=== PATIENT | female | born 1955 | race Caucasian/White ===

== ENCOUNTER → 2018-07-01 09:35 | Outpatient (CLI) | payer OTHER, SELFPAY ==
--- NOTE | 2018-07-01 09:37 | BI_ITS ---
MAMMOGRAPHY - BILATERAL SCREENING REASON FOR EXAM: Female, 62 years old. Routine annual screening examination. PERTINENT HISTORY: Non-contributory. Remote right excisional breast biopsy. TECHNIQUE: Digital bilateral breast shira (3D mammographic acquisition) in the CC and MLO projections. 2-D mediolateral oblique (MLO) and craniocaudad (CC) views of both breasts were obtained. CAD: Full Field Digital Mammography with Computer Added Detection was performed. COMPARISON: Comparison is made with prior study dated December 01, 2016 and November 27, 2015. FINDINGS: Breast Composition: The breasts are heterogeneously dense, which may obscure small masses. There are no dominant masses or suspicious calcifications. Stable small bilateral axillary lymph nodes. No other significant abnormalities are identified. There has been no significant change since the prior study. BI/SCREENING MAMM (CAD), BILAT IMPRESSION: Stable bilateral screening mammogram. Yearly follow-up mammogram recommended. (A) ASSESSMENT CATEGORY: BIRADS Category 2: Benign. A letter regarding these results will be sent to the patient by the facility within 30 days. Approximately 10% of breast cancers are not detected by mammography. A normal mammogram should not delay biopsy of a clinically suspicious abnormality. [id number] Electronically Signed: Darrell Rios MD at 9:33 EST Tel [phone], Service support ,
== END ==
PROVIDERS: Family Provider Internal Medicine; PCP Internal Medicine; Visit Provider Internal Medicine
DX: Z12.31 Encounter for screening mammogram for malignant neoplasm of breast (principal)
CPT/HCPCS: 77063; 77067

== ENCOUNTER → 2018-07-26 08:22 | Outpatient (CLI) | payer OTHER, SELFPAY ==
[2018-07-26 09:26] LABS: Absolute Lymphocyte Count 1.44 X10^3/ul (0.83-4.51); Absolute Neutrophil Count 1.7 X10^3/uL (2.0-7.7); Basophil# 0.01 X10^3/uL; Basophil% 0.3 % (0-1); Eosinophil# 0.06 X10^3/uL; Eosinophils% 1.7 % (0-5); Hematocrit 41.7 % (37-47); Hemoglobin 14.1 g/dl (12.0-15.0); Lymphocyte # 1.44 X10^3/ul (4.0); Lymphocyte % 40.6 % (19-41); Mean Corp Hgb Conc 33.8 g/gl (32-36); Mean Corpuscular Hgb 31.8 pg (27.0-32.0); Mean Corpuscular Volume 93.9 fL (81-99); Mean Platelet Vol. 10.3 fl (6.2-12.0); Monocyte# 0.34 X10^3/uL; Monocyte% 9.6 % (0-10); Neutrophil % 47.8 % (47-70); Platelet Count 199 K/mm3 (150-450); RBC Distribution Width CV 12.2 % (11.6-14.6); RBC Distribution Width SD 41.4 fl (35.1-43.9); Red Blood Count 4.44 M/mm3 (4.2-5.4); White Blood Count 3.6 K/mm3 (4.4-11.0)
[2018-07-26 09:28] LABS: POSITIVE COUNT NO; POSITIVE DIFFERENTIAL NO; POSITIVE MORPHOLOGY NO
[2018-07-26 10:09] LABS: ALB/GLOB Ratio 1.1 RATIO (0.9-2.4); AST(SGOT) 21 U/L (15-37); Alanine Aminotransfer ALT/SGPT 28 U/L (13-56); Alkaline Phosphatase 74 U/L (45-117); Anion Gap 8 (5-15); BUN 12 mg/dL (7-18); BUN/Creat Ratio 20.2 RATIO (10-20); Calcium,Total 8.9 mg/dL (8.5-10.1); Chloride 108 mmol/L (98-107); Cholesterol 194 mg/dL (200); Creatinine, Serum 0.59 mg/dL (0.55-1.02); EST Glomerular Filtration Rate 110 mL/min (>60); Est Glom Filt Rate - Afr Amer 133 mL/min (>60); Globulin 3.5 g/dL (2.2-4.2); Glucose 82 mg/dL (74-106); High Density Lipoprotein 71 mg/dL; Potassium 4.3 mmol/L (3.5-5.1); Protein, Total 7.5 g/dL (6.4-8.2); Sodium Level 143 mmol/L (136-145); Thyroid Stim Hormone (TSH) 2.14 uIU/mL (0.358-3.74); Triglycerides 124 mg/dL; Very Low Density Lipoprotein 25 mg/dL (5-40)
[2018-07-26 11:07] LABS: Color, Urine Yellow (Yellow); Glucose, Dipstick Normal (Normal); Ketone-Dipstick Negative (Negative); Leukocyte Esterase-Dipstick 100 /ul (Negative); Nitrite-Dipstick Negative (Negative); Occult Blood-Urine Negative /ul (Negative); Protein-Dipstick Negative (Negative); Urine Bilirubin Dipstick Negative (Negative); Urine Clarity Sl. Cloudy (Clear); Urine Urobilinogen 1 mg/dl (Normal)
[2018-07-26 11:27] LABS: Microalbumin,Random Urine 17.7 mg/L (NO RANGE EST.); Microalbumin:Creatinine Ratio 10.2 mg/g CRE (<30 mg/g CRE)
--- OUTSIDE RECORDS SUMMARY | 2018-09-11 06:21 | XMS RPT_ITS | Continuity of Care Document ---
:1955 Author Organization [facility] Address [facility] 2 [place] [address] Phone Care Team Providers Name Role Phone Chanda Ferguson DO Unavailable Hernandez Xiong Unavailable Unavailable Celia Edwards Unavailable Unavailable Lillian Hurt Unavailable Unavailable Trinh Balderas Unavailable Unavailable Unavailable Unavailable Problems Name Dates Details Annual physical exam (Z00.00, V70.0) Status: Active Benign essential hypertension (I10, 401.1) Status: Active BMI 27.0-27.9,adult (Z68.27, V85.23) Status: Active BMI 27.0-27.9,adult (Z68.27, V85.23) Comments: 27.42 Status: Active BMI 27.0-27.9,adult (Z68.27, V85.23) Status: Active Colonoscopy Comments: 06-18-09 Status: Active Common cold virus (J00, 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 Current nonsmoker (Z78.9, V49.89) Status: Active Encounter for screening mammogram for breast cancer (Renamed from Encounter for screening mammogram for malignant neoplasm of breast) (Z12.31, V76.12) Status: Active Family history of Guillain-[place] syndrome (Z82.0, V17.2) Comments: virus in general Status: Active FIBROADENOMA, NOS Status: Active Gastroesophageal reflux disease without esophagitis (K21.9, 530.81) Status: Active Headache (R51, 784.0) Status: Active Influenza vaccination declined (Renamed from Refused influenza vaccine) (Z28.21, V64.06) Status: Active Need for prophylactic vaccination and inoculation against influenza (Z23, V04.81) Status: Active Nonsmoker (Z78.9, V49.89) Status: Active Osteopenia (M85.80, 733.90) Status: Active Other hyperlipidemia (E78.49, 272.4) Status: Active Other migraine without status migrainosus, intractable (G43.819, 346.81) Comments: chronic stable-continue present regimen Status: Active Postmenopausal (Renamed from Postmenopausal status) (Z78.0, V49.81) Status: Active Pregnancies () Comments: 1 son Status: Active screening Status: Active Screening for malignant neoplasm of breast (Z12.39, V76.10) Status: Active Screening for malignant neoplasm of breast (Z12.39, V76.10) Status: Active Sinus pain (J34.89, 478.19) Status: Active Sinusitis, bacterial (J32.9, 473.9) Status: Active Sore throat (J02.9, 462) Status: Active Synovial cyst (M71.30, 727.40) Comments: monitor for pain or change Status: Active Vitamin D deficiency, unspecified (E55.9, 268.9) Status: Active Medications Name Dates Details ADVIL, 200MG (Oral Tablet) PRN for 0 days Refills: 0 Ordered:23-Apr-2009 Choco Og CALCIUM, 500MG (Oral Tablet) 1 tab qd (500 MG) Active OSTEO BI-FLEX ADV JOINT SHIELD (Oral Tablet) 2 tabs qd Active Simvastatin 10 MG Oral Tablet 1 (one) Tablet q hs for 90 days Quantity: 90 {Tablet} Refills: 2 Ordered:16-Jul-2017 Rohan Ferguson DO, DO, Kathleen Start : 16-Jul-2017 Active Tart Vazquez Advanced Oral Capsule daily Active VITAMIN D3, 2000UNIT (Oral Capsule) 1 cap qd (2000 UNIT) Active VITAMIN E, 400UNIT (Oral Capsule) 1 cap qd (400 UNIT) Active Amoxicillin-Pot Clavulanate 875-125 MG Oral Tablet 1 (one) Tablet PO BID for 14 days Quantity: 28 {Tablet} Refills: 0 Ordered:09-Nov-2017 Trinh Balderas Start : 09-Nov-2017 End : 23-Nov-2017 Inactive Comments:Take with food Delsym 30 MG/5ML Oral Suspension Extended Release 1 (one) Suspension ER q12h for 0 days Quantity: 1 {Bottle} Refills: 0 Ordered:26-Aug-2016 Celia Edwards Start : 10-Jun-2016 End : 26-Aug-2016 Inactive ZITHROMAX Z-KAYLA, 250MG (Oral Tablet) 1 Tablet TAD for 0 days Quantity: 1 {Package(s)} Refills: 0 Ordered:18-Jul-2008 Garrett GUTIERREZDaisy Start : 18-Jul-2008 End : 09-Oct-2008 Inactive ACTONEL, 35MG (Oral Tablet) 1 Tablet q week for 0 days Quantity: 4 {Tablet} Refills: 3 Ordered:22-Oct-2009 Garrett GUTIERREZDaisy Start : 22-Oct-2009 End : 22-Oct-2009 Discontinued BONIVA, 150MG (Oral Tablet) 1 (one) Tablet q month for 90 days Quantity: 3 {Tablet} Refills: 3 Ordered:25-Nov-2010 Garrett GUTIERREZDaisy Start : 25-Nov-2010 End : 25-Nov-2010 Discontinued DIOVAN, 40MG (Oral Tablet) 1 (one) Tablet daily for 0 days Quantity: 30 {Tablet} Refills: 3 Ordered:21-Aug-2008 Garrett GUTIERREZDaisy Start : 21-Aug-2008 End : 21-Aug-2008 Discontinued FLAXSEED OIL, 1000MG (Oral Capsule) 1 cap qd (1000 MG) End : 04-Dec-2015 Discontinued MULTIVITAMIN (PO Tab) 1 tab qd End : 04-Dec-2015 Discontinued Allergies and Adverse Reactions Name Dates Details No Known Allergies (Allergy) Onset: 26-Aug-2016 Status: Active No Known Drug Allergies (Allergy) Status: Active Past Medical History Name Dates Details abnormal rib xray Status: Resolved as of 23-Apr-2009 Acute sinusitis, unspecified (J01.90, 461.9) Status: Resolved as of 23-Apr-2009 BMI 26.0-26.9,adult (Z68.26, V85.22) Status: Inactive as of 21-Apr-2017 Elevated blood-pressure reading without diagnosis of hypertension (R03.0, 796.2) Status: Inactive as of 23-Apr-2009 EPICONDYLITIS, NOS (726.32) Status: Resolved as of 25-May-2011 Headache (R51, 784.0) Comments: left eye Status: Resolved as of 23-Apr-2009 Knee Pain (Renamed from Gonalgia) (M25.569, 719.46) Comments: doing better Status: Inactive as of 21-Apr-2017 screening Status: Inactive as of 20-May-2010 Screening for HPV (human papillomavirus) (Z11.51, V73.81) Status: Inactive as of 04-Dec-2015 Tonsil stone (J35.8, 474.8) Status: Inactive as of 21-Apr-2017 vit d deficiency Status: Inactive as of 23-Apr-2009 Well woman exam with routine gynecological exam (Z01.419, V72.31) Status: Inactive as of 04-Apr-2013 Procedures Date Value Details 14-Apr-2017 Dexa Bone Density Study (HP) Result: Comments: See Note; NOTES: [facility] Imaging Services [address] [place] [address] Dexa Bone Density Study (HP) MR#: [id number] Acct: [id number] Name: ANTALI QUINONES Rep #: [id number] : 1955 F 61 From: Darrell Rios MD PCP: Chanda Ferguson DO Status: REG CLI Study: Dexa Bone Density Study (HP) Date of Exam: 04/14/17 Exam# [id number] Ordering Dr: Estrada Ferguson DO STUDY: DUAL ENERGY X-RAY ABSORPTIOMETRY / DXA REASON FOR EXAM: Female, 61 years old. The patient is postmenopausal. TECHNIQUE: Bone Mineral Density (BMD) measurements of lumbar spine and bila teral hips were obtained. COMPARISON: Comparison is made with prior study dated April 03, 2015. FINDINGS: Lumbar Spine (L1-L4): g/cm2 (1.023) / T-score (-1.3) / Z -score (-0.1) Findings are suggestive of osteopenia with a moderate fracture risk. Increased thoracic kyphosis. Left Femur Total: g/cm2 (0.881) / T-score (-1.0) / Z-score (-0.1) Left Femoral Neck: g/cm 2 (0.856) / T-score (-1.3) / Z-score (-0.1) Right Femur Total: g/cm2 (0.921) / T-score (-0.7) / Z-score (0.2) Right Femoral Neck: g/cm2 (0.928) / T-score (- 0.8) / Z-score (0.4) The T-Scores on the most recent prior examination were: Lumbar Spine (L1-L4): There has been worsening of bone density since the previous examination. Left Femur Total: which represents a worsening of 4.8%. Right Femur Total : which represents a worsening of 0.1%. HPBD/Dexa Bone Density Study (HP) IMPRESSION: The patient is considered osteopenic as outlined below acco rding to World Chad Organization (WHO) criteria with a moderate fracture risk. There has been worsening of bone density since the previous examination. Reference I nformation: The T-score is the number of standard deviations above or below the standard which is normal for young adults at their peak bone mineral density. The World Health Organization (WHO) interpre ts the T-scores as follows: Above -1 Normal bone density Between -1 and -2.5 Osteopenia Equal to / or below -2.5 Osteoporosis As a practical clinical guideline, osteopenia may be graded as follows: Mi ld -1 through -1.5 Moderate -1.6 through -2.0 Severe -2.1 through -2.4 The Z- score is the number of standard deviations above or below age-matched controls. A Z-score of less than -1.5 would be conside red abnormal. References: 1. NIH Osteoporosis and Related Bone Diseases http://www.osteo.org 2. International Society for Clinical Densitometry http://www.iscd.org 3. National Osteoporosis Foundation h ttp://www.nof.org Electronically Signed: Darrell Rios MD at 8:54 EDT Tel [phone], Service support , CC: Chanda Ferguson DO Vendor Analyst: Signed 01-Dec-2016 SCREENING MAMM (CAD), BILAT Result: Comments: See Note; NOTES: [facility] Imaging Services [address] [place] [address] Verdana 4d SCREENING MAMM (CAD), BILAT MR#: [id number] Acct: [id number] Name: JL QUINONES Rep #: [id number] : 1955 F 61 From: Darrell Rios MD PCP: Chanda Ferguson DO Status: REG CLI Study: SCREENING MAMM (CAD), BILAT Date of Exam: 12/01/16 Exam# [id number] Ordering Dr: Chanda Mclaughlin DO MAMMOGRAPHY - BILATERAL SCREENING REASON FOR EXAM: Female, 61 years old. Routine annual screening examination. PERTINENT HISTORY: Remote right excisional breast biopsy. TECHNIQUE: D igital bilateral breast shira (3D mammographic acquisition) in the CC and MLO projections. 2-D mediolateral oblique (MLO) and craniocaudad (CC) views of both breasts were obtained. CAD: Full Field Digita l Mammography with Computer Added Detection was performed. COMPARISON: Comparison is made with prior study dated November 27, 2015 and November 20, 2014. FINDINGS: Breast Composition: The breasts are heterogeneously dense, which may obscure small masses. There are no dominant masses or suspicious calcifications. No other significant abnormalities are identified. HPBI/SCREENING MAMM (CAD), BILAT IMPRESSION: Stable bilateral screening mammogram. Yearly follow-up mammogram recommended. (A) ASSESSMENT CATEGORY: BIRADS Category 1: Negative. A letter regarding these results will be sent to the patient by the facility within 30 days. Approximately 10% of breast cancers are not detected by mammography. A normal mammogram should not delay biopsy of a clinically suspicious abnormality. [id number] Electronically Signed: Darrell Rios MD at 9:58 EDT Tel [phone], Service support , CC: Chanda Ferguson DO Vendor Analyst: Signed 04-Dec-2015 EKG ([id number]) Comments: ekg showed normal sinus rhythym, normal axis, no acute st/t wave changes Result: [MEASUREMENTS ANALYSIS] Date of Test: 12/04/2015 08:48:08; Heart Rate: 71; KS Interval: 186; QRS: 90; QT Interval: 398; Corrected QT Interval (QTc): 417; P Wave [place]: 37; QRS Wave [place]: -4; T Wave [place]: -1; Blood Pressure: 142/88 [ECG DIAGNOSTIC STATEMENTS] Date of Test: 12/04/2015 08:48:08; Summary: Sinus Rhythm WITHIN NORMAL LIMITS 27-Nov-2015 Bilat Scrn Digital AND CAD Result: Comments: See Note; NOTES: [facility] Imaging Services [address] [place] [address] Verdana 4d Bilat Scrn Digital AND CAD MR#: [id number] Acct: [id number] Name: NATALI QUINONES Rep #: [id number] : 1955 F 60 From: Darrell Rios MD PCP: Daisy Tucker DO Status: REG CLI Study: Bilat Scrn Digital AND CAD Date of Exam: 11/27/15 Exam# [id number] Viry escalante Dr: Daisy Tucker DO MAMMOGRAPHY - BILATERAL SCREENING REASON FOR EXAM: Female, 60 years old. Routine annual screening examination. PERTINENT HISTORY: Non-contributory. TECHNIQUE: Digital robinson ateral breast tomosynthesis (3-D mammographic acquisition) in the CC and MLO projections. Synthesized 2-D images (C-View reconstruction from tomosynthesis acquisition) providing bilateral breast CC a nd MLO views. Mediolateral oblique (MLO) and craniocaudad (CC) views of both breasts were obtained. CAD: Full Field Digital Mammography with Computer Added Detection was performed. COMPARISON: Rafiq ying is made with prior study dated November 20, 2014 and June 13, 2013. FINDINGS: Breast Composition: The breasts are heterogeneously dense, which may obscure small masses. There are no dominant masses or suspicious calcifications. No other significant abnormalities are identified. There has been no significant change since the prior study. IMPRESSION: Stable bilateral screening mammogram. Yearly follow-up mammogram recommended. (A) ASSESSMENT CATEGORY: BIRADS Category 1: Negative. A letter regarding these results will be sent to the patient by the facility within 30 days. Approximately 10% of breast cancers are not detected by mammography. A normal mammogram should not delay biopsy of a clinically suspicious abnormality. [id number] Electronically Signed: Darrell Rios MD at 10:15 EDT Tel [phone], Service support [phone], Fax CC: Daisy Tucker DO Vendor Analyst: Signed 03-Apr-2015 Dexa Bone Density Study (HP) Result: Comments: See Note; NOTES: [facility] Imaging Services [address] [place] [address] Bone Density Report MR#: [id number] Acct: [id number] Name: COLLETTENATALI Matias Rep #: [id number] : 1955 F 59 From: Darrell Rios MD PCP: Daisy Tucker DO Status: [facility] CLI Study: Dexa Bone Density Study (HP) Date of Exam: 04/03/15 Exam# [id number] Ordering Dr: Daisy Tucker DO STUDY: DUAL ENERGY X-RAY ABSORPTIOMETRY / DXA REASON FOR EXAM: Female, 59 years old. The patient is postmenopausal. TECHNIQUE: Bone Mineral Density (BMD) measurements of lumbar spine and bilater al hips were obtained. COMPARISON: Comparison is made with prior examination dated February 28, 2013. FINDINGS: Lumbar Spine (L1-L4): g/cm2 (1.028) / T-score (-1. 3) / Z-score (-0.3) Findings are suggestive of osteopenia with a low fracture risk. Left Femur Total: g/cm2 (0.925) / T-score (-0.7) / Z-score (0.1) Left Femoral Neck: g/cm2 (0.886) / T-score (-1.1) / Z-score (0.0) Right Femur Total: g/cm2 (0.922) / T-score (-0.7) / Z-score (0.1) Right Femoral Neck: g/cm2 (0.938) / T-score (-0.7) / Z-score (0.4) The T-Scores on the most recent prior examinatio n were: Lumbar Spine (L1-L4): There has been worsening of bone density since the previous examination. Left Femur Total: which represents a worsening of 0.5%. Right Femur Total: which represents a worsening of 1.3%. IMPRESSION: The patient is considered osteopenic as outlined below according to World Chad Organization (WHO) criteria with a low fracture r isk. There has been worsening of bone density since the previous examination. Reference Information: The T-score is the number of standard deviations above or b elow the standard which is normal for young adults at their peak bone mineral density. The World Health Organization (WHO) interprets the T-scores as follows: Above -1 Normal bone density Between -1 and -2.5 Osteopenia Equal to / or below -2.5 Osteoporosis As a practical clinical guideline, osteopenia may be graded as follows: Mild -1 through -1.5 Moderate -1.6 through -2.0 Severe -2.1 thr ough -2.4 The Z-score is the number of standard deviations above or below age- matched controls. A Z-score of less than -1.5 would be considered abnormal. References: 1. NIH Osteoporosis and Relate d Bone Diseases http://www.osteo.org 2. International Society for Clinical Densitometry http://www.iscd.org 3. National Osteoporosis Foundation http://www.nof.org Electronically Signed: Darrell pickering MD at 11:25 EDT Tel [phone], Service support [phone], CC: Daisy Tucker DO Vendor Analyst: Signed 20-Nov-2014 Bilat Scrn Digital AND CAD Result: Comments: See Note; NOTES: [facility] Imaging Services [address] [place] [address] Breast Imaging Report MR#: [id number] Acct: [id number] Name: NATALI QUINONES Rep #: [id number] : 1955 F 59 From: Vasquez Sandra DO PCP: Daisy Tucker DO Status: REG CLI Study: Bilat Scrn Digital AND CAD Date of Exam: 11/20/14 Exam# [id number] Ordering Dr: Daisy Tucker DO MAMMO GRAPHY - BILATERAL SCREENING REASON FOR EXAM: Female, 59 years old. Routine annual screening examination. PERTINENT HISTORY: Personal history of benign right excisional biopsy. TECHNIQUE: Digital examination. Mediolateral oblique (MLO) and craniocaudad (CC) views of both breasts were obtained. CAD: CAD was performed on this study. COMPARISON: June 13, 2013. FINDINGS: Breast Composition: The breasts are heterogeneously dense, which may obscure small masses. There are no dominant masses or suspicious calcifications. Bilateral stable calcificati ons are noted. No other significant abnormalities are identified. IMPRESSION: Stable bilateral screening mammogram. Yearly follow-up recommended. (A) ASSESSMENT CATEGORY: BIRADS Category 2: Benign. A letter regarding these results will be sent to the patient by the facility within 30 days. Approximately 10% of breast cancers are not detected by mammography. A normal mammogram should not delay biopsy of a clinically suspicious abnormality. Electronically Signed: Vasquez Sandra DO at 10:09 EDT Tel [phone], Service support [phone], CC: Daisy Tucker DO Vendor Analyst: Signed 03-Jul-2014 Knee 4 or More Views Result: Comments: See Note; NOTES: [facility] Imaging Services [address] [place] [address] Radiology Report MR#: [id number] Acct: [id number] Name: NATALI QUINONES Rep #: [id number] : 1955 F 58 From: Dallas Tyler MD PCP: Daisy Tucker DO Status: REG CLI Study: Knee 4 or More Views Date of Exam: 07/03/14 Exam# [id number] Ordering Dr: Daisy Tucker DO STUDY: X-RAY - LEFT KNEE REASON FOR EXAM: Female, 58 years old. Pain. No injury TECHNIQUE: 4 view(s) of the knee. COMPARISON: None. FINDINGS: Normal visualized distal fe mur. Normal visualized proximal tibia and fibula. Normal proximal tibiofibular articulation. Normal medial femorotibial compartment. Normal lateral femorotibial compartment. Normal patellofemoral ar ticulation. The soft tissue structures are unremarkable. IMPRESSION: Normal x-ray examination of the knee. Electronically Signed: Dallas Tyler MD, FACR at 20:51 EST , Service support [phone], CC: Daisy Tucker DO Vendor Analyst: Signed 13-Jun-2013 Bilat Scrn Digital & CAD Result: Comments: See Note; NOTES: [facility] Imaging Services [address] [place] [address] Breast Imaging Report MR#: [id number] Acct: [id number] Name: NATALI QUINONES Rep #: [id number] : 1955 F 57 From: Darrell Rios MD PCP: Daisy Tucker DO Status: REG CLI Exam# [id number] Ordering Dr: Daisy Tucker DO MAMMOGRAPHY - BILATERAL SCREENING REASON FOR EXAM: Fe male, 57 years old. Routine annual screening examination. PERTINENT HISTORY: Non-contributory. TECHNIQUE: Digital examination. Mediolateral oblique (MLO) and craniocaudad (CC) views of both breast s were obtained. CAD: CAD was performed on this study. COMPARISON: Comparison is made with prior examination dated May 25, 2012 and January 27, 2011. FINDINGS : The breast composition is heterogeneously dense - ranging from 51% to 75% of the breast tissue. There are no dominant masses or suspicious calcifications. No other significant abnormalities are identified. There has been no significant change since the prior study. IMPRESSION: Stable bilateral screening mammogram. Yearly follow-up recommended. (A) ____ ASSESSMENT CATEGORY: BIRADS Category 2: Benign finding(s). A letter regarding these results will be sent to the patient by the facility within 30 days. Approximatel y 10% of breast cancers are not detected by mammography. A normal mammogram should not delay biopsy of a clinically suspicious abnormality. Signed: Darrell Rios M.D. June 13, 2013 at 12: 56:32 PM EDT [phone] Electronically Signed GP/GP If you are the referring physician and would like to consult with the radiologist who provided this interpretation, please contact Darrell Rios M.D. at [phone]. If this radiologist is unavailable, you will be directed to another radiologist to assist. If you are a patient with a question regarding this report, please contact your referring physician directly. Professional Interpretation Provided By: [employer], Phone , These documents contain legally protected and confidential health in formation intended only for the use of the individual or entity named above. If you are not the intended recipient, you are hereby notified that any disclosure, copying, distribution, or other use of these documents is strictly prohibited. If you have received this information in error, please notify the sender immediately and arrange for the return or destruction of these documents. 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 Status: Active Smoking Status Name Dates Details Never smoker Vital Signs Date Test Result Details [id number]:17 Temperature 97.2 f Pulse 97 /min Comments: Pattern: Regular Respiration Rate 16 /min Comments: Pattern: Unlabored O2 SAT 96 % Comments: Room air BP Systolic 140 mm[Hg] Comments: Patient Position: Sitting; Cuff Location: Left Arm; Cuff Size: Standard BP Diastolic 86 mm[Hg] Comments: Patient Position: Sitting; Cuff Location: Left Arm; Cuff Size: Standard Weight 159.125 lb Height 63.25 in Body Mass Index Calculated 27.97 kg/m2 Body Surface Area Calculated 1.76 m2 :04 Pulse 100 /min Comments: Pattern: Regular Respiration Rate 16 /min Comments: Pattern: Unlabored O2 SAT 98 % Comments: Room air BP Systolic 140 mm[Hg] Comments: Patient Position: Sitting; Cuff Location: Left Arm; Cuff Size: Standard BP Diastolic 78 mm[Hg] Comments: Patient Position: Sitting; Cuff Location: Left Arm; Cuff Size: Standard Weight 159.125 lb Height 63.25 in Body Mass Index Calculated 27.97 kg/m2 Body Surface Area Calculated 1.76 m2 :37 Pulse 71 /min Comments: Pattern: Regular Respiration Rate 18 /min Comments: Pattern: Unlabored O2 SAT 95 % Comments: Room air BP Systolic 128 mm[Hg] Comments: Patient Position: Sitting; Cuff Location: Left Arm; Cuff Size: Standard BP Diastolic 80 mm[Hg] Comments: Patient Position: Sitting; Cuff Location: Left Arm; Cuff Size: Standard Weight 157.125 lb Height 63.25 in Body Mass Index Calculated 27.61 kg/m2 Body Surface Area Calculated 1.75 m2 :01 Pulse 76 /min Comments: Pattern: Regular Respiration Rate 16 /min Comments: Pattern: Unlabored BP Systolic 124 mm[Hg] Comments: Patient Position: Sitting; Cuff Location: Left Arm; Cuff Size: Standard BP Diastolic 80 mm[Hg] Comments: Patient Position: Sitting; Cuff Location: Left Arm; Cuff Size: Standard Weight 156 lb Height 63.25 in Body Mass Index Calculated 27.42 kg/m2 Body Surface Area Calculated 1.75 m2 :15 Pulse 90 /min Comments: Pattern: Regular Respiration Rate 16 /min Comments: Pattern: Unlabored O2 SAT 98 % Comments: Room air BP Systolic 150 mm[Hg] Comments: Patient Position: Sitting; Cuff Location: Left Arm; Cuff Size: Standard BP Diastolic 80 mm[Hg] Comments: Patient Position: Sitting; Cuff Location: Left Arm; Cuff Size: Standard Weight 153 lb Height 63.25 in Body Mass Index Calculated 26.89 kg/m2 Body Surface Area Calculated 1.73 m2 :13 Temperature 97.8 f Pulse 86 /min Comments: Pattern: Regular Respiration Rate 16 /min Comments: Pattern: Unlabored O2 SAT 97 % Comments: Room air BP Systolic 122 mm[Hg] Comments: Patient Position: Sitting; Cuff Location: Left Arm; Cuff Size: Standard BP Diastolic 80 mm[Hg] Comments: Patient Position: Sitting; Cuff Location: Left Arm; Cuff Size: Standard Weight 154 lb Height 63.25 in Body Mass Index Calculated 27.06 kg/m2 Body Surface Area Calculated 1.74 m2 :11 Temperature 97.4 f Comments: Method: Temporal Pulse 92 /min Comments: Pattern: Regular Respiration Rate 15 /min Comments: Pattern: Unlabored O2 SAT 98 % Comments: Room air BP Systolic 142 mm[Hg] Comments: Patient Position: Sitting; Cuff Location: Left Arm; Cuff Size: Standard BP Diastolic 88 mm[Hg] Comments: Patient Position: Sitting; Cuff Location: Left Arm; Cuff Size: Standard Weight 154 lb Height 63.25 in Body Mass Index Calculated 27.06 kg/m2 Body Surface Area Calculated 1.74 m2 :44 Temperature 98.4 f Comments: Method: Temporal Pulse 60 /min Comments: Pattern: Regular Respiration Rate 16 /min Comments: Pattern: Unlabored O2 SAT 97 % Comments: Room air BP Systolic 124 mm[Hg] Comments: Patient Position: Sitting; Cuff Location: Left Arm; Cuff Size: Standard BP Diastolic 88 mm[Hg] Comments: Patient Position: Sitting; Cuff Location: Left Arm; Cuff Size: Standard Weight 157 lb Height 63.25 in Body Mass Index Calculated 27.59 kg/m2 Body Surface Area Calculated 1.75 m2 :14 Temperature 95.6 f Pulse 82 /min Comments: Pattern: Regular Respiration Rate 16 /min Comments: Pattern: Unlabored BP Systolic 132 mm[Hg] Comments: Patient Position: Sitting; Cuff Location: Left Arm; Cuff Size: Large BP Diastolic 80 mm[Hg] Comments: Patient Position: Sitting; Cuff Location: Left Arm; Cuff Size: Large Weight 155 lb Height 63.25 in Body Mass Index Calculated 27.24 kg/m2 Body Surface Area Calculated 1.74 m2 :52 Temperature 97.3 f Comments: Method: Oral Pulse 95 /min Comments: Pattern: Regular Respiration Rate 18 /min Comments: Pattern: Unlabored O2 SAT 95 % Comments: Room air BP Systolic 122 mm[Hg] Comments: Patient Position: Sitting; Cuff Location: Left Arm; Cuff Size: Standard BP Diastolic 72 mm[Hg] Comments: Patient Position: Sitting; Cuff Location: Left Arm; Cuff Size: Standard Weight 152 lb Height 63.25 in Body Mass Index Calculated 26.71 kg/m2 Body Surface Area Calculated 1.73 m2 :18 Temperature 98 f Pulse 88 /min Comments: Pattern: Regular Respiration Rate 16 /min Comments: Pattern: Unlabored BP Systolic 136 mm[Hg] Comments: Patient Position: Sitting; Cuff Location: Left Arm; Cuff Size: Large BP Diastolic 80 mm[Hg] Comments: Patient Position: Sitting; Cuff Location: Left Arm; Cuff Size: Large Weight 150 lb Height 63.25 in Body Mass Index Calculated 26.36 kg/m2 Body Surface Area Calculated 1.72 m2 :37 Temperature 97.3 f Pulse 84 /min Comments: Pattern: Regular Respiration Rate 16 /min Comments: Pattern: Unlabored BP Systolic 132 mm[Hg] Comments: Patient Position: Sitting; Cuff Location: Left Arm; Cuff Size: Large BP Diastolic 80 mm[Hg] Comments: Patient Position: Sitting; Cuff Location: Left Arm; Cuff Size: Large Weight 148 lb Height 63.25 in Body Mass Index Calculated 26.01 kg/m2 Body Surface Area Calculated 1.71 m2 :01 Temperature 97.1 f Pulse 78 /min Comments: Pattern: Regular Respiration Rate 16 /min Comments: Pattern: Unlabored BP Systolic 122 mm[Hg] Comments: Patient Position: Sitting; Cuff Location: Left Arm; Cuff Size: Standard BP Diastolic 70 mm[Hg] Comments: Patient Position: Sitting; Cuff Location: Left Arm; Cuff Size: Standard Weight 149 lb Height 63.25 in Body Mass Index Calculated 26.19 kg/m2 Body Surface Area Calculated 1.71 m2 :09 Temperature 96.7 f Pulse 80 /min Comments: Pattern: Regular Respiration Rate 18 /min Comments: Pattern: Unlabored BP Systolic 146 mm[Hg] Comments: Patient Position: Sitting; Cuff Location: Left Arm; Cuff Size: Large BP Diastolic 84 mm[Hg] Comments: Patient Position: Sitting; Cuff Location: Left Arm; Cuff Size: Large Weight 150 lb Height 63.25 in Body Mass Index Calculated 26.36 kg/m2 Body Surface Area Calculated 1.72 m2 :18 Temperature 96.8 f Pulse 92 /min Comments: Pattern: Regular Respiration Rate 16 /min Comments: Pattern: Unlabored BP Systolic 142 mm[Hg] Comments: Patient Position: Sitting; Cuff Location: Left Arm; Cuff Size: Large BP Diastolic 90 mm[Hg] Comments: Patient Position: Sitting; Cuff Location: Left Arm; Cuff Size: Large Weight 153 lb Height 63.25 in Body Mass Index Calculated 26.89 kg/m2 Body Surface Area Calculated 1.73 m2 [id number]:40 Temperature 97.7 f Pulse 92 /min Comments: Pattern: Regular Respiration Rate 16 /min Comments: Pattern: Unlabored BP Systolic 136 mm[Hg] Comments: Patient Position: Sitting; Cuff Location: Left Arm; Cuff Size: Large BP Diastolic 82 mm[Hg] Comments: Patient Position: Sitting; Cuff Location: Left Arm; Cuff Size: Large Weight 155 lb Height 63.75 in Body Mass Index Calculated 26.81 kg/m2 Body Surface Area Calculated 1.75 m2 :30 Temperature 97.7 f Pulse 80 /min Comments: Pattern: Regular Respiration Rate 18 /min Comments: Pattern: Unlabored BP Systolic 114 mm[Hg] Comments: Patient Position: Sitting; Cuff Location: Left Arm; Cuff Size: Large BP Diastolic 80 mm[Hg] Comments: Patient Position: Sitting; Cuff Location: Left Arm; Cuff Size: Large Weight 157 lb :23 Temperature 96.6 f Pulse 76 /min Comments: Pattern: Regular Respiration Rate 16 /min Comments: Pattern: Unlabored BP Systolic 138 mm[Hg] Comments: Patient Position: Sitting; Cuff Location: Left Arm; Cuff Size: Large BP Diastolic 86 mm[Hg] Comments: Patient Position: Sitting; Cuff Location: Left Arm; Cuff Size: Large Weight 148 lb :19 Temperature 97.4 f Comments: Method: Undefined Pulse 84 /min Comments: Pattern: Regular Respiration Rate 16 /min Comments: Pattern: Undefined BP Systolic 130 mm[Hg] Comments: Patient Position: Sitting; Cuff Location: Left Arm; Cuff Size: Large BP Diastolic 92 mm[Hg] Comments: Patient Position: Sitting; Cuff Location: Left Arm; Cuff Size: Large Weight 150 lb Height 0 in Head Circumference 0.00 cm :53 Temperature 97.7 f Comments: Method: Undefined Pulse 84 /min Comments: Pattern: Regular Respiration Rate 18 /min Comments: Pattern: Undefined BP Systolic 134 mm[Hg] Comments: Patient Position: Sitting; Cuff Location: Right Arm; Cuff Size: Standard BP Diastolic 80 mm[Hg] Comments: Patient Position: Sitting; Cuff Location: Right Arm; Cuff Size: Standard Weight 152 lb Height 64 in Body Mass Index Calculated 26.09 kg/m2 Body Surface Area Calculated 1.74 m2 Head Circumference 0.00 cm :01 Temperature 97.6 f Comments: Method: Undefined Pulse 104 /min Comments: Pattern: Regular Respiration Rate 16 /min Comments: Pattern: Undefined BP Systolic 148 mm[Hg] Comments: Patient Position: Sitting; Cuff Location: Left Arm; Cuff Size: Large BP Diastolic 82 mm[Hg] Comments: Patient Position: Sitting; Cuff Location: Left Arm; Cuff Size: Large Weight 154 lb Height 0 in Head Circumference 0.00 cm :18 Temperature 98.5 f Comments: Method: Oral Pulse 92 /min Comments: Pattern: Regular Respiration Rate 16 /min Comments: Pattern: Unlabored BP Systolic 140 mm[Hg] Comments: Patient Position: Sitting; Cuff Location: Left Arm; Cuff Size: Standard BP Diastolic 88 mm[Hg] Comments: Patient Position: Sitting; Cuff Location: Left Arm; Cuff Size: Standard Weight 157 lb Height 0 in Head Circumference 0.00 cm :53 Temperature 96.7 f Comments: Method: Undefined Pulse 76 /min Comments: Pattern: Regular Respiration Rate 16 /min Comments: Pattern: Undefined BP Systolic 140 mm[Hg] Comments: Patient Position: Sitting; Cuff Location: Right Arm; Cuff Size: Large BP Diastolic 90 mm[Hg] Comments: Patient Position: Sitting; Cuff Location: Right Arm; Cuff Size: Large Weight 0 lb Height 0 in Head Circumference 0.00 cm :34 BP Systolic 160 mm[Hg] Comments: Patient Position: Supine; Cuff Location: Right Arm; Cuff Size: Standard BP Diastolic 110 mm[Hg] Comments: Patient Position: Supine; Cuff Location: Right Arm; Cuff Size: Standard Weight 0 lb Height 0 in Head Circumference 0.00 cm :06 Temperature 97 f Comments: Method: Oral Pulse 86 /min Comments: Pattern: Regular Respiration Rate 18 /min Comments: Pattern: Unlabored O2 SAT 95 % Comments: Room air BP Systolic 160 mm[Hg] Comments: Patient Position: Sitting; Cuff Location: Left Arm; Cuff Size: Standard BP Diastolic 96 mm[Hg] Comments: Patient Position: Sitting; Cuff Location: Left Arm; Cuff Size: Standard Weight 159 lb Height 63.75 in Body Mass Index Calculated 27.51 kg/m2 Body Surface Area Calculated 1.77 m2 Head Circumference 0.00 cm :08 Temperature 97.3 f Comments: Method: Oral Pulse 100 /min Comments: Pattern: Regular Respiration Rate 16 /min Comments: Pattern: Unlabored BP Systolic 134 mm[Hg] Comments: Patient Position: Sitting; Cuff Location: Left Arm; Cuff Size: Standard BP Diastolic 72 mm[Hg] Comments: Patient Position: Sitting; Cuff Location: Left Arm; Cuff Size: Standard Weight 159 lb Height 63.75 in Body Mass Index Calculated 27.51 kg/m2 Body Surface Area Calculated 1.77 m2 Head Circumference 0.00 cm Results Date Description Value Details [id number]:04 Microscopic Examination Comments: PATIENT WAS FASTINGPERFORMED BY: FINA Usentricandrae GillespieAjqown8248Classical ConnectionUNC [facility] [id number] Bacteria None seen (Normal) Mucus Threads Present (Normal) Epithelial Cells (non renal) 0-10 {/hpf} (Normal) Range: 0 - 10 RBC 0-2 {/hpf} (Normal) Range: 0 - 2 WBC 0-5 {/hpf} (Normal) Range: 0 - 5 76-Swz-979087:33 HEPATIC FUNCTION PANEL Comments: PATIENT NOT FASTINGPERFORMED BY: FINA FlybitsUNC Health [facility] [id number] ([id number]) ALT (SGPT) 15 [iU]/L (Normal) Range: 0-32 AST (SGOT) 17 [iU]/L (Normal) Range: 0-40 Alkaline Phosphatase, S 66 [iU]/L (Normal) Range: 39-117 Bilirubin, Direct 0.22 mg/dL (Normal) Range: 0.00-0.40 Bilirubin, Total 1.0 mg/dL (Normal) Range: 0.0-1.2 Albumin, Serum 4.3 g/dL (Normal) Range: 3.5-5.5 Protein, Total, Serum 6.8 g/dL (Normal) Range: 6.0-8.5 01-Egv-694923:04 CALCIFIDIOL (83738) VIT D 25 Comments: PATIENT WAS FASTINGPERFORMED BY: FINA [facility] Roca AddvocateUNC Health [facility] [id number] Vitamin D, 25-Hydroxy 58.6 ng/mL (Normal) Range: 30.0-100.0 Comments: Vitamin D deficiency has been defined by the [place] and an Endocrine Society practice guideline as alevel of serum 25-OH vitamin D less than 20 ng/mL (1,2).The Endocrine Society went on to further define vitamin Dinsufficiency as a level between 21 and 29 ng/mL (2).1. IOM ([place] [employer]). 2010. Dietary reference intakes for calcium and D. [place]: The National AcademVerinvest [employer] Press.2. Mony MF, Jonas HUBBARD, Yao LAMB, et al. Evaluation, treatment, and prevention of vitamin D deficiency: an Endocrine Society clinical practice guideline. JCEM. 2010; 96(7):1911-30. :04 TSH (45346) Comments: PATIENT WAS FASTINGPERFORMED BY: [employer] [place] [id number] TSH 2.310 {uIU/mL} (Normal) Range: 0.450-4.500 36-Ays-966279:04 URINALYSIS, W/ MICRO (56178) Comments: PATIENT WAS FASTINGPERFORMED BY: [employer] [place] [id number] Microscopic Examination See below: (Normal) Comments: Microscopic was indicated and was performed. Microscopic Examination MICRON (Normal) Comments: Microscopic follows if indicated. Nitrite, Urine Negative (Normal) Urobilinogen,Semi-Qn 0.2 mg/dL (Normal) Range: 0.2-1.0 Bilirubin Negative (Normal) Occult Blood Negative (Normal) Ketones Negative (Normal) Glucose Negative (Normal) Protein Negative (Normal) WBC Esterase Negative (Normal) Appearance Clear (Normal) Urine-Color Yellow (Normal) pH 5.0 (Normal) Range: 5.0-7.5 Specific [place] 1.022 (Normal) Range: 1.005-1.030 14-Ghp-976407:04 MICROALBUMIN: CREATININE RATIO Comments: PATIENT WAS FASTINGPERFORMED BY: [employer] [place] [id number] ([id number]) AND (60848) Microalb/Creat Ratio 5.0 {mg/g_creat} (Normal) Range: 0.0-30.0 Microalbumin, Urine 7.6 ug/mL (Normal) Creatinine, Urine 150.9 mg/dL (Normal) 80-Wcl-[id number]:04 METABOLIC PANEL, COMPREHENSIVE Comments: PATIENT WAS FASTINGPERFORMED BY: LabCoQuality SystemsUzinqp4676 [facility] [id number] ([id number]) ALT (SGPT) 19 [iU]/L (Normal) Range: 0-32 AST (SGOT) 18 [iU]/L (Normal) Range: 0-40 Alkaline Phosphatase, S 68 [iU]/L (Normal) Range: 39-117 Bilirubin, Total 0.9 mg/dL (Normal) Range: 0.0-1.2 A/G Ratio 1.9 (Normal) Range: 1.2-2.2 Globulin, Total 2.4 g/dL (Normal) Range: 1.5-4.5 Albumin, Serum 4.5 g/dL (Normal) Range: 3.6-4.8 Protein, Total, Serum 6.9 g/dL (Normal) Range: 6.0-8.5 Calcium, Serum 9.4 mg/dL (Normal) Range: 8.7-10.3 Carbon Dioxide, Total 24 mmol/L (Normal) Range: 18-29 Chloride, Serum 104 mmol/L (Normal) Range: 96-106 Potassium, Serum 4.3 mmol/L (Normal) Range: 3.5-5.2 Sodium, Serum 142 mmol/L (Normal) Range: 134-144 BUN/Creatinine Ratio 21 (Normal) Range: 12-28 eGFR If Africn Am 113 mL/min/1.73 (Normal) eGFR If NonAfricn Am 98 mL/min/1.73 (Normal) Creatinine, Serum 0.63 mg/dL (Normal) Range: 0.57-1.00 BUN 13 mg/dL (Normal) Range: 8-27 Glucose, Serum 86 mg/dL (Normal) Range: 65-99 17-Hlk-493976:04 CBC W/AUTO DIFF WBC (95407) Comments: PATIENT WAS FASTINGPERFORMED BY: LabCoQuality SystemsPvapuk8764 [facility] [id number] Immature Grans (Abs) 0.0 {x10E3/uL} (Normal) Range: 0.0-0.1 Immature Granulocytes 0 % (Normal) Baso (Absolute) 0.0 {x10E3/uL} (Normal) Range: 0.0-0.2 Eos (Absolute) 0.1 {x10E3/uL} (Normal) Range: 0.0-0.4 Monocytes(Absolute) 0.4 {x10E3/uL} (Normal) Range: 0.1-0.9 Lymphs (Absolute) 1.5 {x10E3/uL} (Normal) Range: 0.7-3.1 Neutrophils (Absolute) 1.9 {x10E3/uL} (Normal) Range: 1.4-7.0 Basos 0 % (Normal) Eos 2 % (Normal) Monocytes 10 % (Normal) Lymphs 39 % (Normal) Neutrophils 49 % (Normal) Platelets 210 {x10E3/uL} (Normal) Range: 150-379 RDW 13.4 % (Normal) Range: 12.3-15.4 MCHC 32.9 g/dL (Normal) Range: 31.5-35.7 MCH 31.3 pg (Normal) Range: 26.6-33.0 MCV 95 fL (Normal) Range: 79-97 Hematocrit 39.8 % (Normal) Range: 34.0-46.6 Hemoglobin 13.1 g/dL (Normal) Range: 11.1-15.9 Comments: Effective July 19, 2017 the reference interval for Hemoglobin MALES only will be changing to: Males 13-15 years: 12.6 - 17.7 Males >15 years: 13.0 - 17.7 RBC 4.19 {x10E6/uL} (Normal) Range: 3.77-5.28 WBC 3.9 {x10E3/uL} (Normal) Range: 3.4-10.8 26-Kbv-128708:04 LIPID PANEL (52193) Comments: PATIENT WAS FASTINGPERFORMED BY: [facility] Hvmzdz9785 [facility] [id number] LDL/HDL Ratio 1.7 {ratio_units} (Normal) Range: 0.0-3.2 Comments: LDL/HDL Ratio Men Women 1/2 Avg.Risk 1.0 1.5 Av g.Risk 3.6 3.2 2X Avg.Risk 6.2 5.0 3X Avg.Risk 8.0 6.1 LDL Cholesterol Calc 125 mg/dL (Abnormal) Range: 0-99 VLDL Cholesterol Cassi 20 mg/dL (Normal) Range: 5-40 HDL Cholesterol 73 mg/dL (Normal) Triglycerides 98 mg/dL (Normal) Range: 0-149 Cholesterol, Total 218 mg/dL (Abnormal) Range: 100-199 28-Hbm-283587:16 Microscopic Examination Comments: PATIENT WAS FASTINGPERFORMED BY: ttwick Careerflo [facility] [id number] Bacteria Few (Normal) Mucus Threads Present (Normal) Epithelial Cells (non renal) 0-10 {/hpf} (Normal) Range: 0 - 10 RBC 0-2 {/hpf} (Normal) Range: 0 - 2 WBC 0-5 {/hpf} (Normal) Range: 0 - 5 :16 TSH (36726) Comments: PATIENT WAS FASTINGPERFORMED BY: ttwick Careerflo [facility] [id number] TSH 1.300 {uIU/mL} (Normal) Range: 0.450-4.500 28-Lbz-384893:16 URINALYSIS, W/ MICRO (43599) Comments: PATIENT WAS FASTINGPERFORMED BY: ttwick Hbxgyv8891 [facility] [id number] Microscopic Examination See below: (Normal) Comments: Microscopic was indicated and was performed. Microscopic Examination MICRON (Normal) Comments: Microscopic follows if indicated. Nitrite, Urine Negative (Normal) Urobilinogen,Semi-Qn 0.2 mg/dL (Normal) Range: 0.2-1.0 Bilirubin Negative (Normal) Occult Blood Negative (Normal) Ketones Negative (Normal) Glucose Negative (Normal) Protein Negative (Normal) WBC Esterase Negative (Normal) Appearance Clear (Normal) Urine-Color Yellow (Normal) pH 7.0 (Normal) Range: 5.0-7.5 Specific [place] 1.020 (Normal) Range: 1.005-1.030 19-Qtw-696481:16 MICROALBUMIN: CREATININE RATIO Comments: PATIENT WAS FASTINGPERFORMED BY: ttwick Pbxeqq6396 [facility] [id number] ([id number]) AND (80551) Microalb/Creat Ratio 4.2 {mg/g_creat} (Normal) Range: 0.0-30.0 Microalbumin, Urine 4.8 ug/mL (Normal) Creatinine, Urine 113.8 mg/dL (Normal) 01-Fne-435335:16 METABOLIC PANEL, COMPREHENSIVE Comments: PATIENT WAS FASTINGPERFORMED BY: [employer]6370 [facility] [id number] ([id number]) ALT (SGPT) 20 [iU]/L (Normal) Range: 0-32 AST (SGOT) 21 [iU]/L (Normal) Range: 0-40 Alkaline Phosphatase, S 69 [iU]/L (Normal) Range: 39-117 Bilirubin, Total 1.0 mg/dL (Normal) Range: 0.0-1.2 A/G Ratio 2.0 (Normal) Range: 1.1-2.5 Globulin, Total 2.3 g/dL (Normal) Range: 1.5-4.5 Albumin, Serum 4.7 g/dL (Normal) Range: 3.5-5.5 Protein, Total, Serum 7.0 g/dL (Normal) Range: 6.0-8.5 Calcium, Serum 9.8 mg/dL (Normal) Range: 8.7-10.2 Carbon Dioxide, Total 25 mmol/L (Normal) Range: 18-29 Chloride, Serum 102 mmol/L (Normal) Range: 96-106 Potassium, Serum 4.8 mmol/L (Normal) Range: 3.5-5.2 Sodium, Serum 143 mmol/L (Normal) Range: 134-144 BUN/Creatinine Ratio 18 (Normal) Range: 9-23 eGFR If Africn Am 114 mL/min/1.73 (Normal) eGFR If NonAfricn Am 99 mL/min/1.73 (Normal) Creatinine, Serum 0.62 mg/dL (Normal) Range: 0.57-1.00 BUN 11 mg/dL (Normal) Range: 6-24 Glucose, Serum 86 mg/dL (Normal) Range: 65-99 27-Mwd-706686:16 LIPID PANEL (61290) Comments: PATIENT WAS FASTINGPERFORMED BY: [employer]Path [facility] [id number] LDL/HDL Ratio 1.5 {ratio_units} (Normal) Range: 0.0-3.2 Comments: LDL/HDL Ratio Men Women 1/2 Avg.Risk 1.0 1.5 Av g.Risk 3.6 3.2 2X Avg.Risk 6.2 5.0 3X Avg.Risk 8.0 6.1 LDL Cholesterol Calc 110 mg/dL (Abnormal) Range: 0-99 VLDL Cholesterol Cassi 20 mg/dL (Normal) Range: 5-40 HDL Cholesterol 75 mg/dL (Normal) Triglycerides 100 mg/dL (Normal) Range: 0-149 Cholesterol, Total 205 mg/dL (Abnormal) Range: 100-199 30-Yxz-820601:16 CBC W/AUTO DIFF WBC (04205) Comments: PATIENT WAS FASTINGPERFORMED BY: UsentricEast Orange General HospitalVjxucb4150 [facility] [id number] Immature Grans (Abs) 0.0 {x10E3/uL} (Normal) Range: 0.0-0.1 Immature Granulocytes 0 % (Normal) Baso (Absolute) 0.0 {x10E3/uL} (Normal) Range: 0.0-0.2 Eos (Absolute) 0.1 {x10E3/uL} (Normal) Range: 0.0-0.4 Monocytes(Absolute) 0.4 {x10E3/uL} (Normal) Range: 0.1-0.9 Lymphs (Absolute) 1.5 {x10E3/uL} (Normal) Range: 0.7-3.1 Neutrophils (Absolute) 1.6 {x10E3/uL} (Normal) Range: 1.4-7.0 Basos 0 % (Normal) Eos 2 % (Normal) Monocytes 10 % (Normal) Lymphs 42 % (Normal) Neutrophils 46 % (Normal) Platelets 202 {x10E3/uL} (Normal) Range: 150-379 RDW 13.2 % (Normal) Range: 12.3-15.4 MCHC 33.3 g/dL (Normal) Range: 31.5-35.7 MCH 31.3 pg (Normal) Range: 26.6-33.0 MCV 94 fL (Normal) Range: 79-97 Hematocrit 40.9 % (Normal) Range: 34.0-46.6 Hemoglobin 13.6 g/dL (Normal) Range: 11.1-15.9 RBC 4.35 {x10E6/uL} (Normal) Range: 3.77-5.28 WBC 3.6 {x10E3/uL} (Normal) Range: 3.4-10.8 :15 Rapid Strep Test, Office (16680) Rapid Strep Test, Office Negative (Normal) :23 Microscopic Examination Comments: PATIENT WAS FASTINGPERFORMED BY: CB [facility] Uatugn6024 Roca [facility] [id number] Bacteria None seen (Normal) Mucus Threads Present (Normal) Epithelial Cells (non renal) 0-10 {/hpf} (Normal) Range: 0 - 10 RBC None seen {/hpf} (Normal) Range: 0 - 2 WBC None seen {/hpf} (Normal) Range: 0 - 5 73-Mnd-374708:11 HPV automatic Comments: Source.............Cervical;EndocervicalNo. of containers..01 CYTYC Thin Prep VialPATIENT NOT FASTINGPERFORMED BY: WB [facility] Xzfhzqzibb542 [facility] [place] [id number] BY: =Shad Griffin ([id number]) [facility] Yqcrquhlcz145 [facility], [place] [id number] Information: [id number] HPV, high-risk Negative Comments: This high-risk HPV test detects thirteen high- risk types(16/18/31/33/35/39/45/51/52/56/58/59/68) without differentiation. . (Normal) Note: PAPSMR (Normal) Comments: The Pap smear is a screening test designed to aid in the detection ofpremalignant and malignant conditions of the uterine cervix. It is not adiagnostic procedure and should not be used as the sole mean s of detectingcervical cancer. Both false-positive and false-negative reports do occur. .This liquid based ThinPrep(R) pap test w as screened with theuse of an image guided system. See Note . (Normal) DIAGNOSIS: SPRCS (Normal) Comments: NEGATIVE FOR INTRAEPITHELIAL LESION AND MALIGNANCY.Satisfactory for evaluation. No endocervical component is identified.V73.81Eden Lowe Antichecking Iron Worker (ASCP) :23 Vitamin D Hydroxy (67483) Comments: PATIENT WAS FASTINGPERFORMED BY: Usentric Mridxn5023 [facility] [id number] Vitamin D, 25-Hydroxy 59.8 ng/mL (Normal) Range: 30.0-100.0 Comments: Vitamin D deficiency has been defined by the [place] and an Endocrine Society practice guideline as alevel of serum 25-OH vitamin D less than 20 ng/mL (1,2).The Endocrine Society went on to further define vitamin Dinsufficiency as a level between 21 and 29 ng/mL (2).1. IOM ([place] [employer]). 2010. Dietary reference intakes for calcium and D. [place]: The National Academies Press.2. Mony MF, Jonas [place], Yao LAMB, et al. Evaluation, treatment, and prevention of vitamin D deficiency: an Endocrine Society clinical practice guideline. JCEM. 2010; 96(7):1911-30. :23 URINALYSIS, W/ MICRO (30113) Comments: PATIENT WAS FASTINGPERFORMED BY: [employer]6370 [facility] [id number] Microscopic Examination See below: (Normal) Comments: Microscopic was indicated and was performed. Microscopic Examination MICRON (Normal) Comments: Microscopic follows if indicated. Nitrite, Urine Negative (Normal) Urobilinogen,Semi-Qn 0.2 mg/dL (Normal) Range: 0.2-1.0 Bilirubin Negative (Normal) Occult Blood Negative (Normal) Ketones Negative (Normal) Glucose Negative (Normal) Protein Negative (Normal) WBC Esterase Negative (Normal) Appearance Clear (Normal) Urine-Color Yellow (Normal) pH 6.5 (Normal) Range: 5.0-7.5 Specific [place] 1.011 (Normal) Range: 1.005-1.030 :23 LIPID PANEL (85019) Comments: PATIENT WAS FASTINGPERFORMED BY: Usentric Ksrytl4886 [facility] [id number] LDL/HDL Ratio 1.2 {ratio_units} (Normal) Range: 0.0-3.2 Comments: LDL/HDL Ratio Men Women 1/2 Avg.Risk 1.0 1.5 Av g.Risk 3.6 3.2 2X Avg.Risk 6.2 5.0 3X Avg.Risk 8.0 6.1 LDL Cholesterol Calc 92 mg/dL (Normal) Range: 0-99 VLDL Cholesterol Cassi 26 mg/dL (Normal) Range: 5-40 HDL Cholesterol 75 mg/dL (Normal) Comments: According to ATP-III Guidelines, HDL-C >59 mg/dL is considered anegative risk factor for CHD. Triglycerides 128 mg/dL (Normal) Range: 0-149 Cholesterol, Total 193 mg/dL (Normal) Range: 100-199 90-Nle-83122:23 CBC W/AUTO DIFF WBC Comments: PATIENT WAS FASTINGPERFORMED BY: LabCoEast Orange General HospitalHfburj4197 [facility] [id number] Information: [id number] (58701) Immature Grans (Abs) 0.0 {x10E3/uL} (Normal) Range: 0.0-0.1 Immature Granulocytes 0 % (Normal) Baso (Absolute) 0.0 {x10E3/uL} (Normal) Range: 0.0-0.2 Eos (Absolute) 0.1 {x10E3/uL} (Normal) Range: 0.0-0.4 Monocytes(Absolute) 0.4 {x10E3/uL} (Normal) Range: 0.1-0.9 Lymphs (Absolute) 1.7 {x10E3/uL} (Normal) Range: 0.7-3.1 Neutrophils (Absolute) 2.1 {x10E3/uL} (Normal) Range: 1.4-7.0 Basos 0 % (Normal) Eos 1 % (Normal) Monocytes 9 % (Normal) Lymphs 40 % (Normal) Neutrophils 50 % (Normal) Platelets 209 {x10E3/uL} (Normal) Range: 150-379 RDW 12.8 % (Normal) Range: 12.3-15.4 MCHC 33.3 g/dL (Normal) Range: 31.5-35.7 MCH 31.3 pg (Normal) Range: 26.6-33.0 MCV 94 fL (Normal) Range: 79-97 Hematocrit 40.9 % (Normal) Range: 34.0-46.6 Hemoglobin 13.6 g/dL (Normal) Range: 11.1-15.9 RBC 4.35 {x10E6/uL} (Normal) Range: 3.77-5.28 WBC 4.2 {x10E3/uL} (Normal) Range: 3.4-10.8 :23 METABOLIC PANEL, COMPREHENSIVE Comments: PATIENT WAS FASTINGPERFORMED BY: LabCoEast Orange General HospitalSyufvl9046 [facility] [id number] ([id number]) ALT (SGPT) 22 [iU]/L (Normal) Range: 0-32 AST (SGOT) 24 [iU]/L (Normal) Range: 0-40 Alkaline Phosphatase, S 68 [iU]/L (Normal) Range: 39-117 Bilirubin, Total 1.0 mg/dL (Normal) Range: 0.0-1.2 A/G Ratio 1.9 (Normal) Range: 1.1-2.5 Globulin, Total 2.4 g/dL (Normal) Range: 1.5-4.5 Albumin, Serum 4.6 g/dL (Normal) Range: 3.5-5.5 Protein, Total, Serum 7.0 g/dL (Normal) Range: 6.0-8.5 Calcium, Serum 9.4 mg/dL (Normal) Range: 8.7-10.2 Carbon Dioxide, Total 23 mmol/L (Normal) Range: 18-29 Chloride, Serum 102 mmol/L (Normal) Range: 97-108 Potassium, Serum 4.3 mmol/L (Normal) Range: 3.5-5.2 Sodium, Serum 142 mmol/L (Normal) Range: 134-144 BUN/Creatinine Ratio 19 (Normal) Range: 9-23 eGFR If Africn Am 114 mL/min/1.73 (Normal) eGFR If NonAfricn Am 99 mL/min/1.73 (Normal) Creatinine, Serum 0.63 mg/dL (Normal) Range: 0.57-1.00 BUN 12 mg/dL (Normal) Range: 6-24 Glucose, Serum 85 mg/dL (Normal) Range: 65-99 :37 CBC With Differential/Platelet Comments: PATIENT WAS FASTINGPERFORMED BY: [facility]CoEast [facility] HospitalOgjteh7055 [facility] [id number] Information: [id number] Immature Grans (Abs) 0.0 {x10E3/uL} (Normal) Range: 0.0-0.1 Immature Granulocytes 0 % (Normal) Baso (Absolute) 0.0 {x10E3/uL} (Normal) Range: 0.0-0.2 Eos (Absolute) 0.1 {x10E3/uL} (Normal) Range: 0.0-0.4 Monocytes(Absolute) 0.3 {x10E3/uL} (Normal) Range: 0.1-0.9 Lymphs (Absolute) 1.4 {x10E3/uL} (Normal) Range: 0.7-3.1 Neutrophils (Absolute) 1.7 {x10E3/uL} (Normal) Range: 1.4-7.0 Basos 0 % (Normal) Eos 2 % (Normal) Monocytes 10 % (Normal) Lymphs 40 % (Normal) Neutrophils 48 % (Normal) Platelets 217 {x10E3/uL} (Normal) Range: 150-379 RDW 13.1 % (Normal) Range: 12.3-15.4 MCHC 32.3 g/dL (Normal) Range: 31.5-35.7 MCH 30.3 pg (Normal) Range: 26.6-33.0 MCV 94 fL (Normal) Range: 79-97 Hematocrit 40.5 % (Normal) Range: 34.0-46.6 Hemoglobin 13.1 g/dL (Normal) Range: 11.1-15.9 RBC 4.33 {x10E6/uL} (Normal) Range: 3.77-5.28 WBC 3.5 {x10E3/uL} (Normal) Range: 3.4-10.8 :37 Comp. Metabolic Panel (14) Comments: PATIENT WAS FASTINGPERFORMED BY: [facility]6370 [facility] [id number] ALT (SGPT) 21 [iU]/L (Normal) Range: 0-32 AST (SGOT) 20 [iU]/L (Normal) Range: 0-40 Alkaline Phosphatase, S 68 [iU]/L (Normal) Range: 39-117 Bilirubin, Total 1.4 mg/dL (Abnormal) Range: 0.0-1.2 A/G Ratio 2.0 (Normal) Range: 1.1-2.5 Globulin, Total 2.2 g/dL (Normal) Range: 1.5-4.5 Albumin, Serum 4.5 g/dL (Normal) Range: 3.5-5.5 Protein, Total, Serum 6.7 g/dL (Normal) Range: 6.0-8.5 Calcium, Serum 9.3 mg/dL (Normal) Range: 8.7-10.2 Carbon Dioxide, Total 24 mmol/L (Normal) Range: 18-29 Chloride, Serum 103 mmol/L (Normal) Range: 97-108 Potassium, Serum 4.1 mmol/L (Normal) Range: 3.5-5.2 Sodium, Serum 143 mmol/L (Normal) Range: 134-144 BUN/Creatinine Ratio 21 (Normal) Range: 9-23 eGFR If Africn Am 113 mL/min/1.73 (Normal) eGFR If NonAfricn Am 98 mL/min/1.73 (Normal) Creatinine, Serum 0.67 mg/dL (Normal) Range: 0.57-1.00 BUN 14 mg/dL (Normal) Range: 6-24 Glucose, Serum 86 mg/dL (Normal) Range: 65-99 11-Itc-48586:37 Lipid Panel With LDL/HDL Comments: PATIENT WAS FASTINGPERFORMED BY: [facility]CoEast [facility] HospitalDjyanu8877 [facility] [id number] Ratio LDL/HDL Ratio 1.3 {ratio_units} Range: 0.0-3.2 (Normal) Comments: LDL/HDL Ratio Men Women 1/2 Avg.Risk 1.0 1.5 Av g.Risk 3.6 3.2 2X Avg.Risk 6.2 5.0 3X Avg.Risk 8.0 6.1 LDL Cholesterol Calc 102 mg/dL (Abnormal) Range: 0-99 VLDL Cholesterol Cassi 18 mg/dL (Normal) Range: 5-40 HDL Cholesterol 77 mg/dL (Normal) Comments: According to ATP-III Guidelines, HDL-C >59 mg/dL is considered anegative risk factor for CHD. Triglycerides 91 mg/dL (Normal) Range: 0-149 Cholesterol, Total 197 mg/dL (Normal) Range: 100-199 28-Dec-2014 Vitamin D, 25-Hydroxy 50.5 ng/mL (Normal) Comments: PATIENT WAS FASTINGPERFORMED BY: FINA [facility] Iuftrf6533 [facility] [place] [id number] 7:37 Range: 30.0-100.0 Comments: Vitamin D deficiency has been defined by the [place] of[place] and an Endocrine Society practice guideline as alevel of serum 25-OH vitamin D less than 20 ng/mL (1,2).The Endocrine Society went on to further define vitamin Dinsufficiency as a level between 21 and 29 ng/mL (2).1. IOM ([place] of [place]). 2010. Dietary reference intakes for calcium and D. [place]: The National AcademVerinvest Corporation Press.2. Jonas King, Yao LAMB, et al. Evaluation, treatment, and prevention of vitamin D deficiency: an Endocrine Society clinical practice guideline. JCEM. 2010; 96(7):1911-30. :11 Vitamin D Hydroxy (98664) Comments: PATIENT WAS FASTINGPERFORMED BY: [facility] Mgjqzy4375 [facility] [place] [id number] Vitamin D, 25-Hydroxy 37.5 ng/mL (Normal) Range: 30.0-100.0 Comments: Vitamin D deficiency has been defined by the [place] of[place] and an Endocrine Society practice guideline as alevel of serum 25-OH vitamin D less than 20 ng/mL (1,2).The Endocrine Society went on to further define vitamin Dinsufficiency as a level between 21 and 29 ng/mL (2).1. IOM ([place]). 2010. Dietary reference intakes for calcium and D. [place]: The National Academies Press.2. Jonas King, Yao LAMB, et al. Evaluation, treatment, and prevention of vitamin D deficiency: an Endocrine Society clinical practice guideline. JCEM. 2010; 96(7):1911-30. :11 METABOLIC PANEL, Comments: PATIENT WAS FASTINGPERFORMED BY: [facility] Ptwhst6606 [facility] [id number] Information: [id number] COMPREHENSIVE (57107) ALT (SGPT) 17 [iU]/L (Normal) Range: 0-32 AST (SGOT) 19 [iU]/L (Normal) Range: 0-40 Alkaline Phosphatase, S 65 [iU]/L (Normal) Range: 39-117 Bilirubin, Total 1.1 mg/dL (Normal) Range: 0.0-1.2 A/G Ratio 1.8 (Normal) Range: 1.1-2.5 Globulin, Total 2.4 g/dL (Normal) Range: 1.5-4.5 Albumin, Serum 4.4 g/dL (Normal) Range: 3.5-5.5 Protein, Total, Serum 6.8 g/dL (Normal) Range: 6.0-8.5 Calcium, Serum 9.5 mg/dL (Normal) Range: 8.7-10.2 Carbon Dioxide, Total 26 mmol/L (Normal) Range: 18-29 Chloride, Serum 101 mmol/L (Normal) Range: 97-108 Potassium, Serum 4.4 mmol/L (Normal) Range: 3.5-5.2 Sodium, Serum 142 mmol/L (Normal) Range: 134-144 BUN/Creatinine Ratio 19 (Normal) Range: 9-23 eGFR If Africn Am 115 mL/min/1.73 (Normal) eGFR If NonAfricn Am 100 mL/min/1.73 (Normal) Creatinine, Serum 0.64 mg/dL (Normal) Range: 0.57-1.00 BUN 12 mg/dL (Normal) Range: 6-24 Glucose, Serum 87 mg/dL (Normal) Range: 65-99 15-Xvs-58973:11 LIPID PANEL (94736) Comments: PATIENT WAS FASTINGPERFORMED BY: FINA [facility] Rjobnf6227 [address] [facility] [id number]; non-emergent till apt- LDL/HDL Ratio 1.5 {ratio_units} (Normal) Range: 0.0-3.2 Comments: LDL/HDL Ratio Men Women 1/2 Avg.Risk 1.0 1.5 Av g.Risk 3.6 3.2 2X Avg.Risk 6.2 5.0 3X Avg.Risk 8.0 6.1 LDL Cholesterol Calc 108 mg/dL (Abnormal) Range: 0-99 VLDL Cholesterol Cassi 21 mg/dL (Normal) Range: 5-40 HDL Cholesterol 74 mg/dL (Normal) Comments: According to ATP-III Guidelines, HDL-C >59 mg/dL is considered anegative risk factor for CHD. Triglycerides 106 mg/dL (Normal) Range: 0-149 Cholesterol, Total 203 mg/dL (Abnormal) Range: 100-199 66-Acz-530970:11 Microscopic Examination Comments: PATIENT WAS FASTINGPERFORMED BY: [facility] [id number] Bacteria Few (Normal) Mucus Threads Present (Normal) Epithelial Cells (non renal) None seen {/hpf} (Normal) Range: 0 - 10 RBC 0-3 {/hpf} (Normal) Range: 0 - 3 WBC 0-5 {/hpf} (Normal) Range: 0 - 5 :30 URINALYSIS, W/ MICRO (15131) Comments: PATIENT WAS FASTINGPERFORMED BY: FINA [facility] [id number]; pt has appt today 01/02/14 Microscopic Examination MICRON (Normal) Comments: Microscopic follows if indicated. Microscopic Examination See below: (Normal) Nitrite, Urine Negative (Normal) Urobilinogen,Semi-Qn 0.2 mg/dL (Normal) Range: 0.0-1.9 Bilirubin Negative (Normal) Occult Blood Negative (Normal) Ketones Negative (Normal) Glucose Negative (Normal) Protein Negative (Normal) WBC Esterase Negative (Normal) Appearance Clear (Normal) Urine-Color Yellow (Normal) pH 6.0 (Normal) Range: 5.0-7.5 Specific [place] 1.021 (Normal) Range: 1.005-1.030 :30 CBC WITH MANUAL DIFF Comments: PATIENT WAS FASTINGPERFORMED BY: FINA [facility] [id number] Information: [id number] (60191) Immature Grans (Abs) 0.0 {x10E3/uL} (Normal) Range: 0.0-0.1 Immature Granulocytes 0 % (Normal) Range: 0-2 Baso (Absolute) 0.0 {x10E3/uL} (Normal) Range: 0.0-0.2 Eos (Absolute) 0.0 {x10E3/uL} (Normal) Range: 0.0-0.4 Monocytes(Absolute) 0.3 {x10E3/uL} (Normal) Range: 0.1-0.9 Lymphs (Absolute) 1.4 {x10E3/uL} (Normal) Range: 0.7-3.1 Neutrophils (Absolute) 1.7 {x10E3/uL} (Normal) Range: 1.4-7.0 Basos 0 % (Normal) Range: 0-3 Eos 1 % (Normal) Range: 0-5 Monocytes 9 % (Normal) Range: 4-12 Lymphs 40 % (Normal) Range: 14-46 Neutrophils 50 % (Normal) Range: 40-74 Platelets 202 {x10E3/uL} (Normal) Range: 155-379 RDW 13.0 % (Normal) Range: 12.3-15.4 MCHC 32.6 g/dL (Normal) Range: 31.5-35.7 MCH 30.4 pg (Normal) Range: 26.6-33.0 MCV 93 fL (Normal) Range: 79-97 Hematocrit 42.3 % (Normal) Range: 34.0-46.6 Hemoglobin 13.8 g/dL (Normal) Range: 11.1-15.9 RBC 4.54 {x10E6/uL} (Normal) Range: 3.77-5.28 WBC 3.5 {x10E3/uL} (Normal) Range: 3.4-10.8 :30 LIPID PANEL (26740) Comments: PATIENT WAS FASTINGPERFORMED BY: [facility]CoEast [facility] HospitalRzbodp4046 [facility] [id number] LDL/HDL Ratio 1.2 {ratio_units} (Normal) Range: 0.0-3.2 LDL Cholesterol Calc 98 mg/dL (Normal) Range: 0-99 VLDL Cholesterol Cassi 17 mg/dL (Normal) Range: 5-40 HDL Cholesterol 79 mg/dL (Normal) Comments: According to ATP-III Guidelines, HDL-C >59 mg/dL is considered anegative risk factor for CHD. Cholesterol, Total 194 mg/dL (Normal) Range: 100-199 Triglycerides 85 mg/dL (Normal) Range: 0-149 :30 METABOLIC PANEL, COMPREHENSIVE Comments: PATIENT WAS FASTINGPERFORMED BY: FINA [facility] Sxcpcu2825 [address] [id number] (23756) ALT (SGPT) 18 [iU]/L (Normal) Range: 0-32 AST (SGOT) 19 [iU]/L (Normal) Range: 0-40 Alkaline Phosphatase, S 65 [iU]/L (Normal) Range: 39-117 Bilirubin, Total 1.1 mg/dL (Normal) Range: 0.0-1.2 A/G Ratio 2.1 (Normal) Range: 1.1-2.5 Globulin, Total 2.1 g/dL (Normal) Range: 1.5-4.5 Albumin, Serum 4.4 g/dL (Normal) Range: 3.5-5.5 Protein, Total, Serum 6.5 g/dL (Normal) Range: 6.0-8.5 Calcium, Serum 9.4 mg/dL (Normal) Range: 8.7-10.2 Carbon Dioxide, Total 24 mmol/L (Normal) Range: 19-28 Chloride, Serum 105 mmol/L (Normal) Range: 97-108 Potassium, Serum 4.5 mmol/L (Normal) Range: 3.5-5.2 Sodium, Serum 141 mmol/L (Normal) Range: 134-144 BUN/Creatinine Ratio 22 (Normal) Range: 9-23 eGFR If Africn Am 116 mL/min/1.73 (Normal) eGFR If NonAfricn Am 101 mL/min/1.73 (Normal) BUN 14 mg/dL (Normal) Range: 6-24 Creatinine, Serum 0.63 mg/dL (Normal) Range: 0.57-1.00 Glucose, Serum 84 mg/dL (Normal) Range: 65-99 :30 Vitamin D Hydroxy (23043) Comments: PATIENT WAS FASTINGPERFORMED BY: Usentric Fvddzz7094 [facility] [id number] Vitamin D, 25-Hydroxy 32.5 ng/mL (Normal) Range: 30.0-100.0 Comments: Vitamin D deficiency has been defined by the [place] and an Endocrine Society practice guideline as alevel of serum 25-OH vitamin D less than 20 ng/mL (1,2).The Endocrine Society went on to further define vitamin Dinsufficiency as a level between 21 and 29 ng/mL (2).1. IOM ([place]). 2010. Dietary reference intakes for calcium and D. [place]: The National Academies Press.2. Mony MF, Jonas HUBBARD, Yao LAMB, et al. Evaluation, treatment, and prevention of vitamin D deficiency: an Endocrine Society clinical practice guideline. JCEM. 2010; 96(7):1911-30. 78-Gqc-74114:27 METABOLIC PANEL, Comments: PATIENT WAS FASTINGPERFORMED BY: [facility]CoEast [facility] HospitalXnwqat2727 [facility] [id number] Information: [id number] COMPREHENSIVE (46440) ALT (SGPT) 19 [iU]/L (Normal) Range: 0-32 AST (SGOT) 19 [iU]/L (Normal) Range: 0-40 Alkaline Phosphatase, S 66 [iU]/L (Normal) Range: 39-117 Bilirubin, Total 1.2 mg/dL (Normal) Range: 0.0-1.2 A/G Ratio 1.8 (Normal) Range: 1.1-2.5 Globulin, Total 2.6 g/dL (Normal) Range: 1.5-4.5 Albumin, Serum 4.6 g/dL (Normal) Range: 3.5-5.5 Protein, Total, Serum 7.2 g/dL (Normal) Range: 6.0-8.5 Calcium, Serum 9.3 mg/dL (Normal) Range: 8.7-10.2 Carbon Dioxide, Total 24 mmol/L (Normal) Range: 19-28 Chloride, Serum 104 mmol/L (Normal) Range: 97-108 Potassium, Serum 4.3 mmol/L (Normal) Range: 3.5-5.2 BUN/Creatinine Ratio 16 (Normal) Range: 9-23 Sodium, Serum 142 mmol/L (Normal) Range: 134-144 eGFR If Africn Am 117 mL/min/1.73 (Normal) eGFR If NonAfricn Am 101 mL/min/1.73 (Normal) BUN 10 mg/dL (Normal) Range: 6-24 Creatinine, Serum 0.63 mg/dL (Normal) Range: 0.57-1.00 Glucose, Serum 87 mg/dL (Normal) Range: 65-99 :27 HEPATIC FUNCTION PANEL Comments: PATIENT WAS FASTINGPERFORMED BY: [facility]6370 [facility] [id number] (35839) Bilirubin, Direct 0.28 mg/dL (Normal) Range: 0.00-0.40 :27 LIPID PANEL (03903) Comments: PATIENT WAS FASTINGPERFORMED BY: [facility]6370 [facility] [id number] LDL/HDL Ratio 1.1 {ratio_units} (Normal) Range: 0.0-3.2 LDL Cholesterol Calc 82 mg/dL (Normal) Range: 0-99 HDL Cholesterol 72 mg/dL (Normal) Comments: According to ATP-III Guidelines, HDL-C >59 mg/dL is considered anegative risk factor for CHD. VLDL Cholesterol Cassi 26 mg/dL (Normal) Range: 5-40 Cholesterol, Total 180 mg/dL (Normal) Range: 100-199 Triglycerides 131 mg/dL (Normal) Range: 0-149 :00 DEXA BONE DENSITY STUDY (HP) Radiology Report See Note Comments: PROCEDURE: DUAL ENERGY X-RAY ABSORPTIOMETRY / DXA REASON FOR EXAM: Female, 57 years old. Osteopenia. TECHNIQUE: Bone Mineral Density (BMD) measurements of lumbar spine andbilateral hips were obtai (Normal) zane. COMPARISON: Comparison is made with prior examination dated September. FINDINGS: Lumbar Spine (L1-L4): g/cm2 (1.060) / T-score (-1.0) / Z-score (-0. 2)Findings are suggestive of osteopenia with a low fracture risk. Left Femur Total: g/cm2 (0.930) / T-score (-0.6) / Z-score (0.1)Left Femoral Neck: g/cm2 (0.899) / T-score (-1.0) / Z-score (0 .0)Right Femur Total: g/cm2 (0.934) / T-score (-0.6) / Z-score (0.1)Right Femoral Neck: g/cm2 (0.930) / T-score (-0.8) / Z-score (0.3) The T-Scores on the most recent prior examination were: L umbar Spine (L1-L4): There has been worsening of bone density since theprevious examination. Left Femur Total: which represents a worsening of 8.2%.Right Femur Total: which represents a worse mikayla of 7.9%. IMPRESSION:The patient is considered osteopenic as outlined below according to WorldHeath Organization (WHO) criteria with a low fracture risk. There lamb sbeenworsening of bone density since the previous examination. Reference Information:The T-score is the number of standard deviations above or below thestandard which is normal for young adults at their peak bone mineraldensity. The World Health Organization (WHO) interprets the T-scores asfollows: Above -1 Normal bone densityBetween -1 and -2.5 Osteope niaEqual to / or below -2.5 Osteoporosis As a practical clinical guideline, osteopenia may be graded as follows:Mild -1 through -1.5Moderate -1.6 through -2.0Severe -2.1 through -2.4 The Z-score is the number of standard deviations above or below age-matchedcontrols. A Z- score of less than -1.5 would be considered abnormal. References:1. NIH Osteoporosis and Related Bone Diseases http://www.osteo .org2. International Society for Clinical Densitometry http://www.iscd.org3. National Osteoporosis Foundation http://www.nof.org Signed:Darrell Rios M.D.February 28, 2013 at 10:00:00 AM [id number] Signed GP/GP If you are the referring physician and would like to consult with theradiologist who provided this interpretation, please contact Mahogany Pelaez at [phone]. If this radiologist is unavailable, youwill be directed to another radiologist to assist. If you are a patient with a question regarding this report, pleasecontactyour referring physician directly. Pro fessional Interpretation Provided By: Seevibes, Phone , These documents contain legally protected and confidential healthinformation intended only for the use of the ind ividual or entity namedabove. If you are not the intended recipient, you are hereby notifiedthatany disclosure, copying, distribution, or other use of these documents isstrictly prohibited. If you have received this information in error,pleasenotify the sender immediately and arrange for the return or destructionofthese documents. Dictated on 02/28/13 1000 by Zach Rios MDranscribed on 1126 by ITS IMPORTSign by Darrell Rios MD on 02/28/13 1127 Sign by: Darrell Rios MD 63-Xik-56616:37 Request Problem Comments: Source.............Cervical;EndocervicalNo. of containers..01 CYTYC Thin Prep VialPATIENT NOT FASTINGPERFORMED BY: [facility] Wuqfhpsuok[address] [id number] BY: =G L [facility] [address] [id number] 02-Css-28409:41 METABOLIC PANEL, Comments: PATIENT WAS FASTINGPERFORMED BY: [facility]CoEast [facility] HospitalMsvieh9803 [facility] [id number] Information: ADD [id number] AND DRAW FEE 99 6408 COMPREHENSIVE (43600) ALT (SGPT) 15 [iU]/L (Normal) Range: 0-32 AST (SGOT) 18 [iU]/L (Normal) Range: 0-40 Alkaline Phosphatase, S 72 [iU]/L (Normal) Range: 42-107 Comments: Please note reference interval change Bilirubin, Total 1.2 mg/dL (Normal) Range: 0.0-1.2 A/G Ratio 1.7 (Normal) Range: 1.1-2.5 Globulin, Total 2.6 g/dL (Normal) Range: 1.5-4.5 Albumin, Serum 4.5 g/dL (Normal) Range: 3.5-5.5 Protein, Total, Serum 7.1 g/dL (Normal) Range: 6.0-8.5 Calcium, Serum 9.5 mg/dL (Normal) Range: 8.7-10.2 Carbon Dioxide, Total 22 mmol/L (Normal) Range: 19-28 Chloride, Serum 103 mmol/L (Normal) Range: 97-108 Potassium, Serum 4.6 mmol/L (Normal) Range: 3.5-5.2 Sodium, Serum 140 mmol/L (Normal) Range: 134-144 BUN/Creatinine Ratio 15 (Normal) Range: 9-23 eGFR If Africn Am 109 mL/min/1.73 (Normal) eGFR If NonAfricn Am 95 mL/min/1.73 (Normal) Creatinine, Serum 0.72 mg/dL (Normal) Range: 0.57-1.00 BUN 11 mg/dL (Normal) Range: 6-24 Glucose, Serum 86 mg/dL (Normal) Range: 65-99 49-Iut-80435:41 Vitamin D Hydroxy (94885) Comments: PATIENT WAS FASTINGPERFORMED BY: [facility]6370 [facility] [id number] Vitamin D, 25-Hydroxy 43.2 ng/mL (Normal) Range: 30.0-100.0 Comments: Vitamin D deficiency has been defined by the [place] of[place] and an Endocrine Society practice guideline as alevel of serum 25-OH vitamin D less than 20 ng/mL (1,2).The Endocrine Society went on to further define vitamin Dinsufficiency as a level between 21 and 29 ng/mL (2).1. IOM ([place]). 2010. Dietary reference intakes for calcium and D. [place]: The National Academies Press.2. Mony MF, Jonas HUBBARD, Yao LAMB, et al. Evaluation, treatment, and prevention of vitamin D deficiency: an Endocrine Society clinical practice guideline. JCEM. 2010; 96(7):1911-30. :41 LIPID PANEL (90211) Comments: PATIENT WAS FASTINGPERFORMED BY: [facility] Pjwxdp4164 [place] [id number] LDL/HDL Ratio 2.2 {ratio_units} (Normal) Range: 0.0-3.2 LDL Cholesterol Calc 159 mg/dL (Abnormal) Range: 0-99 VLDL Cholesterol Cassi 23 mg/dL (Normal) Range: 5-40 HDL Cholesterol 72 mg/dL (Normal) Comments: According to ATP-III Guidelines, HDL-C >59 mg/dL is considered anegative risk factor for CHD. Triglycerides 115 mg/dL (Normal) Range: 0-149 Cholesterol, Total 254 mg/dL (Abnormal) Range: 100-199 :37 HPV automatic Comments: Source.............Cervical;EndocervicalNo. of containers..01 CYTYC Thin Prep VialPATIENT NOT FASTINGPERFORMED BY: [facility] [address] [place] [id number] BY: =Shad Griffin (98593) [facility] Iuzwencoum816 [facility], [place] [id number] Information: [id number] Note: PAPSMR (Normal) Comments: The Pap smear is a screening test designed to aid in the detection ofpremalignant and malignant conditions of the uterine cervix. It is not adiagnostic procedure and should not be used as the sole mean s of detectingcervical cancer. Both false-positive and false-negative reports do occur. .This liquid based ThinPrep(R) pap test w as screened with theuse of an image guided system. See Note . (Normal) DIAGNOSIS: SPRCS (Normal) Comments: NEGATIVE FOR INTRAEPITHELIAL LESION AND MALIGNANCY.THIS SPECIMEN WAS RESCREENED PART OF OUR DIRECTOR COMPENSATION PROGRAM.Satisfactory for evaluation. No endocervical component is identified.V7 3.81 ; Speci al screening examination, human papillomavirus [HPV]Eric Brock Antichecking Iron Worker (ASCP)Paris Alida, Supervisory Antichecking Iron Worker ([facility]) 86-Qqt-10033:47 BILAT SCRN DIGITAL & CAD Radiology Report See Note (Normal) Comments: MAMMOGRAPHY - BILATERAL SCREENING REASON FOR EXAM: Female, 56 years old. Routine annual screeningexamination. PERTINENT HISTORY: Non-contributory. TECHNIQUE: Digital examination. Med iolateral ob lique (MLO) andcraniocaudad (CC) views of both breasts were obtained. CAD: CAD wasperformed on this study. COMPARISON: Comparison is made with prior examinations dated January 20nd December 04, 2009. F INDINGS:The breast composition is heterogeneously dense. There are no dominant masses or suspicious calcifications. No other significant abnormalities are identified. There has been nosignificant anthony e since the prior study. IMPRESSION:Stable bilateral screening mammogram. Yearly follow-up recommended. (A) ASSESSMENT CATEGORY:BIRADS Category 2: Benign finding(s). A letter regarding these result swill be sent to the patient by the facility within 30 days. Approximately 10% of breast cancers are not detected by mammography. Anormal mammogram should not delay biopsy of a clinically suspiciousabn ormality. Signed:Darrell Rios M.D.May 25, 2012 at 8:29:12 AM [phone] Signed GP/GP If you are the referring physician and would like to consult with theradiologist who pr ovided this interpretation, please contact Mahogany Pelaez at [phone]. If this radiologist is unavailable, youwill be directed to another radiologist to assist. If you are a patient with a question regarding this report, pleasecontactyour referring physician directly. Professional Interpretation Provided By: Seevibes, Phone , These documents contain legall y protected and confidential healthinformation intended only for the use of the individual or entity namedabove. If you are not the intended recipient, you are hereby notifiedthatany disclosure, copying , distribution, or other use of these documents isstrictly prohibited. If you have received this information in error,pleasenotify the sender immediately and arrange for the return or destructionofthese documents. Dictated on 05/25/12746 by Gabriel GARCIA,GabrieleTranscribed on 05/25/12832 by ITS IMPORTSign by Gabriel GARCIA,Darrell on 05/25/12833 Sign by: Darrell Rios MD 06-Wut-22763:52 CBC WITH MANUAL DIFF Comments: PATIENT WAS FASTINGPERFORMED BY: [facility]6370 [facility] [id number] Information: [id number] (05670) Immature Grans (Abs) 0.0 {x10E3/uL} (Normal) Range: 0.0-0.1 Immature Granulocytes 0 % (Normal) Range: 0-2 Baso (Absolute) 0.0 {x10E3/uL} (Normal) Range: 0.0-0.2 Eos (Absolute) 0.1 {x10E3/uL} (Normal) Range: 0.0-0.4 Monocytes(Absolute) 0.5 {x10E3/uL} (Normal) Range: 0.1-1.0 Lymphs (Absolute) 1.4 {x10E3/uL} (Normal) Range: 0.7-4.5 Neutrophils (Absolute) 1.5 {x10E3/uL} (Abnormal) Range: 1.8-7.8 Basos 0 % (Normal) Range: 0-3 Eos 2 % (Normal) Range: 0-7 Monocytes 13 % (Normal) Range: 4-13 Lymphs 41 % (Normal) Range: 14-46 Neutrophils 44 % (Normal) Range: 40-74 Platelets 209 {x10E3/uL} (Normal) Range: 140-415 RDW 12.9 % (Normal) Range: 12.3-15.4 MCHC 33.6 g/dL (Normal) Range: 31.5-35.7 MCH 31.1 pg (Normal) Range: 26.6-33.0 MCV 93 fL (Normal) Range: 79-97 Hematocrit 39.9 % (Normal) Range: 34.0-46.6 Hemoglobin 13.4 g/dL (Normal) Range: 11.1-15.9 RBC 4.31 {x10E6/uL} (Normal) Range: 3.77-5.28 WBC 3.5 {x10E3/uL} (Abnormal) Range: 4.0-10.5 :52 METABOLIC PANEL, COMPREHENSIVE Comments: PATIENT WAS FASTINGPERFORMED BY: [facility]entricEast [facility] HospitalEdkehu0768 [facility] [id number] ([id number]) ALT (SGPT) 18 [iU]/L (Normal) Range: 0-40 AST (SGOT) 21 [iU]/L (Normal) Range: 0-40 Alkaline Phosphatase, S 65 [iU]/L (Normal) Range: 25-150 Bilirubin, Total 1.3 mg/dL (Abnormal) Range: 0.0-1.2 A/G Ratio 2.0 (Normal) Range: 1.1-2.5 Globulin, Total 2.3 g/dL (Normal) Range: 1.5-4.5 Albumin, Serum 4.5 g/dL (Normal) Range: 3.5-5.5 Protein, Total, Serum 6.8 g/dL (Normal) Range: 6.0-8.5 Calcium, Serum 9.4 mg/dL (Normal) Range: 8.7-10.2 Carbon Dioxide, Total 24 mmol/L (Normal) Range: 20-32 Chloride, Serum 103 mmol/L (Normal) Range: 97-108 Potassium, Serum 4.1 mmol/L (Normal) Range: 3.5-5.2 Sodium, Serum 141 mmol/L (Normal) Range: 134-144 BUN/Creatinine Ratio 25 (Abnormal) Range: 9-23 eGFR If Africn Am 122 mL/min/1.73 (Normal) eGFR If NonAfricn Am 105 mL/min/1.73 (Normal) Creatinine, Serum 0.57 mg/dL (Normal) Range: 0.57-1.00 BUN 14 mg/dL (Normal) Range: 6-24 Glucose, Serum 84 mg/dL (Normal) Range: 65-99 :52 HEPATIC FUNCTION PANEL Comments: PATIENT WAS FASTINGPERFORMED BY: UsentricEast [facility] General HospitalTebols4220 [facility] [id number] ([id number]) Bilirubin, Direct 0.25 mg/dL (Normal) Range: 0.00-0.40 :52 LIPID PANEL ([id number]) Comments: PATIENT WAS FASTINGPERFORMED BY: [facility] Mupcir2480 [address] Dozi[place] [place] [id number] LDL/HDL Ratio 2.0 {ratio_units} (Normal) Range: 0.0-3.2 LDL Cholesterol Calc 141 mg/dL (Abnormal) Range: 0-99 VLDL Cholesterol Csasi 21 mg/dL (Normal) Range: 5-40 HDL Cholesterol 69 mg/dL (Normal) Comments: According to ATP-III Guidelines, HDL-C >59 mg/dL is considered anegative risk factor for CHD. Triglycerides 103 mg/dL (Normal) Range: 0-149 Cholesterol, Total 231 mg/dL (Abnormal) Range: 100-199 :26 UNILAT RT DIAG DIGITAL & CAD Radiology Report See Note (Normal) Comments: MAMMOGRAPHY - UNILATERAL DIAGNOSTIC: RIGHT BREAST INDICATION:Female, 55 years old. PERTINENT HISTORY:The patient was recalled for additional views of the right breast. TECHNIQUE:Digital exa mination. A 90 degree lateral as well as rolled views of thebreast were obtained. CAD: CAD was performed on this study. COMPARISON:Comparison is made with prior study dated January 20, 2011. FINDINGS:The breast compo sition is heterogeneously dense. There are no masses or suspicious microcalcifications. The previouslyquestioned abnormality in the upper outer aspect of the right breast isnotreproduced at this time. There this most likely is secondary to superimposition of tissues. Routine annual mammographic follow-up issuggested. No other significant abnormalities are identified. IMPRESSION:Normal unilateral di agnostic mammogram. One year follow-up recommended.(1) ASSESSMENT CATEGORY:BIRADS Category 2: Benign finding(s). A letter regarding these resultswill be sent to the patient by the facility within 30 days. Approximately 10% of breast cancers are not detected by mammography. Anormal mammogram should not delay biopsy of a clinically suspiciousabnormality. Dictated on 01/27/11 0839 by Ashwin Rios MDrieleTranscribed on 01/27/11 1007 by ITS IMPORTSign by Darrell Rios MD on 01/27/11 1008 Sign by: Gabriel GARCIADarrell 4-Omk-122407:00 BILAT SCRN DIGITAL & CAD Radiology Report See Note (Normal) Comments: MAMMOGRAPHY - BILATERAL SCREENING INDICATION:Female, 55 years old. Routine annual screening examination. PERTINENT HISTORY:Non-contributory. TECHNIQUE:Digital examination. Mediolateral oblique (MLO) a nd craniocaudad (CC)views of both breasts were obtained. CAD: CAD was performed on thisstudy. COMPARISON:March 16, 2006, March 23, 2006, September 04, 2008, December 04, 2009 FINDINGS:The breast composition is heterogeneously dense.There are areas of asymmetric parenchymal density scattered in bothbreasts. There is density in the upper right breast which is notdefinitely seen previously. This is also riky ntified by the CAD as asuspicious finding. There is a corresponding asymmetric density in thecraniocaudal view. For further evaluation, right true lateral and rolledcraniocaudal projections are recomm ended.There are no masses on the left. There are scattered calcifications.There is no cluster of suspicious microcalcifications identified. The No other significant abnormalities are identified. IMPRE SSION: There is an asymmetric density in the upper outer quadrant ofthe right breast.Further mammographic evaluation recommended, as described above. (5) ASSESSMENT CATEGORY:BIRADS Category 0: Need Add itional Imaging Evaluation. A letterregardingthese results will be sent to the patient by the facility within 30 days. Approximately 10% of breast cancers are not detected by mammography. Anormal mamm ogram should not delay biopsy of a clinically suspiciousabnormality. Dictated on 01/20/11 1109 by YOUNG BARRON MDTranscribed on 01/21/11 1327 by ITS IMPORTSign by YOUNG BARRON MD on 01/21/11 1 328 Sign by: YOUNG BARRON MD 18-May-20118:52 HEPATIC FUNCTION PANEL Comments: PATIENT WAS FASTINGPERFORMED BY: [facility] Cdbdql2605 [facility] [id number] Information: [id number] ([id number]) ALT (SGPT) 35 [iU]/L (Normal) Range: 0-40 AST (SGOT) 33 [iU]/L (Normal) Range: 0-40 Alkaline Phosphatase, S 57 [iU]/L (Normal) Range: 25-150 Bilirubin, Direct 0.23 mg/dL (Normal) Range: 0.00-0.40 Bilirubin, Total 1.1 mg/dL (Normal) Range: 0.0-1.2 Albumin, Serum 4.5 g/dL (Normal) Range: 3.5-5.5 Protein, Total, Serum 6.9 g/dL (Normal) Range: 6.0-8.5 :52 LIPID PANEL ([id number]) Comments: PATIENT WAS FASTINGPERFORMED BY: [facility] Mqpbuj7883 [facility] [id number]; appt 05/25/11 LDL/HDL Ratio 2.4 {ratio_units} (Normal) Range: 0.0-3.2 LDL Cholesterol Calc 159 mg/dL (Abnormal) Range: 0-99 VLDL Cholesterol Cassi 24 mg/dL (Normal) Range: 5-40 HDL Cholesterol 67 mg/dL (Normal) Comments: According to ATP-III Guidelines, HDL-C >59 mg/dL is considered anegative risk factor for CHD. Cholesterol, Total 250 mg/dL (Abnormal) Range: 100-199 Triglycerides 121 mg/dL (Normal) Range: 0-149 :23 Thin prep Pap Comments: Source.............Cervical;EndocervicalNo. of containers..01 CYTYC Thin Prep VialPATIENT NOT FASTINGPERFORMED BY: [facility] [id number] Information: [id number] ([id number]) Note: PAPSMR (Normal) Comments: The Pap smear is a screening test designed to aid in the detection ofpremalignant and malignant conditions of the uterine cervix. It is not adiagnostic procedure and should not be used as the sole mean s of detectingcervical cancer. Both false-positive and false-negative reports do occur. .The HPV DNA reflex criteria were not met with this specimen resulttherefore, no HPV testing was performed. . See Note . (Normal) DIAGNOSIS: SPRCS (Normal) Comments: NEGATIVE FOR INTRAEPITHELIAL LESION AND MALIGNANCY.THIS SPECIMEN WAS RESCREENED PART OF OUR DIRECTOR COMPENSATION PROGRAM.Satisfactory for evaluation. No endocervical component is identified.V7 2.31 ; Routi ne gynecological examinationSiena Gee, Antichecking Iron Worker ([facility])Heidi Gamez, Supervisory Antichecking Iron Worker ([facility]) 74-Yie-13645:21 DEXA BONE DENSITY STUDY (HP) Radiology Report See Note (Normal) Comments: CLINICAL:Female, 55 years old. The patient is postmenopausal. EXAMINATION:DUAL ENERGY X-RAY ABSORPTIOMETRY / DEXA. TECHNIQUE:Bone Mineral Density (BMD) measurements of lumbar spine and bila teralhipswer e obtained using a [employer] scanner.. COMPARISON:Comparison is made with prior study dated September 04, 2008. FINDINGS: Lumbar Spine (L1- L4): g/cm2 (1.083) / T-score (-0.8) / Z-score (-0.3)Left Femur Total: g/cm2 (0.972) / T-score (-0.3) / Z-score (0.2)Right Femur Total: g/cm2 (0.984) / T-score (- 0.2) / Z-score (0.3) Since prior study, there has been an improvement of 8. 2% in the bonedensity. IMPRESSION:The patient is considered normal, as outlined above, according to WorldHealth Organization (WHO) criteria. Fracture risk is low. Reference Information:The T-score is t he number of standard deviations above or below thestandard which is normal for young adults at their peak bone mineraldensity. The World Health Organization (WHO) interprets the T-scores asfollows: Abo ve -1 Normal bone densityBetween -1 and -2.5 OsteopeniaEqual to / or below -2.5 Osteoporosis As a practical clinical guideline, osteopenia may be graded as follows:Mild -1 through -1.5Moderate -1.6 through -2.0Severe -2.1 through -2.4 The Z-score is the number of standard deviations above or below age-matchedcontrols. A Z- score of less than -1.5 would be considered abnor mal. References:1. NIH Osteoporosis and Related Bone Diseases http://www.osteo.org2. International Society for Clinical Densitometry http://www.iscd.org3. National Osteoporosis Foundation http://www. nof.org Dictated on 10/08/10 0930 by Kristin Riosscribed on 10/08/10 1010 by ITS IMPORTSign by Darrell Rios on 10/08/10 1011 Sign by: Darrell Rios :26 TSH ([id number]) Comments: PATIENT WAS FASTINGPERFORMED BY: LabCoEast Orange General HospitalKnnlfl5202 [facility] [id number] TSH 2.150 {uIU/mL} (Normal) Range: 0.450-4.500 :26 METABOLIC PANEL, Comments: PATIENT WAS FASTINGPERFORMED BY: LabCoEast Orange General HospitalHbwdjs4118 [facility] [id number] Information: [id number] COMPREHENSIVE ([id number]) ALT (SGPT) 23 [iU]/L (Normal) Range: 0-40 AST (SGOT) 20 [iU]/L (Normal) Range: 0-40 Alkaline Phosphatase, S 54 [iU]/L (Normal) Range: 25-150 Bilirubin, Total 0.9 mg/dL (Normal) Range: 0.0-1.2 A/G Ratio 1.8 (Normal) Range: 1.1-2.5 Globulin, Total 2.5 g/dL (Normal) Range: 1.5-4.5 Albumin, Serum 4.6 g/dL (Normal) Range: 3.5-5.5 Protein, Total, Serum 7.1 g/dL (Normal) Range: 6.0-8.5 Calcium, Serum 9.1 mg/dL (Normal) Range: 8.7-10.2 Carbon Dioxide, Total 26 mmol/L (Normal) Range: 20-32 Chloride, Serum 104 mmol/L (Normal) Range: 97-108 Potassium, Serum 4.2 mmol/L (Normal) Range: 3.5-5.2 BUN/Creatinine Ratio 20 (Normal) Range: 9-23 Sodium, Serum 140 mmol/L (Normal) Range: 135-145 eGFR AfricanAmerican >59 mL/min/1.73 Comments: Note: Persistent reduction for 3 months or more in an eGFR<60 mL/min/1.73 m2 defines CKD. Patients with eGFR values>/=60 mL/min/1.73 m2 may also have CKD if evidence of persistentproteinuria is (Normal) present. Additional information may be found atwww.kdoqi.org .Effective November 17, 2010, Glom Filt Rate, Estimated, will be calculated using the CK-EPI formula. eGFR >59 mL/min/1.73 (Normal) Creatinine, Serum 0.65 mg/dL (Normal) Range: 0.57-1.00 BUN 13 mg/dL (Normal) Range: 6-24 Glucose, Serum 85 mg/dL (Normal) Range: 65-99 :26 LIPID PANEL ([id number]) Comments: PATIENT WAS FASTINGPERFORMED BY: [facility]cyclesHealthSouth [facility] [id number]; appt 11/25/10 HDL Cholesterol 63 mg/dL (Normal) Comments: According to ATP-III Guidelines, HDL-C >59 mg/dL is considered anegative risk factor for CHD. LDL Cholesterol Calc 139 mg/dL (Abnormal) Range: 0-99 LDL/HDL Ratio 2.2 {ratio_units} (Normal) Range: 0.0-3.2 VLDL Cholesterol Cassi 35 mg/dL (Normal) Range: 5-40 Cholesterol, Total 237 mg/dL (Abnormal) Range: 100-199 Triglycerides 173 mg/dL (Abnormal) Range: 0-149 :26 Vitamin D Hydroxy ([id number]) Comments: PATIENT WAS FASTINGPERFORMED BY: 117goFormerly [facility] [id number] Vitamin D, 25-Hydroxy 50.2 ng/mL (Normal) Range: 32.0-100.0 Comments: Recent studies consider the lower limit of 32.0 ng/mL to be athreshold for optimal health.Mitchel SCHMITZ. J Nutr. 2004;135(2):317-22. :13 Microscopic Examination Comments: PATIENT WAS FASTINGPERFORMED BY: CBLPath [facility] [id number] Bacteria None seen (Normal) Mucus Threads Present (Normal) Epithelial Cells (non renal) >10 {/hpf} (Abnormal) Range: 0 - 10 RBC 0-3 {/hpf} (Normal) Range: 0 - 3 WBC 0-5 {/hpf} (Normal) Range: 0 - 5 :07 BILAT SCRN DIGITAL & CAD Radiology Report See Note (Normal) Comments: Exam Number: [id number] MAMMOGRAM, BILATERAL SCREENING DIGITAL AND CAD HISTORYRoutine screening. Full field digital images were obtained in mediolateral oblique andcraniocaudal projections. CAD images w ere reviewed. The current study is compared to the examinations of April 07nd September 04, 2008. There is a moderate to severe extent of fibroglandular parenchymapresent. There are scattered cassi cifications. There is no cluster ofsuspicious microcalcifications present. There is no skin thickeningor retraction, no architectural distortion and no dominant mass. Ifthere is no suspicious palpable abnormality, followup mammogram in 1year is recommended. IMPRESSIONThere is no radiographic evidence of malignancy identified. FINAL ASSESSMENTBenign findings. BIRADS Category 2. A letter regarding th marisol results has been sent to the patient. This interpretation was rendered by a radiologist certified under theMammography Quality Standards Act of 1992 (MQSA). The mammograms werealso examined with Novalysuter-aided detection software (ImageWhitevector, mo[employer] ([employer] Reported By: YOUNG BARRON M.D. :13 CBC WITH MANUAL DIFF Comments: PATIENT WAS FASTINGPERFORMED BY: [facility] Jwlvxa9687 [facility] [id number] Information: [id number] ([id number]) Baso (Absolute) 0.0 {x10E3/uL} (Normal) Range: 0.0-0.2 Eos (Absolute) 0.1 {x10E3/uL} (Normal) Range: 0.0-0.4 Immature Grans (Abs) 0.0 {x10E3/uL} (Normal) Range: 0.0-0.1 Immature Granulocytes 0 % (Normal) Range: 0-1 Basos 0 % (Normal) Range: 0-3 Eos 2 % (Normal) Range: 0-7 Lymphs (Absolute) 1.6 {x10E3/uL} (Normal) Range: 0.7-4.5 Monocytes(Absolute) 0.4 {x10E3/uL} (Normal) Range: 0.1-1.0 Neutrophils (Absolute) 1.7 {x10E3/uL} (Abnormal) Range: 1.8-7.8 Lymphs 43 % (Normal) Range: 14-46 Monocytes 11 % (Normal) Range: 4-13 Neutrophils 44 % (Normal) Range: 40-74 Platelets 211 {x10E3/uL} (Normal) Range: 140-415 RDW 12.5 % (Normal) Range: 11.7-15.0 Hematocrit 40.5 % (Normal) Range: 34.0-44.0 Hemoglobin 13.9 g/dL (Normal) Range: 11.5-15.0 MCH 32.2 pg (Normal) Range: 27.0-34.0 MCHC 34.3 g/dL (Normal) Range: 32.0-36.0 MCV 94 fL (Normal) Range: 80-98 RBC 4.32 {x10E6/uL} (Normal) Range: 3.80-5.10 WBC 3.8 {x10E3/uL} (Abnormal) Range: 4.0-10.5 :13 METABOLIC PANEL, COMPREHENSIVE Comments: PATIENT WAS FASTINGPERFORMED BY: LabCoEast [facility] General HospitalJgcdlx9459 [facility] [id number] ([id number]) ALT (SGPT) 26 [iU]/L (Normal) Range: 0-40 AST (SGOT) 25 [iU]/L (Normal) Range: 0-40 A/G Ratio 1.8 (Normal) Range: 1.1-2.5 Alkaline Phosphatase, S 51 [iU]/L (Normal) Range: 25-150 Bilirubin, Total 1.2 mg/dL (Normal) Range: 0.0-1.2 Globulin, Total 2.6 g/dL (Normal) Range: 1.5-4.5 Albumin, Serum 4.6 g/dL (Normal) Range: 3.5-5.5 BUN/Creatinine Ratio 19 (Normal) Range: 8-27 Calcium, Serum 9.3 mg/dL (Normal) Range: 8.7-10.2 Carbon Dioxide, Total 24 mmol/L (Normal) Range: 20-32 Chloride, Serum 103 mmol/L (Normal) Range: 97-108 eGFR AfricanAmerican >59 mL/min/1.73 Comments: Note: Persistent reduction for 3 months or more in an eGFR<60 mL/min/1.73 m2 defines CKD. Patients with eGFR values>/=60 mL/min/1.73 m2 may also have CKD if evidence of persistentproteinuria is (Normal) present. Additional information may be found atwww.kdoqi.org. Potassium, Serum 4.4 mmol/L (Normal) Range: 3.5-5.2 Protein, Total, Serum 7.2 g/dL (Normal) Range: 6.0-8.5 Sodium, Serum 140 mmol/L (Normal) Range: 135-145 BUN 14 mg/dL (Normal) Range: 5-26 Creatinine, Serum 0.72 mg/dL (Normal) Range: 0.57-1.00 eGFR >59 mL/min/1.73 (Normal) Glucose, Serum 83 mg/dL (Normal) Range: 65-99 :13 URINALYSIS, W/ MICRO ([id number]) Comments: PATIENT WAS FASTINGPERFORMED BY: 117goFormerly [facility] [id number] Microscopic Examination MICRON (Normal) Comments: Microscopic follows if indicated. Microscopic Examination See below: (Normal) Nitrite, Urine Negative (Normal) Appearance Clear (Normal) Bilirubin Negative (Normal) Glucose Negative (Normal) Ketones Negative (Normal) Occult Blood Negative (Normal) Protein Negative (Normal) Urobilinogen,Semi-Qn 0.2 mg/dL (Normal) Range: 0.0-1.9 WBC Esterase Negative (Normal) pH 6.5 (Normal) Range: 5.0-7.5 Specific [place] 1.025 (Normal) Range: 1.005-1.030 Urine-Color Yellow (Normal) :13 LIPID PANEL (26488) Comments: PATIENT WAS FASTINGPERFORMED BY: 117goFormerly [facility] [id number] LDL/HDL Ratio 2.3 {ratio_units} (Normal) Range: 0.0-3.2 HDL Cholesterol 61 mg/dL (Normal) Comments: According to ATP-III Guidelines, HDL-C >59 mg/dL is considered anegative risk factor for CHD. LDL Cholesterol Calc 138 mg/dL (Abnormal) Range: 0-99 Triglycerides 145 mg/dL (Normal) Range: 0-149 VLDL Cholesterol Cassi 29 mg/dL (Normal) Range: 5-40 Cholesterol, Total 228 mg/dL (Abnormal) Range: 100-199 27-Dxg-94198:13 Vitamin D Hydroxy (21331) Comments: PATIENT WAS FASTINGPERFORMED BY: [facility] [id number] Vitamin D, 25-Hydroxy 43.7 ng/mL (Normal) Range: 32.0-100.0 Comments: Recent studies consider the lower limit of 32.0 ng/mL to be athreshold for optimal health.Mitchel SCHMITZ. J Nutr. 2004;135(2):317-22. 6-Aik-[id number]:03 URINALYSIS W/O MICRO (58991) Comments: PATIENT WAS FASTINGPERFORMED BY: SOPATecUNC [facility] [id number] Bilirubin Negative (Normal) Microscopic Examination MICRON (Normal) Comments: Microscopic follows if indicated. Nitrite, Urine Negative (Normal) Occult Blood Negative (Normal) Urobilinogen,Semi-Qn 0.2 mg/dL (Normal) Range: 0.0-1.9 Appearance Clear (Normal) Glucose Negative (Normal) Ketones Negative (Normal) pH 6.5 (Normal) Range: 5.0-7.5 Protein Trace (Normal) Specific [place] 1.024 (Normal) Range: 1.005-1.030 Urine-Color Yellow (Normal) WBC Esterase Negative (Normal) 9-Bsz-272765:03 TSH ([id number]) Comments: PATIENT WAS FASTINGPERFORMED BY: [facility]70 [facility] [id number] TSH 1.570 {uIU/mL} (Normal) Range: 0.450-4.500 4-Nbi-577074:03 CBC WITH MANUAL DIFF Comments: PATIENT WAS FASTINGPERFORMED BY: 117goFormerly [facility] [id number] Information: [id number] ([id number]) Baso (Absolute) 0.0 {x10E3/uL} (Normal) Range: 0.0-0.2 Basos 0 % (Normal) Range: 0-3 Eos 1 % (Normal) Range: 0-7 Eos (Absolute) 0.0 {x10E3/uL} (Normal) Range: 0.0-0.4 Lymphs (Absolute) 1.5 {x10E3/uL} (Normal) Range: 0.7-4.5 Monocytes(Absolute) 0.3 {x10E3/uL} (Normal) Range: 0.1-1.0 Neutrophils (Absolute) 1.6 {x10E3/uL} (Abnormal) Range: 1.8-7.8 Lymphs 44 % (Normal) Range: 14-46 Monocytes 8 % (Normal) Range: 4-13 Neutrophils 47 % (Normal) Range: 40-74 Platelets 206 {x10E3/uL} (Normal) Range: 140-415 MCHC 34.7 g/dL (Normal) Range: 32.0-36.0 RDW 12.8 % (Normal) Range: 11.7-15.0 Hematocrit 39.3 % (Normal) Range: 34.0-44.0 MCH 33.0 pg (Normal) Range: 27.0-34.0 MCV 95 fL (Normal) Range: 80-98 Hemoglobin 13.6 g/dL (Normal) Range: 11.5-15.0 RBC 4.12 {x10E6/uL} (Normal) Range: 3.80-5.10 WBC 3.3 {x10E3/uL} (Abnormal) Range: 4.0-10.5 8-Roh-815625:03 HEPATIC FUNCTION PANEL Comments: PATIENT WAS FASTINGPERFORMED BY: [facility] Sbtftz3106 [facility] [id number] ([id number]) ALT (SGPT) 21 [iU]/L (Normal) Range: 0-40 Alkaline Phosphatase, S 57 [iU]/L (Normal) Range: 25-150 AST (SGOT) 22 [iU]/L (Normal) Range: 0-40 Bilirubin, Direct 0.24 mg/dL (Normal) Range: 0.00-0.40 Bilirubin, Total 1.3 mg/dL (Abnormal) Range: 0.1-1.2 Albumin, Serum 4.7 g/dL (Normal) Range: 3.5-5.5 Protein, Total, Serum 7.2 g/dL (Normal) Range: 6.0-8.5 :03 LIPID PANEL ([id number]) Comments: PATIENT WAS FASTINGPERFORMED BY: [facility] Rldtga2374 [facility] [id number] LDL Cholesterol Calc 135 mg/dL (Abnormal) Range: 0-99 LDL/HDL Ratio 2.3 {ratio_units} (Normal) Range: 0.0-3.2 VLDL Cholesterol Cassi 32 mg/dL (Normal) Range: 5-40 HDL Cholesterol 60 mg/dL (Normal) Comments: According to ATP-III Guidelines, HDL-C >59 mg/dL is considered anegative risk factor for CHD. Triglycerides 159 mg/dL (Abnormal) Range: 0-149 Cholesterol, Total 227 mg/dL (Abnormal) Range: 100-199 :03 Vitamin D Hydroxy (93890) Comments: PATIENT WAS FASTINGPERFORMED BY: [facility] Tgvjaa9807 [facility] [id number] Vitamin D, 25-Hydroxy 44.7 ng/mL (Normal) Range: 32.0-100.0 Comments: Recent studies consider the lower limit of 32.0 ng/mL to be athreshold for optimal health.Mitchel SCHMITZ. J Nutr. 2004;135(2):317-22. :17 COMP METABOLIC A/G 1.1 {RATIO} (Normal) Range: 0.9-2.4 ALB 3.9 g/dL (Normal) Range: 3.4-5.0 ALK P 71 U/L (Normal) Range: 50-136 ALT 30 U/L (Normal) Range: 30-65 AST 15 U/L (Normal) Range: 15-37 BUN 10 mg/dL (Normal) Range: 7-18 BUN/CRE 14.3 {RATIO} (Normal) Range: 10-20 CA 9.3 mg/dL (Normal) Range: 8.5-10.1 CL 106 mmol/L (Normal) Range: 98-107 CO2 29.0 mmol/L (Normal) Range: 21.0-32.0 CREAT,SERUM 0.7 mg/dL (Normal) Range: 0.6-1.0 EST GFR 94 mL/min (Normal) EST GFR - AA 114 mL/min (Normal) GAP 6 (Normal) Range: 5-15 GLOB 3.7 g/dL (Normal) Range: 2.7-4.2 GLU 87 mg/dL (Normal) Range: 70-110 K 3.8 mmol/L (Normal) Range: 3.5-5.1 NA 141 mmol/L (Normal) Range: 136-145 T BILI 1.10 mg/dL (Abnormal) Range: 0.00-1.00 T PROT 7.6 g/dL (Normal) Range: 6.4-8.2 :17 LIPID CHOL 221 mg/dL (Abnormal) Comments: <200 mg/dL Desirable 200-240 mg/dL Borderline >240 mg/dL High Risk HDL 55 mg/dL (Normal) Comments: Reference Range HDL <40 mg/dL Low HDL Cholesterol HDL >or= 60 mg/dL High HDL Cholesterol LDL 139 mg/dL (Abnormal) Range: 0-130 TRIG 135 mg/dL (Normal) Comments: Serum Triglycerides Reference Interval Normal <150 mg/dL Borderline high 150 - 199 mg/dL High 200 - 499 mg/dL Very High > or = 500 mg/dL VLDL 27 mg/dL (Normal) Range: 5-40 :17 VIT D,25 89905 53.0 ng/mL (Normal) Range: 32.0-100.0 Comments: Recent studies consider the lower limit of 32.0 ng/mL to seun threshold for optimal health.Mitchel SCHMITZ. J Nutr. 2004;135(2):317-22.Performed At: [facility] [address] [id number] :06 Hepatic Function Panel (7) Comments: PATIENT WAS FASTINGPERFORMED BY: CB [facility] Vxgirj0627 [facility] [id number] Albumin, Serum 4.8 g/dL (Normal) Range: 3.5-5.5 Alkaline Phosphatase, S 65 [iU]/L (Normal) Range: 25-150 ALT (SGPT) 30 [iU]/L (Normal) Range: 0-40 AST (SGOT) 27 [iU]/L (Normal) Range: 0-40 Bilirubin, Direct 0.22 mg/dL (Normal) Range: 0.00-0.40 Bilirubin, Total 1.0 mg/dL (Normal) Range: 0.1-1.2 :06 Lipid Panel With LDL/HDL Comments: PATIENT WAS FASTINGPERFORMED BY: ttwick Ucdkdy8504 [facility] [id number] Ratio Cholesterol, Total 239 mg/dL (Abnormal) Range: 100-199 Comment SPRCS (Normal) Comments: If initial LDL-cholesterol result is >100 mg/dL, assess forrisk factors. HDL Cholesterol 67 mg/dL (Normal) Comments: According to ATP-III Guidelines, HDL-C >59 mg/dL is considered anegative risk factor for CHD. LDL Cholesterol Calc 145 mg/dL (Abnormal) Range: 0-99 LDL/HDL Ratio 2.2 {ratio_units} Range: 0.0-3.2 (Normal) Triglycerides 133 mg/dL (Normal) Range: 0-149 VLDL Cholesterol Cassi 27 mg/dL (Normal) Range: 5-40 Phosphorus, Serum 4.0 mg/dL (Normal) Comments: PATIENT WAS FASTINGPERFORMED BY: ttwickEast Orange General HospitalLtifek8524 [facility] [id number] :06 Range: 2.5-4.5 :06 Protein Electro, Random Urine Comments: PATIENT WAS FASTINGPERFORMED BY: ttwickEast Orange General HospitalHeniwp5159 [facility] [id number] Albumin, U 38.9 % (Normal) Kaayi-6-Yecdflzd, U 2.0 % (Normal) Dirjd-1-Eaddqqmd, U 16.1 % (Normal) Beta Globulin, U 20.8 % (Normal) Gamma Globulin, U 22.2 % (Normal) M-Ritchie, % Not Observed % (Normal) Please note: SPRCS (Normal) Comments: Protein electrophoresis scan will follow via mail or wastewater plant civil engineer. Protein,Total,Urine 9.7 mg/dL (Normal) Range: 0.0-15.0 :06 Protein Electro.,S Comments: PATIENT WAS FASTINGPERFORMED BY: Usentric Lrkvcl9756 [facility] [id number] A/G Ratio 1.6 (Normal) Range: 0.7-2.0 Albumin 4.5 g/dL (Normal) Range: 3.2-5.6 Oqhky-8-Otztjvfy 0.2 g/dL (Normal) Range: 0.1-0.4 Hakgu-2-Qwzspdbb 0.7 g/dL (Normal) Range: 0.4-1.2 Beta Globulin 1.0 g/dL (Normal) Range: 0.6-1.3 Gamma Globulin 1.0 g/dL (Normal) Range: 0.5-1.6 Globulin, Total 2.9 g/dL (Normal) Range: 2.0-4.5 M-Ritchie Not Observed g/dL (Normal) Please note: SPRCS (Normal) Comments: Protein electrophoresis scan will follow via mail or wastewater plant civil engineer. Protein, Total, Serum 7.4 g/dL (Normal) Range: 6.0-8.5 : PTH, Intact 26 pg/mL (Normal) Comments: PATIENT WAS FASTINGPERFORMED BY: ttwick Oeseli7287 [facility] [id number] Range: 15-65 : Vitamin D, 25-Hydroxy 31.2 ng/mL Comments: PATIENT WAS FASTINGPERFORMED BY: ttwickEast Orange General HospitalAcofbu8647 [facility] [id number] 06 (Abnormal) Range: 32.0-100.0 Comments: Recent studies consider the lower limit of 32.0 ng/mL to be athreshold for optimal health.Mitchel SCHMITZ. J Nutr. 2004;135(2):317-22. :27 CHEST WITH CONTRAST Radiology Report See Note (Normal) Comments: Exam Number: [id number] CT OF CHEST HISTORYAbnormal rib. COMPARISONRib series films from September 04, 2008. 5-mm axial tomographic images were acquired from the apices throughthe lung bases a fter unevent ful intravenous administration of 100 ccof Optiray 300 contrast. Comparison is made against rib series ofJan2008 and CT of March 14, 2004. 3D reconstructions weremade of the rib cage. The lung s are clear. No pleural or pericardial effusions. Nomediastinal or hilar adenopathy. There is mild pectus deformitycausing compression against the right ventricle. Two-dimensionalreconstructions of the ribs demonstrate no abnormalities otherwise. Upper abdominal structures are normal except for a contractedgallbladder. IMPRESSIONPectus excavatum. Otherwise negative study. Specifically no ribab normalities identified. Reported By: NIKO COLIN M.D. [id number] [facility] Report See Note (Normal) Comments: Exam Number: [id number] MAMMOGRAM, BILATERAL SCREENING DIGITAL AND CAD HISTORYRoutine screening. Full field digital images were obtained in mediolateral oblique andcraniocaudal projections. CAD images w ere reviewed. The current study is compared to the examinations of March 2006 andMarch 2007. There is moderately dense fibroglandular parenchyma present. There isno skin thickening or retraction, arc hitectural distortion, ordominant mass. There are a large number of scattered calcificationsmore numerous on the right than the left. There is no cluster ofsuspicious microcalcifications seen. If the re is no suspiciouspalpable abnormality, followup mammogram in 1 year is recommended. IMPRESSIONThere is no radiographic evidence of malignancy identified. FINAL ASSESSMENTBenign findings. BIRADS Cat egory 2. A letter regarding these results has been sent to the patient. This interpretation was rendered by a radiologist certified under theMammography Quality Standards Act of 1992 (MQSA). The mammo grams werealso examined with computer-aided detection software ([employer], [employer] Reported By: YOUNG BARRON M.D. 87-Kgs-139407:02 DEXA BONE DENSITY STUDY (HP) Radiology Report See Note (Normal) Comments: Exam Number: [id number] BONE DENSITOMETRY HISTORYPost menopausal. TECHNIQUE Bone densitometry of the lumbar spine and left hip was performed. Thebest criteria for evaluation of osteoporosis is the T -value, whichrepresents the comparison of the patient's bone mass to an expectedpeak bone mass. For most patients, the mean T-value of L1 through L4is used to evaluate the lumbar spine. Based on the n ewest WorldHealth Organization classifications, the hip is evaluated by utilizingthe lower of the T-value of the total hip or the T-value of thefemoral neck. FINDINGSIn this patient, the mean T-value of L1 through L4 is -1.5 which is inthe range of osteopenia. Bone mineral density is measured at 12.3%less than in 2005. Digital lateral view for evaluation of vertebraldeformity only demonstrates mode rate loss of anterior height of T8 andmoderate loss of anterior height of T9. The T7 vertebral body is notadequately visualized. The T-value of the left femoral neck is -0.8 which is normal.The T-value of the total left hip is -0.5 which is normal.Bone mineral density is measured at 3.1% less than in 2005. IMPRESSIONThere is osteopenia of the lumbar spine. Bone densitometry of theleft hip is within normal limits. Reported By: YOUNG BARRON M.D. 65-Jvn-[id number]:33 RIBS,UNI,MIN 3V,W/PA CHEST([place]) Radiology Report See Note (Normal) Comments: Exam Number: [id number] LEFT RIBS, 4 VIEWS WITH PA CHEST CLINICAL STATEMENTBony protrusion upper mid ribs. PRIOR STUDIESNone. Four views of the left ribs were performed. No definite acutefra cture deform ity is identified. There are linear lucenciestransversing the posterior aspect of the left 7th and 8th ribs whichare felt to be extrinsic to the ribs and likely referrable tooverlying lung markings. A metallic B-B was placed at site ofinterest. This appears to correspond with an area of intercostalwidening of the posterior 8th and 9th intercostal space. No focalosseous rib lesion is clearly identi fied radiographically. Frontalview of the chest shows no evidence for pneumothorax. IMPRESSION1. Study does not provide etiology for bony protrusion. A B-B wasplaced at site of interest which appears to correspond with an area ofintercostal widening for which a soft tissue mass would not beexcluded. Further evaluation with chest CT would be suggested tofurther evaluate this finding.2. No definite fracture deformities are shown. There are ill-definedlucencies associated with posterior aspects of the left ribs felt екатерина artifactually induced by overlying lung markings. Reported By: HAYDEE FRANCE M.D. 22-Aug-20088:53 Thin prep Pap Comments: Source.............Cervical;EndocervicalLMP / Prev Treat...WBZ=[id number]. of containers..01 CYTYC Thin Prep VialPATIENT NOT FASTINGClinical Information: ADD [id number] ([id number]) PERFORMED BY: [facility] [id number] Note: PAPSMR (Normal) Comments: The Pap smear is a screening test designed to aid in the detection ofpremalignant and malignant conditions of the uterine cervix. It is not adiagnostic procedure and should not be used as the sole mean s of detectingcervical cancer. Both false-positive and false-negative reports do occur. .The HPV DNA reflex criteria were not met with this specimen resulttherefore, no HPV testing was performed. . . . (Normal) DIAGNOSIS: SPRCS (Normal) Comments: NEGATIVE FOR INTRAEPITHELIAL LESION AND MALIGNANCY.Satisfactory for evaluation. Endocervical and/or squamous metaplasticcells (endocervical component) are present.V72.31 ; Routine gynecolog ical examina Altagracia Lion Antichecking Iron Worker (ASCP) :26 CBC With Differential/Platelet Comments: PATIENT WAS FASTINGPERFORMED BY: [facility] Lizcsq9299 [facility] [id number] Baso (Absolute) 0.0 {x10E3/uL} (Normal) Range: 0.0-0.2 Basos 0 % (Normal) Range: 0-3 Eos 1 % (Normal) Range: 0-7 Eos (Absolute) 0.0 {x10E3/uL} (Normal) Range: 0.0-0.4 Hematocrit 40.0 % (Normal) Range: 34.0-44.0 Hemoglobin 14.1 g/dL (Normal) Range: 11.5-15.0 Lymphs 35 % (Normal) Range: 14-46 Lymphs (Absolute) 1.5 {x10E3/uL} (Normal) Range: 0.7-4.5 MCH 32.4 pg (Normal) Range: 27.0-34.0 MCHC 35.1 g/dL (Normal) Range: 32.0-36.0 MCV 92 fL (Normal) Range: 80-98 Monocytes 7 % (Normal) Range: 4-13 Monocytes(Absolute) 0.3 {x10E3/uL} (Normal) Range: 0.1-1.0 Neutrophils 57 % (Normal) Range: 40-74 Neutrophils (Absolute) 2.5 {x10E3/uL} (Normal) Range: 1.8-7.8 Platelets 228 {x10E3/uL} (Normal) Range: 140-415 RBC 4.34 {x10E6/uL} (Normal) Range: 3.80-5.10 RDW 12.1 % (Normal) Range: 11.7-15.0 WBC 4.3 {x10E3/uL} (Normal) Range: 4.0-10.5 Comments: Effective July 23, 2008, the pediatric reference intervals will be changing on all result codes that are included in CBC With Differential/Platelet(561214). 18-Jul-20089:26 Comp. Metabolic Panel (14) Comments: PATIENT WAS FASTINGPERFORMED BY: [facility] HospitalLwjsaa[facility] [id number] A/G Ratio 1.5 (Normal) Range: 1.1-2.5 Albumin, Serum 4.8 g/dL (Normal) Range: 3.5-5.5 Alkaline Phosphatase, S 80 [iU]/L (Normal) Range: 25-150 ALT (SGPT) 26 [iU]/L (Normal) Range: 0-40 AST (SGOT) 23 [iU]/L (Normal) Range: 0-40 Bilirubin, Total 0.9 mg/dL (Normal) Range: 0.1-1.2 BUN 13 mg/dL (Normal) Range: 5-26 BUN/Creatinine Ratio 19 (Normal) Range: 8-27 Calcium, Serum 10.1 mg/dL (Normal) Range: 8.5-10.6 Carbon Dioxide, Total 24 mmol/L (Normal) Range: 20-32 Chloride, Serum 103 mmol/L (Normal) Range: 97-108 Creatinine, Serum 0.70 mg/dL (Normal) Range: 0.57-1.00 Globulin, Total 3.1 g/dL (Normal) Range: 1.5-4.5 Glom Filt Rate, Est >59 mL/min/1.73 (Normal) Glucose, Serum 88 mg/dL (Normal) Range: 65-99 If -Burundian >59 mL/min/1.73 Comments: Note: Persistent reduction for 3 months or more in an eGFR<60 mL/min/1.73 m2 defines CKD. Patients with eGFR values>/=60 mL/min/1.73 m2 may also have CKD if evidence of persistentproteinur ia is (Normal) present. Additional information may be found [email or web address]. Potassium, Serum 4.4 mmol/L (Normal) Range: 3.5-5.2 Protein, Total, Serum 7.9 g/dL (Normal) Range: 6.0-8.5 Sodium, Serum 142 mmol/L (Normal) Range: 135-145 :26 Lipid Panel With LDL/HDL Comments: PATIENT WAS FASTINGPERFORMED BY: [facility] [place] [id number] Ratio Cholesterol, Total 280 mg/dL (Abnormal) Range: 100-199 Comment SPRCS (Normal) Comments: If initial LDL-cholesterol result is >100 mg/dL, assess forrisk factors. HDL Cholesterol 65 mg/dL (Normal) Comments: According to ATP-III Guidelines, HDL-C >59 mg/dL is considered anegative risk factor for CHD. LDL Cholesterol Calc 188 mg/dL (Abnormal) Range: 0-99 LDL/HDL Ratio 2.9 {ratio_units} (Normal) Range: 0.0-3.2 Triglycerides 134 mg/dL (Normal) Range: 0-149 VLDL Cholesterol Cassi 27 mg/dL (Normal) Range: 5-40 :26 Microalb/Creat Ratio, Randm Ur Comments: PATIENT WAS FASTINGPERFORMED BY: [facility] [place] [id number] Creatinine, Urine 33.7 mg/dL (Normal) Range: 15.0-278.0 Microalb/Creat Ratio 3.3 {ug/mg_creat} Range: 0.0-30.0 (Normal) Microalbum.,U,Random 1.1 ug/mL (Normal) Range: 0.0-17.0 :2 TSH 2.005 {uIU/mL} Comments: PATIENT WAS FASTINGPERFORMED BY: [facility] [id number] 6 (Normal) Range: 0.450-4.500 :26 Urinalysis, Routine Comments: PATIENT WAS FASTINGPERFORMED BY: [facility] [id number] Appearance Clear (Normal) Bilirubin Negative (Normal) Glucose Negative (Normal) Ketones Negative (Normal) Microscopic Examination MICRON (Normal) Comments: Microscopic follows if indicated. Nitrite, Urine Negative (Normal) Occult Blood Negative (Normal) pH 7.0 (Normal) Range: 5.0-7.5 Protein Negative (Normal) Specific [place] 1.009 (Normal) Range: 1.005-1.030 Urine-Color Yellow (Normal) Urobilinogen,Semi-Qn 0.2 mg/dL (Normal) Range: 0.0-1.9 WBC Esterase Negative (Normal) :54 Pap Lb, rfx HPV Comments: Source.............Cervical;EndocervicalLMP / Prev Treat...NoneDates / Results....MENOPAUSALNo. of containers..01 CYTYC Thin Prep VialPERFORMED BY: [address] [place] [id number] ASCU . . (Normal) DIAGNOSIS: SPRCS (Normal) Comments: NEGATIVE FOR INTRAEPITHELIAL LESION AND MALIGNANCY.Satisfactory for evaluation. Endocervical and/or squamous metaplasticcells (endocervical component) are present.V72.31 ; Routine gynecolog ical examina Dipesh Talavera Antichecking Iron Worker (ASCP) Note: PAPSMR (Normal) Comments: The Pap smear is a screening test designed to aid in the detection ofpremalignant and malignant conditions of the uterine cervix. It is not adiagnostic procedure and should not be used as the sole mean s of detectingcervical cancer. Both false-positive and false-negative reports do occur. .The HPV DNA reflex criteria were not met with this specimen resulttherefore, no HPV testing was performed. . :18 CBCD,SMEAR DIFF CELLS COUNTED 100 (Normal) EOS 1 % (Normal) Range: 0-5 HCT 38.3 % (Normal) Range: 37-47 HGB 13.1 g/dL (Normal) Range: 12.0-16.0 LYMPH 39 % (Normal) Range: 19-41 MCH 31.7 pg (Normal) Range: 27.0-32.0 MCHC 34.4 g/dL (Normal) Range: 32-36 MCV 92.1 fL (Normal) Range: 81-99 MONOCYTE 10 % (Normal) Range: 0-10 PLT 220 K/mm3 (Normal) Range: 150-450 PLT EST SeeNote (Normal) Comments: Result: ADEQUATE RBC 4.15 {M/mm3} (Abnormal) Range: 4.2-5.4 RDW 11.9 % (Normal) Range: 11.6-14.6 RED CELL MORPH SeeNote {NORMAL} (Normal) Comments: Result: NORM C&C SEGS 50 % (Normal) Range: 47-70 WBC 3.8 K/mm3 (Abnormal) Range: 4.4-11.0 :18 LIPID CHOL 205 mg/dL (Abnormal) Comments: <200 mg/dL Desirable 200-240 mg/dL Borderline >240 mg/dL High Risk HDL 55 mg/dL (Normal) Comments: Reference Range HDL <40 mg/dL Low HDL Cholesterol HDL >or= 60 mg/dL High HDL Cholesterol LDL 125 mg/dL (Normal) Range: 0-130 TRIG 126 mg/dL (Normal) Comments: Serum Triglycerides Reference Interval Normal <150 mg/dL Borderline high 150 - 199 mg/dL High 200 - 499 mg/dL Very High > or = 500 mg/dL VLDL 25 mg/dL (Normal) Range: 5-40 :56 BILAT SCRN DIGITAL & CAD Radiology Report See Note (Normal) Comments: Exam Number: [id number] BILATERAL SCREENING DIGITAL MAMMOGRAM CLINICAL INFORMATIONScreening. Bilateral digital mammography was performed as a screening exam. Standard CC and MLO views were o btained. Com parison is made to previous studies of November 17, 2004 and March. FINDINGSThere has been no significant change in the overall appearance of thebreasts. There is dense, heterogeneous fibroglandula r tissuebilaterally. No dominant masses are evident. There are multiplecalcifications throughout both breasts, more numerous on the rightthan the left, especially in the upper-outer quadrant. These do notappear significantly changed as compared to the last exam, allowingfor differences in technique. No areas of spiculation or distortionare found. IMPRESSION1. Stable appearance of the breasts with n o specific mammographicevidence of malignancy. Annual mammography is recommended.2. BIRADS 2 with 1-year followup. A letter regarding the results has been sent to the patient. This interpretation was rendered by a radiologist certified underthe Mammography Quality Standards Act of 1992 (MQSA). The mammogramswere also examined with computer-aided detection software([employer].). Reported By: HADYEE BOBO M.D. Plan of Care Name Dates Details Instructions Sinusitis, bacterial : Follow up if no improvement or if symptoms worsen Indication: Sinusitis, bacterial Sinusitis, bacterial : Sinusitis *: sinus infection Indication: Sinusitis, bacterial Nonsmoker : Eprescribed prescriptions (G8553) Indication: Nonsmoker Benign essential hypertension : BP MONITORING - SELF Indication: Benign essential hypertension Benign essential hypertension : Diet, Exercise, and Wt loss Indication: Benign essential hypertension Benign essential hypertension : HTN/CAD Red Flags Indication: Benign essential hypertension Other hyperlipidemia : Cholesterol mgmt Indication: Other hyperlipidemia BMI 27.0-27.9,adult : Eprescribed prescriptions (G8553) Indication: BMI 27.0-27.9,adult Osteopenia : Reviewed Diagnostic Tests Indication: Osteopenia Benign essential hypertension : Follow up in 6 months Indication: Benign essential hypertension Gastroesophageal reflux disease without esophagitis : GERD Education Indication: Gastroesophageal reflux disease without esophagitis Other hyperlipidemia : Reviewed Lab Indication: Other hyperlipidemia BMI 27.0-27.9,adult : Eprescribed prescriptions (G8553) Indication: BMI 27.0-27.9,adult Benign essential hypertension : Follow up in 4 months- ekgdue and mamm due Indication: Benign essential hypertension Benign essential hypertension : BP MONITORING - SELF Indication: Benign essential hypertension Benign essential hypertension : Diet, Exercise, and Wt loss Indication: Benign essential hypertension Benign essential hypertension : HTN/CAD Red Flags Indication: Benign essential hypertension Other hyperlipidemia : Cholesterol mgmt Indication: Other hyperlipidemia Gastroesophageal reflux disease without esophagitis : GERD Education Indication: Gastroesophageal reflux disease without esophagitis Gastroesophageal reflux disease without esophagitis : Flu (Influenza) *: flu shot Indication: Gastroesophageal reflux disease without esophagitis Gastroesophageal reflux disease without esophagitis : Eprescribed prescriptions (G8553) Indication: Gastroesophageal reflux disease without esophagitis Tonsil stone : Follow up if no improvement or if symptoms worsen Indication: Tonsil stone Common cold virus : Common Cold *: common cold Indication: Common cold virus Sore throat : Eprescribed prescriptions (G8553) Indication: Sore throat Other hyperlipidemia : Eprescribed prescriptions (G8553) Indication: Other hyperlipidemia Annual physical exam : Eprescribed prescriptions (G8553) Indication: Annual physical exam Annual physical exam : Pap/Pelvic/Bimanual/Rectal/Breast Exam was done. Indication: Annual physical exam Other hyperlipidemia : High Cholesterol (Hypercholesterolemia) *: cholesterol Indication: Other hyperlipidemia Other hyperlipidemia : Diet, Exercise, and Wt loss Indication: Other hyperlipidemia Well woman exam with routine gynecological exam : Pap Test (Cervical Smear) *: cervical cancer Indication: Well woman exam with routine gynecological exam Well woman exam with routine gynecological exam : Self breast exam Indication: Well woman exam with routine gynecological exam Well woman exam with routine gynecological exam : *Well Female Maintenance (KF) Indication: Well woman exam with routine gynecological exam Well woman exam with routine gynecological exam : Pap/Pelvic/Bimanual/Rectal/Breast Exam was done. Indication: Well woman exam with routine gynecological exam Other hyperlipidemia : Diet, Exercise, and Wt loss Indication: Other hyperlipidemia Other hyperlipidemia : Diet, Exercise, and Wt loss Indication: Other hyperlipidemia Well woman exam with routine gynecological exam : *Well Female Maintenance (KF) Indication: Well woman exam with routine gynecological exam Well woman exam with routine gynecological exam : Pap/Pelvic/Bimanual/Rectal/Breast Exam was done. Indication: Well woman exam with routine gynecological exam Other hyperlipidemia : Diet, Exercise, and Wt loss Indication: Other hyperlipidemia Osteopenia : *Bisphosphonate Education Indication: Osteopenia Other hyperlipidemia : Diet and Exercise Indication: Other hyperlipidemia Osteopenia : Bisphosphonate Education Indication: Osteopenia Well woman exam with routine gynecological exam : Pap/Pelvic/Bimanual/Rectal/Breast Exam was done. Indication: Well woman exam with routine gynecological exam Well woman exam with routine gynecological exam : Self Breast Exam Education Indication: Well woman exam with routine gynecological exam Well woman exam with routine gynecological exam : Well Female Maintenance (KF) Indication: Well woman exam with routine gynecological exam Other hyperlipidemia : Diet, Exercise, and Wt loss Indication: Other hyperlipidemia Acute sinusitis, unspecified : *URI Treatment Indication: Acute sinusitis, unspecified Acute sinusitis, unspecified : *URI Symptoms Indication: Acute sinusitis, unspecified Acute sinusitis, unspecified : Antibiotic Usage Education - Female Indication: Acute sinusitis, unspecified Well woman exam with routine gynecological exam : Pap/Pelvic/Bimanual/Rectal/Breast Exam was done. Indication: Well woman exam with routine gynecological exam Planned Observations TSH ([id number])Indication: Other hyperlipidemia On: :21 Request CALCIFIDIOL (96633) VIT D 25Indication: Vitamin D deficiency, unspecified On: : Request URINALYSIS, W/ MICRO (93223)Indication: Benign essential hypertension On: : Request MICROALBUMIN: CREATININE RATIO (24305) AND (54487)Indication: Benign essential hypertension On: :20 Request METABOLIC PANEL, COMPREHENSIVE (29637)Indication: Benign essential hypertension On: : Request LIPID PANEL (40450)Indication: Other hyperlipidemia On: :20 Request CBC W/AUTO DIFF WBC (63080)Indication: Benign essential hypertension On: :20 Request Vitamin D Hydroxy (11793)Indication: Vitamin D deficiency, unspecified On: :27 Request METABOLIC PANEL, COMPREHENSIVE (20262)Indication: Other hyperlipidemia On: :27 Request LIPID PANEL (84031)Indication: Other hyperlipidemia On: :26 Request Thin prep Pap (69703) (no STD testing)Indication: Annual physical exam On: 69-Eny-86743:44 Request CBC W/AUTO DIFF WBC (52638)Indication: Other migraine without status migrainosus, intractable On: :34 Request METABOLIC PANEL, COMPREHENSIVE (28354)Indication: Other hyperlipidemia On: 02-Nay-551166:34 Request Vitamin D Hydroxy (92835)Indication: Vitamin D deficiency, unspecified On: 44-Dth-525424:34 Request LIPID PANEL (59014)Indication: Other hyperlipidemia On: 87-Epo-746762:34 Request Thin prep Pap (11698)Indication: Well woman exam with routine gynecological exam On: 88-Zwt-727813:08 Request Vitamin D Hydroxy (80296)Indication: vit d deficiency On: :39 Request METABOLIC PANEL, COMPREHENSIVE (82896)Indication: Benign essential hypertension On: :39 Request LIPID PANEL (31053)Indication: Other hyperlipidemia On: :39 Request PHOSPHORUS (83332)Indication: Osteopenia On: 49-Wqn-911206:12 Request UPEP (76187)Indication: Osteopenia On: 44-Hek-199165:12 Request SPEP (08708)Indication: Osteopenia On: 49-Hvd-673131:12 Request PARATHORMONE (00059)Indication: Osteopenia On: 73-Igl-582721:12 Request SPEP (51399)Indication: Osteopenia On: 14-Xcd-070765:12 Request UPEP (17499)Indication: Osteopenia On: 35-Pbj-692662:12 Request Vitamin D Hydroxy (43981)Indication: Osteopenia On: 63-Dev-527151:12 Request HEPATIC FUNCTION PANEL (49130)Indication: Other hyperlipidemia On: :27 Request LIPID PANEL (32774)Indication: Other hyperlipidemia On: :27 Request TSH (14961)Indication: Elevated blood-pressure reading without diagnosis of hypertension On: :20 Request URINALYSIS W/O MICRO (03035)Indication: Elevated blood-pressure reading without diagnosis of hypertension On: :20 Request MICROALBUMIN: CREATININE RATIO (53476) AND (97468)Indication: Elevated blood-pressure reading without diagnosis of hypertension On: :20 Request MICROALBUMIN URINE QUANT (75736)Indication: Elevated blood-pressure reading without diagnosis of hypertension On: :20 Request METABOLIC PANEL, COMPREHENSIVE (09781)Indication: Elevated blood-pressure reading without diagnosis of hypertension On: :20 Request LIPID PANEL (00025)Indication: Elevated blood-pressure reading without diagnosis of hypertension On: :20 Request CREATININE, URINE (67640)Indication: Elevated blood-pressure reading without diagnosis of hypertension On: :20 Request CBC WITH MANUAL DIFF (84815)Indication: Elevated blood-pressure reading without diagnosis of hypertension On: 18-Jul-20089:20 Request Thin prep Pap (70199)Indication: Well woman exam with routine gynecological exam On: 6-Lmf-847221:00 Request Planned Encounters Medical; 6 Month FU - On: 12-Jul-2018 9:15 [facility] Chanda Ferguson DO, DO, Kathleen Planned Procedures MAMMOGRAM BREAST BILATERAL On: 22-Jun-2018 Intent SCREENING DIGITAL (66861)By: Chanda Ferguson DO, DO, Kathleen DEXA SCAN AXIAL SKELETON ([id number])By: On: 30-Dec-2016 Intent Chanda Ferguson DO, DO, Comments: not due until after 04/03/17 Chanda ELECTROCARDIOGRAM, COMPLETE (ECG) On: 30-Dec-2016 Intent (23274)By: Chanda Ferguson DO Comments: nsr no acute chg Chanda Ferguson DO MAMMOGRAM BREAST BILATERAL On: 26-Aug-2016 Intent SCREENING DIGITAL (73689)By: Chanda Ferguson DO, DO, Kathleen BILATERAL MAMMOGRAMS ([id number])By: On: 13-Nov-2015 Intent Daisy Tucker DO DEXA SCAN AXIAL SKELETON (16750)By: On: 01-Jan-2015 Intent Daisy Tucker DO Comments: february MAMMOGRAM, SCREENING, BOTH BREAST On: 03-Jul-2014 Intent ([id number])By: Daisy Tucker DO Radiology - Knee - Left - Weight On: 03-Jul-2014 Intent BearingBy: Daisy Tucker DO ELECTROCARDIOGRAM, COMPLETE (ECG) On: 03-Jul-2014 Intent (57044)By: Daisy Tucker DO Comments: ekg showed normal sinus rhythym, normal axis, no acute st/t wave changes Eprescribed prescriptions On: 11-Jul-2013 Intent (G8553)By: Alexandra Og Breast Screening - BilateralBy: On: 29-May-2013 Intent Celia Edwards EKG (34269)By: Alexandra Og On: 04-Apr-2013 Intent Comments: ekg showed normal sinus rhythym, normal axis, no acute st/t wave changes Eprescribed prescriptions On: 04-Apr-2013 Intent (G8553)By: Alexandra Og DXA, BONE DENSITY, AXIAL SKELETON On: 06-Jun-2012 Intent (12162)By: Daisy Tucker DO Comments: sep Breast Screening - BilateralBy: On: 06-May-2012 Intent Daisy Tucker DO EKG ([id number])By: Alexandra Og On: 25-May-2011 Intent Comments: ekg showed normal sinus rhythym, normal axis, no acute st/t wave changes FLU VAC, SPLIT, >3 YEARS, INTRAMUSC On: 25-May-2011 Intent ([id number])By: Alexandra Og Comments: shouldnt get because of family hx of [place]' TDAP VACCINE >7 IM (66608)By: Garrett On: 25-Nov-2010 Intent Daisy GUTIERREZ Comments: injectionLOT [id number] 10/26Amt 0.5 mlSite L deltoid given by hb MAMMOGRAM, SCREENING, BOTH BREASTS On: 25-Nov-2010 Intent ([id number])By: Alexandra Og DXA, BONE DENSITY, AXIAL SKELETON On: 20-May-2010 Intent ([id number])By: Daisy Tucker DO Comments: due in aug MAMMOGRAM, SCREENING, BOTH BREASTS On: 22-Oct-2009 Intent ([id number])By: Daisy Tucker DO EKG ([id number])By: Alexandra Og On: 22-Oct-2009 Intent Comments: ekg showed normal sinus rhythym, normal axis, no acute st/t wave changes CT - ChestBy: Daisy Tucker DO On: 09-Oct-2008 Intent Comments: please attn to 7/8 ribs at sternal - junction-- rule out soft tissue mass DXA, BONE DENSITY, AXIAL SKELETON On: 21-Aug-2008 Intent ([id number])By: Daisy Tucker DO Comments: must also be read by Dr Barron due to pt insurance MAMMOGRAM, SCREENING, BOTH BREASTS On: 21-Aug-2008 Intent ([id number])By: Daisy Tucker DO Comments: this must be read by DR Barron- because patients insurance is [employer] and they wont cover the [facility] ([id number])By: Jena Srinivasan CNP On: 18-Jul-2008 Intent ELECTROCARDIOGRAM, COMPLETE (ECG) On: 18-Jul-2008 Intent ([id number])By: Zarina BURGOS, Jena Suazo Instructions Name Dates Details Nonsmoker : How to access health information online Indication: Nonsmoker Nonsmoker : How to access health information online - Detail Indication: Nonsmoker Sinus pain : Patient Instructions Indication: Sinus pain BMI 27.0-27.9,adult : How to access health information online Indication: BMI 27.0-27.9,adult BMI 27.0-27.9,adult : How to access health information online - Detail Indication: BMI 27.0-27.9,adult BMI 27.0-27.9,adult : Patient Instructions Indication: BMI 27.0-27.9,adult BMI 27.0-27.9,adult : How to access health information online Indication: BMI 27.0-27.9,adult BMI 27.0-27.9,adult : How to access health information online - Detail Indication: BMI 27.0-27.9,adult BMI 27.0-27.9,adult : Patient Instructions Indication: BMI 27.0-27.9,adult BMI 27.0-27.9,adult : How to access health information online Indication: BMI 27.0-27.9,adult BMI 27.0-27.9,adult : How to access health information online - Detail Indication: BMI 27.0-27.9,adult BMI 27.0-27.9,adult : Patient Instructions Indication: BMI 27.0-27.9,adult Gastroesophageal reflux disease without esophagitis : How to access health information online Indication: Gastroesophageal reflux disease without esophagitis Gastroesophageal reflux disease without esophagitis : How to access health information online - Detail Indication: Gastroesophageal reflux disease without esophagitis Gastroesophageal reflux disease without esophagitis : Patient Instructions Indication: Gastroesophageal reflux disease without esophagitis Sore throat : How to access health information online Indication: Sore throat Sore throat : How to access health information online - Detail Indication: Sore throat Sore throat : Patient Instructions Indication: Sore throat Other hyperlipidemia : How to access health information online Indication: Other hyperlipidemia Other hyperlipidemia : How to access health information online - Detail Indication: Other hyperlipidemia Other hyperlipidemia : Patient Instructions Indication: Other hyperlipidemia Annual physical exam : How to access health information online Indication: Annual physical exam Annual physical exam : How to access health information online - Detail Indication: Annual physical exam Annual physical exam : Patient Instructions Indication: Annual physical exam Benign essential hypertension : Patient Instructions Indication: Benign essential hypertension Other migraine without status migrainosus, intractable : Patient Instructions Indication: Other migraine without status migrainosus, intractable Other migraine without status migrainosus, intractable : How to access health information online Indication: Other migraine without status migrainosus, intractable Other migraine without status migrainosus, intractable : How to access health information online - Detail Indication: Other migraine without status migrainosus, intractable Other hyperlipidemia : Patient Instructions Indication: Other hyperlipidemia Other hyperlipidemia : Patient Instructions Indication: Other hyperlipidemia Other hyperlipidemia : Patient Instructions Indication: Other hyperlipidemia Well woman exam with routine gynecological exam : Patient Instructions Indication: Well woman exam with routine gynecological exam Encounters Phone Encounter On: 22-Jun-2018 11:07 Encounter Diagnosis: Encounter for screening mammogram for breast cancer (Renamed from Encounter for screening mammogram for malignant neoplasm of breast) End: 22-Jun-2018 11:14 [facility] Office Visit On: 09-Nov-2017 8:11 Encounter Reason: Sinus pain - The onset of the pain has been gradual and has been occurring for 1 week. The pain is described as being located in the frontal area. Note for Pain: Symptoms started about 1 week ago-snee End: 09-Nov-2017 8:38 zing, runny nose which turned into thick yellow, and facial pressure, headaches, cough once in awhile, sore throat-dry and scratchy,chills. No fever or SOB, wheezing or CP. Has taken OTC cold medication and tylenol.Encounter Diagnosis: BMI 27.0-27.9,adult, Nonsmoker, Sinus pain, Sinusitis, bacterial, Headache [facility] Office Visit On: 14-Jul-2017 7:57 Encounter Reason: Follow up for chronic medical issues - The patient feels well with no complaints, has good energy level and is sleeping well (sometimes, depends on her work schedule). Patient has been compliant with in End: 14-Jul-2017 8:22 structions. Current medication use: no side effects and compliant with dosing regimen. Patient sleeps 7 hours per night. Nutrition: balanced diet and no supplemental vitamins & iron. The medical iss ues the patient is following up for include All identified problems below., [ADDITIONAL REASON] Follow up tests - Date: (07/12 blood work). Encounter Diagnosis: Influenza vaccination declined (Renamed from Refused influenza vaccine), Current nonsmoker, BMI 27.0-27.9,adult, Other hyperlipidemia, Benign essential hypertension (401.1), Vitamin D deficiency, unspecified [facility] Office Visit On: 21-Apr-2017 10:22 Encounter Reason: Follow up tests - Date: (04/14/17 dexa scan).Encounter Diagnosis: Current nonsmoker, BMI 27.0-27.9,adult, Osteopenia (733.90), Family history of Guillain-[place] syndrome End: 21-Apr-2017 11:20 [facility] Office Visit On: 30-Dec-2016 7:56 Encounter Reason: Follow up for chronic medical issues - The patient feels well with no complaints, has good energy level and is sleeping well (sometimes, depends on her work schedule). Patient has been compliant with in End: 30-Dec-2016 9:01 structions. Current medication use: no side effects and compliant with dosing regimen. Patient sleeps 7 hours per night. Nutrition: balanced diet and no supplemental vitamins & iron. The medical iss ues the patient is following up for include All identified problems below.Encounter Diagnosis: Current nonsmoker, BMI 27.0-27.9,adult, Other hyperlipidemia, Benign essential hypertension (401.1), Vitamin D deficiency, unspecified, Gastroesophageal reflux disease without esophagitis, Osteopenia (733.90), Postmenopausal (Renamed from Postmenopausal status) [facility] Office Visit On: 26-Aug-2016 8:12 Encounter Reason: Follow up for chronic medical issues - The patient feels well with no complaints, has good energy level and is sleeping well (sometimes, depends on her work schedule). Patient has been compliant with in End: 26-Aug-2016 9:56 structions. Current medication use: no side effects and compliant with dosing regimen. Patient sleeps 7 hours per night. Nutrition: balanced diet and no supplemental vitamins & iron. The medical iss ues the patient is following up for include All identified problems below.Encounter Diagnosis: Benign essential hypertension (401.1), Vitamin D deficiency, unspecified, Other hyperlipidemia, Gastroesophageal reflux disease without esophagitis, BMI 26.0-26.9,adult, Current nonsmoker, Osteopenia (733.90), Encounter for screening mammogram for breast cancer (Renamed from Encounter for screening mammogram for malignant neoplasm of breast) [facility] Office Visit On: 10-Jun-2016 8:09 Encounter Reason: Sore Throat - Symptoms include sore throat and postnasal drainage. The symptoms are symmetrical. The pain radiates to the left ear and right ear. The patient describes the pain as sharp. Onset was gradu End: 10-Jun-2016 8:34 al 1 week(s) ago. The symptoms occur constantly. The patient describes this as worsening. Symptoms are exacerbated by swallowing liquids and swallowing solids. Associated symptoms include hoarseness, ea r pain and cough. Presenting symptoms included sore throat and postnasal drainage.Encounter Diagnosis: Sore throat, Tonsil stone, Common cold virus [facility] Office Visit On: 04-Dec-2015 8:09 Encounter Reason: Follow up for chronic medical issues - The patient feels well with no complaints, has good energy level and is sleeping well. Patient has been compliant with instructions. Current medication use: no nadeem End: 04-Dec-2015 9:32 e effects and compliant with dosing regimen. Patient sleeps 7 hours per night. Nutrition: balanced diet and no supplemental vitamins & iron. The medical issues the patient is following up for includ e All identified problems below. Note for Follow up for chronic medical issues: not getting routine migraines - maybe 1-2 a year- her knee better no issues with simvistatin chol good - no gerd -, [ADDITIONAL REASON] Follow up, Laboratory Test Results - Date: (11/27/15). Encounter Diagnosis: Other hyperlipidemia, Vitamin D deficiency, unspecified, Osteopenia (733.90), Other migraine without status migrainosus, intractable, Gastroesophageal reflux disease without esophagitis, Knee Pain (Renamed from Gonalgia) [facility] Lab Order On: 13-Nov-2015 9:55 Encounter Diagnosis: Screening for malignant neoplasm of breast End: 13-Nov-2015 10:01 [facility] Office Visit On: 29-May-2015 9:41 Encounter Reason: Well Women Exam - The patient feels well with no complaints, has good energy level and is sleeping well. Pap smear: date of last pap: (05/2012). Contraceptive history: The patient is not using any metho End: 30-May-2015 22:16 d of contraception at this time. Patient does not exercise. The patient's libido is normal. The patient reports that she performs monthly self breast exam (bi- monthly). Calcium intake includes 1200 mg w ith Vit D daily supplement and 1 serving milk daily. The patient denies the use of oral contraceptives or hormone replacement therapy. Menstruation: Last menstrual period date: ( post-menopausal).Encounter Diagnosis: Well Women (Non Medicare) , Screening for human papillomavirus (HPV) (V73.81) [facility] Office Visit On: 01-Jan-2015 8:11 Encounter Reason: Follow up for chronic medical issues - The patient feels well with no complaints, has good energy level and is sleeping well. Patient has been compliant with instructions. Current medication use: no nadeem End: 01-Jan-2015 8:36 e effects and compliant with dosing regimen. Patient sleeps 7 hours per night. Nutrition: balanced diet and no supplemental vitamins & iron. The medical issues the patient is following up for includ e All identified problems below. Note for Follow up for chronic medical issues: knee pain better vit d good had mammo - - still some migraines but not common, [ADDITIONAL REASON] Follow up, Laboratory Test Results - Date: (12/28/14). Encounter Diagnosis: Benign essential hypertension (401.1), Hyperlipidemia, Unspecified (272.4), Gerd (530.81), Migraine (346.80), Knee Pain (Renamed from Gonalgia), Osteopenia (733.90), VITAMIN D DEFICIENCY, NOS (268.9) [facility] Office Visit On: 03-Jul-2014 9:46 Encounter Reason: Follow up for chronic medical issues - The patient feels well with no complaints, has good energy level and is sleeping well. Patient has been compliant with instructions. Current medication use: no nadeem End: 03-Jul-2014 10:39 e effects and compliant with dosing regimen. Patient sleeps 7 hours per night. Nutrition: balanced diet and no supplemental vitamins & iron. Note for Follow up for chronic medical issues: feels we llin general nomed side effects - bpis good - no gerd- no mroutine migraine, [ADDITIONAL REASON] Follow up tests - Date: (06/26/14). Encounter Diagnosis: Hyperlipidemia, Unspecified (272.4), Knee Pain (Renamed from Gonalgia), Gerd (530.81), VITAMIN D DEFICIENCY, NOS (268.9), Migraine (346.80), Osteopenia (733.90), Benign essential hypertension (401.1), screening [facility] Office Visit On: 02-Jan-2014 10:15 Encounter Reason: Follow up for chronic medical issues - The patient feels well with no complaints, has good energy level and is sleeping well (off and on). Patient has been compliant with instructions. Current medicatio End: 02-Jan-2014 10:52 n use: no side effects and compliant with dosing regimen. Patient sleeps 7 hours per night. Nutrition: balanced diet, supplemental vitamins and low salt diet. The medical issues the patient is following up for include All identified problems below, high blood pressure, high cholesterol, osteoporosis/osteopenia and other (vit d deficient, migraine). blood pressure range : (120's/70's, varies). Note for Follow up for chronic medical issues: has sinus ilyald this am thinks why bp up she checks at home 3 times a week and good numbers- no gerd, [ADDITIONAL REASON] Follow up, Laboratory Test Results - Date: (12/29/13). Encounter Diagnosis: Hyperlipidemia, Unspecified (272.4), VITAMIN D DEFICIENCY, NOS (268.9), Gerd (530.81) [facility] Office Visit On: 11-Jul-2013 9:30 Encounter Reason: Follow up for chronic medical issues - The patient feels well with no complaints, has good energy level and is sleeping well (off and on). Patient has been compliant with instructions. Current medicatio End: 11-Jul-2013 10:11 n use: no side effects and compliant with dosing regimen. Patient sleeps 7 hours per night. Nutrition: balanced diet, supplemental vitamins and low salt diet. The medical issues the patient is following up for include All identified problems below, high blood pressure, high cholesterol, osteoporosis/osteopenia and other (vit d deficient, migraine). blood pressure range : (120's/70's, varies). Note for Follow up for chronic medical issues: feels well- bp reasonable and good at home- chol great and tolerating the simvistatin no gerd, [ADDITIONAL REASON] Follow up, Laboratory Test Results - Date: (07/04/13). Encounter Diagnosis: Hyperlipidemia, Unspecified (272.4), VITAMIN D DEFICIENCY, NOS (268.9), Benign essential hypertension (401.1), Gerd (530.81) [facility] Phone Encounter On: 29-May-2013 16:42 Encounter Diagnosis: Screening for malignant neoplasm of breast (V76.10) End: 29-May-2013 16:44 [facility] Office Visit On: 04-Apr-2013 8:46 Encounter Reason: Follow up for chronic medical issues - The patient feels well with minor complaints (skin lesion on base of left thumb- painful sometimes), has good energy level and is sleeping well (off and on). Patie End: 04-Apr-2013 9:33 nt has been compliant with instructions. Current medication use: no side effects and compliant with dosing regimen. Patient sleeps 7 hours per night. Nutrition: balanced diet, supplemental vitamins and low salt diet. The medical issues the patient is following up for include All identified problems below, high blood pressure, high cholesterol, osteoporosis/osteopenia and other (vit d deficient, migrai ne). blood pressure range : (120's/70's, varies). Note for Follow up for chronic medical issues: she hasnt been exercising rotuinely but takign the calcium and vit d- bone density bit worse- bp is good, [ADDITIONAL REASON] Follow up tests - Diagnostic tests include other (labs and bone dexa). Date: (02/28/13). , [ADDITIONAL REASON] Skin Lesions - Symptoms include single skin lesion. Lesion(s) are located on the left hand. The patient describes the lesion(s) as painful, painless and flesh-colored. Onset was gradual 1 month(s) ago. There is no known event that preceded symptom onset. Associated symptoms do not include fever, joint pain or nausea. Encounter Diagnosis: Hyperlipidemia, Unspecified (272.4), Benign essential hypertension (401.1), VITAMIN D DEFICIENCY, NOS (268.9), Osteopenia (733.90), Gerd (530.81), Synovial cyst (727.40) [facility] Office Visit On: 06-Jun-2012 16:03 Encounter Reason: Well Women Exam - The patient feels well with no complaints, has good energy level and is sleeping well. Pap smear: date of last pap: (11/2010). Contraceptive history: The patient is not using any method End: 06-Jun-2012 21:16 of contraception at this time. Patient does not exercise. The patient's libido is decreased. The patient reports that she performs monthly self breast exam (bi-monthly). Calcium intake includes 1200 mg with Vit D daily supplement and 1 serving milk daily. The patient denies the use of oral contraceptives or hormone replacement therapy. Menstruation: Last menstrual period date: ( post-menopausal).Encounter Diagnosis: Well Woman Exam (V72.31) (Pap,Mammo,Routine Female), Screening for human papillomavirus (HPV) (V73.81), Hyperlipidemia, Unspecified (272.4), Benign essential hypertension (401.1), VITAMIN D DEFICIENCY, NOS (268.9), Osteopenia (733.90) [facility] Annotation/Addendum On: 06-May-2012 10:25 Encounter Diagnosis: Well Woman Exam (V72.31) (Pap,Mammo,Routine Female) End: 06-May-2012 10:27 [facility] Office Visit On: 25-May-2011 15:12 Encounter Reason: Follow up for chronic medical issues - The patient feels well with no complaints, has good energy level and is sleeping well (off and on). Patient has been compliant with instructions. Current medicatio End: 25-May-2011 15:43 n use: no side effects and compliant with dosing regimen. Patient sleeps 7 hours per night. Nutrition: balanced diet, supplemental vitamins and low salt diet. The medical issues the patient is following up for include All identified problems below, high blood pressure, high cholesterol, osteoporosis/osteopenia and other (vit d deficient, migraine). blood pressure range : (120's/70's, varies). Note for Follow up for chronic medical issues: feeling well - no high bp on home checks and no gerd and not talking meds- she is ecercising some but thinks can do more with chol up- she thinks she can be stri cter on diet as well- no elbow issues- no routine migraines- but had one last month, [ADDITIONAL REASON] Follow up, Laboratory Test Results - Date: (05/18/11). Encounter Diagnosis: Need for prophylactic vaccination and inoculation against influenza (V04.81), Benign essential hypertension (401.1), EPICONDYLITIS, NOS (726.32), Gerd (530.81), Migraine (346.80), Hyperlipidemia, Unspecified (272.4) [facility] Office Visit On: 25-Nov-2010 14:27 Encounter Reason: Well Women Exam - The patient feels well with no complaints, has good energy level and is sleeping well. Pap smear: date of last pap: (over 2 years). Contraceptive history: The patient is not using any End: 26-Nov-2010 8:14 method of contraception at this time. Patient does not exercise. The patient's libido is decreased. The patient reports that she performs monthly self breast exam (bi-monthly). Calcium intake includes 1 200 mg with Vit D daily supplement and 1 serving milk daily. The patient denies the use of oral contraceptives or hormone replacement therapy. Menstruation: Last menstrual period date: (5 years ago- post-menopausal)., [ADDITIONAL REASON] Follow up, Diagnostic Procedure Results - Diagnostic tests include other (bone dexa). Date: (10/08/10). Encounter Diagnosis: Well Woman Exam (V72.31) (Pap,Mammo,Routine Female), Osteopenia (733.90), VITAMIN D DEFICIENCY, NOS (268.9), Hyperlipidemia, Unspecified (272.4) [facility] Office Visit On: 20-May-2010 10:23 Encounter Reason: Follow up for chronic medical issues - The patient feels well with no complaints ,has good energy level and is sleeping well (off and on). Patient has been compliant with instructions. Current medicatio End: 20-May-2010 10:56 n use: no side effects and compliant with dosing regimen. Patient sleeps 7 hours per night. Nutrition: balanced diet ,supplemental vitamins and low salt diet. The medical issues the patient is following up for include All identified problems below ,high blood pressure ,high cholesterol ,osteoporosis/osteopenia and other (vit d deficient, migraine). blood pressure range : (120's/70's, varies). Note for Follow up for chronic medical issues: she hasnt had any gerd on boniva- off the actonel-- her bp is good- admits noncompliance with vit d and ryr, [ADDITIONAL REASON] Follow up, Laboratory Test Results - Date: (05/13/10). Encounter Diagnosis: Hyperlipidemia, Unspecified (272.4), VITAMIN D DEFICIENCY, NOS (268.9), Benign essential hypertension (401.1), Osteopenia (733.90), Gerd (530.81) [facility] Office Visit On: 22-Oct-2009 8:23 Encounter Reason: Follow up for chronic medical issues - The patient feels well with minor complaints (recurrent migraines- takes otc meds prn) ,has good energy level and is sleeping well (off and on). Patient has been c End: 22-Oct-2009 9:08 ompliant with instructions. Current medication use: no side effects and compliant with dosing regimen. Patient sleeps 7 hours per night. Nutrition: balanced diet ,supplemental vitamins and low salt diet . The medical issues the patient is following up for include All identified problems below ,high blood pressure ,high cholesterol ,osteoporosis/osteopenia and other (vit d deficient, migraine). blood pr essure range : (120's/70's, varies). Note for Follow up for chronic medical issues: still getting gerd with actonel-- as long as takes protonix helps- she wants to try boniva- saw maggie and had colon scopy and was good - bps great at home- had skipped some vit d doses so get back on, [ADDITIONAL REASON] Follow up, Laboratory Test Results - Date: (10/15/09). Encounter Diagnosis: Osteopenia (733.90), Benign essential hypertension (401.1), screening , VITAMIN D DEFICIENCY, NOS (268.9), Hyperlipidemia, Unspecified (272.4) [facility] Historical Summary On: 01-Jul-2009 8:50 [facility] End: 01-Jul-2009 8:51 Office Visit On: 23-Apr-2009 8:13 Encounter Reason: Follow up for chronic medical issues - The patient feels well with no complaints ,has good energy level and is sleeping well (off and on). Patient has been compliant with instructions. Current medicatio End: 23-Apr-2009 9:00 n use: experiencing side effects (actonel gives her heatburn) and compliant with dosing regimen. Patient sleeps 7 hours per night. Nutrition: balanced diet ,supplemental vitamins and low salt diet. The medical issues the patient is following up for include All identified problems below ,high blood pressure ,high cholesterol ,osteoporosis/osteopenia and other (vit d deficient, migraine). Note for Foll ow up for chronic medical issues: she is taking vit d 3000 units a day- will decrease to 2000 a day- weight down 9 pounds over last 2 years- her bps at home really good- running 110-120-- -- /60- 70- heartburn on and off- for last several months, [ADDITIONAL REASON] Follow up, Laboratory Test Results - Date: (04/16/09). Encounter Diagnosis: VITAMIN D DEFICIENCY, NOS (268.9), Osteopenia (733.90), Gerd (530.81), Benign essential hypertension (401.1), Hyperlipidemia, Unspecified (272.4), Migraine (346.80), abnormal rib xray, vit d deficiency [facility] Office Visit On: 18-Dec-2008 9:53 Encounter Reason: Follow up for chronic medical issues - The patient feels well with no complaints ,has good energy level and is sleeping well. Patient has been compliant with instructions. Current medication use: no nadeem End: 18-Dec-2008 20:49 e effects and compliant with dosing regimen. Patient sleeps 7 hours per night. Nutrition: balanced diet ,supplemental vitamins and low salt diet. The medical issues the patient is following up for inclu de All identified problems below ,high blood pressure ,high cholesterol ,osteoporosis/osteopenia and other (migraine). blood pressure range : (120's/70's). Note for Follow up for chronic medical issues : feeling well working aggressively on diet and chol, [ADDITIONAL REASON] Follow up, Laboratory Test Results - Date: (12/11/08). Encounter Diagnosis: Osteopenia (733.90), Hyperlipidemia, Unspecified (272.4), Benign essential hypertension (401.1), abnormal rib xray, vit d deficiency [facility] Office Visit On: 09-Oct-2008 10:01 Encounter Reason: Follow up, Diagnostic Procedure Results - Diagnostic tests include X-Ray (ribs) and other (bone dexa). Date: (09/04/08). Note for Follow up, Diagnostic Procedure Results: she does work in 5 days a week End: 09-Oct-2008 10:19 calcium supplement-- maybe a 1000 and vit d as well- bp at home fine this amEncounter Diagnosis: Osteopenia (733.90), abnormal rib xray [facility] Office Visit On: 21-Aug-2008 14:16 Encounter Reason: Well Women Exam - The patient feels well with no complaints. Pap smear: date of last pap: (04/19/07). Contraceptive history: The patient is not using any method of contraception at this time. Patient does End: 21-Aug-2008 21:22 not exercise. The patient's libido is decreased. The patient reports that she performs monthly self breast exam. Calcium intake includes 1200 mg daily supplment. The patient denies the use of oral cont raceptives or hormone replacement therapy. Note for Well Women Exam: also pt stopped diovan and has been really working on diet and exercise and salt and caffeine restriction and her bps have been beautiful off the meds- 110-120 /70 Encounter Diagnosis: Well Woman Exam (V72.31) (Pap,Mammo,Routine Female), Benign essential hypertension (401.1) [facility] Office Visit On: 20-Jul-2008 7:53 Encounter Reason: Follow up Hypertension - The patient has experienced follow up hypertension for 3 days. The symptoms have been associated with family history of hypertension, while the symptoms have not been associated End: 20-Jul-2008 8:36 with anxiety ,excessive caffeine intake ,obesity ,use of nasal decongestants ,use of oral contraceptives or use of steroids. blood pressure range : (128/82, 115/72, 160/110, 117/78, 114/77). Note for Follow up Hypertension: bp is improved and headache gone- she thought about it and has had more headaches the last two mos so think maybe bp and been creeping up- her sinuses are starting to drain=- sh e doesnt drink excessive caffeine - watch the salt- she was taking red yeast rice- and had been slacking off it- so she will go back on, [ADDITIONAL REASON] Follow up, Laboratory Test Results - Date: (07/18/08). Encounter Diagnosis: Acute sinusitis, unspecified (461.9), Benign essential hypertension (401.1), Hyperlipidemia, Unspecified (272.4) [facility] Office Visit On: 18-Jul-2008 8:02 Encounter Reason: Sinus pain - The onset of the pain has been acute and has been occurring in a persistent pattern for 1 days. The course has been constant. The pain is characterized as a pressure sensation. The pain is End: 18-Jul-2008 9:46 experienced any time of the day (no diurnal variation). The pain is described as being located in the frontal area ,the temporal area and both sides. The symptoms have been associated with eye pain ,yusuf jagruti in the past ,nasal discharge/stuffy nose and tenderness over sinuses. Encounter Diagnosis: Acute sinusitis, unspecified (461.9), Headache (784.0), Elevated Blood Pressure without diagnosis of Hypertension (796.2) [facility] Office Visit On: 19-Apr-2007 14:08 Encounter Reason: Well Women Exam - The patient feels well with no complaints. Pap smear: date of last pap: (02/18). Contraceptive history: The patient is not using any method of contraception at this time. Patient does n End: 19-Apr-2007 15:01 ot exercise. The patient's libido is normal. The patient reports that she performs monthly self breast exam. Calcium intake includes 1200 mg with Vit D daily supplement and 1 serving milk daily. The pat ient denies the use of oral contraceptives or hormone replacement therapy. Note for Well Women Exam: she has had almost a whole year without period-- Encounter Diagnosis: Well Woman Exam (V72.31) (Pap,Mammo,Routine Female), Hyperlipidemia, Unspecified (272.4) [facility] Historical Summary On: 15-Apr-2007 9:54 [facility] End: 15-Apr-2007 10:00 Payers [facility] Brad Quinones; [employer] guarantor
--- OUTSIDE RECORDS SUMMARY | 2018-09-11 06:22 | XMS RPT_ITS | Continuity of Care Document ---
:1955 Author Organization [facility] Address [facility] 2 [place] [address] Phone Care Team Providers Name Role Phone Chanda Ferguson DO Unavailable Hernandez Xiong Unavailable Unavailable Celia Edwards Unavailable Unavailable Lillian Hurt Unavailable Unavailable Trinh Balderas Unavailable Unavailable Unavailable Unavailable Problems Name Dates Details Annual physical exam (Z00.00, V70.0) Status: Active Benign essential hypertension (I10, 401.1) Status: Active BMI 27.0-27.9,adult (Z68.27, V85.23) Comments: 27.42 Status: Active BMI 27.0-27.9,adult (Z68.27, V85.23) Status: Active BMI 27.0-27.9,adult (Z68.27, V85.23) Status: Active Colonoscopy Comments: 06-18-09 Status: Active Common cold virus (J00, 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 Current nonsmoker (Z78.9, V49.89) Status: Active Encounter for screening mammogram for breast cancer (Renamed from Encounter for screening mammogram for malignant neoplasm of breast) (Z12.31, V76.12) Status: Active Family history of Guillain-Portland syndrome (Z82.0, V17.2) Comments: virus in general [...] as of 04-Apr-2013 Procedures Date Value Details 01-Jul-2018 SCREENING MAMM (CAD), BILAT Result: Comments: See Note; NOTES: [facility] Imaging Services [address] [place] [address] SCREENING MAMM (CAD), BILAT MR#: [id number] Acct: [id number] Name: NATALI MURDOCK Rep #: [id number] : 1955 F 62 From: Darrell Rios MD PCP: Chanda Ferguson DO Status: REG CLI Study: SCREENING MAMM (CAD), BILAT Date of Exam: 07/01/18 Exam# [id number] Ordering Dr: Chanda Ferguson DO MAMMOGRAPHY - BILATERAL SCREENING REASON FOR EXAM: Female, 62 years old. Routine annual screening examination. PERTINENT HISTORY: Non-contributory. Remote right excisional breast biopsy. TECHNI QUE: Digital bilateral breast shira (3D mammographic acquisition) in the CC and MLO projections. 2-D mediolateral oblique (MLO) and craniocaudad (CC) views of both breasts were obtained. CAD: Full Field Digital Mammography with Computer Added Detection was performed. COMPARISON: Comparison is made with prior study dated December 01, 2016 and November 27, 2015. FINDINGS: Breast Composition: The breasts are heterogeneously dense, which may obscure small masses. There are no dominant masses or suspicious calcifications. Stable small bilateral axillary lymph nodes. No ot her significant abnormalities are identified. There has been no significant change since the prior study. BI/SCREENING MAMM (CAD), BILAT IMPRESSI ON: Stable bilateral screening mammogram. Yearly follow-up mammogram recommended. (A) ASSESSMENT CATEGORY: BIRADS Category 2: Benign. A letter regarding these resul ts will be sent to the patient by the facility within 30 days. Approximately 10% of breast cancers are not detected by mammography. A normal mammogram should not delay biopsy of a clinically suspicious abnormality. [id number] Electronically Signed: Darrell Rios MD at 9:33 EST Tel [phone], Service support , CC: Chanda Ferguson DO Field Specialist: Signed 14-Apr-2017 Dexa Bone Density Study (HP) Result: Comments: See Note; NOTES: [facility] Imaging Services [address] [place] [address] Dexa Bone Density Study (HP) MR#: [id number] Acct: [id number] Name: NATALI MURDOCK Rep #: [id number] : 1955 F 61 From: Darrell Rios MD PCP: Chanda Ferguson DO Status: REG CLI Study: Dexa Bone Density Study (HP) Date of Exam: 04/14/17 Exam# [id number] Ordering Dr: Estrada Ferguson DO STUDY: DUAL [...] Darrell Rios MD at 8:54 EDT Tel [phone], Service support , CC: Chanda Ferguson DO Field Specialist: Signed 01-Dec-2016 SCREENING MAMM (CAD), BILAT Result: Comments: See Note; NOTES: [facility] Imaging Services [address] [place] [address] Verdana 4d SCREENING MAMM (CAD), BILAT MR#: [id number] Acct: [id number] Name: JL MURDOCK Rep #: [id number] : 1955 F 61 From: Darrell Rios MD PCP: Chanda Ferguson DO Status: REG CLI Study: SCREENING MAMM (CAD), BILAT Date of Exam: 12/01/16 Exam# [id number] Ordering Dr: Chanda Mclaughlin DO MAMMOGRAPHY - [...] delay biopsy of a clinically suspicious abnormality. [id number] Electronically Signed: Darrell Rios MD at 9:58 EDT Tel [phone], Service support , CC: Chanda Ferguson DO Field Specialist: Signed 04-Dec-2015 EKG (41057) Comments: ekg showed normal sinus rhythym, normal axis, no acute st/t wave changes Result: [MEASUREMENTS ANALYSIS] Date of Test: 12/04/2015 08:48:08; Heart Rate: 71; CT Interval: 186; QRS: 90; QT Interval: 398; Corrected QT Interval (QTc): 417; P Wave [place]: 37; QRS Wave [place]: -4; T Wave [place]: -1; Blood Pressure: 142/88 [ECG DIAGNOSTIC STATEMENTS] Date of Test: 12/04/2015 08:48:08; Summary: Sinus Rhythm WITHIN NORMAL LIMITS 27-Nov-2015 Bilat Scrn Digital AND CAD Result: Comments: See Note; NOTES: [facility] Imaging Services [address] [place] [address] Verdana 4d Bilat Scrn Digital AND CAD MR#: [id number] Acct: [id number] Name: NATALI MURDOCK Rep #: [id number] : 1955 F 60 From: Darrell Rios MD PCP: Daisy Tucker DO Status: REG CLI Study: Bilat Scrn Digital AND CAD Date of Exam: 11/27/15 Exam# [id number] Viry escalante Dr: Daisy Tucker DO MAMMOGRAPHY [...] Computer Added Detection was performed. COMPARISON: Rafiq rison is made with prior study dated November [...] delay biopsy of a clinically suspicious abnormality. [id number] Electronically Signed: Darrell Rios MD at 10:15 EDT Tel [phone], Service support [phone], Fax CC: Daisy Tucker DO Field Specialist: Signed 03-Apr-2015 Dexa Bone Density Study (HP) Result: Comments: See Note; NOTES: [facility] Imaging Services [address] [place], [place] [id number] Bone Density Report MR#: [id number] Acct: [id number] Name: NATALI MURDOCK Rep #: [id number] : 1955 F 59 From: Darrell Rios MD PCP: Daisy Tucker DO Status: REG CLI Study: Dexa Bone Density Study (HP) Date of Exam: 04/03/15 Exam# [id number] Ordering Dr: Daisy Tucker DO STUDY: DUAL [...] Darrell pickering MD at 11:25 EDT Tel [phone], Service support [phone], CC: Daisy Tucker DO Field Specialist: Signed 20-Nov-2014 Damien Coleman Digital AND CAD Result: Comments: See Note; NOTES: [facility] Imaging Services [address] [place] [address] Breast Imaging Report MR#: [id number] Acct: [id number] Name: NATALI MURDOCK Rep #: [id number] : 1955 F 59 From: Vasquez Sandra DO PCP: Daisy Tucker DO Status: REG CLI Study: Bilnel Coleman Digital AND CAD Date of Exam: 11/20/14 Exam# [id number] Ordering Dr: Daisy Tucker DO MAMMO GRAPHY [...] Vasquez Sandra DO at 10:09 EDT Tel [phone], Service support [phone], CC: Daisy Tucker DO Field Specialist: Signed 03-Jul-2014 Knee 4 or More Views Result: Comments: See Note; NOTES: [facility] Imaging Services [address] [place] [address] Radiology Report MR#: [id number] Acct: [id number] Name: NATALI MURDOCK Matias Rep #: [id number] : 1955 F 58 From: Dallas Tyler MD PCP: Daisy Tucker DO Status: REG CLI Study: Knee 4 or More Views Date of Exam: 07/03/14 Exam# [id number] Ordering Dr: Daisy Tucker DO STUDY: X-RAY [...] FACR at 20:51 EST , Service support [phone], CC: Daisy Tucker DO Field Specialist: Signed 13-Jun-2013 Damien Coleman Digital & CAD Result: Comments: See Note; NOTES: [facility] Imaging Services [address] [place] [address] Breast Imaging Report MR#: [id number] Acct: [id number] Name: NATALI MURDOCK Rep #: [id number] : 1955 F 57 From: Darrell Rios MD PCP: Daisy Tucker DO Status: REG CLI Exam# [id number] Ordering Dr: Daisy Tucker DO MAMMOGRAPHY - [...] 13, 2013 at 12: 56:32 PM EDT [phone] Electronically Signed GP/GP If you are the referring physician and would like to consult with the radiologist who provided this interpretation, please contact Darrell Rios M.D. at [phone]. If this radiologist is unavailable, you will be directed to another radiologist to assist. If you are a patient with a question regarding this report, please contact your referring physician directly. Professional Interpretation Provided By: THUBIT, Phone , These documents contain legally protected [...] of these documents. 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 Status: Active Smoking Status Name Dates Details Never smoker Vital Signs Date Test Result Details 91-Ddh-72554:17 Temperature 97.2 f Pulse 97 /min Comments: [...] kg/m2 Body Surface Area Calculated 1.73 m2 :40 Temperature 97.7 f Pulse 92 /min Comments: [...] 0.00 cm Results Date Description Value Details 81-Uga-997385:04 Microscopic Examination Comments: PATIENT WAS FASTINGPERFORMED BY: [facility]6370 [facility] [id number] Bacteria None seen (Normal) Mucus Threads Present (Normal) Epithelial Cells (non renal) 0-10 {/hpf} (Normal) Range: 0 - 10 RBC 0-2 {/hpf} (Normal) Range: 0 - 2 WBC 0-5 {/hpf} (Normal) Range: 0 - 5 92-Ttg-736017:33 HEPATIC FUNCTION PANEL Comments: PATIENT NOT FASTINGPERFORMED BY: [employer] Saaatk5354 [facility] [id number] (29117) ALT (SGPT) 15 [iU]/L (Normal) Range: 0-32 AST (SGOT) 17 [iU]/L (Normal) Range: 0-40 Alkaline Phosphatase, S 66 [iU]/L (Normal) Range: 39-117 Bilirubin, Direct 0.22 mg/dL (Normal) Range: 0.00-0.40 Bilirubin, Total 1.0 mg/dL (Normal) Range: 0.0-1.2 Albumin, Serum 4.3 g/dL (Normal) Range: 3.5-5.5 Protein, Total, Serum 6.8 g/dL (Normal) Range: 6.0-8.5 61-Iuk-069309:04 CALCIFIDIOL (18135) VIT D 25 Comments: PATIENT WAS FASTINGPERFORMED BY: 1d4 [facility]ty Aeywei6895 [facility] [id number] Vitamin D, 25-Hydroxy 58.6 ng/mL (Normal) Range: 30.0-100.0 Comments: Vitamin D deficiency has been defined by the [place] of[place]icine and an Endocrine Society practice guideline as alevel of serum 25-OH vitamin D less than 20 ng/mL (1,2).The Endocrine Society went on to further define vitamin Dinsufficiency as a level between 21 and 29 ng/mL (2).1. IOM ([place] of Medicine). 2010. Dietary reference intakes for calcium and D. [place]: The National Academies Press.2. Mony MF, Jonas NC, Yao LAMB, et al. Evaluation, treatment, and prevention of vitamin D deficiency: an Endocrine Society clinical practice guideline. JCEM. 2010; 96(7):1911-30. 33-Fhv-986984:04 TSH (01822) Comments: PATIENT WAS FASTINGPERFORMED BY: 1d4 PtyUNM HospitalLrknfe1174 [facility] [id number] TSH 2.310 {uIU/mL} (Normal) Range: 0.450-4.500 57-Cxa-979423:04 URINALYSIS, W/ MICRO (43962) Comments: PATIENT WAS FASTINGPERFORMED BY: [facility]6370 [facility] [id number] Microscopic Examination See below: (Normal) Comments: Microscopic was indicated and was performed. Microscopic Examination MICRON (Normal) Comments: Microscopic follows if indicated. Nitrite, Urine Negative (Normal) Urobilinogen,Semi-Qn 0.2 mg/dL (Normal) Range: 0.2-1.0 Bilirubin Negative (Normal) Occult Blood Negative (Normal) Ketones Negative (Normal) Glucose Negative (Normal) Protein Negative (Normal) WBC Esterase Negative (Normal) Appearance Clear (Normal) Urine-Color Yellow (Normal) pH 5.0 (Normal) Range: 5.0-7.5 Specific Beyer 1.022 (Normal) Range: 1.005-1.030 22-Ivj-978050:04 MICROALBUMIN: CREATININE RATIO Comments: PATIENT WAS FASTINGPERFORMED BY: 1d4 PtyJFK Medical CenterHfpllg9827 [facility] [id number] (21617) AND (51154) Microalb/Creat Ratio 5.0 {mg/g_creat} (Normal) Range: 0.0-30.0 Microalbumin, Urine 7.6 ug/mL (Normal) Creatinine, Urine 150.9 mg/dL (Normal) 56-Gab-109742:04 METABOLIC PANEL, COMPREHENSIVE Comments: PATIENT WAS FASTINGPERFORMED BY: 1d4 PtyJFK Medical CenterClaiwt5097 [facility] [id number] (72202) ALT (SGPT) 19 [iU]/L (Normal) Range: 0-32 [...] Glucose, Serum 86 mg/dL (Normal) Range: 65-99 17-Lgq-129860:04 CBC W/AUTO DIFF WBC (27228) Comments: PATIENT WAS FASTINGPERFORMED BY: [facility] Msiejp0216 [facility] [id number] Immature Grans (Abs) 0.0 {x10E3/uL} (Normal) Range: [...] 3.77-5.28 WBC 3.9 {x10E3/uL} (Normal) Range: 3.4-10.8 62-Usb-362710:04 LIPID PANEL (22324) Comments: PATIENT WAS FASTINGPERFORMED BY: Write.[facility]6370 [facility] [id number] LDL/HDL Ratio 1.7 {ratio_units} (Normal) Range: 0.0-3.2 Comments: LDL/HDL Ratio Men Women 1/2 Avg.Risk 1.0 1.5 Av g.Risk 3.6 3.2 2X Avg.Risk 6.2 5.0 3X Avg.Risk 8.0 6.1 LDL Cholesterol Calc 125 mg/dL (Abnormal) Range: 0-99 VLDL Cholesterol Cassi 20 mg/dL (Normal) Range: 5-40 HDL Cholesterol 73 mg/dL (Normal) Triglycerides 98 mg/dL (Normal) Range: 0-149 Cholesterol, Total 218 mg/dL (Abnormal) Range: 100-199 61-Iuv-533971:16 Microscopic Examination Comments: PATIENT WAS FASTINGPERFORMED BY: 1d4 PtyJFK Medical CenterKonfqv9836 [facility] [id number] Bacteria Few (Normal) Mucus Threads Present (Normal) Epithelial Cells (non renal) 0-10 {/hpf} (Normal) Range: 0 - 10 RBC 0-2 {/hpf} (Normal) Range: 0 - 2 WBC 0-5 {/hpf} (Normal) Range: 0 - 5 30-Aob-890101:16 TSH (76003) Comments: PATIENT WAS FASTINGPERFORMED BY: 1d4 PtyJFK Medical CenterYyzlfd6949 [facility] [id number] TSH 1.300 {uIU/mL} (Normal) Range: 0.450-4.500 46-Ztd-970274:16 URINALYSIS, W/ MICRO (10857) Comments: PATIENT WAS FASTINGPERFORMED BY: [facility]6370 [facility] [id number] Microscopic Examination See below: (Normal) Comments: Microscopic was indicated and was performed. Microscopic Examination MICRON (Normal) Comments: Microscopic follows if indicated. Nitrite, Urine Negative (Normal) Urobilinogen,Semi-Qn 0.2 mg/dL (Normal) Range: 0.2-1.0 Bilirubin Negative (Normal) Occult Blood Negative (Normal) Ketones Negative (Normal) Glucose Negative (Normal) Protein Negative (Normal) WBC Esterase Negative (Normal) Appearance Clear (Normal) Urine-Color Yellow (Normal) pH 7.0 (Normal) Range: 5.0-7.5 Specific Beyer 1.020 (Normal) Range: 1.005-1.030 07-Jin-959706:16 MICROALBUMIN: CREATININE RATIO Comments: PATIENT WAS FASTINGPERFORMED BY: NCTechUNM HospitalHvznjc6432 [facility] [id number] (44038) AND (09668) Microalb/Creat Ratio 4.2 {mg/g_creat} (Normal) Range: 0.0-30.0 Microalbumin, Urine 4.8 ug/mL (Normal) Creatinine, Urine 113.8 mg/dL (Normal) 71-Kwx-745440:16 METABOLIC PANEL, COMPREHENSIVE Comments: PATIENT WAS FASTINGPERFORMED BY: LabCoJFK Medical CenterVjcagr4578 [facility] [id number] (83623) ALT (SGPT) 20 [iU]/L (Normal) Range: 0-32 [...] Glucose, Serum 86 mg/dL (Normal) Range: 65-99 96-Dkr-089210:16 LIPID PANEL (00731) Comments: PATIENT WAS FASTINGPERFORMED BY: [employer]6370 [facility] [id number] LDL/HDL Ratio 1.5 {ratio_units} (Normal) Range: 0.0-3.2 Comments: LDL/HDL Ratio Men Women 1/2 Avg.Risk 1.0 1.5 Av g.Risk 3.6 3.2 2X Avg.Risk 6.2 5.0 3X Avg.Risk 8.0 6.1 LDL Cholesterol Calc 110 mg/dL (Abnormal) Range: 0-99 VLDL Cholesterol Cassi 20 mg/dL (Normal) Range: 5-40 HDL Cholesterol 75 mg/dL (Normal) Triglycerides 100 mg/dL (Normal) Range: 0-149 Cholesterol, Total 205 mg/dL (Abnormal) Range: 100-199 92-Gee-867029:16 CBC W/AUTO DIFF WBC (72178) Comments: PATIENT WAS FASTINGPERFORMED BY: [facility]6370 [facility] [id number] Immature Grans (Abs) 0.0 {x10E3/uL} (Normal) Range: [...] Range: 3.4-10.8 :15 Rapid Strep Test, Office (95078) Rapid Strep Test, Office Negative (Normal) :23 Microscopic Examination Comments: PATIENT WAS FASTINGPERFORMED BY: CB [facility] Rikqwp1688 [facility] [id number] Bacteria None seen (Normal) Mucus Threads Present (Normal) Epithelial Cells (non renal) 0-10 {/hpf} (Normal) Range: 0 - 10 RBC None seen {/hpf} (Normal) Range: 0 - 2 WBC None seen {/hpf} (Normal) Range: 0 - 5 61-Tzg-132060:11 HPV automatic Comments: Source.............Cervical;EndocervicalNo. of containers..01 CYTYC Thin Prep VialPATIENT NOT FASTINGPERFORMED BY: WB [facility] [address] [id number] BY: =Shad Griffin (13111) [facility] Ybcnpdqgis229 [facility] [id number] Information: [id number] HPV, high-risk Negative Comments: This high-risk HPV [...] evaluation. No endocervical component is identified.V73.81Eden Lowe General I Farmworker (ASCP) :23 Vitamin D Hydroxy (92127) Comments: PATIENT WAS FASTINGPERFORMED BY: [employer] Iwuevp5151 [facility] [id number] Vitamin D, 25-Hydroxy 59.8 ng/mL (Normal) Range: 30.0-100.0 Comments: Vitamin D deficiency has been defined by the [place] of[place]icine and an Endocrine Society practice guideline as alevel of serum 25-OH vitamin D less than 20 ng/mL (1,2).The Endocrine Society went on to further define vitamin Dinsufficiency as a level between 21 and 29 ng/mL (2).1. IOM ([place] of Medicine). 2010. Dietary reference intakes for calcium and D. [place]: The National Academies Press.2. Mony MF, Jonas NC, Yao LAMB, et al. Evaluation, treatment, and prevention of vitamin D deficiency: an Endocrine Society clinical practice guideline. JCEM. 2010; 96(7):1911-30. :23 URINALYSIS, W/ MICRO (38168) Comments: PATIENT WAS FASTINGPERFORMED BY: [facility] Hwtjmv4318 [facility] [id number] Microscopic Examination See below: (Normal) Comments: Microscopic was indicated and was performed. Microscopic Examination MICRON (Normal) Comments: Microscopic follows if indicated. Nitrite, Urine Negative (Normal) Urobilinogen,Semi-Qn 0.2 mg/dL (Normal) Range: 0.2-1.0 Bilirubin Negative (Normal) Occult Blood Negative (Normal) Ketones Negative (Normal) Glucose Negative (Normal) Protein Negative (Normal) WBC Esterase Negative (Normal) Appearance Clear (Normal) Urine-Color Yellow (Normal) pH 6.5 (Normal) Range: 5.0-7.5 Specific Beyer 1.011 (Normal) Range: 1.005-1.030 :23 LIPID PANEL (61158) Comments: PATIENT WAS FASTINGPERFORMED BY: [facility]6370 [facility] [id number] LDL/HDL Ratio 1.2 {ratio_units} (Normal) Range: 0.0-3.2 [...] Cholesterol, Total 193 mg/dL (Normal) Range: 100-199 :23 CBC W/AUTO DIFF WBC Comments: PATIENT WAS FASTINGPERFORMED BY: [facility]6370 [facility] [id number] Information: [id number] (22338) Immature Grans (Abs) 0.0 {x10E3/uL} (Normal) Range: [...] PANEL, COMPREHENSIVE Comments: PATIENT WAS FASTINGPERFORMED BY: [facility]6370 [facility] [id number] (60244) ALT (SGPT) 22 [iU]/L (Normal) Range: 0-32 [...] With Differential/Platelet Comments: PATIENT WAS FASTINGPERFORMED BY: [facility]6370 [facility] [id number] Information: [id number] Immature Grans (Abs) 0.0 {x10E3/uL} (Normal) Range: [...] Panel (14) Comments: PATIENT WAS FASTINGPERFORMED BY: [facility] [facility]70 [facility] [id number] ALT (SGPT) 21 [iU]/L (Normal) Range: 0-32 [...] Glucose, Serum 86 mg/dL (Normal) Range: 65-99 :37 Lipid Panel With LDL/HDL Comments: PATIENT WAS FASTINGPERFORMED BY: [facility]70 [facility] [id number] Ratio LDL/HDL Ratio 1.3 {ratio_units} Range: 0.0-3.2 [...] ng/mL (Normal) Comments: PATIENT WAS FASTINGPERFORMED BY: [employer] Kidabp7300 [facility] [id number] 7:37 Range: 30.0-100.0 Comments: Vitamin D deficiency has been defined by the [place] of[place]icine and an Endocrine Society practice guideline as alevel of serum 25-OH vitamin D less than 20 ng/mL (1,2).The Endocrine Society went on to further define vitamin Dinsufficiency as a level between 21 and 29 ng/mL (2).1. IOM ([place] of Medicine). 2010. Dietary reference intakes for calcium and D. [place]: The National Urb[employer] Press.2. Mony RUIZ, Jonas HUBBARD, Yao LAMB, et al. Evaluation, treatment, and prevention of vitamin D deficiency: an Endocrine Society clinical practice guideline. JCEM. 2010; 96(7):1911-30. 12-Bqq-06539:11 Vitamin D Hydroxy (98945) Comments: PATIENT WAS FASTINGPERFORMED BY: [employer] [facility] Xvflsk8929 [facility] [id number] Vitamin D, 25-Hydroxy 37.5 ng/mL (Normal) Range: 30.0-100.0 Comments: Vitamin D deficiency has been defined by the [place] of[place]icine and an Endocrine Society practice guideline as alevel of serum 25-OH vitamin D less than 20 ng/mL (1,2).The Endocrine Society went on to further define vitamin Dinsufficiency as a level between 21 and 29 ng/mL (2).1. IOM ([place] of [place]). 2010. Dietary reference intakes for calcium and D. [place]: The National Academies Press.2. Jonas King [place], Yao LAMB, et al. Evaluation, treatment, and prevention of vitamin D deficiency: an Endocrine Society clinical practice guideline. JCEM. 2010; 96(7):1911-30. :11 METABOLIC PANEL, Comments: PATIENT WAS FASTINGPERFORMED BY: [employer]70 [facility] [id number] Information: [id number] COMPREHENSIVE (71566) ALT (SGPT) 17 [iU]/L (Normal) Range: 0-32 [...] Glucose, Serum 87 mg/dL (Normal) Range: 65-99 :11 LIPID PANEL (28687) Comments: PATIENT WAS FASTINGPERFORMED BY: [facility] Tophxb1839 [facility] [id number]; non-emergent till apt- LDL/HDL Ratio 1.5 {ratio_units} [...] Cholesterol, Total 203 mg/dL (Abnormal) Range: 100-199 34-Sud-281290:11 Microscopic Examination Comments: PATIENT WAS FASTINGPERFORMED BY: [employer] [facility]70 [facility] [id number] Bacteria Few (Normal) Mucus Threads Present (Normal) Epithelial Cells (non renal) None seen {/hpf} (Normal) Range: 0 - 10 RBC 0-3 {/hpf} (Normal) Range: 0 - 3 WBC 0-5 {/hpf} (Normal) Range: 0 - 5 :30 URINALYSIS, W/ MICRO (49510) Comments: PATIENT WAS FASTINGPERFORMED BY: [facility] Uogvie5111 [facility] [id number]; pt has appt today 01/02/14 Microscopic Examination See below: (Normal) Microscopic Examination MICRON (Normal) Comments: Microscopic follows if indicated. Nitrite, Urine Negative (Normal) Urobilinogen,Semi-Qn 0.2 mg/dL (Normal) Range: 0.0-1.9 Bilirubin Negative (Normal) Occult Blood Negative (Normal) Ketones Negative (Normal) Glucose Negative (Normal) Protein Negative (Normal) WBC Esterase Negative (Normal) Appearance Clear (Normal) Urine-Color Yellow (Normal) pH 6.0 (Normal) Range: 5.0-7.5 Specific Beyer 1.021 (Normal) Range: 1.005-1.030 :30 CBC WITH MANUAL DIFF Comments: PATIENT WAS FASTINGPERFORMED BY: LabAmeriprimeJFK Medical CenterCodwos5145 [facility] [id number] Information: [id number] (17227) Immature Grans (Abs) 0.0 {x10E3/uL} (Normal) Range: [...] {x10E3/uL} (Normal) Range: 3.4-10.8 :30 LIPID PANEL (12739) Comments: PATIENT WAS FASTINGPERFORMED BY: LabCoJFK Medical CenterGnbglp1711 [facility] [id number] LDL/HDL Ratio 1.2 {ratio_units} (Normal) Range: 0.0-3.2 [...] PANEL, COMPREHENSIVE Comments: PATIENT WAS FASTINGPERFORMED BY: LabCoJFK Medical CenterEgwuro9937 [facility] [id number] (44799) ALT (SGPT) 18 [iU]/L (Normal) Range: 0-32 [...] (Normal) Range: 65-99 :30 Vitamin D Hydroxy (53221) Comments: PATIENT WAS FASTINGPERFORMED BY: LabCoJFK Medical CenterScchgs9393 [facility] [id number] Vitamin D, 25-Hydroxy 32.5 ng/mL (Normal) Range: 30.0-100.0 Comments: Vitamin D deficiency has been defined by the [place] of[place]icine and an Endocrine Society practice guideline as alevel of serum 25-OH vitamin D less than 20 ng/mL (1,2).The Endocrine Society went on to further define vitamin Dinsufficiency as a level between 21 and 29 ng/mL (2).1. IOM ([place] of Medicine). 2010. Dietary reference intakes for calcium and D. [place]: The National Academies Press.2. Mony MF, Jonas HUBBARD, Yao LAMB, et al. Evaluation, treatment, and prevention of vitamin D deficiency: an Endocrine Society clinical practice guideline. JCEM. 2010; 96(7):1911-30. 55-Rcw-09643:27 METABOLIC PANEL, Comments: PATIENT WAS FASTINGPERFORMED BY: [facility] Jzkgqj0122 [facility] [id number] Information: [id number] COMPREHENSIVE (67292) ALT (SGPT) 19 [iU]/L (Normal) Range: 0-32 [...] FUNCTION PANEL Comments: PATIENT WAS FASTINGPERFORMED BY: [employer] [facility] [id number] (79832) Bilirubin, Direct 0.28 mg/dL (Normal) Range: 0.00-0.40 :27 LIPID PANEL (44104) Comments: PATIENT WAS FASTINGPERFORMED BY: [facility]6370 [facility] [id number] LDL/HDL Ratio 1.1 {ratio_units} (Normal) Range: 0.0-3.2 [...] Rios M.D.February 28, 2013 at 10:00:00 AM [id number] Signed GP/GP If you are the referring physician and would like to consult with theradiologist who provided this interpretation, please contact Mahogany Pelaez at [phone]. If this radiologist is unavailable, youwill be directed to another radiologist to assist. If you are a patient with a question regarding this report, pleasecontactyour referring physician directly. Pro fessional Interpretation Provided By: THUBIT, Phone , These documents contain legally protected [...] 02/28/13 1127 Sign by: Darrell Rios MD 21-Bjm-86578:37 Request Problem Comments: Source.............Cervical;EndocervicalNo. of containers..01 CYTYC Thin Prep VialPATIENT NOT FASTINGPERFORMED BY: WB [facility] Mqvnfbyqwm[address] [id number] BY: =G L [facility] Spzideqdey162 [facility] [id number] 06-Ffu-47942:41 METABOLIC PANEL, Comments: PATIENT WAS FASTINGPERFORMED BY: CB [facility] Zbshow7010 [facility] [id number] Information: ADD [id number] AND DRAW FEE 99 4677 COMPREHENSIVE (91401) ALT (SGPT) 15 [iU]/L (Normal) Range: 0-32 [...] Glucose, Serum 86 mg/dL (Normal) Range: 65-99 82-Fxw-39034:41 Vitamin D Hydroxy (49759) Comments: PATIENT WAS FASTINGPERFORMED BY: [employer]6370 [facility] [id number] Vitamin D, 25-Hydroxy 43.2 ng/mL (Normal) Range: 30.0-100.0 Comments: Vitamin D deficiency has been defined by the [place] of[place]icine and an Endocrine Society practice guideline as alevel of serum 25-OH vitamin D less than 20 ng/mL (1,2).The Endocrine Society went on to further define vitamin Dinsufficiency as a level between 21 and 29 ng/mL (2).1. IOM ([place] of [employer]). 2010. Dietary reference intakes for calcium and D. [place]: The National Academies Press.2. Mony MF, Jonas HUBBARD, Yao LAMB, et al. Evaluation, treatment, and prevention of vitamin D deficiency: an Endocrine Society clinical practice guideline. JCEM. 2010; 96(7):1911-30. :41 LIPID PANEL (04721) Comments: PATIENT WAS FASTINGPERFORMED BY: LabCoJFK Medical CenterShvzcg1531 [facility] [id number] LDL/HDL Ratio 2.2 {ratio_units} (Normal) Range: 0.0-3.2 [...] Thin Prep VialPATIENT NOT FASTINGPERFORMED BY: [facility] Rwxcqqjlla969 [facility] [id number] BY: =Shad Griffin (49229) [facility] Rltdmmkany087 [facility] [place] [id number] Information: [id number] Note: PAPSMR (Normal) Comments: The Pap smear [...] MALIGNANCY.THIS SPECIMEN WAS RESCREENED PART OF OUR MULTIPLE GAMES DEALER PROGRAM.Satisfactory for evaluation. No endocervical component is identified.V7 3.81 ; Speci al screening examination, human papillomavirus [HPV]Eric Brock, General I Farmworker (ASCP)Paris Irwin, Supervisory General I Farmworker (ASCP) 54-Gdg-11314:47 BILAT SCRN DIGITAL & CAD Radiology Report [...] Rios M.D.May 25, 2012 at 8:29:12 AM [id number] Signed GP/GP If you are the referring physician and would like to consult with theradiologist who pr ovided this interpretation, please contact Mhaogany Pelaez at [phone]. If this radiologist is unavailable, youwill be directed to another radiologist to assist. If you are a patient with a question regarding this report, pleasecontactyour referring physician directly. Professional Interpretation Provided By: THUBIT, Phone , These documents contain legall y [...] destructionofthese documents. Dictated on 05/25/12746 by Gabriel GARCIA,Zachranscribed on 05/25/12832 by ITS IMPORTSign by Gabriel GARCIA,Darrell on 05/25/12833 Sign by: Darrell Rios MD 73-Orz-24225:52 CBC WITH MANUAL DIFF Comments: PATIENT WAS FASTINGPERFORMED BY: LabCoJFK Medical CenterGogjdz0179 [facility] [id number] Information: [id number] (72791) Immature Grans (Abs) 0.0 {x10E3/uL} (Normal) Range: [...] PANEL, COMPREHENSIVE Comments: PATIENT WAS FASTINGPERFORMED BY: LabCoJFK Medical CenterEqiiet8900 [facility] [id number] (06759) ALT (SGPT) 18 [iU]/L (Normal) Range: 0-40 [...] FUNCTION PANEL Comments: PATIENT WAS FASTINGPERFORMED BY: [facility]6370 [facility] [id number] (88954) Bilirubin, Direct 0.25 mg/dL (Normal) Range: 0.00-0.40 :52 LIPID PANEL (84946) Comments: PATIENT WAS FASTINGPERFORMED BY: [facility]6370 [facility] [id number] LDL/HDL Ratio 2.0 {ratio_units} (Normal) Range: 0.0-3.2 LDL Cholesterol Calc 141 mg/dL (Abnormal) Range: 0-99 VLDL Cholesterol Cassi [...] clinically suspiciousabnormality. Dictated on 01/27/11 0839 by Zach Rios MDranscribed on 01/27/11 1007 by ITS IMPORTSign by Darrell Rios MD on 01/27/11 1008 Sign by: Darrell Rios MD 3-Fps-355373:00 BILAT SCRN DIGITAL & CAD Radiology Report [...] MD on 01/21/11 1 328 Sign by: KIMBERLY GARCIAYOUNG :52 HEPATIC FUNCTION PANEL Comments: PATIENT WAS FASTINGPERFORMED BY: Write.[facility]6370 [facility] [id number] Information: [id number] (82156) ALT (SGPT) 35 [iU]/L (Normal) Range: 0-40 AST (SGOT) 33 [iU]/L (Normal) Range: 0-40 Alkaline Phosphatase, S 57 [iU]/L (Normal) Range: 25-150 Bilirubin, Direct 0.23 mg/dL (Normal) Range: 0.00-0.40 Bilirubin, Total 1.1 mg/dL (Normal) Range: 0.0-1.2 Albumin, Serum 4.5 g/dL (Normal) Range: 3.5-5.5 Protein, Total, Serum 6.9 g/dL (Normal) Range: 6.0-8.5 :52 LIPID PANEL (46488) Comments: PATIENT WAS FASTINGPERFORMED BY: 1d4 PtyJFK Medical CenterRllcbl6603 [facility] [id number]; appt 05/25/11 LDL/HDL Ratio 2.4 {ratio_units} (Normal) [...] CYTYC Thin Prep VialPATIENT NOT FASTINGPERFORMED BY: Lab[address] [id number] Information: [id number] (55362) Note: PAPSMR (Normal) Comments: The Pap smear [...] MALIGNANCY.THIS SPECIMEN WAS RESCREENED PART OF OUR MULTIPLE GAMES DEALER PROGRAM.Satisfactory for evaluation. No endocervical component is identified.V7 2.31 ; Routi ne gynecological examinationSiena Gee, General I Farmworker (ASCP)Heidi Gamez, Supervisory General I Farmworker ([facility]) 43-Cef-97101:21 DEXA BONE DENSITY STUDY (HP) Radiology Report See Note (Normal) Comments: CLINICAL:Female, 55 years old. The patient is postmenopausal. EXAMINATION:DUAL ENERGY X-RAY ABSORPTIOMETRY / DEXA. TECHNIQUE:Bone Mineral Density (BMD) measurements of lumbar spine and bila teralhipswer e obtained using a [employer] scanner.. COMPARISON:Comparison is made with prior study [...] 1011 Sign by: Darrell Rios :26 TSH (45877) Comments: PATIENT WAS FASTINGPERFORMED BY: [employer] [facility] Ozwpoc2710 [facility] [id number] TSH 2.150 {uIU/mL} (Normal) Range: 0.450-4.500 43-Vky-86072:26 METABOLIC PANEL, Comments: PATIENT WAS FASTINGPERFORMED BY: [employer] LabCoJFK Medical CenterEgdzru2397 [facility] [id number] Information: [id number] COMPREHENSIVE (78359) ALT (SGPT) 23 [iU]/L (Normal) Range: 0-40 [...] mg/dL (Normal) Range: 65-99 :26 LIPID PANEL (46031) Comments: PATIENT WAS FASTINGPERFORMED BY: [employer] [place] [id number]; appt 11/25/10 HDL Cholesterol 63 mg/dL (Normal) Comments: According to ATP-III Guidelines, HDL-C >59 mg/dL is considered anegative risk factor for CHD. LDL Cholesterol Calc 139 mg/dL (Abnormal) Range: 0-99 LDL/HDL Ratio 2.2 {ratio_units} (Normal) Range: 0.0-3.2 VLDL Cholesterol Cassi 35 mg/dL (Normal) Range: 5-40 Cholesterol, Total 237 mg/dL (Abnormal) Range: 100-199 Triglycerides 173 mg/dL (Abnormal) Range: 0-149 :26 Vitamin D Hydroxy (36686) Comments: PATIENT WAS FASTINGPERFORMED BY: [facility]6[address] [employer] [place] [id number] Vitamin D, 25-Hydroxy 50.2 ng/mL (Normal) Range: 32.0-100.0 Comments: Recent studies consider the lower limit of 32.0 ng/mL to be athreshold for optimal health.Mitchel SCHMITZ. J Nutr. 2004;135(2):317-22. :13 Microscopic Examination Comments: PATIENT WAS FASTINGPERFORMED BY: [facility]6370 [facility] [id number] Bacteria None seen (Normal) Mucus Threads Present (Normal) Epithelial Cells (non renal) >10 {/hpf} (Abnormal) Range: 0 - 10 RBC 0-3 {/hpf} (Normal) Range: 0 - 3 WBC 0-5 {/hpf} (Normal) Range: 0 - 5 :07 BILAT SCRN DIGITAL & CAD Radiology Report See Note (Normal) Comments: Exam Number: [id number] MAMMOGRAM, BILATERAL SCREENING DIGITAL AND CAD HISTORYRoutine [...] 1992 (MQSA). The mammograms werealso examined with Nirvanixuter-aided detection software ([employer] Reported By: YOUNG BARRON M.D. :13 CBC WITH MANUAL DIFF Comments: PATIENT WAS FASTINGPERFORMED BY: [facility]6370 [facility] [id number] Information: [id number] (35754) Baso (Absolute) 0.0 {x10E3/uL} (Normal) Range: 0.0-0.2 [...] PANEL, COMPREHENSIVE Comments: PATIENT WAS FASTINGPERFORMED BY: [facility] Uievvu5679 [facility] [id number] (82299) ALT (SGPT) 26 [iU]/L (Normal) Range: 0-40 [...] Glucose, Serum 83 mg/dL (Normal) Range: 65-99 32-Ppv-75481:13 URINALYSIS, W/ MICRO (84896) Comments: PATIENT WAS FASTINGPERFORMED BY: LabCoJFK Medical CenterCdzzve5624 [facility] [id number] Microscopic Examination See below: (Normal) Microscopic Examination MICRON (Normal) Comments: Microscopic follows if indicated. Nitrite, Urine Negative (Normal) Appearance Clear (Normal) Bilirubin Negative (Normal) Glucose Negative (Normal) Ketones Negative (Normal) Occult Blood Negative (Normal) Protein Negative (Normal) Urobilinogen,Semi-Qn 0.2 mg/dL (Normal) Range: 0.0-1.9 WBC Esterase Negative (Normal) pH 6.5 (Normal) Range: 5.0-7.5 Specific Beyer 1.025 (Normal) Range: 1.005-1.030 Urine-Color Yellow (Normal) :13 LIPID PANEL (85450) Comments: PATIENT WAS FASTINGPERFORMED BY: [facility] [facility]70 [facility] [id number] LDL/HDL Ratio 2.3 {ratio_units} (Normal) Range: 0.0-3.2 HDL Cholesterol 61 mg/dL (Normal) Comments: According to ATP-III Guidelines, HDL-C >59 mg/dL is considered anegative risk factor for CHD. LDL Cholesterol Calc 138 mg/dL (Abnormal) Range: 0-99 Triglycerides 145 mg/dL (Normal) Range: 0-149 VLDL Cholesterol Cassi 29 mg/dL (Normal) Range: 5-40 Cholesterol, Total 228 mg/dL (Abnormal) Range: 100-199 :13 Vitamin D Hydroxy (01244) Comments: PATIENT WAS FASTINGPERFORMED BY: [facility]6370 [facility] [id number] Vitamin D, 25-Hydroxy 43.7 ng/mL (Normal) Range: 32.0-100.0 Comments: Recent studies consider the lower limit of 32.0 ng/mL to be athreshold for optimal health.Mitchel SCHMITZ. J Nutr. 2004;135(2):317-22. :03 URINALYSIS W/O MICRO (87095) Comments: PATIENT WAS FASTINGPERFORMED BY: [facility]6370 [facility] [id number] Bilirubin Negative (Normal) Microscopic Examination MICRON (Normal) Comments: Microscopic follows if indicated. Nitrite, Urine Negative (Normal) Occult Blood Negative (Normal) Urobilinogen,Semi-Qn 0.2 mg/dL (Normal) Range: 0.0-1.9 Appearance Clear (Normal) Glucose Negative (Normal) Ketones Negative (Normal) pH 6.5 (Normal) Range: 5.0-7.5 Protein Trace (Normal) Specific Beyer 1.024 (Normal) Range: 1.005-1.030 Urine-Color Yellow (Normal) WBC Esterase Negative (Normal) :03 TSH (08448) Comments: PATIENT WAS FASTINGPERFORMED BY: FINA 1d4 PtyUNM HospitalGixuqz8262 [facility] [id number] TSH 1.570 {uIU/mL} (Normal) Range: 0.450-4.500 :03 CBC WITH MANUAL DIFF Comments: PATIENT WAS FASTINGPERFORMED BY: 1d4 PtyJFK Medical CenterOwwkzl0241 [facility] [id number] Information: [id number] (42806) Baso (Absolute) 0.0 {x10E3/uL} (Normal) Range: 0.0-0.2 [...] 3.80-5.10 WBC 3.3 {x10E3/uL} (Abnormal) Range: 4.0-10.5 :03 HEPATIC FUNCTION PANEL Comments: PATIENT WAS FASTINGPERFORMED BY: 1d4 PtyJFK Medical CenterDmrxzj4190 [facility] [id number] (76136) ALT (SGPT) 21 [iU]/L (Normal) Range: 0-40 Alkaline Phosphatase, S 57 [iU]/L (Normal) Range: 25-150 AST (SGOT) 22 [iU]/L (Normal) Range: 0-40 Bilirubin, Direct 0.24 mg/dL (Normal) Range: 0.00-0.40 Bilirubin, Total 1.3 mg/dL (Abnormal) Range: 0.1-1.2 Albumin, Serum 4.7 g/dL (Normal) Range: 3.5-5.5 Protein, Total, Serum 7.2 g/dL (Normal) Range: 6.0-8.5 :03 LIPID PANEL (61350) Comments: PATIENT WAS FASTINGPERFORMED BY: [employer] Wmwccg7873 [facility] [id number] LDL Cholesterol Calc 135 mg/dL (Abnormal) Range: 0-99 LDL/HDL Ratio 2.3 {ratio_units} (Normal) Range: 0.0-3.2 VLDL Cholesterol Cassi 32 mg/dL (Normal) Range: 5-40 HDL Cholesterol 60 mg/dL (Normal) Comments: According to ATP-III Guidelines, HDL-C >59 mg/dL is considered anegative risk factor for CHD. Triglycerides 159 mg/dL (Abnormal) Range: 0-149 Cholesterol, Total 227 mg/dL (Abnormal) Range: 100-199 :03 Vitamin D Hydroxy (98149) Comments: PATIENT WAS FASTINGPERFORMED BY: [employer] LabCoJFK Medical CenterGmxkin1947 [facility] [id number] Vitamin D, 25-Hydroxy 44.7 ng/mL (Normal) Range: 32.0-100.0 Comments: Recent studies consider the lower limit of 32.0 ng/mL to be athreshold for optimal health.Mitchel SCHMITZ. J Nutr. 2004;135(2):317-22. -:17 COMP METABOLIC A/G 1.1 {RATIO} (Normal) Range: [...] mg/dL (Normal) Range: 5-40 :17 VIT D,25 15154 53.0 ng/mL (Normal) Range: 32.0-100.0 Comments: Recent studies consider the lower limit of 32.0 ng/mL to seun threshold for optimal health.Mitchel SCHMITZ. J Nutr. 2004;135(2):317-22.Performed At: [facility]6370 [place], [place] [id number] :06 Hepatic Function Panel (7) Comments: PATIENT WAS FASTINGPERFORMED BY: [place] 3768770 [facility] [id number] Albumin, Serum 4.8 g/dL (Normal) Range: 3.5-5.5 Alkaline Phosphatase, S 65 [iU]/L (Normal) Range: 25-150 ALT (SGPT) 30 [iU]/L (Normal) Range: 0-40 AST (SGOT) 27 [iU]/L (Normal) Range: 0-40 Bilirubin, Direct 0.22 mg/dL (Normal) Range: 0.00-0.40 Bilirubin, Total 1.0 mg/dL (Normal) Range: 0.1-1.2 :06 Lipid Panel With LDL/HDL Comments: PATIENT WAS FASTINGPERFORMED BY: Write.my[address] [id number] Ratio Cholesterol, Total 239 mg/dL (Abnormal) Range: [...] mg/dL (Normal) Comments: PATIENT WAS FASTINGPERFORMED BY: [place] 3768770 [facility] [id number] :06 Range: 2.5-4.5 :06 Protein Electro, Random Urine Comments: PATIENT WAS FASTINGPERFORMED BY: [address] [id number] Albumin, U 38.9 % (Normal) Xuvyl-6-Cqjvhzos, U 2.0 % (Normal) Dsqtj-2-Jpwxtesc, U 16.1 % (Normal) Beta Globulin, U 20.8 % (Normal) Gamma Globulin, U 22.2 % (Normal) M-Ritchie, % Not Observed % (Normal) Please note: SPRCS (Normal) Comments: Protein electrophoresis scan will follow via mail or merchandise collector. Protein,Total,Urine 9.7 mg/dL (Normal) Range: 0.0-15.0 :06 Protein Electro.,S Comments: PATIENT WAS FASTINGPERFORMED BY: [facility] [id number] A/G Ratio 1.6 (Normal) Range: 0.7-2.0 Albumin 4.5 g/dL (Normal) Range: 3.2-5.6 Mknfz-5-Rfegkcwl 0.2 g/dL (Normal) Range: 0.1-0.4 Onvgs-9-Ablzyckw 0.7 g/dL (Normal) Range: 0.4-1.2 Beta Globulin 1.0 g/dL (Normal) Range: 0.6-1.3 Gamma Globulin 1.0 g/dL (Normal) Range: 0.5-1.6 Globulin, Total 2.9 g/dL (Normal) Range: 2.0-4.5 M-Ritchie Not Observed g/dL (Normal) Please note: SPRCS (Normal) Comments: Protein electrophoresis scan will follow via mail or merchandise collector. Protein, Total, Serum 7.4 g/dL (Normal) Range: 6.0-8.5 : PTH, Intact 26 pg/mL (Normal) Comments: PATIENT WAS FASTINGPERFORMED BY: [facility]6370 [facility] [id number] Range: 15-65 : Vitamin D, 25-Hydroxy 31.2 ng/mL Comments: PATIENT WAS FASTINGPERFORMED BY: [facility] [id number] 06 (Abnormal) Range: 32.0-100.0 Comments: Recent studies consider the lower limit of 32.0 ng/mL to be athreshold for optimal health.Mitchel SCHMITZ. J Nutr. 2004;135(2):317-22. 3-Tag-581771:27 CHEST WITH CONTRAST Radiology Report See Note (Normal) Comments: Exam Number: [id number] CT OF CHEST HISTORYAbnormal rib. COMPARISONRib series [...] normalities identified. Reported By: NIKO COLIN M.D. 99-Sdl-496626:02 BILAT SCRN DIGITAL & CAD Radiology Report See Note (Normal) Comments: Exam Number: [id number] MAMMOGRAM, BILATERAL SCREENING DIGITAL AND CAD HISTORYRoutine [...] grams werealso examined with computer-aided detection software ([employer], [employer] Reported By: YONUG BARRON M.D. 76-Nbv-949279:02 DEXA BONE DENSITY STUDY (HP) Radiology Report See Note (Normal) Comments: Exam Number: [id number] BONE DENSITOMETRY HISTORYPost menopausal. TECHNIQUE Bone densitometry [...] normal limits. Reported By: YOUNG BARRON M.D. 50-Grs-661388:33 RIBS,UNI,MIN 3V,W/PA CHEST(OK) Radiology Report See Note (Normal) Comments: Exam Number: [id number] LEFT RIBS, 4 VIEWS WITH PA CHEST [...] Thin prep Pap Comments: Source.............Cervical;EndocervicalLMP / Prev Treat...QHX=[id number]. of containers..01 CYTYC Thin Prep VialPATIENT NOT FASTINGClinical Information: ADD [id number] (07692) PERFORMED BY: [employer] [address] [id number] Note: PAPSMR (Normal) Comments: The Pap smear [...] ; Routine gynecolog ical examina Altagracia Lion General I Farmworker (ASCP) :26 CBC With Differential/Platelet Comments: PATIENT WAS FASTINGPERFORMED BY: [facility] Dcyibw7598 [facility] [id number] Baso (Absolute) 0.0 {x10E3/uL} (Normal) Range: 0.0-0.2 [...] codes that are included in CBC With Differential/Platelet([id number]). 18-Jul-20089:26 Comp. Metabolic Panel (14) Comments: PATIENT WAS FASTINGPERFORMED BY: [facility]6370 [facility] [id number] A/G Ratio 1.5 (Normal) Range: 1.1-2.5 Albumin, [...] Serum 88 mg/dL (Normal) Range: 65-99 If -Finnish >59 mL/min/1.73 Comments: Note: Persistent reduction for [...] With LDL/HDL Comments: PATIENT WAS FASTINGPERFORMED BY: [employer] [facility] [id number] Ratio Cholesterol, Total 280 mg/dL (Abnormal) Range: [...] Randm Ur Comments: PATIENT WAS FASTINGPERFORMED BY: CB Synappio RoadDublin [place] [id number] Creatinine, Urine 33.7 mg/dL (Normal) Range: 15.0-278.0 Microalb/Creat Ratio 3.3 {ug/mg_creat} Range: 0.0-30.0 (Normal) Microalbum.,U,Random 1.1 ug/mL (Normal) Range: 0.0-17.0 :2 TSH 2.005 {uIU/mL} Comments: PATIENT WAS FASTINGPERFORMED BY: [facility]6370 [facility] [id number] 6 (Normal) Range: 0.450-4.500 :26 Urinalysis, Routine Comments: PATIENT WAS FASTINGPERFORMED BY: [facility]6370 [facility] [id number] Appearance Clear (Normal) Bilirubin Negative (Normal) Glucose Negative (Normal) Ketones Negative (Normal) Microscopic Examination MICRON (Normal) Comments: Microscopic follows if indicated. Nitrite, Urine Negative (Normal) Occult Blood Negative (Normal) pH 7.0 (Normal) Range: 5.0-7.5 Protein Negative (Normal) Specific Beyer 1.009 (Normal) Range: 1.005-1.030 Urine-Color Yellow (Normal) Urobilinogen,Semi-Qn 0.2 mg/dL (Normal) Range: 0.0-1.9 WBC Esterase Negative (Normal) :54 Pap Lb, rfx HPV Comments: Source.............Cervical;EndocervicalLMP / Prev Treat...NoneDates / Results....MENOPAUSALNo. of containers..01 CYTYC Thin Prep VialPERFORMED BY: Lab[address] [id number] ASCU . . (Normal) DIAGNOSIS: SPRCS (Normal) Comments: NEGATIVE FOR INTRAEPITHELIAL LESION AND MALIGNANCY.Satisfactory for evaluation. Endocervical and/or squamous metaplasticcells (endocervical component) are present.V72.31 ; Routine gynecolog ical examina Dipesh Talavera General I Farmworker (ASCP) Note: PAPSMR (Normal) Comments: The Pap [...] Report See Note (Normal) Comments: Exam Number: [id number] BILATERAL SCREENING DIGITAL MAMMOGRAM CLINICAL INFORMATIONScreening. Bilateral [...] The mammogramswere also examined with computer-aided detection software([employer].). Reported By: HAYDEE BOBO M.D. Plan of Care Name Dates [...] exam with routine gynecological exam Planned Observations MICROALBUMIN: CREATININE RATIO (35333) AND (61825)Indication: Benign essential hypertension On: :00 Request LIPID PANEL (76827)Indication: Other hyperlipidemia On: :00 Request TSH (THYROID STIMULATING HORMONE) (53029)Indication: Vitamin D deficiency, unspecified On: 64-Gfu-12625:00 Request CALCIFEDIOL (45427)Indication: Vitamin D deficiency, unspecified On: :00 Request URINALYSIS (58703)Indication: Benign essential hypertension On: :00 Request CBC & PLATELETS (AUTO) (82835)Indication: Benign essential hypertension On: :00 Request METABOLIC PANEL, COMPREHENSIVE (84869)Indication: Benign essential hypertension On: :59 Request TSH (97673)Indication: Other hyperlipidemia On: :21 Request CALCIFIDIOL (82177) VIT D 25Indication: Vitamin D deficiency, unspecified On: :20 Request URINALYSIS, W/ MICRO (14704)Indication: Benign essential hypertension On: :20 Request MICROALBUMIN: CREATININE RATIO (56848) AND (86999)Indication: Benign essential hypertension On: :20 Request METABOLIC PANEL, COMPREHENSIVE (59408)Indication: Benign essential hypertension On: :20 Request LIPID PANEL (64601)Indication: Other hyperlipidemia On: :20 Request CBC W/AUTO DIFF WBC (98342)Indication: Benign essential hypertension On: :20 Request Vitamin D Hydroxy (11915)Indication: Vitamin D deficiency, unspecified On: :27 Request METABOLIC PANEL, COMPREHENSIVE (44513)Indication: Other hyperlipidemia On: :27 Request LIPID PANEL (13576)Indication: Other hyperlipidemia On: :26 Request Thin prep Pap (66008) (no STD testing)Indication: Annual physical exam On: 54-Njv-73115:44 Request CBC W/AUTO DIFF WBC (21280)Indication: Other migraine without status migrainosus, intractable On: 21-Mla-574565:34 Request METABOLIC PANEL, COMPREHENSIVE (60476)Indication: Other hyperlipidemia On: 52-Ijl-107163:34 Request Vitamin D Hydroxy (83014)Indication: Vitamin D deficiency, unspecified On: :34 Request LIPID PANEL (80077)Indication: Other hyperlipidemia On: 48-Jnr-349534:34 Request Thin prep Pap (47858)Indication: Well woman exam with routine gynecological exam On: 65-Csx-141608:08 Request Vitamin D Hydroxy (91939)Indication: vit d deficiency On: 8-Ocu-134308:39 Request METABOLIC PANEL, COMPREHENSIVE (45559)Indication: Benign essential hypertension On: 6-Cnr-115812:39 Request LIPID PANEL (85128)Indication: Other hyperlipidemia On: 1-Sml-398851:39 Request PHOSPHORUS (45204)Indication: Osteopenia On: 53-Ysd-370694:12 Request UPEP (58399)Indication: Osteopenia On: 64-Zka-011428:12 Request SPEP (07045)Indication: Osteopenia On: 43-Ihd-017105:12 Request PARATHORMONE (97960)Indication: Osteopenia On: 87-Pmi-595649:12 Request SPEP (91914)Indication: Osteopenia On: 31-Chq-409255:12 Request UPEP (51393)Indication: Osteopenia On: 58-Cgf-380645:12 Request Vitamin D Hydroxy (55585)Indication: Osteopenia On: [id number] Request HEPATIC FUNCTION PANEL ([id number])Indication: Other hyperlipidemia On: :27 Request LIPID PANEL ([id number])Indication: Other hyperlipidemia On: :27 Request TSH ([id number])Indication: Elevated blood-pressure reading without diagnosis of hypertension On: :20 Request URINALYSIS W/O MICRO ([id number])Indication: Elevated blood-pressure reading without diagnosis of hypertension On: :20 Request MICROALBUMIN: CREATININE RATIO ([id number]) AND ([id number])Indication: Elevated blood-pressure reading without diagnosis of hypertension On: :20 Request MICROALBUMIN URINE QUANT ([id number])Indication: Elevated blood-pressure reading without diagnosis of hypertension On: :20 Request METABOLIC PANEL, COMPREHENSIVE ([id number])Indication: Elevated blood-pressure reading without diagnosis of hypertension On: :20 Request LIPID PANEL ([id number])Indication: Elevated blood-pressure reading without diagnosis of hypertension On: :20 Request CREATININE, URINE ([id number])Indication: Elevated blood-pressure reading without diagnosis of hypertension On: :20 Request CBC WITH MANUAL DIFF ([id number])Indication: Elevated blood-pressure reading without diagnosis of hypertension On: :20 Request Thin prep Pap ([id number])Indication: Well woman exam with routine gynecological exam On: [id number]-Hsw-[id number]:00 Request Planned Procedures MAMMOGRAM BREAST BILATERAL On: 22-Jun-2018 Intent SCREENING DIGITAL ([id number])By: Chanda Ferguson DO, DO, Kathleen DEXA SCAN AXIAL SKELETON ([id number])By: On: 30-Dec-2016 Intent Chanda Ferguson DO, DO, Comments: not due until after 04/03/17 Chanda ELECTROCARDIOGRAM, COMPLETE (ECG) On: 30-Dec-2016 Intent ([id number])By: Chanda Ferguson DO Comments: nsr no acute chg Chanda Ferguson DO MAMMOGRAM BREAST BILATERAL On: 26-Aug-2016 Intent SCREENING DIGITAL ([id number])By: Chanda Ferguson DO, DO, Kathleen BILATERAL MAMMOGRAMS ([id number])By: On: 13-Nov-2015 Intent Fast DO, Daisy A DEXA SCAN AXIAL SKELETON ([id number])By: On: 01-Jan-2015 Intent Daisy Tucker DO Comments: february MAMMOGRAM, SCREENING, BOTH BREAST On: 03-Jul-2014 Intent ([id number])By: Daisy Tucker DO Radiology - Knee - Left - Weight On: 03-Jul-2014 Intent BearingBy: Daisy Tucker DO ELECTROCARDIOGRAM, COMPLETE (ECG) On: 03-Jul-2014 Intent ([id number])By: Daisy Tucker DO Comments: ekg showed normal sinus rhythym, normal axis, no acute st/t wave changes Eprescribed prescriptions On: 11-Jul-2013 Intent ([id number])By: Alexandra Og Breast Screening - BilateralBy: On: 29-May-2013 Intent Chris Edwardsa EKG ([id number])By: Alexandra Og On: 04-Apr-2013 Intent Comments: ekg showed normal sinus rhythym, normal axis, no acute st/t wave changes Eprescribed prescriptions On: 04-Apr-2013 Intent ([id number])By: Alexandra Og DXA, BONE DENSITY, AXIAL SKELETON On: 06-Jun-2012 Intent ([id number])By: Daisy Tucker DO Comments: sep Breast Screening - BilateralBy: On: 06-May-2012 Intent Daisy Tucker DO EKG ([id number])By: Alexandra Og On: 25-May-2011 Intent Comments: ekg showed normal sinus rhythym, normal axis, no acute st/t wave changes FLU VAC, SPLIT, >3 YEARS, INTRAMUSC On: 25-May-2011 Intent ([id number])By: Alexandra Og Comments: shouldnt get because of family hx of Guillian-[place]' TDAP VACCINE >7 IM ([id number])By: Garrett On: 25-Nov-2010 Intent Daisy GUTIERREZ Comments: injectionLOT [id number] 10/26Amt 0.5 mlSite L deltoid given by MAMMOGRAM, SCREENING, BOTH BREASTS On: 25-Nov-2010 Intent ([id number])By: Alexandra Og DXA, BONE DENSITY, AXIAL SKELETON On: 20-May-2010 Intent ([id number])By: Daisy Tucker DO Comments: due in aug MAMMOGRAM, SCREENING, BOTH BREASTS On: 22-Oct-2009 Intent ([id number])By: Daisy Tucker DO EKG ([id number])By: Alexandra Og On: 22-Oct-2009 Intent Comments: ekg showed normal sinus rhythym, normal axis, no acute st/t wave changes CT - ChestBy: Daisy Tucker DO On: 09-Oct-2008 Intent Comments: please attn to 7/8 ribs at sternal - junction-- rule out soft tissue mass DXA, BONE DENSITY, AXIAL SKELETON On: 21-Aug-2008 Intent ([id number])By: Daisy Tucker DO Comments: must also be read by Dr Barron due to pt insurance MAMMOGRAM, SCREENING, BOTH BREASTS On: 21-Aug-2008 Intent ([id number])By: Daisy Tucker DO Comments: this must be read by DR Barron- because patients insurance is [employer] and they wont cover the [facility] Bio Z ([id number])By: Jena Srinivasan CNP On: 18-Jul-2008 Intent ELECTROCARDIOGRAM, COMPLETE (ECG) On: 18-Jul-2008 Intent ([id number])By: Jena Srinivasan CNP Instructions Name Dates Details Nonsmoker : How [...] woman exam with routine gynecological exam Encounters Lab Order On: 12-Jul-2018 8:57 Encounter Diagnosis: Vitamin D deficiency, unspecified, Benign essential hypertension (401.1), Other hyperlipidemia End: 12-Jul-2018 9:03 [facility] Phone Encounter On: 22-Jun-2018 11:07 Encounter Diagnosis: [...] BMI 27.0-27.9,adult, Osteopenia (733.90), Family history of Guillain-Portland syndrome End: 21-Apr-2017 11:20 [facility] [...] Follow up for chronic medical issues: has josette quintana this am thinks why bp up she [...] Internal Medicine End: 15-Apr-2007 10:00 [facility] PLanNatali Murdock; azalea guarantor
--- OUTSIDE RECORDS SUMMARY | 2018-09-11 06:23 | XMS RPT_ITS | Continuity of Care Document ---
:1955 Author Organization [facility] Address [facility]7 [facility] 2 [place] [address] Phone Care Team Providers Name Role Phone [...] (Z12.31, V76.12) Status: Active Family history of Guillain-Tuc[place] syndrome (Z82.0, V17.2) Comments: virus in general [...] monitor for pain or change Status: Active UTI (urinary tract infection) (N39.0, 599.0) Status: Active Vitamin D deficiency, unspecified (E55.9, 268.9) Status: Active Medications Name Dates Details ADVIL, 200MG (Oral Tablet) PRN for 0 days Refills: 0 Ordered:23-Apr-2009 Choco Og CALCIUM, 500MG (Oral Tablet) 1 tab qd (500 MG) Active Nitrofurantoin Monohyd Macro 100 MG Oral Capsule 1 (one) Capsule bid for 10 days Quantity: 20 {Capsule} Refills: 0 Ordered:28-Jul-2018 Gravius, Lillian Start : 28-Jul-2018 Active OSTEO BI-FLEX ADV JOINT SHIELD (Oral [...] days Quantity: 28 {Tablet} Refills: 0 Ordered:09-Nov-2017 Balderas Trinh Start : 09-Nov-2017 End : 23-Nov-2017 Inactive Comments:Take with food Delsym 30 MG/5ML Oral Suspension Extended Release 1 (one) Suspension ER q12h for 0 days Quantity: 1 {Bottle} Refills: 0 Ordered:26-Aug-2016 Celia Edwards Start : 10-Jun-2016 End : 26-Aug-2016 Inactive ZITHROMAX Z-KAYLA, 250MG (Oral Tablet) 1 Tablet TAD for 0 days Quantity: 1 {Package(s)} Refills: 0 Ordered:18-Jul-2008 Daisy Tucker DO Start : 18-Jul-2008 End : 09-Oct-2008 Inactive ACTONEL, 35MG (Oral Tablet) 1 Tablet q week for 0 days Quantity: 4 {Tablet} Refills: 3 Ordered:22-Oct-2009 Daisy Tucker DO Start : 22-Oct-2009 End : 22-Oct-2009 Discontinued BONIVA, 150MG (Oral Tablet) 1 (one) Tablet q month for 90 days Quantity: 3 {Tablet} Refills: 3 Ordered:25-Nov-2010 Daisy Tukcer DO Start : 25-Nov-2010 End : 25-Nov-2010 Discontinued DIOVAN, 40MG (Oral Tablet) 1 (one) Tablet daily for 0 days Quantity: 30 {Tablet} Refills: 3 Ordered:21-Aug-2008 Daisy Tucker DO Start : 21-Aug-2008 End : 21-Aug-2008 Discontinued [...] (CAD), BILAT Result: Comments: See Note; NOTES: [facility] Imaging Services [address] [place] [address] SCREENING MAMM (CAD), BILAT MR#: [id number] Acct: [id number] Name: NATALI QUINONES Rep #: [id number] : 1955 F 62 From: Darrell Rios MD PCP: Chanda Ferguson DO Status: REG CLI Study: SCREENING MAMM (CAD), BILAT Date of Exam: 07/01/18 Exam# [id number] Ordering Dr: Chanda Ferguson DO MAMMOGRAPHY - [...] delay biopsy of a clinically suspicious abnormality. [id number] Electronically Signed: Darrell Rios MD at 9:33 EST Tel [phone], Service support , CC: Chanda Ferguson DO Line Installer Repairer: Signed 14-Apr-2017 Dexa Bone Density Study (HP) Result: Comments: See Note; NOTES: [facility] Imaging Services [address] [place] [address] Dexa Bone Density Study (HP) MR#: [id number] Acct: [id number] Name: NATALI QUINONES Rep #: [id number] : 1955 F 61 From: Darrell Rios MD PCP: Chanda Ferguson DO Status: REG CLI Study: Dexa Bone Density Study (HP) Date of Exam: 04/14/17 Exam# [id number] Ordering Dr: Estrada Ferguson DO STUDY: DUAL [...] Darrell Rios MD at 8:54 EDT Tel [phone], Service support , CC: Chanda Ferguson DO Line Installer Repairer: Signed 01-Dec-2016 SCREENING MAMM (CAD), BILAT Result: Comments: See Note; NOTES: [facility] Imaging Services [address] [place] [address] Verdana 4d SCREENING MAMM (CAD), BILAT MR#: [id number] Acct: [id number] Name: JL QUINONES Gaby Salcedo Rep #: [id number] : 1955 F 61 From: Darrell Rios MD PCP: Chanda Ferguson DO Status: [facility] CL Study: SCREENING MAMM (CAD), BILAT Date of Exam: 12/01/16 Exam# [id number] Ordering Dr: Chanda Mclaughlin DO MAMMOGRAPHY - [...] delay biopsy of a clinically suspicious abnormality. [id number] Electronically Signed: Darrell Rios MD at 9:58 EDT Tel [phone], Service support , CC: Chanda Ferguson DO Line Installer Repairer: Signed 04-Dec-2015 EKG (55806) Comments: ekg showed normal sinus rhythym, normal axis, no acute st/t wave changes Result: [MEASUREMENTS ANALYSIS] Date of Test: 12/04/2015 08:48:08; Heart Rate: 71; AK Interval: 186; QRS: 90; QT Interval: 398; Corrected QT Interval (QTc): 417; P Wave [place]: 37; QRS Wave [place]: -4; T Wave [place]: -1; Blood Pressure: 142/88 [ECG DIAGNOSTIC STATEMENTS] Date of Test: 12/04/2015 08:48:08; Summary: Sinus Rhythm WITHIN NORMAL LIMITS 27-Nov-2015 Bilat Scrn Digital AND CAD Result: Comments: See Note; NOTES: [facility] Imaging Services [address] [place] [address] Verdana 4d Bilat Scrn Digital AND CAD MR#: [id number] Acct: [id number] Name: NATALI QUINONES Rep #: [id number] : 1955 F 60 From: Darrell Rios MD PCP: Daisy Tucker DO Status: REG CLI Study: Bilat Scrn Digital AND CAD Date of Exam: 11/27/15 Exam# [id number] Viry escalante Dr: Daisy Tucker DO MAMMOGRAPHY [...] delay biopsy of a clinically suspicious abnormality. [id number] Electronically Signed: Darrell Rios MD at 10:15 EDT Tel [phone], Service support [phone], Fax CC: Daisy Tucker DO Line Installer Repairer: Signed 03-Apr-2015 Dexa Bone Density Study (HP) Result: Comments: See Note; NOTES: [facility] Imaging Services [address] [place] [address] Bone Density Report MR#: [id number] Acct: [id number] Name: NATALI QUINONES Rep #: [id number] : 1955 F 59 From: Darrell Rios MD PCP: Daisy Tucker DO Status: REG CLI Study: Dexa Bone Density Study (HP) Date of Exam: 04/03/15 Exam# [id number] Ordering Dr: Daisy Tucker DO STUDY: DUAL [...] Darrell pickering MD at 11:25 EDT Tel [phone], Service support [phone], CC: Daisy Tucker DO Line Installer Repairer: Signed 20-Nov-2014 Bilat Scrn Digital AND CAD Result: Comments: See Note; NOTES: [facility] Imaging Services [address] [place] [address] Breast Imaging Report MR#: [id number] Acct: [id number] Name: NATALI QUINONES Rep #: [id number] : 1955 F 59 From: Vasquez Sandra DO PCP: Daisy Tucker DO Status: REG CLI Study: Bilat Scrn Digital AND CAD Date of Exam: 11/20/14 Exam# [id number] Ordering Dr: Daisy Tucker DO MAMMO GRAPHY [...] Vasquez Sandra DO at 10:09 EDT Tel [phone], Service support [phone], CC: Daisy Tucker DO Line Installer Repairer: Signed 03-Jul-2014 Knee 4 or More Views Result: Comments: See Note; NOTES: [facility] Imaging Services [address] [place] [address] Radiology Report MR#: [id number] Acct: [id number] Name: NATALI QUINONES Matias Rep #: [id number] : 1955 F 58 From: Dallas Tyler MD PCP: Daisy Tucker DO Status: REG CLI Study: Knee 4 or More Views Date of Exam: 07/03/14 Exam# [id number] Ordering Dr: Daisy Tucker DO STUDY: X-RAY [...] FACR at 20:51 EST , Service support [phone], CC: Daisy Tucker DO Line Installer Repairer: Signed 13-Jun-2013 Bilat Radhan Digital & CAD Result: Comments: See Note; NOTES: [facility] Imaging Services [address] [place] [address] Breast Imaging Report MR#: [id number] Acct: [id number] Name: NATALI QUINONES Rep #: [id number] : 1955 F 57 From: Darrell Rios MD PCP: Daisy Tucker DO Status: REG CLI Exam# [id number] Ordering Dr: Daisy Tucker DO MAMMOGRAPHY - [...] 13, 2013 at 12: 56:32 PM EDT [phone] Electronically Signed GP/GP If you are the referring physician and would like to consult with the radiologist who provided this interpretation, please contact Darrell Rios M.D. at [phone]. If this radiologist is unavailable, you will be directed to another radiologist to assist. If you are a patient with a question regarding this report, please contact your referring physician directly. Professional Interpretation Provided By: Food Runner, Phone , These documents contain legally protected [...] of these documents. 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 Status: Active Smoking Status Name Dates Details Never smoker Vital Signs Date Test Result Details :17 Temperature 97.2 f Pulse 97 /min Comments: [...] 0.00 cm Results Date Description Value Details :35 Microalb:Creat Ratio,Random UR Comments: [facility] [address] [place], [address] MALB:CREAT 10.2 {mg/g_CRE} (Normal) MICROALBUMIN,UR 17.7 mg/L (Normal) UR CREAT 173.00 mg/dL (Normal) :35 Urinalysis, Routine (Dipstick) Comments: How was Urine Obtained? [facility] [address] [place], [address] LEUK ESTERASE 100 /ul (Abnormal) OCCULT BLOOD-UR Negative /ul (Normal) NITRITE UR Negative (Normal) UROBILI 1 mg/dL (Abnormal) PROT DIPSTX Negative mg/dL (Normal) pH UR 6.0 (Normal) Range: 5.0 - 8.0 SP.GR. DIPSTX 1.020 (Normal) Range: 1.002-1.030 KETONE UR Negative mg/dL (Normal) BILIRUBIN URINE Negative mg/dL (Normal) GLUCOSE, UR Normal mg/dL (Normal) CLARITY Sl. Cloudy (Normal) COLOR Yellow (Normal) 14-Whb-22384:26 CBC W/Diff, Automated Comments: [facility] [address] [place], [place], [id number] Absolute Lymph 1.44 {X10_3/ul} (Normal) Range: 0.83-4.51 Absolute Neut 1.7 {X10_3/uL} (Abnormal) Range: 2.0-7.7 IM GRAN % 0.000 % (Normal) Range: 0.0-0.9 Comments: IG% - Immature Granulocytes (promyelocytes, myelocytes andmetamyelocytes) > 1% indicates that a LEFT SHIFT is Present. BASO% 0.3 % (Normal) Range: 0-1 EO% 1.7 % (Normal) Range: 0-5 MONO% 9.6 % (Normal) Range: 0-10 LY% 40.6 % (Normal) Range: 19-41 NEUT% 47.8 % (Normal) Range: 47-70 MPV 10.3 fL (Normal) Range: 6.2-12.0 PLT 199 K/mm3 (Normal) Range: 150-450 RDW SD 41.4 fL (Normal) Range: 35.1-43.9 RDW CV 12.2 % (Normal) Range: 11.6-14.6 MCHC 33.8 {g/gl} (Normal) Range: 32-36 MCH 31.8 pg (Normal) Range: 27.0-32.0 MCV 93.9 fL (Normal) Range: 81-99 HCT 41.7 % (Normal) Range: 37-47 HGB 14.1 g/dL (Normal) Range: 12.0-15.0 RBC 4.44 {M/mm3} (Normal) Range: 4.2-5.4 WBC 3.6 K/mm3 (Abnormal) Range: 4.4-11.0 56-Cso-92692:26 Comprehensive Metabolic Profil Comments: [facility] [address] [place], [place], [id number] GAP 8 (Normal) Range: 5-15 CO2 27.0 mmol/L (Normal) Range: 21.0-32.0 CL 108 mmol/L (Abnormal) Range: 98-107 K 4.3 mmol/L (Normal) Range: 3.5-5.1 NA 143 mmol/L (Normal) Range: 136-145 T BILI 1.20 mg/dL (Abnormal) Range: 0.20-1.00 ALT 28 U/L (Normal) Range: 13-56 ALK P 74 U/L (Normal) Range: 45-117 AST 21 U/L (Normal) Range: 15-37 CA 8.9 mg/dL (Normal) Range: 8.5-10.1 A/G 1.1 {RATIO} (Normal) Range: 0.9-2.4 GLOB 3.5 g/dL (Normal) Range: 2.2-4.2 ALB 4.0 g/dL (Normal) Range: 3.2-5.0 T PROT 7.5 g/dL (Normal) Range: 6.4-8.2 BUN/CRE 20.2 {RATIO} (Abnormal) Range: 10-20 EST GFR - AA 133 mL/min (Normal) Comments: GFR Calc EST GFR 110 mL/min (Normal) Comments: Non- GFR Calc CREAT,SERUM 0.59 mg/dL (Normal) Range: 0.55-1.02 Comments: The validity of the calculated GFR AND GFRAA in patients over70 years has not been determined. Clinical correlation isessential. BUN 12 mg/dL (Normal) Range: 7-18 GLU 82 mg/dL (Normal) Range: 74-106 Comments: Please note revised GLUCOSE reference range skxdmylns29/02/2018. 57-Qdo-83239:26 Lipid Profile Comments: [facility] [address] [place], [place], [id number] VLDL 25 mg/dL (Normal) Range: 5-40 LDL 98 mg/dL (Normal) Range: 0-130 HDL 71 mg/dL (Normal) Comments: The drugs N-Acetylcysteine and Metamizole may falselydepress this assay. Reference Range HDL <40 mg/dL Low HDL Cholesterol HDL >or= 60 mg/dL High HDL Cholesterol TRIG 124 mg/dL (Normal) Comments: The drugs N-Acetylcysteine and Metamizole may falselydepress this assay.Serum Triglycerides Reference Interval Normal <150 mg/dL Borderline high 150 - 199 mg/dL High 200 - 499 mg/dL Very High > or = 500 mg/dL CHOL 194 mg/dL (Normal) Comments: <200 mg/dL Desirable 200-240 mg/dL Borderline >240 mg/dL High Risk 79-Nyv-29851:26 Thyroid Stim Hormone (TSH) Comments: [facility] [address] [facility] [address] [place], [place], [id number] TSH 2.14 {uIU/mL} (Normal) Range: 0.358-3.74 :26 Vitamin D,25 Hydroxy Comments: [facility] [address] [place], [place], [address] Vitamin D 25-OH 56.0 ng/mL (Normal) Range: 29.95-100.01 Comments: Vitamin D 25(OH) Status Range Deficiency <20 ng/mL (50nmol/L) Insuffciency 20 - 30 ng/mL (50 - 75 nmol/L) Sufficiency 30 - 100 ng/mL (75 - 250 nmol/L) Toxicity >100 ng/mL (>250 nmol/L) 06-Zoe-532247:04 Microscopic Examination Comments: PATIENT WAS FASTINGPERFORMED BY: [employer]70 [employer]in [place] [id number] Bacteria None seen (Normal) Mucus Threads Present (Normal) Epithelial Cells (non renal) 0-10 {/hpf} (Normal) Range: 0 - 10 RBC 0-2 {/hpf} (Normal) Range: 0 - 2 WBC 0-5 {/hpf} (Normal) Range: 0 - 5 61-Iem-977777:33 HEPATIC FUNCTION PANEL Comments: PATIENT NOT FASTINGPERFORMED BY: [employer] Technologiesin [place] [id number] (16811) ALT (SGPT) 15 [iU]/L (Normal) Range: 0-32 AST (SGOT) 17 [iU]/L (Normal) Range: 0-40 Alkaline Phosphatase, S 66 [iU]/L (Normal) Range: 39-117 Bilirubin, Direct 0.22 mg/dL (Normal) Range: 0.00-0.40 Bilirubin, Total 1.0 mg/dL (Normal) Range: 0.0-1.2 Albumin, Serum 4.3 g/dL (Normal) Range: 3.5-5.5 Protein, Total, Serum 6.8 g/dL (Normal) Range: 6.0-8.5 25-Xhi-011561:04 CALCIFIDIOL (34004) VIT D 25 Comments: PATIENT WAS FASTINGPERFORMED BY: [facility] Cpizul5170 [facility] [id number] Vitamin D, 25-Hydroxy 58.6 ng/mL (Normal) Range: 30.0-100.0 Comments: Vitamin D deficiency has been defined by the [place] ofMedicine and an Endocrine Society practice guideline as alevel of serum 25-OH vitamin D less than 20 ng/mL (1,2).The Endocrine Society went on to further define vitamin Dinsufficiency as a level between 21 and 29 ng/mL (2).1. IOM ([place] of Medicine). 2010. Dietary reference intakes for calcium and D. [place]: The National Academies Press.2. Mony MF, Jonas NC, Yao LAMB, et al. Evaluation, treatment, and prevention of vitamin D deficiency: an Endocrine Society clinical practice guideline. JCEM. 2010; 96(7):1911-30. 72-Szc-607509:04 TSH (05611) Comments: PATIENT WAS FASTINGPERFORMED BY: [facility] Pwpqit4991 [facility] [id number] TSH 2.310 {uIU/mL} (Normal) Range: 0.450-4.500 52-Qqt-283561:04 URINALYSIS, W/ MICRO (79141) Comments: PATIENT WAS FASTINGPERFORMED BY: [facility] Wbpiqy8301 [facility] [id number] Microscopic Examination See below: (Normal) Comments: Microscopic was indicated and was performed. Microscopic Examination MICRON (Normal) Comments: Microscopic follows if indicated. Nitrite, Urine Negative (Normal) Urobilinogen,Semi-Qn 0.2 mg/dL (Normal) Range: 0.2-1.0 Bilirubin Negative (Normal) Occult Blood Negative (Normal) Ketones Negative (Normal) Glucose Negative (Normal) Protein Negative (Normal) WBC Esterase Negative (Normal) Appearance Clear (Normal) Urine-Color Yellow (Normal) pH 5.0 (Normal) Range: 5.0-7.5 Specific [place] 1.022 (Normal) Range: 1.005-1.030 93-Lyh-360382:04 MICROALBUMIN: CREATININE RATIO Comments: PATIENT WAS FASTINGPERFORMED BY: PNP TherapeuticsNewark Beth Israel Medical CenterKmnyjx6894 [facility] [id number] (37703) AND (61383) Microalb/Creat Ratio 5.0 {mg/g_creat} (Normal) Range: 0.0-30.0 Microalbumin, Urine 7.6 ug/mL (Normal) Creatinine, Urine 150.9 mg/dL (Normal) 15-Vin-702753:04 METABOLIC PANEL, COMPREHENSIVE Comments: PATIENT WAS FASTINGPERFORMED BY: XOG6370 [facility] [id number] (05903) ALT (SGPT) 19 [iU]/L (Normal) Range: 0-32 [...] Glucose, Serum 86 mg/dL (Normal) Range: 65-99 19-Jxe-905448:04 CBC W/AUTO DIFF WBC (47735) Comments: PATIENT WAS FASTINGPERFORMED BY: LabCoNewark [facility] CenterWxoqws9324 [facility] [id number] Immature Grans (Abs) 0.0 {x10E3/uL} (Normal) Range: [...] 3.77-5.28 WBC 3.9 {x10E3/uL} (Normal) Range: 3.4-10.8 64-Iob-281391:04 LIPID PANEL (53320) Comments: PATIENT WAS FASTINGPERFORMED BY: [facility] Oxkytx2215 [facility] [id number] LDL/HDL Ratio 1.7 {ratio_units} (Normal) Range: 0.0-3.2 Comments: LDL/HDL Ratio Men Women 1/2 Avg.Risk 1.0 1.5 Av g.Risk 3.6 3.2 2X Avg.Risk 6.2 5.0 3X Avg.Risk 8.0 6.1 LDL Cholesterol Calc 125 mg/dL (Abnormal) Range: 0-99 VLDL Cholesterol Cassi 20 mg/dL (Normal) Range: 5-40 HDL Cholesterol 73 mg/dL (Normal) Triglycerides 98 mg/dL (Normal) Range: 0-149 Cholesterol, Total 218 mg/dL (Abnormal) Range: 100-199 03-Wme-808805:16 Microscopic Examination Comments: PATIENT WAS FASTINGPERFORMED BY: [facility] Fgfrrp0528 [facility] [id number] Bacteria Few (Normal) Mucus Threads Present (Normal) Epithelial Cells (non renal) 0-10 {/hpf} (Normal) Range: 0 - 10 RBC 0-2 {/hpf} (Normal) Range: 0 - 2 WBC 0-5 {/hpf} (Normal) Range: 0 - 5 16-Ezr-798707:16 TSH (13739) Comments: PATIENT WAS FASTINGPERFORMED BY: URXNewark [facility] Israel Medical CenterQomigx4639 [facility] [id number] TSH 1.300 {uIU/mL} (Normal) Range: 0.450-4.500 23-Csb-960340:16 URINALYSIS, W/ MICRO (07297) Comments: PATIENT WAS FASTINGPERFORMED BY: URX Szixet4753 [facility] [id number] Microscopic Examination See below: (Normal) Comments: Microscopic was indicated and was performed. Microscopic Examination MICRON (Normal) Comments: Microscopic follows if indicated. Nitrite, Urine Negative (Normal) Urobilinogen,Semi-Qn 0.2 mg/dL (Normal) Range: 0.2-1.0 Bilirubin Negative (Normal) Occult Blood Negative (Normal) Ketones Negative (Normal) Glucose Negative (Normal) Protein Negative (Normal) WBC Esterase Negative (Normal) Appearance Clear (Normal) Urine-Color Yellow (Normal) pH 7.0 (Normal) Range: 5.0-7.5 Specific [place] 1.020 (Normal) Range: 1.005-1.030 23-Lph-844112:16 MICROALBUMIN: CREATININE RATIO Comments: PATIENT WAS FASTINGPERFORMED BY: SHARKMARXlin6370 [employer] GiftsFormerly [facility] [id number] (47958) AND (80099) Microalb/Creat Ratio 4.2 {mg/g_creat} (Normal) Range: 0.0-30.0 Microalbumin, Urine 4.8 ug/mL (Normal) Creatinine, Urine 113.8 mg/dL (Normal) 84-Bqv-544907:16 METABOLIC PANEL, COMPREHENSIVE Comments: PATIENT WAS FASTINGPERFORMED BY: [employer]70 [employer] GiftsFormerly [facility] [id number] (22386) ALT (SGPT) 20 [iU]/L (Normal) Range: 0-32 [...] Glucose, Serum 86 mg/dL (Normal) Range: 65-99 56-Kam-440041:16 LIPID PANEL (24799) Comments: PATIENT WAS FASTINGPERFORMED BY: RepligenFormerly [facility] [id number] LDL/HDL Ratio 1.5 {ratio_units} (Normal) Range: 0.0-3.2 Comments: LDL/HDL Ratio Men Women 1/2 Avg.Risk 1.0 1.5 Av g.Risk 3.6 3.2 2X Avg.Risk 6.2 5.0 3X Avg.Risk 8.0 6.1 LDL Cholesterol Calc 110 mg/dL (Abnormal) Range: 0-99 VLDL Cholesterol Cassi 20 mg/dL (Normal) Range: 5-40 HDL Cholesterol 75 mg/dL (Normal) Triglycerides 100 mg/dL (Normal) Range: 0-149 Cholesterol, Total 205 mg/dL (Abnormal) Range: 100-199 55-Ezi-293544:16 CBC W/AUTO DIFF WBC (07331) Comments: PATIENT WAS FASTINGPERFORMED BY: [facility]ers [facility] [id number] Immature Grans (Abs) 0.0 {x10E3/uL} (Normal) Range: [...] Range: 3.4-10.8 :15 Rapid Strep Test, Office (11476) Rapid Strep Test, Office Negative (Normal) :23 Microscopic Examination Comments: PATIENT WAS FASTINGPERFORMED BY: CB [facility] Rsrbpf1419 [facility] [id number] Bacteria None seen (Normal) Mucus Threads Present (Normal) Epithelial Cells (non renal) 0-10 {/hpf} (Normal) Range: 0 - 10 RBC None seen {/hpf} (Normal) Range: 0 - 2 WBC None seen {/hpf} (Normal) Range: 0 - 5 29-Pki-049590:11 HPV automatic Comments: Source.............Cervical;EndocervicalNo. of containers..01 CYTYC Thin Prep VialPATIENT NOT FASTINGPERFORMED BY: WB [facility] [address] [id number] BY: Bella Griffin ([address]) [address] [id number] Information: [id number] HPV, high-risk Negative Comments: This high-risk HPV [...] evaluation. No endocervical component is identified.V73.81Eden Lowe Administrative Secretary (ASCP) :23 Vitamin D Hydroxy (14155) Comments: PATIENT WAS FASTINGPERFORMED BY: XOG6370 [employer] GiftsRedMica [place] [id number] Vitamin D, 25-Hydroxy 59.8 ng/mL (Normal) Range: 30.0-100.0 Comments: Vitamin D deficiency has been defined by the [place] ofMedicine and an Endocrine Society practice guideline as alevel of serum 25-OH vitamin D less than 20 ng/mL (1,2).The Endocrine Society went on to further define vitamin Dinsufficiency as a level between 21 and 29 ng/mL (2).1. IOM ([place] of Medicine). 2010. Dietary reference intakes for calcium and D. [place]: The National Academies Press.2. Mony MF, Jonas NC, Yao LAMB, et al. Evaluation, treatment, and prevention of vitamin D deficiency: an Endocrine Society clinical practice guideline. JCEM. 2010; 96(7):1911-30. :23 URINALYSIS, W/ MICRO (25669) Comments: PATIENT WAS FASTINGPERFORMED BY: Hang w/ [facility] Obunru6449 [employer] [place] [id number] Microscopic Examination See below: (Normal) Comments: Microscopic was indicated and was performed. Microscopic Examination MICRON (Normal) Comments: Microscopic follows if indicated. Nitrite, Urine Negative (Normal) Urobilinogen,Semi-Qn 0.2 mg/dL (Normal) Range: 0.2-1.0 Bilirubin Negative (Normal) Occult Blood Negative (Normal) Ketones Negative (Normal) Glucose Negative (Normal) Protein Negative (Normal) WBC Esterase Negative (Normal) Appearance Clear (Normal) Urine-Color Yellow (Normal) pH 6.5 (Normal) Range: 5.0-7.5 Specific [place] 1.011 (Normal) Range: 1.005-1.030 :23 LIPID PANEL (75646) Comments: PATIENT WAS FASTINGPERFORMED BY: [employer] Mrdeof2267 [facility] [id number] LDL/HDL Ratio 1.2 {ratio_units} (Normal) Range: 0.0-3.2 [...] DIFF WBC Comments: PATIENT WAS FASTINGPERFORMED BY: PNP TherapeuticsNewark [facility] Medical CenterGpleae6004 [facility] [id number] Information: [id number] (65187) Immature Grans (Abs) 0.0 {x10E3/uL} (Normal) Range: [...] 3.77-5.28 WBC 4.2 {x10E3/uL} (Normal) Range: 3.4-10.8 56-Ebo-26745:23 METABOLIC PANEL, COMPREHENSIVE Comments: PATIENT WAS FASTINGPERFORMED BY: LabCoNewark [facility] Medical CenterZxsdjp7757 [facility] [id number] (55892) ALT (SGPT) 22 [iU]/L (Normal) Range: 0-32 [...] With Differential/Platelet Comments: PATIENT WAS FASTINGPERFORMED BY: LabCoNewark [facility] Medical CenterRichzb6941 [facility] [id number] Information: [id number] Immature Grans (Abs) 0.0 {x10E3/uL} (Normal) Range: [...] Panel (14) Comments: PATIENT WAS FASTINGPERFORMED BY: [employer]70 [employer] [place] [id number] ALT (SGPT) 21 [iU]/L (Normal) Range: 0-32 [...] With LDL/HDL Comments: PATIENT WAS FASTINGPERFORMED BY: [employer]70 [facility] Side EntertainmentEph[facility] [id number] Ratio LDL/HDL Ratio 1.3 {ratio_units} Range: 0.0-3.2 [...] ng/mL (Normal) Comments: PATIENT WAS FASTINGPERFORMED BY: URX Pmxvti1230 [facility] [id number] 7:37 Range: 30.0-100.0 Comments: Vitamin D deficiency has been defined by the [place] ofMedicine and an Endocrine Society practice guideline as alevel of serum 25-OH vitamin D less than 20 ng/mL (1,2).The Endocrine Society went on to further define vitamin Dinsufficiency as a level between 21 and 29 ng/mL (2).1. IOM ([place] of Medicine). 2010. Dietary reference intakes for calcium and D. [place]: The National Academies Press.2. Mony MF, Jonas HUBBARD, Yao LAMB, et al. Evaluation, treatment, and prevention of vitamin D deficiency: an Endocrine Society clinical practice guideline. JCEM. 2010; 96(7):1911-30. 35-Srg-60152:11 Vitamin D Hydroxy (37431) Comments: PATIENT WAS FASTINGPERFORMED BY: DJTUNES.COMHenry Ford Jackson Hospital6[facility] [id number] Vitamin D, 25-Hydroxy 37.5 ng/mL (Normal) Range: 30.0-100.0 Comments: Vitamin D deficiency has been defined by the [place] of[place]icine and an Endocrine Society practice guideline as alevel of serum 25-OH vitamin D less than 20 ng/mL (1,2).The Endocrine Society went on to further define vitamin Dinsufficiency as a level between 21 and 29 ng/mL (2).1. IOM ([place] of Medicine). 2010. Dietary reference intakes for calcium and D. [place]: The National Academies Press.2. Mony MF, Jonas HUBBARD, Yao LAMB, et al. Evaluation, treatment, and prevention of vitamin D deficiency: an Endocrine Society clinical practice guideline. JCEM. 2010; 96(7):1911-30. 03-Lpp-98025:11 METABOLIC PANEL, Comments: PATIENT WAS FASTINGPERFORMED BY: [facility]Co Yadskp6679 [facility] [id number] Information: [id number] COMPREHENSIVE (08608) ALT (SGPT) 17 [iU]/L (Normal) Range: 0-32 [...] mg/dL (Normal) Range: 65-99 :11 LIPID PANEL (27858) Comments: PATIENT WAS FASTINGPERFORMED BY: FINA URX Uglrbo3773 [facility] [id number]; non-emergent till apt- LDL/HDL Ratio 1.5 {ratio_units} [...] Cholesterol, Total 203 mg/dL (Abnormal) Range: 100-199 16-Efp-261672:11 Microscopic Examination Comments: PATIENT WAS FASTINGPERFORMED BY: [employer]6[address] [facility] [id number] Bacteria Few (Normal) Mucus Threads Present (Normal) Epithelial Cells (non renal) None seen {/hpf} (Normal) Range: 0 - 10 RBC 0-3 {/hpf} (Normal) Range: 0 - 3 WBC 0-5 {/hpf} (Normal) Range: 0 - 5 :30 URINALYSIS, W/ MICRO (12900) Comments: PATIENT WAS FASTINGPERFORMED BY: URX Nimfqy4595 [facility] [id number]; pt has appt today 01/02/14 Microscopic Examination MICRON (Normal) Comments: Microscopic follows if indicated. Microscopic Examination See below: (Normal) Nitrite, Urine Negative (Normal) Urobilinogen,Semi-Qn 0.2 mg/dL (Normal) Range: 0.0-1.9 Bilirubin Negative (Normal) Occult Blood Negative (Normal) Ketones Negative (Normal) Glucose Negative (Normal) Protein Negative (Normal) WBC Esterase Negative (Normal) Appearance Clear (Normal) Urine-Color Yellow (Normal) pH 6.0 (Normal) Range: 5.0-7.5 Specific [place] 1.021 (Normal) Range: 1.005-1.030 06-Rxp-44432:30 CBC WITH MANUAL DIFF Comments: PATIENT WAS FASTINGPERFORMED BY: LabHenry [facility] [id number] Information: [id number] (12906) Immature Grans (Abs) 0.0 {x10E3/uL} (Normal) Range: [...] {x10E3/uL} (Normal) Range: 3.4-10.8 :30 LIPID PANEL (14700) Comments: PATIENT WAS FASTINGPERFORMED BY: Locality Chrfni0024 [facility] [id number] LDL/HDL Ratio 1.2 {ratio_units} (Normal) Range: 0.0-3.2 [...] PANEL, COMPREHENSIVE Comments: PATIENT WAS FASTINGPERFORMED BY: XOG6[address] [facility] [id number] (19997) ALT (SGPT) 18 [iU]/L (Normal) Range: 0-32 [...] (Normal) Range: 65-99 :30 Vitamin D Hydroxy (43204) Comments: PATIENT WAS FASTINGPERFORMED BY: DJTUNES.COMHenry Ford Jackson Hospital6[facility] [id number] Vitamin D, 25-Hydroxy 32.5 ng/mL (Normal) Range: 30.0-100.0 Comments: Vitamin D deficiency has been defined by the [place] ofBar[facility]'S Medical Centercine and an Endocrine Society practice guideline as alevel of serum 25-OH vitamin D less than 20 ng/mL (1,2).The Endocrine Society went on to further define vitamin Dinsufficiency as a level between 21 and 29 ng/mL (2).1. IOM ([place] of Medicine). 2010. Dietary reference intakes for calcium and D. [place]: The National Academies Press.2. Mony MF, Jonas [place], Yao LAMB, et al. Evaluation, treatment, and prevention of vitamin D deficiency: an Endocrine Society clinical practice guideline. JCEM. 2010; 96(7):1911-30. :27 METABOLIC PANEL, Comments: PATIENT WAS FASTINGPERFORMED BY: LabCoAdvanced Care Hospital of Southern New MexicoWjzhts6937 [facility] [id number] Information: [id number] COMPREHENSIVE (66797) ALT (SGPT) 19 [iU]/L (Normal) Range: 0-32 [...] FUNCTION PANEL Comments: PATIENT WAS FASTINGPERFORMED BY: [facility] [id number] (67035) Bilirubin, Direct 0.28 mg/dL (Normal) Range: 0.00-0.40 :27 LIPID PANEL (86554) Comments: PATIENT WAS FASTINGPERFORMED BY: [employer] Dqfnng3616 [facility] [id number] LDL/HDL Ratio 1.1 {ratio_units} (Normal) Range: 0.0-3.2 [...] Rios M.D.February 28, 2013 at 10:00:00 AM [phone] [phone] Signed GP/GP If you are the referring physician and would like to consult with theradiologist who provided this interpretation, please contact Mahogany Pelaez at [phone]. If this radiologist is unavailable, youwill be directed to another radiologist to assist. If you are a patient with a question regarding this report, pleasecontactyour referring physician directly. Pro fessional Interpretation Provided By: Food Runner, Phone , These documents contain legally protected [...] 02/28/13 1127 Sign by: Darrell Rios MD 70-Lkm-99721:37 Request Problem Comments: Source.............Cervical;EndocervicalNo. of containers..01 CYTYC Thin Prep VialPATIENT NOT FASTINGPERFORMED BY: [facility] Vokdevbnhp[address] [id number] BY: =G Gaby Reyeston120 [facility] [id number] 33-Xxb-90501:41 METABOLIC PANEL, Comments: PATIENT WAS FASTINGPERFORMED BY: [employer]70 [employer] Digital MediaSampson Regional [facility] Center [id number] Information: ADD [id number] AND DRAW FEE [id number] COMPREHENSIVE (87647) ALT (SGPT) 15 [iU]/L (Normal) Range: 0-32 [...] Glucose, Serum 86 mg/dL (Normal) Range: 65-99 :41 Vitamin D Hydroxy (00108) Comments: PATIENT WAS FASTINGPERFORMED BY: [employer]70 [facility] [id number] Vitamin D, 25-Hydroxy 43.2 ng/mL (Normal) Range: 30.0-100.0 Comments: Vitamin D deficiency has been defined by the [place] ofMedicine and an Endocrine Society practice guideline as alevel of serum 25-OH vitamin D less than 20 ng/mL (1,2).The Endocrine Society went on to further define vitamin Dinsufficiency as a level between 21 and 29 ng/mL (2).1. IOM ([place] of Medicine). 2010. Dietary reference intakes for calcium and D. [place]: The National Academies Press.2. Mony MF, Jonas NC, Yao LAMB, et al. Evaluation, treatment, and prevention of vitamin D deficiency: an Endocrine Society clinical practice guideline. JCEM. 2010; 96(7):1911-30. 26-Yms-10646:41 LIPID PANEL (34171) Comments: PATIENT WAS FASTINGPERFORMED BY: Lab2080 MediaNewark Beth Israel Medical CenterRschaf2006 [facility] [id number] LDL/HDL Ratio 2.2 {ratio_units} (Normal) Range: 0.0-3.2 LDL Cholesterol Calc 159 mg/dL (Abnormal) Range: 0-99 VLDL Cholesterol Cassi 23 mg/dL (Normal) Range: 5-40 HDL Cholesterol 72 mg/dL (Normal) Comments: According to ATP-III Guidelines, HDL-C >59 mg/dL is considered anegative risk factor for CHD. Triglycerides 115 mg/dL (Normal) Range: 0-149 Cholesterol, Total 254 mg/dL (Abnormal) Range: 100-199 80-Uou-52919:37 HPV automatic Comments: Source.............Cervical;EndocervicalNo. of containers..01 CYTYC Thin Prep VialPATIENT NOT FASTINGPERFORMED BY: [facility] Ugxkquoyqb426 [facility] [id number] BY: Bella Griffin (43657) [facility] Udssbzzvnu143 [facility] [id number] Information: [id number] Note: PAPSMR (Normal) Comments: The Pap smear [...] MALIGNANCY.THIS SPECIMEN WAS RESCREENED PART OF OUR DEPUTY EDITOR IN CHIEF PROGRAM.Satisfactory for evaluation. No endocervical component is identified.V7 3.81 ; Speci al screening examination, human papillomavirus [HPV]Eric Brock, Administrative Secretary (ASCP)Paris Irwin, Supervisory Administrative Secretary (ASCP) 15-Umt-32809:47 BILAT SCRN DIGITAL & CAD Radiology Report [...] Rios M.D.May 25, 2012 at 8:29:12 AM [phone] Signed GP/GP If you are the referring physician and would like to consult with theradiologist who pr ovided this interpretation, please contact Mahogany Pelaez at [phone]. If this radiologist is unavailable, youwill be directed to another radiologist to assist. If you are a patient with a question regarding this report, pleasecontactyour referring physician directly. Professional Interpretation Provided By: Food Runner, Phone , These documents contain legall y [...] the return or destructionofthese documents. Dictated on 05/25/1247 by Gabriel GARCIA,Zachranscribed on 05/25/12832 by ITS IMPORTSign by Darrell Rios MD on 05/25/12833 Sign by: Darrell Rios MD 02-Njf-04330:52 CBC WITH MANUAL DIFF Comments: PATIENT WAS FASTINGPERFORMED BY: LabHenry [facility] Hospital6[facility] [id number] Information: [id number] (17629) Immature Grans (Abs) 0.0 {x10E3/uL} (Normal) Range: [...] COMPREHENSIVE Comments: PATIENT WAS FASTINGPERFORMED BY: [facility] Xmsehz6775 [facility] [id number] (96691) ALT (SGPT) 18 [iU]/L (Normal) Range: 0-40 [...] FUNCTION PANEL Comments: PATIENT WAS FASTINGPERFORMED BY: DJTUNES.COMHenry Ford Jackson Hospital6[address] [facility] [id number] (77452) Bilirubin, Direct 0.25 mg/dL (Normal) Range: 0.00-0.40 :52 LIPID PANEL (31295) Comments: PATIENT WAS FASTINGPERFORMED BY: LabHenry [facility] Hospital6[facility] [id number] LDL/HDL Ratio 2.0 {ratio_units} (Normal) Range: 0.0-3.2 [...] 01/27/11 1008 Sign by: Darrell Rios MD 6-Pkm-399448:00 BILAT SCRN DIGITAL & CAD Radiology Report [...] clinically suspiciousabnormality. Dictated on 01/20/11 1109 by KIMBERLY GARCIA,PAMJEANNETranscribed on 01/21/11 1327 by ITS IMPORTSign by KIMBERLY GARCIA,YOUNG on 01/21/11 1 328 Sign by: YOUNG BARRON MD :52 HEPATIC FUNCTION PANEL Comments: PATIENT WAS FASTINGPERFORMED BY: LabCoNewark Beth Israel Medical CenterDfunat7968 [facility] [id number] Information: [id number] (43432) ALT (SGPT) 35 [iU]/L (Normal) Range: 0-40 AST (SGOT) 33 [iU]/L (Normal) Range: 0-40 Alkaline Phosphatase, S 57 [iU]/L (Normal) Range: 25-150 Bilirubin, Direct 0.23 mg/dL (Normal) Range: 0.00-0.40 Bilirubin, Total 1.1 mg/dL (Normal) Range: 0.0-1.2 Albumin, Serum 4.5 g/dL (Normal) Range: 3.5-5.5 Protein, Total, Serum 6.9 g/dL (Normal) Range: 6.0-8.5 :52 LIPID PANEL (76516) Comments: PATIENT WAS FASTINGPERFORMED BY: LabCoAdvanced Care Hospital of Southern New MexicoHqnmrg3264 [facility] [id number]; appt 05/25/11 LDL/HDL Ratio 2.4 {ratio_units} (Normal) [...] CYTYC Thin Prep VialPATIENT NOT FASTINGPERFORMED BY: LabCo[address] WLudy [id number] Information: [id number] (20509) Note: PAPSMR (Normal) Comments: The Pap smear [...] MALIGNANCY.THIS SPECIMEN WAS RESCREENED PART OF OUR DEPUTY EDITOR IN CHIEF PROGRAM.Satisfactory for evaluation. No endocervical component is identified.V7 2.31 ; Lou sprague gynecological examinationSiena Gee, Administrative Secretary ([facility])Heidi Gamez, Supervisory Administrative Secretary ([facility]) 08-Fep-92334:21 DEXA BONE DENSITY STUDY (HP) Radiology Report See Note (Normal) Comments: CLINICAL:Female, 55 years old. The patient is postmenopausal. EXAMINATION:DUAL ENERGY X-RAY ABSORPTIOMETRY / DEXA. TECHNIQUE:Bone Mineral Density (BMD) measurements of lumbar spine and bila teralhipswer e obtained using a URX scanner.. COMPARISON:Comparison is made with prior study [...] on 10/08/10 1011 Sign by: Darrell Rios 01-Lom-15664:26 TSH ([id number]) Comments: PATIENT WAS FASTINGPERFORMED BY: LabCoNewark Beth Israel Medical CenterCajymf3397 [facility] [id number] TSH 2.150 {uIU/mL} (Normal) Range: 0.450-4.500 34-Bqc-48926:26 METABOLIC PANEL, Comments: PATIENT WAS FASTINGPERFORMED BY: LabCoNewark Beth Israel Medical CenterPgslnr0550 [facility] [id number] Information: [id number] COMPREHENSIVE (20423) ALT (SGPT) 23 [iU]/L (Normal) Range: 0-40 [...] Glucose, Serum 85 mg/dL (Normal) Range: 65-99 74-Fgy-81947:26 LIPID PANEL (86694) Comments: PATIENT WAS FASTINGPERFORMED BY: [facility] Nordif6018 [facility] [id number]; appt 11/25/10 HDL Cholesterol 63 mg/dL (Normal) Comments: According to ATP-III Guidelines, HDL-C >59 mg/dL is considered anegative risk factor for CHD. LDL Cholesterol Calc 139 mg/dL (Abnormal) Range: 0-99 LDL/HDL Ratio 2.2 {ratio_units} (Normal) Range: 0.0-3.2 VLDL Cholesterol Cassi 35 mg/dL (Normal) Range: 5-40 Cholesterol, Total 237 mg/dL (Abnormal) Range: 100-199 Triglycerides 173 mg/dL (Abnormal) Range: 0-149 :26 Vitamin D Hydroxy (67022) Comments: PATIENT WAS FASTINGPERFORMED BY: [facility] Ztewtt0050 [facility] [id number] Vitamin D, 25-Hydroxy 50.2 ng/mL (Normal) Range: 32.0-100.0 Comments: Recent studies consider the lower limit of 32.0 ng/mL to be athreshold for optimal health.Mitchel SCHMITZ. J Nutr. 2004;135(2):317-22. :13 Microscopic Examination Comments: PATIENT WAS FASTINGPERFORMED BY: [facility] Ebqgvb2150 [facility] [id number] Bacteria None seen (Normal) Mucus Threads Present (Normal) Epithelial Cells (non renal) >10 {/hpf} (Abnormal) Range: 0 - 10 RBC 0-3 {/hpf} (Normal) Range: 0 - 3 WBC 0-5 {/hpf} (Normal) Range: 0 - 5 :07 BILAT SCRN DIGITAL & CAD Radiology Report See Note (Normal) Comments: Exam Number: [id number] MAMMOGRAM, BILATERAL SCREENING DIGITAL AND CAD HISTORYRoutine [...] 1992 (MQSA). The mammograms werealso examined with Ensauter-aided detection software ([employer], [employer].). Reported By: YOUNG BARRON M.D. :13 CBC WITH MANUAL DIFF Comments: PATIENT WAS FASTINGPERFORMED BY: [facility]6[address] [facility] [id number] Information: [id number] (08474) Baso (Absolute) 0.0 {x10E3/uL} (Normal) Range: 0.0-0.2 [...] PANEL, COMPREHENSIVE Comments: PATIENT WAS FASTINGPERFORMED BY: [facility] [id number] (99658) ALT (SGPT) 26 [iU]/L (Normal) Range: 0-40 [...] Glucose, Serum 83 mg/dL (Normal) Range: 65-99 74-Kmv-91689:13 URINALYSIS, W/ MICRO (80926) Comments: PATIENT WAS FASTINGPERFORMED BY: [facility] Vzugxm1125 [facility] [id number] Microscopic Examination MICRON (Normal) Comments: Microscopic follows if indicated. Microscopic Examination See below: (Normal) Nitrite, Urine Negative (Normal) Appearance Clear (Normal) Bilirubin Negative (Normal) Glucose Negative (Normal) Ketones Negative (Normal) Occult Blood Negative (Normal) Protein Negative (Normal) Urobilinogen,Semi-Qn 0.2 mg/dL (Normal) Range: 0.0-1.9 WBC Esterase Negative (Normal) pH 6.5 (Normal) Range: 5.0-7.5 Specific [place] 1.025 (Normal) Range: 1.005-1.030 Urine-Color Yellow (Normal) :13 LIPID PANEL (54348) Comments: PATIENT WAS FASTINGPERFORMED BY: [facility]Former[facility] [id number] LDL/HDL Ratio 2.3 {ratio_units} (Normal) Range: 0.0-3.2 HDL Cholesterol 61 mg/dL (Normal) Comments: According to ATP-III Guidelines, HDL-C >59 mg/dL is considered anegative risk factor for CHD. LDL Cholesterol Calc 138 mg/dL (Abnormal) Range: 0-99 Triglycerides 145 mg/dL (Normal) Range: 0-149 VLDL Cholesterol Cassi 29 mg/dL (Normal) Range: 5-40 Cholesterol, Total 228 mg/dL (Abnormal) Range: 100-199 :13 Vitamin D Hydroxy (45213) Comments: PATIENT WAS FASTINGPERFORMED BY: XOG6370 [facility] [id number] Vitamin D, 25-Hydroxy 43.7 ng/mL (Normal) Range: 32.0-100.0 Comments: Recent studies consider the lower limit of 32.0 ng/mL to be athreshold for optimal health.Mitchel SCHMITZ. J Nutr. 2004;135(2):317-22. 3-Ytt-897760:03 URINALYSIS W/O MICRO (23192) Comments: PATIENT WAS FASTINGPERFORMED BY: XOG6370 [facility] Digital MediaSampson [facility] Center [id number] Bilirubin Negative (Normal) Microscopic Examination MICRON (Normal) Comments: Microscopic follows if indicated. Nitrite, Urine Negative (Normal) Occult Blood Negative (Normal) Urobilinogen,Semi-Qn 0.2 mg/dL (Normal) Range: 0.0-1.9 Appearance Clear (Normal) Glucose Negative (Normal) Ketones Negative (Normal) pH 6.5 (Normal) Range: 5.0-7.5 Protein Trace (Normal) Specific [place] 1.024 (Normal) Range: 1.005-1.030 Urine-Color Yellow (Normal) WBC Esterase Negative (Normal) :03 TSH (25316) Comments: PATIENT WAS FASTINGPERFORMED BY: [facility]6[address] [facility] [id number] TSH 1.570 {uIU/mL} (Normal) Range: 0.450-4.500 :03 CBC WITH MANUAL DIFF Comments: PATIENT WAS FASTINGPERFORMED BY: [facility] [id number] Information: [id number] (01835) Baso (Absolute) 0.0 {x10E3/uL} (Normal) Range: 0.0-0.2 [...] FUNCTION PANEL Comments: PATIENT WAS FASTINGPERFORMED BY: [facility] [facility] [id number] (63665) ALT (SGPT) 21 [iU]/L (Normal) Range: 0-40 Alkaline Phosphatase, S 57 [iU]/L (Normal) Range: 25-150 AST (SGOT) 22 [iU]/L (Normal) Range: 0-40 Bilirubin, Direct 0.24 mg/dL (Normal) Range: 0.00-0.40 Bilirubin, Total 1.3 mg/dL (Abnormal) Range: 0.1-1.2 Albumin, Serum 4.7 g/dL (Normal) Range: 3.5-5.5 Protein, Total, Serum 7.2 g/dL (Normal) Range: 6.0-8.5 :03 LIPID PANEL (29273) Comments: PATIENT WAS FASTINGPERFORMED BY: [facility] [id number] LDL Cholesterol Calc 135 mg/dL (Abnormal) Range: 0-99 LDL/HDL Ratio 2.3 {ratio_units} (Normal) Range: 0.0-3.2 VLDL Cholesterol Cassi 32 mg/dL (Normal) Range: 5-40 HDL Cholesterol 60 mg/dL (Normal) Comments: According to ATP-III Guidelines, HDL-C >59 mg/dL is considered anegative risk factor for CHD. Triglycerides 159 mg/dL (Abnormal) Range: 0-149 Cholesterol, Total 227 mg/dL (Abnormal) Range: 100-199 :03 Vitamin D Hydroxy (51268) Comments: PATIENT WAS FASTINGPERFORMED BY: URXNewark Beth Israel Medical CenterGvyqfr2165 [facility] [id number] Vitamin D, 25-Hydroxy 44.7 ng/mL (Normal) Range: 32.0-100.0 Comments: Recent studies consider the lower limit of 32.0 ng/mL to be athreshold for optimal health.Mitchel SCHMITZ. J Nutr. 2005 Feb;135(2):317-22. :17 COMP METABOLIC A/G 1.1 {RATIO} (Normal) [...] mg/dL (Normal) Range: 5-40 :17 VIT D,25 73002 53.0 ng/mL (Normal) Range: 32.0-100.0 Comments: Recent studies consider the lower limit of 32.0 ng/mL to seun threshold for optimal health.Mitchel SCHMITZ. J Nutr. 2004;135(2):317-22.Performed At: [address] [id number] :06 Hepatic Function Panel (7) Comments: PATIENT WAS FASTINGPERFORMED BY: LabCoNewark [facility] Israel Medical CenterPcdgya8366 [facility] [id number] Albumin, Serum 4.8 g/dL (Normal) Range: 3.5-5.5 Alkaline Phosphatase, S 65 [iU]/L (Normal) Range: 25-150 ALT (SGPT) 30 [iU]/L (Normal) Range: 0-40 AST (SGOT) 27 [iU]/L (Normal) Range: 0-40 Bilirubin, Direct 0.22 mg/dL (Normal) Range: 0.00-0.40 Bilirubin, Total 1.0 mg/dL (Normal) Range: 0.1-1.2 :06 Lipid Panel With LDL/HDL Comments: PATIENT WAS FASTINGPERFORMED BY: Lab[address] [id number] Ratio Cholesterol, Total 239 mg/dL (Abnormal) Range: [...] mg/dL (Normal) Comments: PATIENT WAS FASTINGPERFORMED BY: LabCoNewark Beth Israel Medical CenterLfmgfl4628 [facility] [id number] :06 Range: 2.5-4.5 :06 Protein Electro, Random Urine Comments: PATIENT WAS FASTINGPERFORMED BY: XOG6370 [facility] [id number] Albumin, U 38.9 % (Normal) Vsixs-9-Wlzsmozg, U 2.0 % (Normal) Iborb-5-Jlfuzwrs, U 16.1 % (Normal) Beta Globulin, U 20.8 % (Normal) Gamma Globulin, U 22.2 % (Normal) M-Ritchie, % Not Observed % (Normal) Please note: SPRCS (Normal) Comments: Protein electrophoresis scan will follow via mail or acid painter. Protein,Total,Urine 9.7 mg/dL (Normal) Range: 0.0-15.0 :06 Protein Electro.,S Comments: PATIENT WAS FASTINGPERFORMED BY: XOG6370 [facility] [id number] A/G Ratio 1.6 (Normal) Range: 0.7-2.0 Albumin 4.5 g/dL (Normal) Range: 3.2-5.6 Kftkb-0-Anuarots 0.2 g/dL (Normal) Range: 0.1-0.4 Hmtsu-7-Bsbfzfzr 0.7 g/dL (Normal) Range: 0.4-1.2 Beta Globulin 1.0 g/dL (Normal) Range: 0.6-1.3 Gamma Globulin 1.0 g/dL (Normal) Range: 0.5-1.6 Globulin, Total 2.9 g/dL (Normal) Range: 2.0-4.5 M-Ritchie Not Observed g/dL (Normal) Please note: SPRCS (Normal) Comments: Protein electrophoresis scan will follow via mail or acid painter. Protein, Total, Serum 7.4 g/dL (Normal) Range: 6.0-8.5 : PTH, Intact 26 pg/mL (Normal) Comments: PATIENT WAS FASTINGPERFORMED BY: [employer]70 [facility] [id number] Range: 15-65 : Vitamin D, 25-Hydroxy 31.2 ng/mL Comments: PATIENT WAS FASTINGPERFORMED BY: [facility] [id number] 06 (Abnormal) Range: 32.0-100.0 Comments: Recent studies consider the lower limit of 32.0 ng/mL to be athreshold for optimal health.Grullon AINSLEY. J Nutr. 2004;135(2):317-22. 6-Grd-668964:27 CHEST WITH CONTRAST Radiology Report See Note (Normal) Comments: Exam Number: [id number] CT OF CHEST HISTORYAbnormal rib. COMPARISONRib series [...] normalities identified. Reported By: NIKO COLIN M.D. 79-Rax-934287:02 BILAT SCRN DIGITAL & CAD Radiology Report See Note (Normal) Comments: Exam Number: [id number] MAMMOGRAM, BILATERAL SCREENING DIGITAL AND CAD HISTORYRoutine [...] grams werealso examined with computer-aided detection software ([employer], [employer], Human [employer]onge[employer].). Reported By: YOUNG BARRON M.D. 35-Mwe-890345:02 DEXA BONE DENSITY STUDY () Radiology Report See Note (Normal) Comments: Exam Number: [id number] BONE DENSITOMETRY HISTORYPost menopausal. TECHNIQUE Bone densitometry [...] normal limits. Reported By: YOUNG BARRON M.D. 09-Jir-751173:33 RIBS,UNI,MIN 3V,W/PA CHEST(MT) Radiology Report See Note (Normal) Comments: Exam Number: [id number] LEFT RIBS, 4 VIEWS WITH PA CHEST [...] Thin prep Pap Comments: Source.............Cervical;EndocervicalLMP / Prev Treat...ITM=[id number]. of containers..01 CYTYC Thin Prep VialPATIENT NOT FASTINGClinical Information: ADD [id number] (04060) PERFORMED BY: Locality [address] [id number] Note: PAPSMR (Normal) Comments: The Pap smear [...] component) are present.V72.31 ; Routine gynecolog ical exambertram Lion Administrative Secretary (ASCP) 18-Jul-20089:26 CBC With Differential/Platelet Comments: PATIENT WAS FASTINGPERFORMED BY: [facility] Jmokuq2496 [facility] [id number] Baso (Absolute) 0.0 {x10E3/uL} (Normal) Range: 0.0-0.2 [...] codes that are included in CBC With Differential/Platelet([id number]). 18-Jul-20089:26 Comp. Metabolic Panel (14) Comments: PATIENT WAS FASTINGPERFORMED BY: [facility] [id number] A/G Ratio 1.5 (Normal) Range: 1.1-2.5 Albumin, [...] Serum 88 mg/dL (Normal) Range: 65-99 If -Ugandan >59 mL/min/1.73 Comments: Note: Persistent reduction for [...] Sodium, Serum 142 mmol/L (Normal) Range: 135-145 18-Jul-20089:26 Lipid Panel With LDL/HDL Comments: PATIENT WAS FASTINGPERFORMED BY: [facility] Cpdejk0884 [facility] [id number] Ratio Cholesterol, Total 280 mg/dL (Abnormal) Range: [...] Randm Ur Comments: PATIENT WAS FASTINGPERFORMED BY: [facility] [id number] Creatinine, Urine 33.7 mg/dL (Normal) Range: 15.0-278.0 Microalb/Creat Ratio 3.3 {ug/mg_creat} Range: 0.0-30.0 (Normal) Microalbum.,U,Random 1.1 ug/mL (Normal) Range: 0.0-17.0 :2 TSH 2.005 {uIU/mL} Comments: PATIENT WAS FASTINGPERFORMED BY: [place] 7985770 [facility] [id number] 6 (Normal) Range: 0.450-4.500 :26 Urinalysis, Routine Comments: PATIENT WAS FASTINGPERFORMED BY: [facility] [id number] Appearance Clear (Normal) Bilirubin Negative (Normal) Glucose Negative (Normal) Ketones Negative (Normal) Microscopic Examination MICRON (Normal) Comments: Microscopic follows if indicated. Nitrite, Urine Negative (Normal) Occult Blood Negative (Normal) pH 7.0 (Normal) Range: 5.0-7.5 Protein Negative (Normal) Specific [place] 1.009 (Normal) Range: 1.005-1.030 Urine-Color Yellow (Normal) Urobilinogen,Semi-Qn 0.2 mg/dL (Normal) Range: 0.0-1.9 WBC Esterase Negative (Normal) :54 Pap Lb, rfx HPV Comments: Source.............Cervical;EndocervicalLMP / Prev Treat...NoneDates / Results....MENOPAUSALNo. of containers..01 CYTYC Thin Prep VialPERFORMED BY: [address] [id number] [facility] . . (Normal) DIAGNOSIS: SPRCS (Normal) Comments: NEGATIVE FOR INTRAEPITHELIAL LESION AND MALIGNANCY.Satisfactory for evaluation. Endocervical and/or squamous metaplasticcells (endocervical component) are present.V72.31 ; Routine gynecolog ical exambertram Talavera, Administrative Secretary (ASCP) Note: PAPSMR (Normal) Comments: The Pap [...] mg/dL VLDL 25 mg/dL (Normal) Range: 5-40 21-Evk-31122:56 BILAT SCRN DIGITAL & CAD Radiology Report See Note (Normal) Comments: Exam Number: [id number] BILATERAL SCREENING DIGITAL MAMMOGRAM CLINICAL INFORMATIONScreening. Bilateral [...] The mammogramswere also examined with computer-aided detection software([employer] Reported By: HAYDEE BOBO M.D. Plan of [...] exam with routine gynecological exam Planned Observations URINE JAVIER CULTURE-IDENTIFICATN ([id number])Indication: UTI (urinary tract infection) On: 55-Hdf-216867:49 Request MICROALBUMIN: CREATININE RATIO ([id number]) AND ([id number])Indication: Benign essential hypertension On: :00 Request LIPID PANEL ([id number])Indication: Other hyperlipidemia On: :00 Request TSH (THYROID STIMULATING HORMONE) ([id number])Indication: Vitamin D deficiency, unspecified On: :00 Request CALCIFEDIOL ([id number])Indication: Vitamin D deficiency, unspecified On: :00 Request URINALYSIS ([id number])Indication: Benign essential hypertension On: :00 Request CBC & PLATELETS (AUTO) ([id number])Indication: Benign essential hypertension On: :00 Request METABOLIC PANEL, COMPREHENSIVE ([id number])Indication: Benign essential hypertension On: 55-Yjt-89720:59 Request TSH ([id number])Indication: Other hyperlipidemia On: :21 Request CALCIFIDIOL ([id number]) VIT D 25Indication: Vitamin D deficiency, unspecified On: :20 Request URINALYSIS, W/ MICRO ([id number])Indication: Benign essential hypertension On: :20 Request MICROALBUMIN: CREATININE RATIO ([id number]) AND ([id number])Indication: Benign essential hypertension On: :20 Request METABOLIC PANEL, COMPREHENSIVE ([id number])Indication: Benign essential hypertension On: : Request LIPID PANEL ([id number])Indication: Other hyperlipidemia On: : Request CBC W/AUTO DIFF WBC ([id number])Indication: Benign essential hypertension On: : Request Vitamin D Hydroxy ([id number])Indication: Vitamin D deficiency, unspecified On: : Request METABOLIC PANEL, COMPREHENSIVE ([id number])Indication: Other hyperlipidemia On: :27 Request LIPID PANEL ([id number])Indication: Other hyperlipidemia On: :26 Request Thin prep Pap ([id number]) (no STD testing)Indication: Annual physical exam On: 28-Iqr-97484:44 Request CBC W/AUTO DIFF WBC ([id number])Indication: Other migraine without status migrainosus, intractable On: 98-Ksr-504095:34 Request METABOLIC PANEL, COMPREHENSIVE ([id number])Indication: Other hyperlipidemia On: 78-Hql-010685:34 Request Vitamin D Hydroxy ([id number])Indication: Vitamin D deficiency, unspecified On: 07-Qlz-632599:34 Request LIPID PANEL ([id number])Indication: Other hyperlipidemia On: 12-Zcn-907495:34 Request Thin prep Pap ([id number])Indication: Well woman exam with routine gynecological exam On: 66-Atv-347093:08 Request Vitamin D Hydroxy ([id number])Indication: vit d deficiency On: 3-Toz-338288:39 Request METABOLIC PANEL, COMPREHENSIVE ([id number])Indication: Benign essential hypertension On: :39 Request LIPID PANEL ([id number])Indication: Other hyperlipidemia On: 1-Lxq-194511:39 Request PHOSPHORUS ([id number])Indication: Osteopenia On: 77-Aav-638995:12 Request UPEP ([id number])Indication: Osteopenia On: 79-Acc-356437:12 Request SPEP ([id number])Indication: Osteopenia On: 50-Cur-583670:12 Request PARATHORMONE ([id number])Indication: Osteopenia On: 60-Awl-640864:12 Request SPEP ([id number])Indication: Osteopenia On: 08-Wux-191934:12 Request UPEP ([id number])Indication: Osteopenia On: 38-Fjh-943866:12 Request Vitamin D Hydroxy ([id number])Indication: Osteopenia On: 37-Wpp-055919:12 Request HEPATIC FUNCTION PANEL ([id number])Indication: Other hyperlipidemia On: :27 Request LIPID PANEL ([id number])Indication: Other hyperlipidemia On: :27 Request TSH ([id number])Indication: Elevated blood-pressure reading without diagnosis of hypertension On: :20 Request URINALYSIS W/O MICRO ([id number])Indication: Elevated blood-pressure reading without diagnosis of hypertension On: 18-Jul-20089:20 Request MICROALBUMIN: CREATININE RATIO ([id number]) AND ([id number])Indication: Elevated blood-pressure reading without diagnosis of hypertension On: :20 Request MICROALBUMIN URINE QUANT ([id number])Indication: Elevated blood-pressure reading without diagnosis of hypertension On: 18-Jul-20089:20 Request METABOLIC PANEL, COMPREHENSIVE ([id number])Indication: Elevated blood-pressure reading without diagnosis of hypertension On: :20 Request LIPID PANEL ([id number])Indication: Elevated blood-pressure reading without diagnosis of hypertension On: 18-Jul-20089:20 Request CREATININE, URINE ([id number])Indication: Elevated blood-pressure reading without diagnosis of hypertension On: :20 Request CBC WITH MANUAL DIFF ([id number])Indication: Elevated blood-pressure reading without diagnosis of hypertension On: 18-Jul-20089:20 Request Thin prep Pap ([id number])Indication: Well woman exam with routine gynecological exam On: 0-Ahg-394886:00 Request Planned Encounters Medical; 6 Month FU - On: 24-Aug-2018 9:30 [facility] Chanda Ferguson DO, DO, Kathleen Planned Procedures MAMMOGRAM BREAST BILATERAL On: 22-Jun-2018 Intent SCREENING DIGITAL ([id number])By: Chanda Ferguson DO, DO, Kathleen DEXA SCAN AXIAL SKELETON ([id number])By: On: 30-Dec-2016 Intent Chanda Ferguson DO, DO, Comments: not due until after 04/03/17 Chanda ELECTROCARDIOGRAM, COMPLETE (ECG) On: 30-Dec-2016 Intent ([id number])By: Chanda Ferguson DO Comments: nsr no acute chg Chanda Ferguson DO MAMMOGRAM BREAST BILATERAL On: 26-Aug-2016 Intent SCREENING DIGITAL ([id number])By: Chanda Ferguson DO, DO, Kathleen BILATERAL MAMMOGRAMS ([id number])By: On: 13-Nov-2015 Intent Daisy Tucker DO DEXA SCAN AXIAL SKELETON ([id number])By: On: 01-Jan-2015 Intent Daisy Tucker DO Comments: february MAMMOGRAM, SCREENING, BOTH BREAST On: 03-Jul-2014 Intent ([id number])By: Daisy Tucker DO Radiology - Knee - Left - Weight On: 03-Jul-2014 Intent BearingBy: Daisy Tucker DO ELECTROCARDIOGRAM, COMPLETE (ECG) On: 03-Jul-2014 Intent ([id number])By: Daisy Tucker DO Comments: ekg showed normal sinus rhythym, normal axis, no acute st/t wave changes Eprescribed prescriptions On: 11-Jul-2013 Intent ([id number])By: Alexandra Og Breast Screening - BilateralBy: On: 29-May-2013 Intent Celia Edwards EKG ([id number])By: Alexandra Og On: 04-Apr-2013 Intent Comments: ekg showed normal sinus rhythym, normal axis, no acute st/t wave changes Eprescribed prescriptions On: 04-Apr-2013 Intent ([id number])By: Alexandra Og DXA, BONE DENSITY, AXIAL SKELETON On: 06-Jun-2012 Intent ([id number])By: Daisy Tucker DO Comments: sep Breast Screening - BilateralBy: On: 06-May-2012 Intent Daisy Tucker DO EKG ([id number])By: Alexandra Og On: 25-May-2011 Intent Comments: ekg showed normal sinus rhythym, normal axis, no acute st/t wave changes FLU VAC, SPLIT, >3 YEARS, INTRAMUSC On: 25-May-2011 Intent ([id number])By: Alexandra Og Comments: shouldnt get because of family hx of Guillian-[place]' TDAP VACCINE >7 IM ([id number])By: Garrett On: 25-Nov-2010 Intent Daisy GUTIERREZ Comments: injectionLOT [id number] 10/26Amt 0.5 mlSite L deltoid given by hb MAMMOGRAM, SCREENING, BOTH BREASTS On: 25-Nov-2010 Intent ([id number])By: Alexandra Og DXA, BONE DENSITY, AXIAL SKELETON On: 20-May-2010 Intent ([id number])By: Daisy Tucker DO Comments: due in aug MAMMOGRAM, SCREENING, BOTH BREASTS On: 22-Oct-2009 Intent ([id number])By: Daisy Tucker DO EKG ([id number])By: Alexandra Og On: 22-Oct-2009 Intent Comments: ekg showed normal sinus rhythym, normal axis, no acute st/t wave changes CT - ChestBy: Daisy Tucker DO On: 09-Oct-2008 Intent Comments: please attn to 7/8 ribs at sternal - junction-- rule out soft tissue mass DXA, BONE DENSITY, AXIAL SKELETON On: 21-Aug-2008 Intent ([id number])By: Daisy Tucker DO Comments: must also be read by Dr Barron due to pt insurance MAMMOGRAM, SCREENING, BOTH BREASTS On: 21-Aug-2008 Intent ([id number])By: Daisy Tucker DO Comments: this must be read by DR Barron- because patients insurance is [employer] and they wont cover the [facility] Bio Z ([id number])By: Jena Srinivasan CNP On: 18-Jul-2008 Intent ELECTROCARDIOGRAM, COMPLETE (ECG) On: 18-Jul-2008 Intent ([id number])By: Jena Srinivasan CNP Instructions Name Dates Details [...] routine gynecological exam Encounters Phone Encounter On: 28-Jul-2018 14:31 Encounter Diagnosis: UTI (urinary tract infection) End: 28-Jul-2018 14:50 [facility] Lab Order On: 12-Jul-2018 8:57 Encounter Diagnosis: [...] BMI 27.0-27.9,adult, Osteopenia (733.90), Family history of Guillain-[place] syndrome End: 21-Apr-2017 11:20 [facility] [...] up for chronic medical issues: has sinus lilian this am thinks why bp up she [...] helps- she wants to try boniva- saw jajillian and had colon scopy and was good [...] Internal Medicine End: 15-Apr-2007 10:00 Payers [facility] Brad Quinones; azalea guarantor
--- OUTSIDE RECORDS SUMMARY | 2018-09-11 06:24 | XMS RPT_ITS | Continuity of Care Document ---
:1955 Author Organization [facility] Address [facility] 2 [place] [address] Phone Care Team Providers Name Role Phone [...] (Z12.31, V76.12) Status: Active Family history of Guillain-Howe syndrome (Z82.0, V17.2) Comments: virus in general [...] days Quantity: 1 {Package(s)} Refills: 0 Ordered:18-Jul-2008 Karen GUTIERREZa A Start : 18-Jul-2008 End : 09-Oct-2008 Inactive ACTONEL, 35MG (Oral Tablet) 1 Tablet q week for 0 days Quantity: 4 {Tablet} Refills: 3 Ordered:22-Oct-2009 DO Daisy A Start : 22-Oct-2009 End : 22-Oct-2009 Discontinued BONIVA, 150MG (Oral Tablet) 1 (one) Tablet q month for 90 days Quantity: 3 {Tablet} Refills: 3 Ordered:25-Nov-2010 Garrett GUTIERREZ Daisy A Start : 25-Nov-2010 End : 25-Nov-2010 Discontinued DIOVAN, 40MG (Oral Tablet) 1 (one) Tablet daily for 0 days Quantity: 30 {Tablet} Refills: 3 Ordered:21-Aug-2008 Karen Tucker DOa A Start : 21-Aug-2008 End : 21-Aug-2008 Discontinued FLAXSEED OIL, 1000MG (Oral Capsule) 1 cap qd (1000 MG) End : 04-Dec-2015 Discontinued MULTIVITAMIN (PO Tab) 1 tab qd End : 04-Dec-2015 Discontinued Nitrofurantoin Monohyd Macro 100 MG Oral Capsule 1 (one) Capsule bid for 10 days Quantity: 20 {Capsule} Refills: 0 Ordered:02-Aug-2018 Hernandez Xiong Start : 28-Jul-2018 End : 02-Aug-2018 Discontinued Allergies and Adverse Reactions Name Dates [...] (CAD), BILAT Result: Comments: See Note; NOTES: [facility] [address] [place] [address] SCREENING MAMM (CAD), BILAT MR#: [id number] Acct: [id number] Name: NATALI MURDOCK Rep #: [id number] : 1955 F 62 From: Darrell Rios MD PCP: Chanda Ferguson DO Status: REG CLI Study: SCREENING MAMM (CAD), BILAT Date of Exam: 07/01/18 Exam# [id number] Ordering Dr: Chanda Ferguson DO MAMMOGRAPHY - [...] delay biopsy of a clinically suspicious abnormality. [id number] Electronically Signed: Darrell Rios MD at 9:33 EST Tel [phone], Service support , CC: Chanda Ferguson DO Supervisor [employer]: Signed 14-Apr-2017 Dexa Bone Density Study (HP) Result: Comments: See Note; NOTES: [facility] [address] [place] [address]208 Dexa Bone Density Study (HP) MR#: [id number] Acct: [id number] Name: NATALI MURDOCK Rep #: [id number] : 1955 F 61 From: Darrell Rios MD PCP: Chanda Ferguson DO Status: REG CLI Study: Dexa Bone Density Study (HP) Date of Exam: 04/14/17 Exam# [id number] Ordering Dr: Estrada Ferguson DO STUDY: DUAL [...] Darrell Rios MD at 8:54 EDT Tel [phone], Service support , CC: Chanda Ferguson DO Supervisor [employer]: Signed 01-Dec-2016 SCREENING MAMM (CAD), BILAT Result: Comments: See Note; NOTES: [facility] [address] [place] [address]014 Verdana 4d SCREENING MAMM (CAD), BILAT MR#: [id number] Acct: [id number] Name: JL MURDOCK Rep #: [id number] : 1955 F 61 From: Darrell Rios MD PCP: Chanda Ferguson DO Status: REG CLI Study: SCREENING MAMM (CAD), BILAT Date of Exam: 12/01/16 Exam# [id number] Ordering Dr: Chanda Mclaughlin DO MAMMOGRAPHY - [...] delay biopsy of a clinically suspicious abnormality. [id number] Electronically Signed: Darrell Rios MD at 9:58 EDT Tel [phone], Service support , CC: Chanda Ferguson DO [employer]visor [employer]: Signed 04-Dec-2015 EKG (45539) Comments: ekg showed normal sinus rhythym, normal axis, no acute st/t wave changes Result: [MEASUREMENTS ANALYSIS] Date of Test: 12/04/2015 08:48:08; Heart Rate: 71; DC Interval: 186; QRS: 90; QT Interval: 398; Corrected QT Interval (QTc): 417; P Wave [place]: 37; QRS Wave [place]: -4; T Wave [place]: -1; Blood Pressure: 142/88 [ECG DIAGNOSTIC STATEMENTS] Date of Test: 12/04/2015 08:48:08; Summary: Sinus Rhythm WITHIN NORMAL LIMITS 27-Nov-2015 Bilat Scrn Digital AND CAD Result: Comments: See Note; NOTES: [facility] [address] [place] [address]262 Verdana 4d Bilat Scrn Digital AND CAD MR#: [id number] Acct: [id number] Name: NATALI MURDOCK Rep #: [id number] : 1955 F 60 From: Darrell Rios MD PCP: Daisy Tucker DO Status: REG CLI Study: Bilat Scrn Digital AND CAD Date of Exam: 11/27/15 Exam# [id number] Viry escalante Dr: Daisy Tucker DO MAMMOGRAPHY [...] delay biopsy of a clinically suspicious abnormality. [id number] Electronically Signed: Darrell Rios MD at 10:15 EDT Tel [phone], Service support [phone], Fax CC: Daisy Tucker DO Supervisor [employer]: Signed 03-Apr-2015 Dexa Bone Density Study (HP) Result: Comments: See Note; NOTES: [facility] [address] [place] [address] Bone Density Report MR#: [id number] Acct: [id number] Name: NATALI MURDOCK Rep #: [id number] : 1955 F 59 From: Darrell Rios MD PCP: Daisy Tucker DO Status: REG CLI Study: Dexa Bone Density Study (HP) Date of Exam: 04/03/15 Exam# [id number] Ordering Dr: Daisy Tucker DO STUDY: DUAL [...] Darrell pickering MD at 11:25 EDT Tel [phone], Service support [phone], CC: Daisy uTcker DO Supervisor [employer]: Signed 20-Nov-2014 Bilat Scrn Digital AND CAD Result: Comments: See Note; NOTES: [facility] [address] [place] [address] Breast Imaging Report MR#: [id number] Acct: [id number] Name: NATALI MURDOCK Rep #: [id number] : 1955 F 59 From: Vasquez Sandra DO PCP: Daisy Tucker DO Status: REG CLI Study: Bilat Scrn Digital AND CAD Date of Exam: 11/20/14 Exam# [id number] Ordering Dr: Daisy Tucker DO MAMMO GRAPHY [...] Vasquez Sandra DO at 10:09 EDT Tel [phone], Service support [phone], CC: Daisy Tucker DO Supervisor [employer]: Signed 03-Jul-2014 Knee 4 or More Views Result: Comments: See Note; NOTES: [facility] [address] [place] [id number] Radiology Report MR#: [id number] Acct: [id number] Name: NATALI MURDOCK Matias Rep #: [id number] : 1955 F 58 From: Dallas Tyler MD PCP: Daisy Tucker DO Status: REG CLI Study: Knee 4 or More Views Date of Exam: 07/03/14 Exam# [id number] Ordering Dr: Daisy Tucker DO STUDY: X-RAY [...] FACR at 20:51 EST , Service support [phone], CC: Daisy Tucker DO Supervisor [employer]: Signed 13-Jun-2013 Damien Coleman Digital & CAD Result: Comments: See Note; NOTES: [facility] [address] [place] [address] Breast Imaging Report MR#: [id number] Acct: [id number] Name: NATALI MURDOCK Rep #: [id number] : 1955 F 57 From: Darrell Rios MD PCP: Daisy Tucker DO Status: REG CLI Exam# [id number] Ordering Dr: Daisy Tucker DO MAMMOGRAPHY - [...] 13, 2013 at 12: 56:32 PM EDT [phone] Electronically Signed GP/GP If you are the referring physician and would like to consult with the radiologist who provided this interpretation, please contact Darrell Rios M.D. at [phone]. If this radiologist is unavailable, you will be directed to another radiologist to assist. If you are a patient with a question regarding this report, please contact your referring physician directly. Professional Interpretation Provided By: [employer], Phone , These documents contain legally protected [...] of these documents. 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 [facility] [address] [facility] [place], [address] LEUK ESTERASE 100 /ul (Abnormal) OCCULT BLOOD-UR Negative /ul (Normal) NITRITE UR Negative (Normal) UROBILI 1 mg/dL (Abnormal) PROT DIPSTX Negative mg/dL (Normal) pH UR 6.0 (Normal) Range: 5.0 - 8.0 SP.GR. DIPSTX 1.020 (Normal) Range: 1.002-1.030 KETONE UR Negative mg/dL (Normal) BILIRUBIN URINE Negative mg/dL (Normal) GLUCOSE, UR Normal mg/dL (Normal) CLARITY Sl. Cloudy (Normal) COLOR Yellow (Normal) 10-Lky-35205:26 CBC W/Diff, Automated Comments: [facility] [address] [place], [place], [address] Absolute Lymph 1.44 {X10_3/ul} (Normal) Range: 0.83-4.51 [...] 4.2-5.4 WBC 3.6 K/mm3 (Abnormal) Range: 4.4-11.0 74-Try-90280:26 Comprehensive Metabolic Profil Comments: [facility] [address] [place], [place], [id number] GAP 8 (Normal) Range: 5-15 CO2 27.0 [...] Comments: Please note revised GLUCOSE reference range /02/2018. 43-Vst-52407:26 Lipid Profile Comments: [facility] [address] [place], [id number] VLDL 25 mg/dL (Normal) Range: 5-40 LDL [...] 200-240 mg/dL Borderline >240 mg/dL High Risk 10-Tzz-96769:26 Thyroid Stim Hormone (TSH) Comments: [facility] [address] [facility]. [place], [place], [id number] TSH 2.14 {uIU/mL} (Normal) Range: 0.358-3.74 :26 Vitamin D,25 Hydroxy Comments: [facility] [address]vkb[address] [facility]. [place], [place], [id number] Vitamin D 25-OH 56.0 ng/mL (Normal) Range: 29.95-100.01 Comments: Vitamin D 25(OH) Status Range Deficiency <20 ng/mL (50nmol/L) Insuffciency 20 - 30 ng/mL (50 - 75 nmol/L) Sufficiency 30 - 100 ng/mL (75 - 250 nmol/L) Toxicity >100 ng/mL (>250 nmol/L) 31-Nif-425095:04 Microscopic Examination Comments: PATIENT WAS FASTINGPERFORMED BY: Assembla70 [employer] [place] [id number] Bacteria None seen (Normal) Mucus Threads Present (Normal) Epithelial Cells (non renal) 0-10 {/hpf} (Normal) Range: 0 - 10 RBC 0-2 {/hpf} (Normal) Range: 0 - 2 WBC 0-5 {/hpf} (Normal) Range: 0 - 5 70-Jyj-096604:33 HEPATIC FUNCTION PANEL Comments: PATIENT NOT FASTINGPERFORMED BY: [employer]opt[employer]in [place] [id number] (20311) ALT (SGPT) 15 [iU]/L (Normal) Range: 0-32 AST (SGOT) 17 [iU]/L (Normal) Range: 0-40 Alkaline Phosphatase, S 66 [iU]/L (Normal) Range: 39-117 Bilirubin, Direct 0.22 mg/dL (Normal) Range: 0.00-0.40 Bilirubin, Total 1.0 mg/dL (Normal) Range: 0.0-1.2 Albumin, Serum 4.3 g/dL (Normal) Range: 3.5-5.5 Protein, Total, Serum 6.8 g/dL (Normal) Range: 6.0-8.5 04-Mns-691398:04 CALCIFIDIOL (09839) VIT D 25 Comments: PATIENT WAS FASTINGPERFORMED BY: [employer] Wyhygf3050 [facility] [id number] Vitamin D, 25-Hydroxy 58.6 ng/mL (Normal) Range: 30.0-100.0 Comments: Vitamin D deficiency has been defined by the American Canyon ofCleveland Clinic Hillcrest Hospitalcine and an Endocrine Society practice guideline as alevel of serum 25-OH vitamin D less than 20 ng/mL (1,2).The Endocrine Society went on to further define vitamin Dinsufficiency as a level between 21 and 29 ng/mL (2).1. IOM (American Canyon of Medicine). 2010. Dietary reference intakes for calcium and D. [place]: The National Academies Press.2. Mony MF, Jonas [place], Yao LAMB, et al. Evaluation, treatment, and prevention of vitamin D deficiency: an Endocrine Society clinical practice guideline. JCEM. 2010; 96(7):1911-30. 25-Rof-453948:04 TSH (83579) Comments: PATIENT WAS FASTINGPERFORMED BY: zulilyJefferson [facility]Tijquh4230 [facility] [id number] TSH 2.310 {uIU/mL} (Normal) Range: 0.450-4.500 74-Nhk-800148:04 URINALYSIS, W/ MICRO (74528) Comments: PATIENT WAS FASTINGPERFORMED BY: zulily Hompum0704 [facility] [id number] Microscopic Examination See below: (Normal) Comments: Microscopic was indicated and was performed. Microscopic Examination MICRON (Normal) Comments: Microscopic follows if indicated. Nitrite, Urine Negative (Normal) Urobilinogen,Semi-Qn 0.2 mg/dL (Normal) Range: 0.2-1.0 Bilirubin Negative (Normal) Occult Blood Negative (Normal) Ketones Negative (Normal) Glucose Negative (Normal) Protein Negative (Normal) WBC Esterase Negative (Normal) Appearance Clear (Normal) Urine-Color Yellow (Normal) pH 5.0 (Normal) Range: 5.0-7.5 Specific Pillager 1.022 (Normal) Range: 1.005-1.030 35-Mei-960899:04 MICROALBUMIN: CREATININE RATIO Comments: PATIENT WAS FASTINGPERFORMED BY: Person[facility] LabsJefferson [facility])Oppxaa0799 [facility] [id number] (64900) AND (93348) Microalb/Creat Ratio 5.0 {mg/g_creat} (Normal) Range: 0.0-30.0 Microalbumin, Urine 7.6 ug/mL (Normal) Creatinine, Urine 150.9 mg/dL (Normal) 81-Yqw-805444:04 METABOLIC PANEL, COMPREHENSIVE Comments: PATIENT WAS FASTINGPERFORMED BY: [employer] Tznfvj5661 [facility] [id number] (83568) ALT (SGPT) 19 [iU]/L (Normal) Range: 0-32 [...] Glucose, Serum 86 mg/dL (Normal) Range: 65-99 42-Pys-231008:04 CBC W/AUTO DIFF WBC (12840) Comments: PATIENT WAS FASTINGPERFORMED BY: [facility]CoJeff[facility])Bjzslq5831 [facility] [id number] Immature Grans (Abs) 0.0 {x10E3/uL} (Normal) Range: [...] 3.77-5.28 WBC 3.9 {x10E3/uL} (Normal) Range: 3.4-10.8 59-Ahk-010919:04 LIPID PANEL (18382) Comments: PATIENT WAS FASTINGPERFORMED BY: zulily [employer] [facility] [id number] LDL/HDL Ratio 1.7 {ratio_units} (Normal) Range: 0.0-3.2 Comments: LDL/HDL Ratio Men Women 1/2 Avg.Risk 1.0 1.5 Av g.Risk 3.6 3.2 2X Avg.Risk 6.2 5.0 3X Avg.Risk 8.0 6.1 LDL Cholesterol Calc 125 mg/dL (Abnormal) Range: 0-99 VLDL Cholesterol Cassi 20 mg/dL (Normal) Range: 5-40 HDL Cholesterol 73 mg/dL (Normal) Triglycerides 98 mg/dL (Normal) Range: 0-149 Cholesterol, Total 218 mg/dL (Abnormal) Range: 100-199 02-Xid-175724:16 Microscopic Examination Comments: PATIENT WAS FASTINGPERFORMED BY: zulily [employer] [facility] [id number] Bacteria Few (Normal) Mucus Threads Present (Normal) Epithelial Cells (non renal) 0-10 {/hpf} (Normal) Range: 0 - 10 RBC 0-2 {/hpf} (Normal) Range: 0 - 2 WBC 0-5 {/hpf} (Normal) Range: 0 - 5 66-Kww-669099:16 TSH (70327) Comments: PATIENT WAS FASTINGPERFORMED BY: zulily Pvxlii5396 [facility] [id number] TSH 1.300 {uIU/mL} (Normal) Range: 0.450-4.500 19-Iio-943571:16 URINALYSIS, W/ MICRO (69992) Comments: PATIENT WAS FASTINGPERFORMED BY: zulily Ujplbf0918 [facility] [id number] Microscopic Examination See below: (Normal) Comments: Microscopic was indicated and was performed. Microscopic Examination MICRON (Normal) Comments: Microscopic follows if indicated. Nitrite, Urine Negative (Normal) Urobilinogen,Semi-Qn 0.2 mg/dL (Normal) Range: 0.2-1.0 Bilirubin Negative (Normal) Occult Blood Negative (Normal) Ketones Negative (Normal) Glucose Negative (Normal) Protein Negative (Normal) WBC Esterase Negative (Normal) Appearance Clear (Normal) Urine-Color Yellow (Normal) pH 7.0 (Normal) Range: 5.0-7.5 Specific Pill[place] 1.020 (Normal) Range: 1.005-1.030 39-Wjw-933716:16 MICROALBUMIN: CREATININE RATIO Comments: PATIENT WAS FASTINGPERFORMED BY: Assembla70 DRB SystemsAt[facility] [id number] (86086) AND (65931) Microalb/Creat Ratio 4.2 {mg/g_creat} (Normal) Range: 0.0-30.0 Microalbumin, Urine 4.8 ug/mL (Normal) Creatinine, Urine 113.8 mg/dL (Normal) 26-Gmd-534329:16 METABOLIC PANEL, COMPREHENSIVE Comments: PATIENT WAS FASTINGPERFORMED BY: Frodio6370 [facility]ostics[facility] [id number] (56708) ALT (SGPT) 20 [iU]/L (Normal) Range: 0-32 [...] Glucose, Serum 86 mg/dL (Normal) Range: 65-99 04-Nlo-613490:16 LIPID PANEL (93663) Comments: PATIENT WAS FASTINGPERFORMED BY: ToptalAtrium Health [facility]cy [id number] LDL/HDL Ratio 1.5 {ratio_units} (Normal) Range: 0.0-3.2 Comments: LDL/HDL Ratio Men Women 1/2 Avg.Risk 1.0 1.5 Av g.Risk 3.6 3.2 2X Avg.Risk 6.2 5.0 3X Avg.Risk 8.0 6.1 LDL Cholesterol Calc 110 mg/dL (Abnormal) Range: 0-99 VLDL Cholesterol Cassi 20 mg/dL (Normal) Range: 5-40 HDL Cholesterol 75 mg/dL (Normal) Triglycerides 100 mg/dL (Normal) Range: 0-149 Cholesterol, Total 205 mg/dL (Abnormal) Range: 100-199 48-Srh-936493:16 CBC W/AUTO DIFF WBC (51136) Comments: PATIENT WAS FASTINGPERFORMED BY: Frodio6370 [facility] [id number] Immature Grans (Abs) 0.0 {x10E3/uL} (Normal) Range: [...] Range: 3.4-10.8 :15 Rapid Strep Test, Office (39968) Rapid Strep Test, Office Negative (Normal) :23 Microscopic Examination Comments: PATIENT WAS FASTINGPERFORMED BY: [facility] Cltxmv4741 [facility] [id number] Bacteria None seen (Normal) Mucus Threads Present (Normal) Epithelial Cells (non renal) 0-10 {/hpf} (Normal) Range: 0 - 10 RBC None seen {/hpf} (Normal) Range: 0 - 2 WBC None seen {/hpf} (Normal) Range: 0 - 5 39-Jgz-804921:11 HPV automatic Comments: Source.............Cervical;EndocervicalNo. of containers..01 CYTYC Thin Prep VialPATIENT NOT FASTINGPERFORMED BY: WB [facility] [address] [id number] BY: Bella Griffin (37804) [facility] [address] [id number] Information: [id number] HPV, high-risk Negative Comments: This high-risk HPV [...] evaluation. No endocervical component is identified.V73.81Eden Lowe Field Clerk (ASCP) :23 Vitamin D Hydroxy (81591) Comments: PATIENT WAS FASTINGPERFORMED BY: [employer] Labsceniosrp Zzxobg4618 Celerus Diagnosticsin [place] [id number] Vitamin D, 25-Hydroxy 59.8 ng/mL (Normal) Range: 30.0-100.0 Comments: Vitamin D deficiency has been defined by the American Canyon ofMedicine and an Endocrine Society practice guideline as alevel of serum 25-OH vitamin D less than 20 ng/mL (1,2).The Endocrine Society went on to further define vitamin Dinsufficiency as a level between 21 and 29 ng/mL (2).1. IOM (American Canyon of Medicine). 2010. Dietary reference intakes for calcium and D. [place]: The National Academies Press.2. Mony MF, Jonas HUBBARD, Yao LAMB, et al. Evaluation, treatment, and prevention of vitamin D deficiency: an Endocrine Society clinical practice guideline. JCEM. 2010; 96(7):1911-30. :23 URINALYSIS, W/ MICRO (87917) Comments: PATIENT WAS FASTINGPERFORMED BY: CB [facility] Xdeowa1407 [place] [place]weet[place] [id number] Microscopic Examination See below: (Normal) Comments: Microscopic was indicated and was performed. Microscopic Examination MICRON (Normal) Comments: Microscopic follows if indicated. Nitrite, Urine Negative (Normal) Urobilinogen,Semi-Qn 0.2 mg/dL (Normal) Range: 0.2-1.0 Bilirubin Negative (Normal) Occult Blood Negative (Normal) Ketones Negative (Normal) Glucose Negative (Normal) Protein Negative (Normal) WBC Esterase Negative (Normal) Appearance Clear (Normal) Urine-Color Yellow (Normal) pH 6.5 (Normal) Range: 5.0-7.5 Specific Pillager 1.011 (Normal) Range: 1.005-1.030 :23 LIPID PANEL (78073) Comments: PATIENT WAS FASTINGPERFORMED BY: Evelin6370 [facility] [id number] LDL/HDL Ratio 1.2 {ratio_units} (Normal) Range: 0.0-3.2 [...] DIFF WBC Comments: PATIENT WAS FASTINGPERFORMED BY: Evelin6370 [facility] [id number] Information: [id number] (35412) Immature Grans (Abs) 0.0 {x10E3/uL} (Normal) Range: [...] 3.77-5.28 WBC 4.2 {x10E3/uL} (Normal) Range: 3.4-10.8 88-Ltx-04017:23 METABOLIC PANEL, COMPREHENSIVE Comments: PATIENT WAS FASTINGPERFORMED BY: [facility]CoJeff[facility]Dipuiw5024 [facility] [id number] (83420) ALT (SGPT) 22 [iU]/L (Normal) Range: 0-32 [...] With Differential/Platelet Comments: PATIENT WAS FASTINGPERFORMED BY: [facility]CoJeff[facility]Zhyuzo4722 [facility] [id number] Information: [id number] Immature Grans (Abs) 0.0 {x10E3/uL} (Normal) Range: [...] Panel (14) Comments: PATIENT WAS FASTINGPERFORMED BY: Assembla70 [employer] [place] [id number] ALT (SGPT) 21 [iU]/L (Normal) Range: 0-32 [...] With LDL/HDL Comments: PATIENT WAS FASTINGPERFORMED BY: Sayah [place] [id number] Ratio LDL/HDL Ratio 1.3 {ratio_units} Range: 0.0-3.2 [...] ng/mL (Normal) Comments: PATIENT WAS FASTINGPERFORMED BY: Soft[employer] EngineersCoJefferson [facility])Erhsxs4276 [facility] [id number] 7:37 Range: 30.0-100.0 Comments: Vitamin D deficiency has been defined by the American Canyon ofOmniStratcine and an Endocrine Society practice guideline as alevel of serum 25-OH vitamin D less than 20 ng/mL (1,2).The Endocrine Society went on to further define vitamin Dinsufficiency as a level between 21 and 29 ng/mL (2).1. IOM (American Canyon of Medicine). 2010. Dietary reference intakes for calcium and D. [place]: The National Academies Press.2. Mony MF, Jonas HUBBARD, Yao LAMB, et al. Evaluation, treatment, and prevention of vitamin D deficiency: an Endocrine Society clinical practice guideline. JCEM. 2010; 96(7):1911-30. 28-Cab-18755:11 Vitamin D Hydroxy (09847) Comments: PATIENT WAS FASTINGPERFORMED BY: SoftTech EngineersMymichigan Medical Center Alma6370 [facility] [id number] Vitamin D, 25-Hydroxy 37.5 ng/mL (Normal) Range: 30.0-100.0 Comments: Vitamin D deficiency has been defined by the American Canyon ofOmniStratcine and an Endocrine Society practice guideline as alevel of serum 25-OH vitamin D less than 20 ng/mL (1,2).The Endocrine Society went on to further define vitamin Dinsufficiency as a level between 21 and 29 ng/mL (2).1. IOM (American Canyon of Medicine). 2010. Dietary reference intakes for calcium and D. [place]: The National Academies Press.2. Mony MF, Jonas HUBBARD, Yao LAMB, et al. Evaluation, treatment, and prevention of vitamin D deficiency: an Endocrine Society clinical practice guideline. JCEM. 2010; 96(7):1911-30. 95-Bzz-44988:11 METABOLIC PANEL, Comments: PATIENT WAS FASTINGPERFORMED BY: [facility] Fjqhik9423 [facility] [id number] Information: [id number] COMPREHENSIVE (51206) ALT (SGPT) 17 [iU]/L (Normal) Range: 0-32 [...] mg/dL (Normal) Range: 65-99 :11 LIPID PANEL (95862) Comments: PATIENT WAS FASTINGPERFORMED BY: FINA zulily Qnekrh3523 [facility] [id number]; non-emergent till apt- LDL/HDL Ratio 1.5 {ratio_units} [...] Cholesterol, Total 203 mg/dL (Abnormal) Range: 100-199 78-Hru-470361:11 Microscopic Examination Comments: PATIENT WAS FASTINGPERFORMED BY: OTI [employer]6370 [facility] [id number] Bacteria Few (Normal) Mucus Threads Present (Normal) Epithelial Cells (non renal) None seen {/hpf} (Normal) Range: 0 - 10 RBC 0-3 {/hpf} (Normal) Range: 0 - 3 WBC 0-5 {/hpf} (Normal) Range: 0 - 5 :30 URINALYSIS, W/ MICRO (95905) Comments: PATIENT WAS FASTINGPERFORMED BY: zulily Vkdhob0639 [facility] [id number]; pt has appt today 01/02/14 Microscopic Examination MICRON (Normal) Comments: Microscopic follows if indicated. Microscopic Examination See below: (Normal) Nitrite, Urine Negative (Normal) Urobilinogen,Semi-Qn 0.2 mg/dL (Normal) Range: 0.0-1.9 Bilirubin Negative (Normal) Occult Blood Negative (Normal) Ketones Negative (Normal) Glucose Negative (Normal) Protein Negative (Normal) WBC Esterase Negative (Normal) Appearance Clear (Normal) Urine-Color Yellow (Normal) pH 6.0 (Normal) Range: 5.0-7.5 Specific Pillager 1.021 (Normal) Range: 1.005-1.030 91-Hzm-52226:30 CBC WITH MANUAL DIFF Comments: PATIENT WAS FASTINGPERFORMED BY: [facility]CoJeff[facility])Neeltg5141 [facility] [id number] Information: [id number] (13672) Immature Grans (Abs) 0.0 {x10E3/uL} (Normal) Range: [...] {x10E3/uL} (Normal) Range: 3.4-10.8 :30 LIPID PANEL (46246) Comments: PATIENT WAS FASTINGPERFORMED BY: zulilyJefferson Washington [facility]Xxtbyz1617 [facility] [id number] LDL/HDL Ratio 1.2 {ratio_units} (Normal) Range: 0.0-3.2 [...] PANEL, COMPREHENSIVE Comments: PATIENT WAS FASTINGPERFORMED BY: OTI [employer]6370 [facility] [id number] (49295) ALT (SGPT) 18 [iU]/L (Normal) Range: 0-32 [...] Glucose, Serum 84 mg/dL (Normal) Range: 65-99 24-Ymr-20400:30 Vitamin D Hydroxy (19729) Comments: PATIENT WAS FASTINGPERFORMED BY: zulilyJefferson [facility])Ujafwq8224 [facility] [id number] Vitamin D, 25-Hydroxy 32.5 ng/mL (Normal) Range: 30.0-100.0 Comments: Vitamin D deficiency has been defined by the American Canyon ofC[facility] Hill[facility] Hospitalcine and an Endocrine Society practice guideline as alevel of serum 25-OH vitamin D less than 20 ng/mL (1,2).The Endocrine Society went on to further define vitamin Dinsufficiency as a level between 21 and 29 ng/mL (2).1. IOM (American Canyon of Medicine). 2010. Dietary reference intakes for calcium and D. [place]: The National Academies Press.2. Mony MF, Jonas HUBBARD, Yao LAMB, et al. Evaluation, treatment, and prevention of vitamin D deficiency: an Endocrine Society clinical practice guideline. JCEM. 2010; 96(7):1911-30. :27 METABOLIC PANEL, Comments: PATIENT WAS FASTINGPERFORMED BY: SoftTech EngineersMymichigan Medical Center Al[place]6370 [facility] [id number] Information: [id number] COMPREHENSIVE (09104) ALT (SGPT) 19 [iU]/L (Normal) Range: 0-32 [...] FUNCTION PANEL Comments: PATIENT WAS FASTINGPERFORMED BY: Frodio6370 [facility] [id number] (75946) Bilirubin, Direct 0.28 mg/dL (Normal) Range: 0.00-0.40 :27 LIPID PANEL (44761) Comments: PATIENT WAS FASTINGPERFORMED BY: Frodio6370 [facility] [id number] LDL/HDL Ratio 1.1 {ratio_units} (Normal) Range: 0.0-3.2 [...] Rios M.D.February 28, 2013 at 10:00:00 AM [id number] [id number] Signed GP/GP If you are the referring physician and would like to consult with theradiologist who provided this interpretation, please contact Mahogany Pelaez at [phone]. If this radiologist is unavailable, youwill be directed to another radiologist to assist. If you are a patient with a question regarding this report, pleasecontactyour referring physician directly. Pro fessional Interpretation Provided By: [employer], Phone , These documents contain legally protected [...] 02/28/13 1127 Sign by: Darrell Rios MD 98-Obg-57499:37 Request Problem Comments: Source.............Cervical;EndocervicalNo. of containers..01 CYTYC Thin Prep VialPATIENT NOT FASTINGPERFORMED BY: WB LabCo Actzexgcen[address] [id number] BY: =G Gaby Owen Sawqahpxwk864 [facility] [id number] :41 METABOLIC PANEL, Comments: PATIENT WAS FASTINGPERFORMED BY: FINA LabIndependent BankJwkjew1292 [facility] [id number] Information: ADD [id number] AND DRAW FEE 99 1643 COMPREHENSIVE (91362) ALT (SGPT) 15 [iU]/L (Normal) Range: 0-32 [...] (Normal) Range: 65-99 :41 Vitamin D Hydroxy (13581) Comments: PATIENT WAS FASTINGPERFORMED BY: FINA OTI [employer]6370 [facility] [id number] Vitamin D, 25-Hydroxy 43.2 ng/mL (Normal) Range: 30.0-100.0 Comments: Vitamin D deficiency has been defined by the American Canyon ofMedicine and an Endocrine Society practice guideline as alevel of serum 25-OH vitamin D less than 20 ng/mL (1,2).The Endocrine Society went on to further define vitamin Dinsufficiency as a level between 21 and 29 ng/mL (2).1. IOM (American Canyon of Medicine). 2010. Dietary reference intakes for calcium and D. [place]: The National Academies Press.2. Mony MF, Jonas [place], Yao LAMB, et al. Evaluation, treatment, and prevention of vitamin D deficiency: an Endocrine Society clinical practice guideline. JCEM. 2010; 96(7):1911-30. :41 LIPID PANEL (88498) Comments: PATIENT WAS FASTINGPERFORMED BY: zulilyJefferson [facility])Wcvwvq3254 [facility] [id number] LDL/HDL Ratio 2.2 {ratio_units} (Normal) Range: 0.0-3.2 LDL Cholesterol Calc 159 mg/dL (Abnormal) Range: 0-99 VLDL Cholesterol Cassi 23 mg/dL (Normal) Range: 5-40 HDL Cholesterol 72 mg/dL (Normal) Comments: According to ATP-III Guidelines, HDL-C >59 mg/dL is considered anegative risk factor for CHD. Triglycerides 115 mg/dL (Normal) Range: 0-149 Cholesterol, Total 254 mg/dL (Abnormal) Range: 100-199 43-Qwn-46051:37 HPV automatic Comments: Source.............Cervical;EndocervicalNo. of containers..01 CYTYC Thin Prep VialPATIENT NOT FASTINGPERFORMED BY: WB LabCo Gldjsrpztz974 [facility] [id number] BY: Bella Griffin (93502) [facility]Corp Lcpjcaksqh859 [facility] [id number] Information: [id number] Note: PAPSMR (Normal) Comments: The Pap smear [...] MALIGNANCY.THIS SPECIMEN WAS RESCREENED PART OF OUR MAINTENANCE FOREMAN PROGRAM.Satisfactory for evaluation. No endocervical component is identified.V7 3.81 ; Speci al screening examination, human papillomavirus [HPV]Eric Brock, Field Clerk (ASCP)Paris Irwin, Supervisory Field Clerk (ASCP) 22-Zpa-40925:47 BILAT SCRN DIGITAL & CAD Radiology Report [...] abnormalities are identified. There has been nosignificant anthoyn e since the prior study. IMPRESSION:Stable bilateral [...] Rios M.D.May 25, 2012 at 8:29:12 AM [id number] Signed GP/GP If you are the referring physician and would like to consult with theradiologist who pr ovided this interpretation, please contact Mahogany Pelaez at [phone]. If this radiologist is unavailable, youwill be directed to another radiologist to assist. If you are a patient with a question regarding this report, pleasecontactyour referring physician directly. Professional Interpretation Provided By: [employer], Phone , These documents contain legall y [...] destructionofthese documents. Dictated on 05/25/12746 by Gabriel GARCIA,JoleneeleTranscribed on 05/25/12832 by ITS IMPORTSign by Gabriel GARCIA,Darrell on 05/25/12833 Sign by: Darrell Rios MD 46-Bae-95354:52 CBC WITH MANUAL DIFF Comments: PATIENT WAS FASTINGPERFORMED BY: LabMymichigan Medical Center Alma6370 [facility] [id number] Information: [id number] (06194) Immature Grans (Abs) 0.0 {x10E3/uL} (Normal) Range: [...] PANEL, COMPREHENSIVE Comments: PATIENT WAS FASTINGPERFORMED BY: LabCoJefferson [facility])Nqbrpe0526 [facility] [id number] (49408) ALT (SGPT) 18 [iU]/L (Normal) Range: 0-40 [...] FUNCTION PANEL Comments: PATIENT WAS FASTINGPERFORMED BY: LabCoJefferson [facility])Mozgzu6330 [facility] [id number] (20766) Bilirubin, Direct 0.25 mg/dL (Normal) Range: 0.00-0.40 :52 LIPID PANEL (32585) Comments: PATIENT WAS FASTINGPERFORMED BY: LabMymichigan Medical Center Alma6370 [facility] [id number] LDL/HDL Ratio 2.0 {ratio_units} (Normal) Range: 0.0-3.2 [...] 01/27/11 1008 Sign by: Darrell Rios MD 8-Yjf-119771:00 BILAT SCRN DIGITAL & CAD Radiology Report [...] suspiciousabnormality. Dictated on 01/20/11 1109 by KIMBERLY GARCIAYOUNGTranscribed on 01/21/11 1327 by ITS IMPORTSign by YOUNG BARRON MD on 01/21/11 1 328 Sign by: YOUNG BARRON MD :52 HEPATIC FUNCTION PANEL Comments: PATIENT WAS FASTINGPERFORMED BY: zulilyJefferson [facility])Ehdizl7597 [facility] [id number] Information: [id number] (32647) ALT (SGPT) 35 [iU]/L (Normal) Range: 0-40 AST (SGOT) 33 [iU]/L (Normal) Range: 0-40 Alkaline Phosphatase, S 57 [iU]/L (Normal) Range: 25-150 Bilirubin, Direct 0.23 mg/dL (Normal) Range: 0.00-0.40 Bilirubin, Total 1.1 mg/dL (Normal) Range: 0.0-1.2 Albumin, Serum 4.5 g/dL (Normal) Range: 3.5-5.5 Protein, Total, Serum 6.9 g/dL (Normal) Range: 6.0-8.5 :52 LIPID PANEL (36686) Comments: PATIENT WAS FASTINGPERFORMED BY: [employer] Lorhuo8904 [facility] [id number]; appt 05/25/11 LDL/HDL Ratio 2.4 {ratio_units} (Normal) [...] CYTYC Thin Prep VialPATIENT NOT FASTINGPERFORMED BY: LabCo[address] [facility] [place]PH[place] [id number] Information: [id number] ([id number]) Note: PAPSMR (Normal) Comments: The Pap smear [...] MALIGNANCY.THIS SPECIMEN WAS RESCREENED PART OF OUR MAINTENANCE FOREMAN PROGRAM.Satisfactory for evaluation. No endocervical component is identified.V7 2.31 ; Routi ne gynecological examinationSiena Gee, Field Clerk ([facility])Heidi Gamez, Supervisory Field Clerk (ASC) 23-Zir-97154:21 DEXA BONE DENSITY STUDY (HP) Radiology Report See Note (Normal) Comments: CLINICAL:Female, 55 years old. The patient is postmenopausal. EXAMINATION:DUAL ENERGY X-RAY ABSORPTIOMETRY / DEXA. TECHNIQUE:Bone Mineral Density (BMD) measurements of lumbar spine and bila teralhipswer e obtained using a [employer] scanner.. COMPARISON:Comparison is made with prior study [...] [email or web address] Dictated on 10/08/10 0930 by Zach Riosranscribed on 10/08/10 1010 by ITS IMPORTSign by Darrell Rios on 10/08/10 1011 Sign by: Darrell Rios 79-Mjn-75839:26 TSH (00303) Comments: PATIENT WAS FASTINGPERFORMED BY: LabCoJefferson [facility])Jnsqnj4707 [facility] [id number] TSH 2.150 {uIU/mL} (Normal) Range: 0.450-4.500 30-Jun-50961:26 METABOLIC PANEL, Comments: PATIENT WAS FASTINGPERFORMED BY: LabCoJefferson [facility])Kkknen6797 [facility] [id number] Information: [id number] COMPREHENSIVE (43867) ALT (SGPT) 23 [iU]/L (Normal) Range: 0-40 [...] Glucose, Serum 85 mg/dL (Normal) Range: 65-99 38-Xbu-99929:26 LIPID PANEL (13719) Comments: PATIENT WAS FASTINGPERFORMED BY: [facility] Shrkng8546 [facility] [id number]; appt 11/25/10 HDL Cholesterol 63 mg/dL (Normal) Comments: According to ATP-III Guidelines, HDL-C >59 mg/dL is considered anegative risk factor for CHD. LDL Cholesterol Calc 139 mg/dL (Abnormal) Range: 0-99 LDL/HDL Ratio 2.2 {ratio_units} (Normal) Range: 0.0-3.2 VLDL Cholesterol Cassi 35 mg/dL (Normal) Range: 5-40 Cholesterol, Total 237 mg/dL (Abnormal) Range: 100-199 Triglycerides 173 mg/dL (Abnormal) Range: 0-149 :26 Vitamin D Hydroxy (21431) Comments: PATIENT WAS FASTINGPERFORMED BY: [facility] Celofo7283 [facility] Hospitalin [place] [id number] Vitamin D, 25-Hydroxy 50.2 ng/mL (Normal) Range: 32.0-100.0 Comments: Recent studies consider the lower limit of 32.0 ng/mL to be athreshold for optimal health.Mitchel SCHMITZ. J Nutr. 2004;135(2):317-22. 30-Nny-06716:13 Microscopic Examination Comments: PATIENT WAS FASTINGPERFORMED BY: LabCo Xjovdz5729 [facility] [id number] Bacteria None seen (Normal) Mucus Threads Present (Normal) Epithelial Cells (non renal) >10 {/hpf} (Abnormal) Range: 0 - 10 RBC 0-3 {/hpf} (Normal) Range: 0 - 3 WBC 0-5 {/hpf} (Normal) Range: 0 - 5 :07 BILAT SCRN DIGITAL & CAD Radiology Report See Note (Normal) Comments: Exam Number: [id number] MAMMOGRAM, BILATERAL SCREENING DIGITAL AND CAD HISTORYRoutine [...] 1992 (MQSA). The mammograms werealso examined with YouLicenseuter-aided detection software ([employer], [place].). Reported By: YOUNG BARRON M.D. :13 CBC WITH MANUAL DIFF Comments: PATIENT WAS FASTINGPERFORMED BY: [facility]6370 [facility] [id number] Information: [id number] (84420) Baso (Absolute) 0.0 {x10E3/uL} (Normal) Range: 0.0-0.2 [...] PANEL, COMPREHENSIVE Comments: PATIENT WAS FASTINGPERFORMED BY: [facility]6370 [facility] [id number] (72901) ALT (SGPT) 26 [iU]/L (Normal) Range: 0-40 [...] Glucose, Serum 83 mg/dL (Normal) Range: 65-99 80-Ylv-11589:13 URINALYSIS, W/ MICRO (20884) Comments: PATIENT WAS FASTINGPERFORMED BY: [facility] Ybxftl3236 [facility] [id number] Microscopic Examination MICRON (Normal) Comments: Microscopic follows if indicated. Microscopic Examination See below: (Normal) Nitrite, Urine Negative (Normal) Appearance Clear (Normal) Bilirubin Negative (Normal) Glucose Negative (Normal) Ketones Negative (Normal) Occult Blood Negative (Normal) Protein Negative (Normal) Urobilinogen,Semi-Qn 0.2 mg/dL (Normal) Range: 0.0-1.9 WBC Esterase Negative (Normal) pH 6.5 (Normal) Range: 5.0-7.5 Specific Pillager 1.025 (Normal) Range: 1.005-1.030 Urine-Color Yellow (Normal) :13 LIPID PANEL (73867) Comments: PATIENT WAS FASTINGPERFORMED BY: [facility]alAt[facility] [id number] LDL/HDL Ratio 2.3 {ratio_units} (Normal) Range: 0.0-3.2 HDL Cholesterol 61 mg/dL (Normal) Comments: According to ATP-III Guidelines, HDL-C >59 mg/dL is considered anegative risk factor for CHD. LDL Cholesterol Calc 138 mg/dL (Abnormal) Range: 0-99 Triglycerides 145 mg/dL (Normal) Range: 0-149 VLDL Cholesterol Cassi 29 mg/dL (Normal) Range: 5-40 Cholesterol, Total 228 mg/dL (Abnormal) Range: 100-199 :13 Vitamin D Hydroxy (33268) Comments: PATIENT WAS FASTINGPERFORMED BY: Frodio6370 [facility] [id number] Vitamin D, 25-Hydroxy 43.7 ng/mL (Normal) Range: 32.0-100.0 Comments: Recent studies consider the lower limit of 32.0 ng/mL to be athreshold for optimal health.Mitchel SCHMITZ. J Nutr. 2004;135(2):317-22. 2-Rum-409850:03 URINALYSIS W/O MICRO (58577) Comments: PATIENT WAS FASTINGPERFORMED BY: Assembla70 DRB SystemsAt[facility] [id number] Bilirubin Negative (Normal) Microscopic Examination MICRON (Normal) Comments: Microscopic follows if indicated. Nitrite, Urine Negative (Normal) Occult Blood Negative (Normal) Urobilinogen,Semi-Qn 0.2 mg/dL (Normal) Range: 0.0-1.9 Appearance Clear (Normal) Glucose Negative (Normal) Ketones Negative (Normal) pH 6.5 (Normal) Range: 5.0-7.5 Protein Trace (Normal) Specific Pillager 1.024 (Normal) Range: 1.005-1.030 Urine-Color Yellow (Normal) WBC Esterase Negative (Normal) :03 TSH (60731) Comments: PATIENT WAS FASTINGPERFORMED BY: SoftTech EngineersMymichigan Medical Center Alma6370 [facility] [id number] TSH 1.570 {uIU/mL} (Normal) Range: 0.450-4.500 :03 CBC WITH MANUAL DIFF Comments: PATIENT WAS FASTINGPERFORMED BY: SoftTech EngineersMymichigan [facility] Center Alma6370 [facility] [id number] Information: [id number] (22523) Baso (Absolute) 0.0 {x10E3/uL} (Normal) Range: 0.0-0.2 [...] 3.80-5.10 WBC 3.3 {x10E3/uL} (Abnormal) Range: 4.0-10.5 2-Fkn-624657:03 HEPATIC FUNCTION PANEL Comments: PATIENT WAS FASTINGPERFORMED BY: zulily Kxcyai6600 [facility] [id number] (31350) ALT (SGPT) 21 [iU]/L (Normal) Range: 0-40 Alkaline Phosphatase, S 57 [iU]/L (Normal) Range: 25-150 AST (SGOT) 22 [iU]/L (Normal) Range: 0-40 Bilirubin, Direct 0.24 mg/dL (Normal) Range: 0.00-0.40 Bilirubin, Total 1.3 mg/dL (Abnormal) Range: 0.1-1.2 Albumin, Serum 4.7 g/dL (Normal) Range: 3.5-5.5 Protein, Total, Serum 7.2 g/dL (Normal) Range: 6.0-8.5 :03 LIPID PANEL (74846) Comments: PATIENT WAS FASTINGPERFORMED BY: zulilyJefferson [facility])Drblkp4008 [facility] [id number] LDL Cholesterol Calc 135 mg/dL (Abnormal) Range: 0-99 LDL/HDL Ratio 2.3 {ratio_units} (Normal) Range: 0.0-3.2 VLDL Cholesterol Cassi 32 mg/dL (Normal) Range: 5-40 HDL Cholesterol 60 mg/dL (Normal) Comments: According to ATP-III Guidelines, HDL-C >59 mg/dL is considered anegative risk factor for CHD. Triglycerides 159 mg/dL (Abnormal) Range: 0-149 Cholesterol, Total 227 mg/dL (Abnormal) Range: 100-199 :03 Vitamin D Hydroxy (06533) Comments: PATIENT WAS FASTINGPERFORMED BY: zulilyJefferson [facility])Rzmbpx7266 [facility] [id number] Vitamin D, 25-Hydroxy 44.7 ng/mL (Normal) Range: 32.0-100.0 Comments: Recent studies consider the lower limit of 32.0 ng/mL to be athreshold for optimal health.Mitchel SCHMITZ. J Nutr. 2005 Sep;135(2):317-22. :17 COMP METABOLIC A/G 1.1 {RATIO} (Normal) [...] mg/dL (Normal) Range: 5-40 :17 VIT D,25 67067 53.0 ng/mL (Normal) Range: 32.0-100.0 Comments: Recent studies consider the lower limit of 32.0 ng/mL to seun threshold for optimal health.Mitchel SCHMITZ. J Nutr. 2004;135(2):317-22.Performed At: [address] [id number] :06 Hepatic Function Panel (7) Comments: PATIENT WAS FASTINGPERFORMED BY: [address] [id number] Albumin, Serum 4.8 g/dL (Normal) Range: 3.5-5.5 Alkaline Phosphatase, S 65 [iU]/L (Normal) Range: 25-150 ALT (SGPT) 30 [iU]/L (Normal) Range: 0-40 AST (SGOT) 27 [iU]/L (Normal) Range: 0-40 Bilirubin, Direct 0.22 mg/dL (Normal) Range: 0.00-0.40 Bilirubin, Total 1.0 mg/dL (Normal) Range: 0.1-1.2 :06 Lipid Panel With LDL/HDL Comments: PATIENT WAS FASTINGPERFORMED BY: [address] [id number] Ratio Cholesterol, Total 239 mg/dL (Abnormal) Range: [...] mg/dL (Normal) Comments: PATIENT WAS FASTINGPERFORMED BY: [address] [id number] Range: 2.5-4.5 :06 Protein Electro, Random Urine Comments: PATIENT WAS FASTINGPERFORMED BY: Frodio6370 [facility]ostics[facility] [id number] Albumin, U 38.9 % (Normal) Awocv-9-Dfniimvi, U 2.0 % (Normal) Lfwap-4-Owffwbdj, U 16.1 % (Normal) Beta Globulin, U 20.8 % (Normal) Gamma Globulin, U 22.2 % (Normal) M-Ritchie, % Not Observed % (Normal) Please note: SPRCS (Normal) Comments: Protein electrophoresis scan will follow via mail or geomagnetician. Protein,Total,Urine 9.7 mg/dL (Normal) Range: 0.0-15.0 :06 Protein Electro.,S Comments: PATIENT WAS FASTINGPERFORMED BY: Frodio6370 [facility] [id number] A/G Ratio 1.6 (Normal) Range: 0.7-2.0 Albumin 4.5 g/dL (Normal) Range: 3.2-5.6 Gjsun-8-Jzazrxju 0.2 g/dL (Normal) Range: 0.1-0.4 Hqhxw-8-Ekgbance 0.7 g/dL (Normal) Range: 0.4-1.2 Beta Globulin 1.0 g/dL (Normal) Range: 0.6-1.3 Gamma Globulin 1.0 g/dL (Normal) Range: 0.5-1.6 Globulin, Total 2.9 g/dL (Normal) Range: 2.0-4.5 M-Ritchie Not Observed g/dL (Normal) Please note: SPRCS (Normal) Comments: Protein electrophoresis scan will follow via mail or geomagnetician. Protein, Total, Serum 7.4 g/dL (Normal) Range: 6.0-8.5 : PTH, Intact 26 pg/mL (Normal) Comments: PATIENT WAS FASTINGPERFORMED BY: Frodio6370 [facility] [id number] Range: 15-65 : Vitamin D, 25-Hydroxy 31.2 ng/mL Comments: PATIENT WAS FASTINGPERFORMED BY: Assembla70 DRB SystemsAtrium Health [facility] [id number] 06 (Abnormal) Range: 32.0-100.0 Comments: Recent studies consider the lower limit of 32.0 ng/mL to be athreshold for optimal health.Mitchel SCHMITZ. J Nutr. 2004;135(2):317-22. 6-Rds-518195:27 CHEST WITH CONTRAST Radiology Report See Note (Normal) Comments: Exam Number: [id number] CT OF CHEST HISTORYAbnormal rib. COMPARISONRib series [...] normalities identified. Reported By: NIKO COLIN M.D. 03-Wzl-885858:02 [facility] DIGITAL & CAD Radiology Report See Note (Normal) Comments: Exam Number: [id number] MAMMOGRAM, BILATERAL SCREENING DIGITAL AND CAD HISTORYRoutine [...] grams werealso examined with computer-aided detection software ([employer] Reported By: YOUNG BARRON M.D. 49-Fdr-611327:02 DEXA BONE DENSITY STUDY () Radiology Report See Note (Normal) Comments: Exam Number: [id number] BONE DENSITOMETRY HISTORYPost menopausal. TECHNIQUE Bone densitometry [...] normal limits. Reported By: YOUNG BARRON M.D. 24-Jsd-724271:33 RIBS,UNI,MIN 3V,W/PA CHEST(MT) Radiology Report See Note (Normal) Comments: Exam Number: [id number] LEFT RIBS, 4 VIEWS WITH PA CHEST [...] Thin prep Pap Comments: Source.............Cervical;EndocervicalLMP / Prev Treat...CRW=[id number]. of containers..01 CYTYC Thin Prep VialPATIENT NOT FASTINGClinical Information: ADD [id number] (38790) PERFORMED BY: LabSalonmeister [address] [id number] Note: PAPSMR (Normal) Comments: The Pap smear [...] present.V72.31 ; Routine gynecolog ical examina Altagracia Lion, Field Clerk (ASCP) 18-Jul-20089:26 CBC With Differential/Platelet Comments: PATIENT WAS FASTINGPERFORMED BY: [facility] Ngsniu0990 [facility] [id number] Baso (Absolute) 0.0 {x10E3/uL} (Normal) Range: 0.0-0.2 [...] codes that are included in CBC With Differential/Platelet(352429). 18-Jul-20089:26 Comp. Metabolic Panel (14) Comments: PATIENT WAS FASTINGPERFORMED BY: [facility] Wttlaf6597 [facility] [id number] A/G Ratio 1.5 (Normal) Range: 1.1-2.5 Albumin, [...] Serum 88 mg/dL (Normal) Range: 65-99 If -Hong Konger >59 mL/min/1.73 Comments: Note: Persistent reduction for [...] With LDL/HDL Comments: PATIENT WAS FASTINGPERFORMED BY: LabCoJefferson [facility]Zabeuk6173 [facility] [id number] Ratio Cholesterol, Total 280 mg/dL (Abnormal) Range: [...] Randm Ur Comments: PATIENT WAS FASTINGPERFORMED BY: [facility]6370 [facility] [id number] Creatinine, Urine 33.7 mg/dL (Normal) Range: 15.0-278.0 Microalb/Creat Ratio 3.3 {ug/mg_creat} Range: 0.0-30.0 (Normal) Microalbum.,U,Random 1.1 ug/mL (Normal) Range: 0.0-17.0 :2 TSH 2.005 {uIU/mL} Comments: PATIENT WAS FASTINGPERFORMED BY: [facility] ColumbussceniosKeith Ville 9371370 [facility] [id number] 6 (Normal) Range: 0.450-4.500 :26 Urinalysis, Routine Comments: PATIENT WAS FASTINGPERFORMED BY: [facility]6370 [facility] [id number] Appearance Clear (Normal) Bilirubin Negative (Normal) Glucose Negative (Normal) Ketones Negative (Normal) Microscopic Examination MICRON (Normal) Comments: Microscopic follows if indicated. Nitrite, Urine Negative (Normal) Occult Blood Negative (Normal) pH 7.0 (Normal) Range: 5.0-7.5 Protein Negative (Normal) Specific Pillager 1.009 (Normal) Range: 1.005-1.030 Urine-Color Yellow (Normal) Urobilinogen,Semi-Qn 0.2 mg/dL (Normal) Range: 0.0-1.9 WBC Esterase Negative (Normal) :54 Pap Lb, rfx HPV Comments: Source.............Cervical;EndocervicalLMP / Prev Treat...NoneDates / Results....MENOPAUSALNo. of containers..01 CYTYC Thin Prep VialPERFORMED BY: [address] [id number] [facility] . . (Normal) DIAGNOSIS: SPRCS (Normal) Comments: NEGATIVE FOR INTRAEPITHELIAL LESION AND MALIGNANCY.Satisfactory for evaluation. Endocervical and/or squamous metaplasticcells (endocervical component) are present.V72.31 ; Routine gynecolog ical examina Dipesh Talavera, Field Clerk (ASCP) Note: PAPSMR (Normal) Comments: The Pap [...] mg/dL VLDL 25 mg/dL (Normal) Range: 5-40 26-Bpg-69288:56 BILAT SCRN DIGITAL & CAD Radiology Report See Note (Normal) Comments: Exam Number: [id number] BILATERAL SCREENING DIGITAL MAMMOGRAM CLINICAL INFORMATIONScreening. Bilateral [...] The mammogramswere also examined with computer-aided detection software([employer] Reported By: HAYDEE BOBO M.D. Plan [...] gynecological exam Planned Observations URINE JAVIER CULTURE-IDENTIFICATN (02460)Indication: UTI (urinary tract infection) On: 84-Eld-072848:49 Request MICROALBUMIN: CREATININE RATIO (83147) AND (44129)Indication: Benign essential hypertension On: :00 Request LIPID PANEL (91250)Indication: Other hyperlipidemia On: :00 Request TSH (THYROID STIMULATING HORMONE) (21084)Indication: Vitamin D deficiency, unspecified On: :00 Request CALCIFEDIOL (56290)Indication: Vitamin D deficiency, unspecified On: :00 Request URINALYSIS (50991)Indication: Benign essential hypertension On: :00 Request CBC & PLATELETS (AUTO) (23239)Indication: Benign essential hypertension On: :00 Request METABOLIC PANEL, COMPREHENSIVE (41433)Indication: Benign essential hypertension On: 41-Aeg-57949:59 Request TSH (01744)Indication: Other hyperlipidemia On: :21 Request CALCIFIDIOL (32117) VIT D 25Indication: Vitamin D deficiency, unspecified On: :20 Request URINALYSIS, W/ MICRO (18534)Indication: Benign essential hypertension On: :20 Request MICROALBUMIN: CREATININE RATIO (74883) AND (55349)Indication: Benign essential hypertension On: :20 Request METABOLIC PANEL, COMPREHENSIVE (54959)Indication: Benign essential hypertension On: : Request LIPID PANEL (05810)Indication: Other hyperlipidemia On: : Request CBC W/AUTO DIFF WBC (18420)Indication: Benign essential hypertension On: : Request Vitamin D Hydroxy (85787)Indication: Vitamin D deficiency, unspecified On: :27 Request METABOLIC PANEL, COMPREHENSIVE (80698)Indication: Other hyperlipidemia On: :27 Request LIPID PANEL (07603)Indication: Other hyperlipidemia On: :26 Request Thin prep Pap (67047) (no STD testing)Indication: Annual physical exam On: 28-Nns-35643:44 Request CBC W/AUTO DIFF WBC (41458)Indication: Other migraine without status migrainosus, intractable On: 48-Xyg-143960:34 Request METABOLIC PANEL, COMPREHENSIVE (21830)Indication: Other hyperlipidemia On: 58-Dud-136688:34 Request Vitamin D Hydroxy (29483)Indication: Vitamin D deficiency, unspecified On: 27-Zsm-427772:34 Request LIPID PANEL (12588)Indication: Other hyperlipidemia On: 05-Ysy-746271:34 Request Thin prep Pap (86194)Indication: Well woman exam with routine gynecological exam On: 25-Cws-152017:08 Request Vitamin D Hydroxy (52009)Indication: vit d deficiency On: 2-Kir-800519:39 Request METABOLIC PANEL, COMPREHENSIVE (39204)Indication: Benign essential hypertension On: 5-Rkn-901337:39 Request LIPID PANEL (36953)Indication: Other hyperlipidemia On: 6-Qam-093101:39 Request PHOSPHORUS (28883)Indication: Osteopenia On: 48-Cvp-996857:12 Request UPEP (06741)Indication: Osteopenia On: 57-Pjp-808010:12 Request SPEP (91968)Indication: Osteopenia On: 09-Ruq-576612:12 Request PARATHORMONE (86533)Indication: Osteopenia On: 08-Zfi-145065:12 Request SPEP (98301)Indication: Osteopenia On: 51-Fyi-640831:12 Request UPEP (62073)Indication: Osteopenia On: 13-Jct-185662:12 Request Vitamin D Hydroxy (87934)Indication: Osteopenia On: 35-Pol-478600:12 Request HEPATIC FUNCTION PANEL (68966)Indication: Other hyperlipidemia On: :27 Request LIPID PANEL (25361)Indication: Other hyperlipidemia On: :27 Request TSH (14553)Indication: Elevated blood-pressure reading without diagnosis of hypertension On: :20 Request URINALYSIS W/O MICRO (70080)Indication: Elevated blood-pressure reading without diagnosis of hypertension On: :20 Request MICROALBUMIN: CREATININE RATIO (61777) AND (58554)Indication: Elevated blood-pressure reading without diagnosis of hypertension On: :20 Request MICROALBUMIN URINE QUANT (80933)Indication: Elevated blood-pressure reading without diagnosis of hypertension On: 18-Jul-20089:20 Request METABOLIC PANEL, COMPREHENSIVE (67506)Indication: Elevated blood-pressure reading without diagnosis of hypertension On: :20 Request LIPID PANEL (07738)Indication: Elevated blood-pressure reading without diagnosis of hypertension On: :20 Request CREATININE, URINE (67093)Indication: Elevated blood-pressure reading without diagnosis of hypertension On: :20 Request CBC WITH MANUAL DIFF (56779)Indication: Elevated blood-pressure reading without diagnosis of hypertension On: 18-Jul-20089:20 Request Thin prep Pap (02496)Indication: Well woman exam with routine gynecological exam On: 4-Oea-631673:00 Request Planned Encounters Medical; 6 Month FU - On: 24-Aug-2018 9:30 [facility] Chanda Ferguson DO, DO, Kathleen Planned Procedures MAMMOGRAM BREAST BILATERAL On: 22-Jun-2018 Intent SCREENING DIGITAL (91155)By: Chanda Ferguson DO, DO, Kathleen DEXA SCAN AXIAL SKELETON (77521)By: On: 30-Dec-2016 Intent Chanda Ferguson DO, DO, Comments: not due until after 04/03/17 Chanda ELECTROCARDIOGRAM, COMPLETE (ECG) On: 30-Dec-2016 Intent (96741)By: Chanda Ferguson DO Comments: nsr no acute chg Chanda Ferguson DO MAMMOGRAM BREAST BILATERAL On: 26-Aug-2016 Intent SCREENING DIGITAL (72056)By: Chanda Ferguson DO, DO, Kathleen BILATERAL MAMMOGRAMS (44403)By: On: 13-Nov-2015 Intent Daisy Tucker DO DEXA SCAN AXIAL SKELETON (08433)By: On: 01-Jan-2015 Intent Daisy Tucker DO A Comments: february MAMMOGRAM, SCREENING, BOTH BREAST On: 03-Jul-2014 Intent (09814)By: Daisy Tucker DO Radiology - Knee - Left - Weight On: 03-Jul-2014 Intent BearingBy: Daisy Tucker DO ELECTROCARDIOGRAM, COMPLETE (ECG) On: 03-Jul-2014 Intent (68722)By: Daisy Tucker DO Comments: ekg showed normal sinus rhythym, normal axis, no acute st/t wave changes Eprescribed prescriptions On: 11-Jul-2013 Intent (G8553)By: Alexandra Og Breast Screening - BilateralBy: On: 29-May-2013 Intent Grace Celia EKG (41698)By: Alexandra Og On: 04-Apr-2013 Intent Comments: ekg showed normal sinus rhythym, normal axis, no acute st/t wave changes Eprescribed prescriptions On: 04-Apr-2013 Intent (G8553)By: Alexandra Og DXA, BONE DENSITY, AXIAL SKELETON On: 06-Jun-2012 Intent (28376)By: Daisy Tucker DO A Comments: sep Breast Screening - BilateralBy: On: 06-May-2012 Intent Daisy Tucker DO EKG (96470)By: Alexandra Og On: 25-May-2011 Intent Comments: ekg showed normal sinus rhythym, normal axis, no acute st/t wave changes FLU VAC, SPLIT, >3 YEARS, INTRAMUSC On: 25-May-2011 Intent (47604)By: Alexandra Og Comments: shouldnt get because of family hx of Guillian-Howe' TDAP VACCINE >7 IM (58559)By: Garrett On: 25-Nov-2010 Intent Daisy GUTIERREZ Comments: injectionLOT [id number] 10/26Amt 0.5 mlSite L deltoid given by hb MAMMOGRAM, SCREENING, BOTH BREASTS On: 25-Nov-2010 Intent (92047)By: Alexandra Og DXA, BONE DENSITY, AXIAL SKELETON On: 20-May-2010 Intent (89612)By: Daisy Tucker DO Comments: due in aug MAMMOGRAM, SCREENING, BOTH BREASTS On: 22-Oct-2009 Intent (25856)By: Daisy Tucker DO EKG (60656)By: Alexandra Og On: 22-Oct-2009 Intent Comments: ekg showed normal sinus rhythym, normal axis, no acute st/t wave changes CT - ChestBy: Daisy Tucker DO On: 09-Oct-2008 Intent Comments: please attn to 7/8 ribs at sternal - junction-- rule out soft tissue mass DXA, BONE DENSITY, AXIAL SKELETON On: 21-Aug-2008 Intent (74970)By: Daisy Tucker DO Comments: must also be read by Dr Barron due to pt insurance MAMMOGRAM, SCREENING, BOTH BREASTS On: 21-Aug-2008 Intent (42745)By: Daisy Tucker DO Comments: this must be read by DR Barron- because patients insurance is [employer] and they wont cover the [facility] Bio Z (41808)By: Jena Srinivasan CNP On: 18-Jul-2008 Intent ELECTROCARDIOGRAM, COMPLETE (ECG) On: 18-Jul-2008 Intent (97573)By: Jena Srinivasan CNP Instructions Name Dates Details [...] BMI 27.0-27.9,adult, Osteopenia (733.90), Family history of Guillain-Howe syndrome End: 21-Apr-2017 11:20 [facility] [...] helps- she wants to try boniva- saw jabour and had colon scopy and was good [...] Internal Medicine End: 15-Apr-2007 10:00 Payers [facility] Brad tristan guarantor
--- OUTSIDE RECORDS SUMMARY | 2018-09-11 06:24 | XMS RPT_ITS ---
:1955 Author Organization OHIP Care Team Providers Name Role Phone Marty DOEstradaChanda Attending Unavailable Marty DO, Chanda Referring Unavailable Marty DO, Chanda Consulting Unavailable Marty, Chanda Attending Unavailable Marty, Chanda Referring Unavailable Marty, Chanda Primary Care Unavailable Marty, Chanda Attending Unavailable Marty, Chanda Referring Unavailable Marty, Chanda Primary Care Unavailable Marty, Chanda Attending Unavailable Marty, Chanda Primary Care Unavailable Marty, Chanda Referring Unavailable Marty, Chanda Attending Unavailable Marty, Chanda Primary Care Unavailable Marty, Chanda Attending Unavailable Chanda Ferguson Referring Unavailable Chanda Ferguson Primary Care Unavailable PROBLEMS PROBLEMS DATE TYPE CONDITION / CODE ATTENDING STATUS SOURCE 08/24/2018 Unknown M25.561 - Pain MartyMaribellChanda Active [place] in right knee / Community M25.561(ICD-10) Hospital Repository PROCEDURES PROCEDURES No Procedure Records FoundRESULTS RESULTS KNEE 4 OR MORE Observed: 08/25/2018 Status: F Source: JOE VIEWS 10:06 AM [facility] REPOSITORY [facility] Imaging Services [address] [place] [address] Knee 4 or More Views MR#: [id number] Acct: [id number] Name: FIDELIA MURDOCK Rep #: [id number] : 1955 F 63 From: Pierce Luciano MD PCP: Chanda Ferguson DO Status: REG CLI Study: Knee 4 or More Views Date of Exam: 08/25/18 Exam# [id number] Ordering Dr: Chanda Ferguson DO STUDY: X-RAY - RIGHT KNEE REASON FOR EXAM: Female, 63 years old. Pain TECHNIQUE: 4 view(s) of the knee. COMPARISON: None. FINDINGS: Normal visualized distal femur. Normal visualized proximal tibia and fibula. Normal proximal tibiofibular articulation. 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 Normal lateral femorotibial compartment. Normal patellofemoral articulation. The soft tissue structures are unremarkable. RAD/Knee 4 or More Views IMPRESSION: Mild medial compartment arthrosis Electronically Signed: Renato Luciano MD at 10:50 EST , Service support , CC: Chanda Ferguson DO Manager Patient: Signed URINALYSIS, ROUTINE Collected: 08/12/2018 Status: F Source: JOE (DIPSTICK) 10:30 AM [facility] REPOSITORY Order Comment: How was Urine Obtained? CLEAN CATCH TYPE CODE TESTS RESULT OUT OF RANGE REFERENCE UNITS LAB L400.3000 Yellow COLOR Normal Yellow LAB L400.3050 Clear Normal CLARITY Sl. Cloudy LAB L400.3200 Normal mg/dl Normal GLUCOSE, UR Normal LAB L400.3300 Negative mg/dL Normal BILIRUBIN URINE Negative LAB L400.3400 Negative mg/dl Normal KETONE UR Negative LAB L400.3465 1.002-1.030 Normal SP.GR. DIPSTX 1.020 LAB L400.3550 5.0 - 8.0 pH UR Normal 6.0 LAB L400.3600 Negative mg/dl PROT Normal DIPSTX Negative LAB L400.3700 Normal mg/dl Normal UROBILI Normal LAB L400.3750 Negative Normal NITRITE UR Negative LAB L400.3780 Negative /ul High 10 OCCULT BLOOD-UR LAB L400.3800 Negative /ul LEUK Normal ESTERASE Negative Performed By: #### L400.2010 #### [facility] [address] [facility] [place], [address] URINALYSIS, ROUTINE Collected: 07/26/2018 Status: F Source: JOE (DIPSTICK) 9:35 AM [facility] REPOSITORY Order Comment: How was Urine Obtained? CLEAN CATCH TYPE CODE TESTS RESULT OUT OF RANGE REFERENCE UNITS LAB L400.3000 Yellow COLOR Normal Yellow LAB L400.3050 Clear Normal CLARITY Sl. Cloudy LAB L400.3200 Normal mg/dl Normal GLUCOSE, UR Normal LAB L400.3300 Negative mg/dL Normal BILIRUBIN URINE Negative LAB L400.3400 Negative mg/dl Normal KETONE UR Negative LAB L400.3465 1.002-1.030 Normal SP.GR. DIPSTX 1.020 LAB L400.3550 5.0 - 8.0 pH UR Normal 6.0 LAB L400.3600 Negative mg/dl PROT Normal DIPSTX Negative LAB L400.3700 Normal mg/dl High 1 UROBILI LAB L400.3750 Negative Normal NITRITE UR Negative LAB L400.3780 Negative /ul Normal OCCULT BLOOD-UR Negative LAB L400.3800 Negative /ul High LEUK ESTERASE 100 Performed By: #### L400.2010 #### [facility] [address] [place], [address] MICROALB:CREAT Collected: 07/26/2018 Status: F Source: JOE RATIO,RANDOM UR 9:35 AM [facility] REPOSITORY TYPE CODE TESTS RESULT OUT OF RANGE REFERENCE UNITS LAB L501.1200 NO RANGE EST. mg/dL Normal UR CREAT 173.00 LAB L502.0500 NO RANGE EST. mg/L Normal 17.7 MICROALBUMIN ,UR LAB L502.0600 <30 mg/g CRE mg/g CRE Normal 10.2 MALB:CREAT Performed By: #### L502.0250 #### [facility] [address] [place], [address] CBC W/DIFF, AUTOMATED Collected: 07/26/2018 Status: F Source: JOE 8:26 AM [facility] REPOSITORY TYPE CODE TESTS RESULT OUT OF RANGE REFERENCE UNITS LAB L100.1000 4.4-11.0 K/mm3 Low WBC 3.6 LAB L100.1200 4.2-5.4 M/mm3 Normal RBC 4.44 LAB L100.1300 12.0-15.0 g/dl Normal HGB 14.1 LAB L100.1400 37-47 % Normal HCT 41.7 LAB L100.1500 81-99 fL Normal MCV 93.9 LAB L100.1600 27.0-32.0 pg Normal MCH 31.8 LAB L100.1700 32-36 g/gl Normal MCHC 33.8 LAB L100.1810 11.6-14.6 % Normal RDW CV 12.2 LAB L100.1820 35.1-43.9 fl Normal RDW SD 41.4 LAB L100.1900 150-450 K/mm3 Normal PLT 199 LAB L100.2000 6.2-12.0 fl Normal MPV 10.3 LAB L100.2100 47-70 % Normal NEUT% 47.8 LAB L100.2200 19-41 % Normal LY% 40.6 LAB L100.2300 0-10 % Normal MONO% 9.6 LAB L100.2400 0-5 % Normal EO% 1.7 LAB L100.2500 0-1 % Normal BASO% 0.3 LAB L100.2550 0.0-0.9 % Normal IM GRAN % 0.000 Result Comment: IG% - Immature Granulocytes (promyelocytes, myelocytes and metamyelocytes) > 1% indicates that a LEFT SHIFT is Present. LAB L100.2620 2.0-7.7 X10 3/uL Low Absolute Neut 1.7 LAB L100.2720 0.83-4.51 X10 3/ul Normal Absolute Lymph 1.44 Performed By: #### L100.0100 #### [facility] [address] [facility] [address] [place], [place], [address] VITAMIN D,25 HYDROXY Collected: 07/26/2018 Status: F Source: [place] 8:26 AM [facility] REPOSITORY TYPE CODE TESTS RESULT OUT OF RANGE REFERENCE UNITS LAB L506.1000 29.95-100.01 ng/mL Normal Vitamin D 56.0 25-OH Result Comment: Vitamin D 25(OH) Status Range Deficiency <20 ng/mL (50nmol/L) Insuffciency 20 - 30 ng/mL (50 - 75 nmol/L) Sufficiency 30 - 100 ng/mL (75 - 250 nmol/L) Toxicity >100 ng/mL (>250 nmol/L) Performed By: #### L506.1000 #### [facility] [address] [facility]. [place], [place], [address] COMPREHENSIVE METABOLIC Collected: 07/26/2018 Status: F Source: JOE [facility] 8:26 AM [facility] REPOSITORY TYPE CODE TESTS RESULT OUT OF RANGE REFERENCE UNITS LAB L501.0100 74-106 mg/dL Normal GLU 82 Result Comment: Please note revised GLUCOSE reference range effective 2017. LAB L501.1000 7-18 mg/dL Normal BUN 12 LAB L501.1100 0.55-1.02 mg/dL Normal CREAT,SERUM 0.59 Result Comment: The validity of the calculated GFR AND GFRAA in patients over 70 years has not been determined. Clinical correlation is essential. LAB L501.1110 >60 mL/min Normal EST GFR 110 Result Comment: Non- GFR Calc LAB L501.1115 >60 mL/min Normal EST GFR - AA 133 Result Comment: GFR Calc LAB L501.1300 10-20 RATIO High BUN/CRE 20.2 LAB L501.1500 6.4-8.2 g/dL T Normal PROT 7.5 LAB L501.1800 3.2-5.0 g/dL Normal ALB 4.0 LAB L501.1950 2.2-4.2 g/dL Normal GLOB 3.5 LAB L501.2000 0.9-2.4 RATIO Normal A/G 1.1 LAB L501.2200 8.5-10.1 mg/dL CA Normal 8.9 LAB L501.4100 15-37 U/L Normal AST 21 LAB L501.4305 45-117 U/L Normal ALK P 74 LAB L501.4405 13-56 U/L Normal ALT 28 LAB L501.4600 0.20-1.00 mg/dL High T BILI 1.20 LAB L501.5300 136-145 mmol/L NA Normal 143 LAB L501.5600 3.5-5.1 mmol/L K Normal 4.3 LAB L501.5900 98-107 mmol/L High CL 108 LAB L501.6100 21.0-32.0 mmol/L Normal CO2 27.0 LAB L501.6200 5-15 Normal GAP 8 Performed By: #### L500.4050, L500.4100, L501.9520 #### [facility] [address] [place], [address] LIPID PROFILE Collected: 07/26/2018 Status: F Source: JOE 8:26 AM [facility] REPOSITORY TYPE CODE TESTS RESULT OUT OF RANGE REFERENCE UNITS LAB L501.4900 200 mg/dL Normal CHOL 194 Result Comment: <200 mg/dL Desirable 200-240 mg/dL Borderline >240 mg/dL High Risk LAB L501.5000 mg/dL Normal TRIG 124 Result Comment: The drugs N-Acetylcysteine and Metamizole may falsely depress this assay. Serum Triglycerides Reference Interval Normal <150 mg/dL Borderline high 150 - 199 mg/dL High 200 - 499 mg/dL Very High > or = 500 mg/dL LAB L501.6400 mg/dL Normal HDL 71 Result Comment: The drugs N-Acetylcysteine and Metamizole may falsely depress this assay. Reference Range HDL <40 mg/dL Low HDL Cholesterol HDL >or= 60 mg/dL High HDL Cholesterol LAB L501.6500 0-130 mg/dL Normal LDL 98 LAB L501.6600 5-40 mg/dL Normal VLDL 25 Performed By: #### L500.4050, L500.4100, L501.9520 #### [facility] [address] [place], [place], [address] THYROID STIM HORMONE Collected: 07/26/2018 Status: F Source: [place] (TSH) 8:26 AM [facility] REPOSITORY TYPE CODE TESTS RESULT OUT OF RANGE REFERENCE UNITS LAB L501.9520 0.358-3.74 uIU/mL Normal TSH 2.14 Performed By: #### L500.4050, L500.4100, L501.9520 #### [facility] [address] [facility] [place], [address] SCREENING MAMM (CAD), Observed: 07/01/2018 Status: F Source: [place] BILAT 9:37 AM [facility] REPOSITORY [facility] Imaging Services [address] [place] [address] SCREENING MAMM (CAD), BILAT MR#: [id number] Acct: [id number] Name: FIDELIA MURDOCK Rep #: [id number] : 1955 F 62 From: Darrell Rios MD PCP: Chanda Ferguson DO Status: [facility] CLI Study: SCREENING MAMM (CAD), BILAT Date of Exam: 07/01/18 Exam# [id number] Ordering Dr: Chanda Ferguson DO MAMMOGRAPHY - BILATERAL SCREENING REASON FOR EXAM: Female, 62 years old. Routine annual screening examination. PERTINENT HISTORY: Non-contributory. Remote right excisional breast biopsy. TECHNIQUE: Digital bilateral breast shira (3D mammographic acquisition) [...] Stable small bilateral axillary lymph nodes. No other significant abnormalities are identified. There has been no significant change since the prior study. BI/SCREENING MAMM (CAD), BILAT IMPRESSION: Stable bilateral screening mammogram. Yearly follow-up mammogram recommended. (A) ASSESSMENT CATEGORY: BIRADS Category 2: Benign. A letter regarding these results will be sent to the patient by the facility within 30 days. Approximately 10% of breast cancers are not detected by mammography. A normal mammogram should not delay biopsy of a clinically suspicious abnormality. [id number] Electronically Signed: Darrell Rios MD at 9:33 EST Tel [phone], Service support , CC: Chanda Ferguson DO Manager Patient: Signed ALLERGIES ALLERGIES No Allergies Records FoundENCOUNTERS ENCOUNTERS ADMIT/DISCHARGE ACCOUNT ADMITTING ENCOUNTER LOCATION SOURCE NUMBER CLASS 08/25/2018 [id number] ing:HPRAD Repository 08/24/2018 1240 Ambulatory Building:[facility] Practices Repository 08/24/2018 [id number] [facility] [place] 3 [facility] ing:RAD.FUTUR Repository E 08/12/2018 [id number] Ambulatory [place] 0 [facility] ing:LAB Repository 07/26/2018 [id number] [facility] ing:LAB.FUTUR Repository E 07/01/2018 [id number] [facility] [place] 2 [facility] ing:OPBI Repository PAYERS PAYERS ENCOUNTER GUARANTOR PAYER SUBSCRIBER SOURCE 08/25/2018 FIDELIA Salcedo Primary FIDELIA Dutta [id number] Insurance:MEDICAL [facility] [id number] Number: Repository [address]Wcd: [phone]) [id number] [phone] (HP) Date:2930-76-01[address] [place] [id number]: 08/25/2018 Secondary NOT GIVENUNK [place] Insurance:SELF PAY [facility] Number: Effective Repository Date:2018-08-25 08/24/2018 Fidelia J Primary Fidelia J OHIP Practices WuchterDOB: Insurance:Medical WuchterDOB: Repository [facility] [id number] [place] Number: [place] [id number] [place], [place] [address]Gib: (330) Date:1554-39-58Nudr [address]Akl: (HP) Name:[facility] [phone] () [address] [place] [address] [id number]: 08/24/2018 Secondary Fidelia J OHIP Practices [facility] Number: [id number] [place] Date:2007-08-16 - [place], [place] [id number] [id number]: ([phone]) Name:[facility] [phone] () [address], [place] [address]YU: 08/24/2018 Tertiary Fidelia J OHIP Practices Insurance:Medical WuchterDOB: Repository [facility] [id number] Number: [facility] [id number] [place], [place] Date:2015-08-16 - [address]Gww: [phone] [id number] [phone] (HP) Name:[address] [id number]: 08/24/2018 SAVANNA Paez Primary [facility][id number] Insurance:HEALTH PLAN WUCHTERDOB: [facility] [id number] Number: Repository [address]Srt: 330 [id number] [phone] (HP) Date: [place] [address]PB: 08/24/2018 Secondary NOT GIVENUNK [place] Insurance:SELF PAY [facility] Number: Effective Repository Date:2018-08-24 08/12/2018 SAVANNA Philippe Primary FIDELIA Dutta [id number] Insurance:[facility]ALTH PLAN [facility] Community [place] OF [address] Number: Repository [address]Ill: ([phone] [id number] [phone] (HP) Date: [facility], [place] [address]PS: 08/12/2018 Secondary NOT GIVENUNK [place] Insurance:SELF PAY [facility] Number: Effective Repository Date:2018-08-12 07/26/2018 SAVANNA Philippe Primary FIDELIA Dutta [id number] Insurance:[facility]AN [facility] Community [place] OF [address] Number: Repository [id number]: ([phone] [id number] [phone] () Date: [facility], [place] [address]CI: 07/26/2018 Secondary NOT GIVENUNK [place] Insurance:SELF PAY [facility] Number: Effective Repository Date:2018-07-12 07/01/2018 SAVANNA Philippe Primary FIDELIA Dutta [id number] Insurance:[facility]ALTH PLAN [facility] Community [place] OF [address] Number: Repository [id number]: (330 [id number] [phone] (HP) Date: [facility], [place] [address]KE: 07/01/2018 Secondary NOT GIVENUNK [place] Insurance:SELF PAY [facility] Number: Effective Repository Date:2018-06-22
== END ==
PROVIDERS: Family Provider Internal Medicine; PCP Internal Medicine; Referring Provider Internal Medicine; Visit Provider Internal Medicine
DX: I10 Essential (primary) hypertension (principal); E55.9 Vitamin D deficiency, unspecified; E78.49 Other hyperlipidemia
CPT/HCPCS: 36415; 80053; 80061; 81002; 82043; 82306; 82570; 84443; 85025

== ENCOUNTER → 2018-08-12 10:12 | Outpatient (CLI) | payer OTHER, SELFPAY ==
[2018-08-12 11:28] LABS: Color, Urine Yellow (Yellow); Glucose, Dipstick Normal (Normal); Ketone-Dipstick Negative (Negative); Leukocyte Esterase-Dipstick Negative /ul (Negative); Nitrite-Dipstick Negative (Negative); Occult Blood-Urine 10 /ul (Negative); Protein-Dipstick Negative (Negative); Urine Bilirubin Dipstick Negative (Negative); Urine Clarity Sl. Cloudy (Clear); Urine Urobilinogen Normal (Normal)
== END ==
PROVIDERS: Family Provider Internal Medicine; PCP Internal Medicine; Referring Provider Internal Medicine; Visit Provider Internal Medicine
DX: N39.0 Urinary tract infection, site not specified (principal)
CPT/HCPCS: 81002

== ENCOUNTER → 2018-08-25 10:01 | Outpatient (CLI) | payer OTHER, SELFPAY ==
--- NOTE | 2018-08-25 10:06 | RAD_ITS ---
STUDY: X-RAY - RIGHT KNEE REASON FOR EXAM: Female, 63 years old. Pain TECHNIQUE: 4 view(s) of the knee. COMPARISON: None. FINDINGS: Normal visualized distal femur. Normal visualized proximal tibia and fibula. Normal proximal tibiofibular articulation. 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 Normal lateral femorotibial compartment. Normal patellofemoral articulation. The soft tissue structures are unremarkable. RAD/Knee 4 or More Views IMPRESSION: Mild medial compartment arthrosis Electronically Signed: Renato Luciano MD at 10:50 EST , Service support ,
== END ==
PROVIDERS: Family Provider Internal Medicine; PCP Internal Medicine; Referring Provider Internal Medicine; Visit Provider Internal Medicine
DX: M25.561 Pain in right knee (principal)
CPT/HCPCS: 73564

== ENCOUNTER → 2019-07-04 08:11 | Outpatient (CLI) | payer OTHER, SELFPAY ==
--- NOTE | 2019-07-04 08:16 | BI_ITS ---
MAMMOGRAPHY - BILATERAL SCREENING REASON FOR EXAM: Female, 63 years old. Routine annual screening examination. PERTINENT HISTORY: Non-contributory. Remote right excisional breast biopsy. TECHNIQUE: Digital bilateral breast julius (3D mammographic acquisition) in the CC and MLO projections. 2-D mediolateral oblique (MLO) and craniocaudad (CC) views of both breasts were obtained. CAD: Full Field Digital Mammography with Computer Added Detection was performed. COMPARISON: Comparison is made with prior study dated July 01, 2018 and December 01, 2016. FINDINGS: Breast Composition: The breasts are heterogeneously dense, which may obscure small masses. There are no dominant masses or suspicious calcifications. Stable small benign-appearing bilateral axillary lymph nodes. No other significant abnormalities are identified. There has been no significant change since the prior study. BI/SCREEN MAMM (CAD) W/JULIUS BILAT IMPRESSION: Stable bilateral screening mammogram. Yearly follow-up mammogram recommended. (A) ASSESSMENT CATEGORY: BIRADS Category 2: Benign. A letter regarding these results will be sent to the patient by the facility within 30 days. Approximately 10% of breast cancers are not detected by mammography. A normal mammogram should not delay biopsy of a clinically suspicious abnormality. [id number] Electronically Signed: Darrell Rios, at 9:27 EST , Service support ,
== END ==
PROVIDERS: Family Provider Internal Medicine; PCP Internal Medicine; Referring Provider Internal Medicine; Visit Provider Internal Medicine
DX: Z12.31 Encounter for screening mammogram for malignant neoplasm of breast (principal)
CPT/HCPCS: 77063; 77067

== ENCOUNTER → 2020-07-24 07:31 | Outpatient (CLI) | payer OTHER, SELFPAY ==
--- NOTE | 2020-07-24 07:33 | BI_ITS ---
MAMMOGRAPHY - BILATERAL SCREENING REASON FOR EXAM: Female, 65 years old. Routine annual screening examination. PERTINENT HISTORY: Non-contributory. Remote right excisional breast biopsy. TECHNIQUE: Digital bilateral breast julius (3D mammographic acquisition) in the CC and MLO projections. 2-D mediolateral oblique (MLO) and craniocaudad (CC) views of both breasts were obtained. CAD: Full Field Digital Mammography with Computer Added Detection was performed. COMPARISON: Comparison is made with prior study dated 07/04/2019 and 07/01/2018. FINDINGS: Breast Composition: The breasts are heterogeneously dense, which may obscure small masses. There are no dominant masses or suspicious calcifications. Stable small benign-appearing bilateral axillary lymph nodes. No other significant abnormalities are identified. There has been no significant change since the prior study. BI/SCREEN MAMM (CAD) W/JULIUS BILAT IMPRESSION: Stable bilateral screening mammogram. Yearly follow-up mammogram recommended. (A) ASSESSMENT CATEGORY: BIRADS Category 2: Benign. A letter regarding these results will be sent to the patient by the facility within 30 days. Approximately 10% of breast cancers are not detected by mammography. A normal mammogram should not delay biopsy of a clinically suspicious abnormality. [id number] Electronically Signed: Darrell Rios, at 9:26 EST , Service support ,
== END ==
PROVIDERS: PCP Internal Medicine; Referring Provider Internal Medicine; Visit Provider Internal Medicine
DX: Z12.31 Encounter for screening mammogram for malignant neoplasm of breast (principal)
CPT/HCPCS: 77063; 77067

== ENCOUNTER 2021-06-22 07:16 | Emergency (ER) | payer OTHER, SELFPAY ==
[2021-06-22 07:16] VITALS: BP 176/96; PULSE 112; RESP 16; TEMP 36.2; O2SAT 100; BMI 28.3
--- NOTE | 2021-06-22 07:27 | EDS_ITS ---
HPI History of Present Illness Chief Complaint: Burn Informant: patient Narrative Narrative: 65-year-old female was at work today when she warmed up a huggins of chili. The chili slipped hit the counter splashed up onto her face. She was wearing glasses. She notes qureshi to the forehead nose and face. She denies any difficulty breathing. She denies any intraoral injury. She denies any change in her vision. Unknown last tetanus. [facility] Medical History (Updated 06/22/21 @ 07:[address] Best Jc DO) Hypertension Home Medications amlodipine 2.5 mg PO DAILY 06/22/21 [History Last Taken Unknown] bacitracin 1 applic TOPICAL BID #28 g 06/22/21 [Rx Last Taken Unknown] oxycodone-acetaminophen 1 tab PO Q6H PRN PRN 3 Days #12 tablet 06/22/21 [Rx Last Taken Unknown] simvastatin 10 mg PO DAILY 06/22/21 [History Last Taken Unknown] Allergy/AdvReac Type Severity Reaction Status Date / Time No Known Allergies Allergy Verified 06/22/21 07:18 Social History (Updated 06/22/21 @ 07:[address] Best Jc DO) current gender identity: female substance use type: does not use ROS ROS ED Constitutional Constitutional ED: Denies chills, fever(s) or weight loss Eyes Eyes: Denies change in vision or diplopia ENT ENT ED: Denies ear pain, rhinorrhea or sore throat Cardiovascular Cardiovascular: Denies chest pain, orthopnea, palpitations or racing heartbeat Respiratory/Chest Respiratory/Chest: Denies cough, dyspnea or orthopnea Gastrointestinal Gastrointestinal: Denies abdominal pain, diarrhea, nausea or vomiting Genitourinary Genitourinary ED: Denies dysuria, hematuria or urinary frequency Musculoskeletal Musculoskeletal: Denies arthralgias or myalgias Integumentary Reports other Details: Qureshi ; Denies abscess or rash Neurologic Neurologic: Denies headache(s) or weakness Psychiatric Psychiatric: Denies anxiety, depression, suicidal ideation or suicidal thoughts Endocrine Endocrinology: Denies polydipsia, polyphagia or polyuria Allergic/Immunologic Allergic/Immunologic ED: Denies mouth swelling, tongue swelling or urticaria EXAM Physical Exam Const Vital Signs: 06/22/21 07:16 Temperature 97.1 F L Temperature Source Temporal Pulse Rate 112 H Respiratory Rate 16 Blood Pressure 176/96 H Blood Pressure Mean 122 Pulse Ox 100 Oxygen Delivery Method Room Air Positive well nourished and well developed General Appearance ED: well developed HEENT Reports normocephalic, head/scalp atraumatic, TM's clear and moist mucous membranes HEENT Narrative: See skin exam Negative for trauma Tympanic Membrane ED: Yes TM's clear Eyes PERRL and EOMs intact bilaterally Neck no lymphadenopathy, supple and no JVD Resp normal respiratory effort and clear to auscultation bilaterally Cardio regular rate, regular rhythm and no murmurs GI normal to inspection, nondistended, normoactive bowel sounds and non-tender Palpation: soft Back/Spine no CVA tenderness and normal ROM Extremity normal to inspection General Extremety ED: Negative for edema General Extremity: Negative for edema Neuro oriented x3 and CN's II-XII intact bilaterally Sensorium / Orientation: alert Motor Exam: strength 5/5 throughout Psych mental status grossly normal Mood & Affect: Negative for depressed or tearful Skin no rashes or lesions noted Skin Narrative: Patient has ruptured blister with skin sloughing of the nose. There is first-degree qureshi the lower forehead maxillary facial region and philtrum. There is not appear to be any eye injury. MDM MDM MDM Narrative Medical decision making narrative: The patient's wounds were cleansed washed and dressed with bacitracin. She received oxycodone and her tetanus was updated with Adacel. Local wound care discussed with patient. I will write for Percocet and bacitracin for local wound care. Discharge Plan Triage Chief Complaint: Burn ED Provider: Best Jc Dx/Rx/DC Orders Clinical Impression: Burn of face, first degree, Second degree burn of nose Instructions: ED First- and Second-Degree Qureshi ... Prescriptions: New oxycodone-acetaminophen [oxycodone-acetaminophen] 1 TABLET tablet 1 tab PO Q6H PRN PRN (Reason: Pain) 3 Days Qty: 12 RF: 0 bacitracin 500 unit/gram ointment 1 applic topical BID Qty: 28 RF: 0 No Action simvastatin 10 mg tablet 10 mg PO DAILY RF: 0 amlodipine 2.5 mg tablet 2.5 mg PO DAILY RF: 0 Primary Care Provider: Chanda Ferguson Referrals: Chanda Ferguson, [Primary Care Provider] - Clinic,NOW [NON-STAFF] - 3-5 Days Disposition Disposition: Home, Self Care
[2021-06-22] MEDS: oxyCODONE 5 MG Tablet 10 MG PO (07:40)
[2021-06-22] MEDS: Diphth,Pertuss(Acell),Tet Vac 0.5 ML Vial IM (07:40)
== END 2021-06-22 07:58 | disposition home or self-care (01) ==
LOC: ED 07:44
PROVIDERS: Emergency Provider Emergency Medicine; PCP Internal Medicine
DX: T20.24XA Burn of second degree of nose (septum), initial encounter (principal); T20.19XA Burn of first degree of multiple sites of head, face, and neck, initial encounter; X10.1XXA Contact with hot food, initial encounter; Y93.9 Activity, unspecified; Y92.9 Unspecified place or not applicable; I10 Essential (primary) hypertension; Z79.899 Other long term (current) drug therapy
CPT/HCPCS: 90471; 90715; 99283

== ENCOUNTER 2021-08-19 12:04 | Outpatient (CLI) | payer OTHER, SELFPAY ==
--- NOTE | 2021-08-19 12:09 | BI_ITS ---
MAMMOGRAPHY - BILATERAL SCREENING REASON FOR EXAM: Female, 66 years old. Routine annual screening examination. PERTINENT HISTORY: Non-contributory. Remote right excisional breast biopsy. TECHNIQUE: Digital bilateral breast julius (3D mammographic acquisition) in the CC and MLO projections. 2-D mediolateral oblique (MLO) and craniocaudad (CC) views of both breasts were obtained. CAD: Full Field Digital Mammography with Computer Added Detection was performed. COMPARISON: Comparison is made with prior study dated 07/24/2020 and 07/04/2019. FINDINGS: Breast Composition: The breasts are heterogeneously dense, which may obscure small masses. There are no dominant masses or suspicious calcifications. Stable small benign-appearing bilateral axillary lymph nodes. No other significant abnormalities are identified. There has been no significant change since the prior study. BI/SCRN MAMM (CAD)W/JULIUS BILAT IMPRESSION: Stable bilateral screening mammogram. Yearly follow-up mammogram recommended. (A) ASSESSMENT CATEGORY: BIRADS Category 2: Benign. A letter regarding these results will be sent to the patient by the facility within 30 days. Approximately 10% of breast cancers are not detected by mammography. A normal mammogram should not delay biopsy of a clinically suspicious abnormality. [id number] Electronically Signed: Darrell Rios MD at 14:01 EST , Service support ,
== END 2021-08-19 23:59 | disposition short-term general hospital (02) ==
LOC: OPBI 12:07
PROVIDERS: PCP Internal Medicine; Visit Provider Internal Medicine
DX: Z12.31 Encounter for screening mammogram for malignant neoplasm of breast (principal)
CPT/HCPCS: 77063; 77067

== ENCOUNTER → 2022-04-07 | Outpatient (CLI) | payer OTHER, SELFPAY ==
[2022-04-07 10:55] LABS: Bacteria 0 SEEN /hpf (None Seen); Mucous, Urine 0 SEEN /hpf (<or=2+); White Blood Cells 0 SEEN /hpf (0-5)
[2022-04-07 11:17] LABS: Color, Urine Straw (Yellow); Glucose, Dipstick Normal (Normal); Ketone-Dipstick Negative (Negative); Leukocyte Esterase-Dipstick Negative /ul (Negative); Nitrite-Dipstick Negative (Negative); Occult Blood-Urine 250 /ul (Negative); Protein-Dipstick Negative (Negative); Urine Bilirubin Dipstick Negative (Negative); Urine Clarity Sl. Cloudy (Clear); Urine Urobilinogen Normal (Normal)
[2022-04-07 11:39] LABS: Red Blood Cells-Urine 25-50 SEEN /hpf (0-5); Squamous Epithelial Cells - UA 0-5 SEEN /hpf (5-10)
== END | disposition home or self-care (01) ==
LOC: LABSPEC 10:40
PROVIDERS: PCP Internal Medicine; Visit Provider Physician Assistant
DX: R30.9 Painful micturition, unspecified (principal)
CPT/HCPCS: 81001; 87086; 87088

== ENCOUNTER → 2022-09-15 | Outpatient (CLI) | payer MEDICARE, SELFPAY ==
--- NOTE | 2022-09-15 12:22 | BI_ITS ---
MAMMOGRAPHY - BILATERAL SCREENING REASON FOR EXAM: Female, 67 years old. Routine annual screening examination. PERTINENT HISTORY: Non-contributory. Remote right excisional breast biopsy. TECHNIQUE: Digital bilateral breast julius (3D mammographic acquisition) in the CC and MLO projections. 2-D mediolateral oblique (MLO) and craniocaudad (CC) views of both breasts were obtained. CAD: Full Field Digital Mammography with Computer Added Detection was performed. COMPARISON: Comparison is made with prior study dated 08/19/2021 and 07/24/2020. FINDINGS: Breast Composition: The breasts are heterogeneously dense, which may obscure small masses. There is a 1 cm x 1 cm well-defined nodule in the upper lateral aspect of the left breast. Correlation with ultrasound is recommended. Stable small benign appearing bilateral axillary lymph nodes. No other significant abnormalities are identified. There has been no significant change since the prior study. BI/SCRN MAMM (CAD)W/JULIUS BILAT IMPRESSION: 1 cm x 1 cm well-defined nodule in the upper-outer aspect of the left breast. Correlation with ultrasound is recommended. ASSESSMENT CATEGORY: BIRADS Category 0: Incomplete. Need additional imaging evaluation. A letter regarding these results will be sent to the patient by the facility within 30 days. Approximately 10% of breast cancers are not detected by mammography. A normal mammogram should not delay biopsy of a clinically suspicious abnormality. [id number] Electronically Signed: Darrell Rios MD at 13:30 EST ,
--- NOTE | 2022-09-15 12:24 | BD_ITS ---
STUDY: DUAL ENERGY X-RAY ABSORPTIOMETRY / DXA REASON FOR EXAM: Female, 67 years old. Z780 TECHNIQUE: Bone Mineral Density (BMD) measurements of lumbar spine and bilateral hips were obtained. COMPARISON: Comparison is made with prior study dated 04/14/2017. FINDINGS: Lumbar Spine (L1-L4): g/cm2 (0.840) / T-score (-1.9) / Z-score (-0.1) Findings are suggestive of osteopenia with a moderate fracture risk. Left Femur Total: g/cm2 (0.802) / T-score (-1.2) / Z-score (0.1) Left Femoral Neck: g/cm2 (0.636) / T-score (-1.9) / Z-score (-0.4) Right Femur Total: g/cm2 (0.807) / T-score (-1.1) / Z-score (0.1) Right Femoral Neck: g/cm2 (0.660) / T-score (-1.7) / Z-score (-0.2) The T-Scores on the most recent prior examination were: Lumbar Spine (L1-L4): There has been worsening of bone density since the previous examination. Left Femur Total: which represents a worsening of 2%. Right Femur Total: which represents a worsening of 5.9%. BD/Dexa Bone Density Study IMPRESSION: The patient is considered osteopenic as outlined below according to World Chad Organization (WHO) criteria with a moderate fracture risk. There has been worsening of bone density since the previous examination. Reference Information: The T-score is the number of standard deviations above or below the standard which is normal for young adults at their peak bone mineral density. The World Health Organization (WHO) interprets the T-scores as follows: Above -1 Normal bone density Between -1 and -2.5 Osteopenia Equal to / or below -2.5 Osteoporosis As a practical clinical guideline, osteopenia may be graded as follows: Mild -1 through -1.5 Moderate -1.6 through -2.0 Severe -2.1 through -2.4 The Z-score is the number of standard deviations above or below age-matched controls. A Z-score of less than -1.5 would be considered abnormal. References: 1. NIH Osteoporosis and Related Bone Diseases www osteo.org 2. International Society for Clinical Densitometry www iscd.org 3. National Osteoporosis Foundation www nof.org Electronically Signed: Darrell Rios MD at 15:49 EST ,
== END | disposition home or self-care (01) ==
PROVIDERS: PCP Internal Medicine; Referring Provider Internal Medicine; Visit Provider Internal Medicine
DX: Z12.31 Encounter for screening mammogram for malignant neoplasm of breast (principal); M85.80 Other specified disorders of bone density and structure, unspecified site; Z92.89 Personal history of other medical treatment; N63.21 Unspecified lump in the left breast, upper outer quadrant; Z78.0 Asymptomatic menopausal state
CPT/HCPCS: 77063; 77067; 77080

== ENCOUNTER → 2022-09-17 | Outpatient (CLI) | payer MEDICARE, SELFPAY ==
--- NOTE | 2022-09-17 07:53 | US_ITS ---
STUDY: ULTRASOUND BREAST - LEFT REASON FOR EXAM: Female, 67 years old. Abnormal screening mammogram. TECHNIQUE: Axial and longitudinal images of the LEFT breast were performed with a high resolution ultrasound transducer. # OF IMAGES: 21 COMPARISON: Comparison is made with prior mammogram dated 09/15/2022. FINDINGS: LEFT Breast: The upper outer quadrant of the left breast was examined with ultrasound. The mammographic abnormality corresponds to a 6 mm x 8 mm x 7 mm cyst with a septation. Routine annual mammographic follow-up is recommended. US/Breast Limited Unilateral IMPRESSION: The mammographic abnormality corresponds to a 7 mm x 8 mm x 6 mm cyst at the 1 o''clock position of the breast at 5 cm from the nipple. ASSESSMENT CATEGORY: BIRADS Category 2: Benign. A letter regarding these results will be sent to the patient by the facility within 30 days. Electronically Signed: Darrell Rios MD at 8:59 EST ,
== END | disposition home or self-care (01) ==
PROVIDERS: PCP Internal Medicine; Referring Provider Internal Medicine; Visit Provider Internal Medicine
DX: R92.8 Other abnormal and inconclusive findings on diagnostic imaging of breast (principal)
CPT/HCPCS: 76642

== ENCOUNTER 2023-04-07 06:14 | Day surgery (SDC) | payer MEDICARE, SELFPAY ==
[2023-04-07] VITALS (7 sets, daily range): BP systolic 119–133; BP diastolic 74–82; PULSE 61–71; RESP 16–17; TEMP 36.3–36.8; O2SAT 97–99; BMI 27.6
[2023-04-07] MEDS: Lactated Ringers 1,000 ML 15 ML IV (06:36)
--- NOTE | 2023-04-07 07:16 | H&P.OPEN ---
[facility] - General General Date of Service: 04/07/23 HPI Narrative NATALI MURDOCK, is a 67 F who presents for screening. Patient had a previous colonoscopy in [address] Gimenez. Patient has bowel movements daily denies any blood. Patient denies any chronic abdominal pain/nausea/vomiting/reflux. Patient's sister did have some polyps (1 or 2 not >1cm) at her colonoscopy but her niece did have colon cancer at age 46. [facility] Medical History GERD without esophagitis Hematuria High cholesterol Hyperlipidemia Hypertension Non-smoker Other migraine, intractable, without status migrainosus Right lower quadrant abdominal pain Wears glasses Home Medications simvastatin 10 mg tablet 10 mg PO DAILY 06/22/21 [History Last Taken 04/06/23] amlodipine 2.5 mg tablet 5 mg PO DAILY 02/23/23 [History Last Taken 04/07/23] calcium carbonate 500 mg calcium (1,250 mg) tablet (Oyster Shell Calcium) 500 mg PO DAILY 02/23/23 [History Last Taken 04/06/23] cholecalciferol (vitamin D3) 50 mcg (2,000 unit) capsule 50 mcg PO DAILY 02/23/23 [History Last Taken 04/06/23] cyanocobalamin (vitamin B-12) 5,000 mcg capsule 1,000 mcg PO DAILY 02/23/23 [History Last Taken 04/06/23] glucosamine-chondroitin 250 mg-200 mg tablet (Osteo Bi-Flex) 2 tab PO .QD 02/23/23 [History Last Taken 04/06/23] ibuprofen 200 mg tablet (Advil) 200 mg PO Q6H PRN pain 02/23/23 [History Last Taken Unknown] krill oil 1,000 mg-om3 130 mg-dha 40 mg-epa 80 yv-cf3-xtw-astax cap (Krill Oil ([place] 3 and 6)) 1 cap PO DAILY 02/23/23 [History Last Taken 04/06/23] lactobacillus combination no.9 4 billion cell capsule (Adult 50 Plus Probiotic) 4,000 mmu cells PO DAILY 02/23/23 [History Last Taken 04/06/23] magnesium 200 mg tablet 200 mg PO DAILY 02/23/23 [History Last Taken 04/06/23] sour vazquez extract 1,000 mg capsule (Tart Vazquez Extract) 465 mg PO DAILY 02/23/23 [History Last Taken 04/06/23] vitamin E (dl, acetate) 180 mg (400 unit) capsule 180 mg PO DAILY 02/23/23 [History Last Taken 04/06/23] PREVAGEN 10 mg PO DAILY 03/31/23 [History Last Taken 04/06/23] Allergy/AdvReac Type Severity Reaction Status Date / Time No Known Allergies Allergy Verified 04/07/23 06:21 Family History (Updated 02/23/23 @ 14:19 by Velma Henning) Sister Colon polyps Unknown Colon cancer Surgical History Hx of colonoscopy Social History (Updated 02/23/23 @ 14:20 by Velma Henning) household members: spouse current occupational status: employed Smoking Status: Never smoker substance use type: does not use Past Medical/Surgical History Planned Operation Planned Operative Procedure/s: COLONOSCOPY (OPEN ACCESS) Previous Hospitalizations/Surgeries HX Hospitalizations: No Any Problems With Anesthesia: No You/Your Family Experience Fever (Hyperthermia) With Anes: No Cholinesterase deficiency: No Cardiovascular Hx Hypertension: Yes (ON MED) Respiratory Hx Sleep Apnea: No Hx Respiratory Tract Infection/Cold (presently): No Do You Snore Loudly (louder than talking or can be heard): No Do You Often Feel Tired/ Fatigued/ Sleepy Dring Daytime?: No Has Anyone Observed You Stop Breathing During Sleep?: No Result (for STOP score): Negative Smoking Status: Never smoker Neurological Does patient have nerve stimulator: No Reproduction : No Miscellaneous Recent Exposure to Contagious Disease: No Allergies No Known Allergies Allergy (Verified 04/07/23 06:21) Vital Signs Vital Signs Vital Signs: 04/07/23 06:37 04/07/23 06:37 Temperature 97.8 F Temperature Source Temporal Pulse Rate 71 Respiratory Rate 17 Respiratory Pattern Normal Blood Pressure 133/79 H Blood Pressure Mean 97 Blood Pressure Source Monitor Blood Pressure Position Semi-Fowlers Blood Pressure Location Left Arm Pulse Ox 98 Oxygen Delivery Method Room Air Weight Weight: 160 lb 14.999 oz Body Mass Index (BMI) 27.6 Physical Exam Const alert, oriented x3 and no apparent distress HEENT normocephalic and head/scalp atraumatic Resp normal respiratory effort Cardio regular rate GI soft to palpation and non-tender; Negative for non-distended Palpation: Negative for guarding Extremity no clubbing, cyanosis or edema Neuro CN's II-XII intact bilaterally Psych mental status grossly normal Assessment & Plan Assessment/Plan (1) Encounter for screening for malignant neoplasm of colon: Surgery Risks - Colonoscopy I discussed with the patient the risks of the procedure: Yes Risks Include but are not Limited To: Risks include but are not limited to: Bleeding, perforation requiring further surgery, inability to complete colonoscopy requiring barium enema.
--- NOTE | 2023-04-07 07:30 | COLBX_PTH ---
PATIENT: NATALI MURDOCK LOC: [facility] [place] U#:[id number] AGE/SX: 67/F ROOM: RE04/07/[address]: Dr. Marilee Cook MD : 1955 BED: DIS: 04/07/2023 SPEC #: [id number] RECD: 04/07/23 11:23 STATUS: FREDDIE REQ #: [id number] DUSTIN: 04/07/23 07:[address]: Marilee Cook DEPT: SURGICAL PATHOLOGY RECD BY: Cira Camilo ENTERED: 04/07/23 12:40 SP TYPE: COLON BX OTHR DR: Dr. Chanda Ferguson, DO Tissues: Rectum, NOS Procedures: Surgery Specimen Level IV HEADER OPERATION: Colonoscopy PRE-OP DIAGNOSIS: Encounter for screening for malignant neoplasm TISSUE SUBMITTED: Rectal polyps MICROSCOPIC DIAGNOSIS Rectal polyps, biopsy: Fragments of hyperplastic polyp. SJ: 04/08/23 MICROSCOPIC DESCRIPTION Slides are reviewed. GROSS DESCRIPTION Received in fixative is one container labeled with the patient's name and designated rectal polyps. The specimen consists of two pink-red fragments measuring 1.0 x 0.6 x 0.1 cm. The presumed base is inked. The specimen is submitted entirely in one cassette. /AM:jay 04/07/23 TC:1 CPT: 44048
--- NOTE | 2023-04-07 08:08 | OP.COLON_ITS ---
Patient Name: Fidelia Quinones Procedure Date: 04/07/2023 7:19 AM Date of : 1955 Age: 67 Procedure: Colonoscopy Indications: Screening for colorectal malignant neoplasm Providers: Marilee Cook MD Referring MD: Chanda Ferguson Medicines: Monitored Anesthesia Care Patient Profile: This is a 67 year old female. Last Colonoscopy: 2008. Complications: No immediate complications. Procedure: Pre-Anesthesia Assessment: - Prior to the procedure, a History and Physical was performed, and patient medications and allergies were reviewed. The patient's tolerance of previous anesthesia was also reviewed. The risks and benefits of the procedure and the sedation options and risks were discussed with the patient. All questions were answered, and informed consent was obtained. Prior Anticoagulants: The patient has taken no anticoagulant or antiplatelet agents. ASA Grade Assessment: Per anesthesia. After reviewing the risks and benefits, the patient was deemed in satisfactory condition to undergo the procedure. After I obtained informed consent, the scope was passed under direct vision. Throughout the procedure, the patient's blood pressure, pulse, and oxygen saturations were monitored continuously. The Colonoscope was introduced through the anus and advanced to the cecum, identified by the appendiceal orifice, ileocecal valve and palpation. The colonoscopy was performed without difficulty. The patient tolerated the procedure well. The quality of the bowel preparation was good. Scope In: 7:40:35 AM Scope Withdrawal Time 0 hours 9 minutes 25 seconds Scope Out: 8:01:39 AM Total Procedure Duration Time 0 hours 21 minutes 4 seconds Findings: The perianal and digital rectal examinations were normal. Two sessile polyps were found in the rectum. The polyps were less than 5 mm in size. These polyps were removed with a cold biopsy forceps. Resection and retrieval were complete. The exam was otherwise without abnormality on direct and retroflexion views. Impression: - Two less than 5 mm polyps in the rectum, removed with a cold biopsy forceps. Resected and retrieved. - The examination was otherwise normal on direct and retroflexion views. Recommendation: - Discharge patient to home. - Resume previous diet. - Continue present medications. - Await pathology results. - Repeat colonoscopy in 5-10 years for surveillance based on pathology results. Procedure Code(s): --- Professional --- 71107, PT, Colonoscopy, flexible; with biopsy, single or multiple Diagnosis Code(s): --- Professional --- Z12.11, Encounter for screening for malignant neoplasm of colon D12.8, Benign neoplasm of rectum CPT copyright 2021 [employer]. All rights reserved. The codes documented in this report are preliminary and upon siding installer review may be revised to meet current compliance requirements. MD Marilee Calvo MD 04/07/2023 8:07:58 AM This report has been signed electronically. Number of Addenda: 0 Note Initiated On: 04/07/2023 7:19 AM
--- NOTE | 2023-04-07 08:09 | OP.CCLET_ITS ---
04/07/2023 Chanda Ferguson [address] [place] [address] Re : Colonoscopy procedure for Fidelia Quinones Dear Dr. Ferguson This procedure was performed on Friday, April 07, 2023. My impressions and recommendations are as follows: Impressions : - Two less than 5 mm polyps in the rectum, removed with a cold biopsy forceps. Resected and retrieved. - The examination was otherwise normal on direct and retroflexion views. Recommendations : - Discharge patient to home. - Resume previous diet. - Continue present medications. - Await pathology results. - Repeat colonoscopy in 5-10 years for surveillance based on pathology results. My findings are described in the full procedure note, which is enclosed. If I can be of further assistance, please feel free to contact me at Doctor phone number(s): , Work: . Sincerely, MD Marilee Calvo MD 04/07/2023 8:07:58 AM This report has been signed electronically.
== END 2023-04-07 09:16 | disposition home or self-care (01) ==
LOC: SDC 06:14 → AC 06:15
PROVIDERS: PCP Internal Medicine; Referring Provider Internal Medicine; Visit Provider Surgery
PROC: 0DJD8ZZ Inspection of Lower Intestinal Tract, Via Natural or Artificial Opening Endoscopic (ICD-10-PCS; CPT 45378; principal; 2023-04-07 07:25)
DX: Z12.11 Encounter for screening for malignant neoplasm of colon (principal); Z90.49 Acquired absence of other specified parts of digestive tract; E78.00 Pure hypercholesterolemia, unspecified; Z80.0 Family history of malignant neoplasm of digestive organs; I10 Essential (primary) hypertension; D12.8 Benign neoplasm of rectum
CPT/HCPCS: 45380; 88305; J7120; J2405

== ENCOUNTER → 2023-05-05 | Outpatient (CLI) | payer MEDICARE, SELFPAY ==
--- NOTE | 2023-05-05 10:40 | RAD_ITS ---
INDICATION: left foot pain EXAMINATION/TECHNIQUE: X-RAY - LEFT XR Foot 2 Views COMPARISON: None. FINDINGS: 2 views of the left foot were obtained. No acute fracture identified. No dislocation. Accessory ossicles adjacent to the navicular and cuboid on the lateral view. Posterior and plantar calcaneal spurs. RAD/Foot 2 Views IMPRESSION: No acute fracture identified. Electronically Signed: Nba Chacon MD at 23:56 EDT ,
== END | disposition home or self-care (01) ==
PROVIDERS: PCP Internal Medicine; Referring Provider Internal Medicine; Visit Provider Internal Medicine
DX: M79.672 Pain in left foot (principal)
CPT/HCPCS: 73620

== ENCOUNTER → 2023-10-20 | Outpatient (CLI) | payer MEDICARE, SELFPAY ==
--- NOTE | 2023-10-20 10:21 | BI_ITS ---
MAMMOGRAPHY - BILATERAL SCREENING 3-D TOMOSYNTHESIS REASON FOR EXAM: Female, 68 years old. SCREENING PERTINENT HISTORY: No significant family history. TECHNIQUE: 2-D mammograms and 3-D Tomosynthesis of the breast (s) were performed. CAD was performed. COMPARISON: 09/15/2022 FINDINGS: The breast composition is composed of scattered fibroglandular density. Scattered benign calcifications are seen. No dense spiculated masses or suspicious microcalcifications are identified. No architectural distortion is identified. There is no skin thickening or retraction. There has been no significant change since the prior study. BI/SCRN MAMM (CAD)W/JULIUS BILAT IMPRESSION: No mammographic signs of malignancy. Routine yearly mammograms recommended. ASSESSMENT CATEGORY: BIRADS Category 1: Negative. A letter regarding these results will be sent to the patient by the facility within 30 days. FOLLOW UP RECOMMENDATION: Yearly follow up mammogram recommended. (A) Approximately 10% of breast cancers are not detected by mammography. A normal mammogram should not delay biopsy of a clinically suspicious abnormality. Electronically Signed: Felipe Arce MD at 19:34 EST ,
== END | disposition home or self-care (01) ==
LOC: OPBI 10:19
PROVIDERS: PCP Internal Medicine; Referring Provider Internal Medicine; Visit Provider Internal Medicine
DX: Z12.31 Encounter for screening mammogram for malignant neoplasm of breast (principal)
CPT/HCPCS: 77063; 77067

== ENCOUNTER → 2023-12-23 | Outpatient (CLI) | payer MEDICARE, SELFPAY ==
--- NOTE | 2023-12-23 16:20 | MRI_ITS ---
EXAM: MR LEFT LOWER EXTREMITY WITHOUT INTRAVENOUS CONTRAST, ANKLE CLINICAL INDICATION: PAIN TECHNIQUE: Multiplanar and multisequence MR images of the left ankle without intravenous contrast. COMPARISON: No relevant prior studies available. FINDINGS: LIGAMENTS: ANTERIOR TALOFIBULAR: Unremarkable. Intact. POSTERIOR TALOFIBULAR: Unremarkable. Intact. ANTERIOR TIBIOFIBULAR: Unremarkable. Intact. POSTERIOR TIBIOFIBULAR: Unremarkable. Intact. CALCANEOFIBULAR: Unremarkable. Intact. DELTOID: Unremarkable. Intact. SPRING: Unremarkable. Intact. LISFRANC: Unremarkable. Intact. TENDONS: ACHILLES: Unremarkable. Intact. FLEXOR: Unremarkable. Intact. EXTENSOR: Unremarkable. Intact. PERONEAL: Unremarkable. Intact. TIBIALIS ANTERIOR: Unremarkable. Intact. TIBIALIS POSTERIOR: Unremarkable. Intact. MUSCLES: Unremarkable. Normal bulk and signal. FLUID: At least moderate size posterior subtalar joint effusion. SINUS TARSI: Unremarkable. Normal fat in the sinus tarsi. TARSAL TUNNEL: Unremarkable. PLANTAR FASCIA: Plantar fasciitis manifested as thickening of the central cord pole of the plantar aponeurosis with adjacent fluid signal. CARTILAGE: Unremarkable. No osteochondral lesion. Articular cartilage intact. BONES/JOINTS: Small cyst at the posterior calcaneus. Talar dome intact. No fracture or marrow edema. OTHER SOFT TISSUES: Unremarkable. MRI/Lower Ext Joint Only (Routine) IMPRESSION: 1. Plantar fasciitis manifested as thickening of the central cord pole of the plantar aponeurosis with adjacent fluid signal. 2. At least moderate size posterior subtalar joint effusion. Electronically Signed: Roshan Guerra MD at 22:02 EDT ,
== END | disposition home or self-care (01) ==
LOC: MRI 16:15
PROVIDERS: PCP Internal Medicine; Referring Provider Podiatrist; Visit Provider Podiatrist
DX: M76.62 Achilles tendinitis, left leg (principal)
CPT/HCPCS: 73721

== ENCOUNTER 2024-02-25 05:50 | Day surgery (SDC) | payer MEDICARE, SELFPAY ==
--- NOTE | 2024-02-22 13:51 | EKG12_ITS ---
Test Reason : PREOP Blood Pressure : / mmHG Vent. Rate : 082 BPM Atrial Rate : 082 BPM P-R Int : 208 ms QRS Dur : 084 ms QT Int : 382 ms P-R-T Axes : 040 -19 028 degrees QTc Int : 446 ms Normal sinus rhythm Normal ECG Confirmed by Donovan Sewell ([id number]), editorial assistant GILBERT GUTIÉRREZ ([id number]) on 02/23/2024 9:57:08 AM Referred By: Best Lutz Confirmed By:Donovan Sewell
[2024-02-25] VITALS (11 sets, daily range): BP systolic 108–152; BP diastolic 64–93; PULSE 60–80; RESP 14–16; TEMP 36.1–36.9; O2SAT 93–98; BMI 29.5
--- NOTE | 2024-02-25 | TESH_PTH ---
PATIENT: NATALI MURDOCK [place] [facility] [place][id number] AGE/SX: 68/F ROOM: RE02/25/[address]: MAUDE WoodM : 1955 BED: DIS: 02/25/2024 SPEC #: [id number] RECD: 02/25/24 11:59 STATUS: FREDDIE RETrista #: [id number] DUSTIN: 02/25/24 00:[address]: Best Lutz DEPT: SURGICAL PATHOLOGY RECD BY: Luke Benites ENTERED: 02/25/24 13:12 SP TYPE: TENDON OTHR DR: Dr. Chanda Ferguson, DO Tissues: Tendon and tendon sheath, NOS Procedures: Surgery Specimen Level III HEADER OPERATION: Left Achilles tendon detachment, repair and reattachment PRE-OP DIAGNOSIS: Left foot pain TISSUE SUBMITTED: Left Achilles tendon and bursa MICROSCOPIC DIAGNOSIS Left Achilles tendon and bursa: Fragments of dense fibroconnective tissue with reactive changes. Fragments of fibroadipose tissue, cartilaginous tissue and bone. / 02/28/2024 MICROSCOPIC DESCRIPTION Slides are reviewed. GROSS DESCRIPTION Received in fixative is one container labeled with the patient's name and designated Left Achilles tendon and bursa. The specimen consists of multiple pieces of verdin indurated tissue mixed with verdin-yellow adipose tissue measuring in aggregate 5.0 x 3.0 x 0.3cm. The entire specimen is submitted in two cassettes. / 02/25/2024 TC:5 CPT:81700
[2024-02-25] MEDS: Lactated Ringers 1,000 ML 15 ML IV (06:27)
--- NOTE | 2024-02-25 06:30 | RAD_ITS ---
HISTORY: PAIN. TECHNIQUE: 17 spot images. COMPARISON: CR 05/05/2023. FINDINGS: OSSEOUS STRUCTURES: 2 screws transfixing calcaneal osteotomy. Overlying surgical instrument. RAD/Ankle 2 Views IMPRESSION: Image guidance for left calcaneal ORIF. Electronically Signed: Vane Steele MD at 12:39 EDT ,
--- NOTE | 2024-02-25 07:26 | PRE.ANES_ITS ---
ASA Classification* ASA Classification ASA Classification: 2 Assessment & Plan Anesthesia* Anesthesia Assessment Anesthesia Assessment: Discussed sedation and/or anesthesia options, risks, benefits, and alternatives with patient/parents/legal guardian/POA. Questions invited. The patient/parents/legal guardian/POA seems to understand and agrees to proceed with anesthesia plan. Reviewed the physical assessment, medical history, allergy history and patient home medications list prior to surgery/procedure/anesthetic and documented any changes. Performed airway and anesthesia risk assessments. Anesthesia Type Anesthesia Type: General (see written pre anesthesia record for full assessment) Anesthesia Focused Assessment* Temperature: 98.4 F Pulse Rate: 80 Blood Pressure: 152/77 Respiratory Rate: 16 Pulse Ox: 98 Airway Assessment Mouth opens: >3 cm Mallampati Score: II Focused Labs Anesthesia Preop lab: CBC WBC 3.6 K/mm3 (4.4-11.0) L 07/26/18 08:26 RBC 4.44 M/mm3 (4.2-5.4) 07/26/18 08:26 Hgb 14.1 g/dl (12.0-15.0) 07/26/18 08:26 Hct 41.7 % (37-47) 07/26/18 08:26 Plt Count 199 K/mm3 (150-450) 07/26/18 08:26 CHEMISTRY Potassium 4.3 mmol/L (3.5-5.1) 07/26/18 08:26 Sodium 143 mmol/L (136-145) 07/26/18 08:26 BUN 12 mg/dL (7-18) 07/26/18 08:26 Creatinine 0.59 mg/dL (0.55-1.02) 07/26/18 08:26 Glucose 82 mg/dL (74-106) 07/26/18 08:26 TSH 2.14 uIU/mL (0.358-3.74) 07/26/18 08:26 COAG Pre-Assessment Diagnosis/Proposed Procedure Planned Operative Procedure(s): (L) Left achilles tendon detachment, repair and reattachment, calcaneal spur resection, endoscopic gastrocnemius recession and plantar fascia recession with rodríguez calcaneal osteotomy Anesthesia History 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 When Was Last Pacemaker Check QUESTION #4 FULL TEXT: You/Your Family Experience fever (hyperthermia) with Anesthesia Last Oral Intake Last Oral intake: Last Oral Intake NPO since 19:00 02/25/24 06:23 Meds taken in AM with sips of Yes 02/25/24 06:23 water? Meds patient instructed to AMLODIPINE 02/25/24 06:23 take am of surgery PONV PONV - oyster grower: PONV - oyster grower Female Yes 02/18/24 14:26 HX of Motion Sickness No 02/18/24 14:26 HX of N/V After Surgery No 02/18/24 14:26 Non-Smoker Yes 02/18/24 14:26 Duration of Surgery greater Yes 02/18/24 14:26 than 60 minutes Number of Risk Factors 3 02/18/24 14:26 PONV Score Moderate Risk 02/18/24 14:26 Height & Weight Height & Weight: Anesthesia: Height & Weight Height 5 ft 4 in 02/25/24 06:23 Weight: 78 kg 02/25/24 06:23 Body Mass Index (BMI) 29.5 02/25/24 06:23 Respiratory Assessment Respiratory Assessment - oyster grower: Respiratory Tract Infection Hx - oyster grower Hx Respiratory Tract Infection No 02/18/24 14:26 STOP Sleep Apnea STOP Sleep Apnea - oyster grower: STOP Sleep Apnea - oyster grower Hx Hypertension Yes 02/18/24 14:26 Hx Sleep Apnea No 02/18/24 14:26 CPAP BIPAP Do you snore loudly (louder No 02/18/24 14:26 than talking or can be heard Do you often feel tired/ No 02/18/24 14:26 fatigued/ sleepy during daytime? Has anyone observed you stop No 02/18/24 14:26 breathing during sleep? STOP Results Negative 02/18/24 14:26 QUESTION #5 FULL TEXT : Do you snore loudly (louder than talking or can be heard through closed doors)? Tobacco Use History Tobacco Use History - oyster grower: Tobacco Use History - oyster grower Tobacco Use Smoking Status Never smoker 02/18/24 14:26 Hx Tobacco Use Yes 02/18/24 14:26 Years Smoking Packs Smoked per Day Smoking Cessation Date was within the last 15 years Hx Smoking Cessation Date Hx Smoking Cessation Counseling Hematologic Medial History Hematologic Hx - oyster grower: Hematologic Medical Hx - vendette Hx of Blood Transfusion No 02/18/24 14:26 Hx of Transfusion in last 3 No 02/18/24 14:26 Months Date of Last Transfusion (if within last 3 months) Ever experience any problems No 02/18/24 14:26 with transfusion(s)? Specify any problems Hx of Preganancy in last 3 No 02/18/24 14:26 Months Nurse Filling Out Transfusion VLEHMAN 02/18/24 14:26 & Questions: Date: 02/18/24 02/18/24 14:26 Time: 14:34 02/18/24 14:26 Patient unable to answer at this time (ie. confused, unrespo /Reproduction History /Reproductive History - oyster grower: /Reproductive Hx- oyster grower Hx Now No 02/18/24 14:26 Gestational Age (in weeks): EDC: Hx Hx Para Hx Section SAB No 03/31/23 13:31 Active Medications Active Medications: Current Medications Generic Name Dose Route Start Last Admin Trade Name Freq PRN Reason Stop Dose Admin Cefazolin Sodium 2 gm/ Sodium 110 mls @ 150 mls/hr 02/25/24 07:30 Chloride IV 02/25/24 08:13 PREOP ONE Lactated Ringer's 1,000 mls @ 15 mls/hr 02/25/24 06:15 02/25/24 06:27 IV 15 mls/hr .Q48H ELISABET Administration PFSH Medical History Alcohol use Bruising History of steroid therapy Arthritis Wears glasses High cholesterol Non-smoker Hyperlipidemia Other migraine, intractable, without status migrainosus GERD without esophagitis Hematuria Right lower quadrant abdominal pain Hypertension Home Medications ?Medication ?Instructions ?Recorded ?Last Taken ?Type simvastatin 10 mg tablet 10 mg PO DAILY 06/22/21 04/06/23 History amlodipine 2.5 mg tablet 5 mg PO DAILY 02/23/23 02/25/24 History calcium carbonate (Oyster Shell 500 mg PO DAILY 02/23/23 02/17/24 06:28 History Calcium) cholecalciferol (vitamin D3) 50 50 mcg PO DAILY 02/23/23 02/17/24 History mcg (2,000 unit) capsule cyanocobalamin (vitamin B-12) 1,000 mcg PO DAILY 02/23/23 02/17/24 History 5,000 mcg capsule glucosamine-chondroitin 250 mg-200 2 tab PO .QD 02/23/23 04/06/23 History mg tablet (Osteo Bi-Flex) ibuprofen 200 mg tablet (Advil) 200 mg PO Q6H PRN pain 02/23/23 Unknown History krill oil 1,000 mg-om3 130 mg-dha 1 cap PO DAILY 02/23/23 04/06/23 History 40 mg-epa 80 [id number]-astax cap (Krill Oil ([place] 3 and 6)) lactobacillus combination no.9 4 4,000 mmu cells PO DAILY 02/23/23 04/06/23 History billion cell capsule (Adult 50 Plus Probiotic) magnesium 200 mg tablet 200 mg PO DAILY 02/23/23 04/06/23 History sour vazquez extract 1,000 mg 465 mg PO DAILY 02/23/23 04/06/23 History capsule (Tart Vazquez Extract) vitamin E (dl, acetate) 180 mg 180 mg PO DAILY 02/23/23 04/06/23 History (400 unit) capsule Allergy/AdvReac Type Severity Reaction Status Date / Time No Known Allergies Allergy Verified 02/25/24 06:28 Family History Sister Colon polyps Unknown Colon cancer Surgical History History of lumpectomy of right breast History of ovarian cystectomy History of Hx of colonoscopy Social History household members: spouse current occupational status: employed Smoking Status: Never smoker substance use type: does not use Review of Systems (Anesthesia) ROS Narrative System reviewed and no additional complaints, except as documented.
[2024-02-25] MEDS: Cefazolin 2 GM in 0.9% Normal Saline (100mL Bag) 100 ML IV (07:34)
[2024-02-25] MEDS: Bupivacaine Mpf 0.5% 30 ML VIAL (10:02)
--- NOTE | 2024-02-25 10:26 | PCM.OPRPT ---
Problems Associated Problem List Diagnoses (1) Calcaneal spur of left foot: (2) Achilles tendinitis, left leg: (3) Short Achilles tendon (acquired), left ankle: (4) Plantar fascial fibromatosis: (5) Cavus deformity of left foot: Report of Operation Date of Procedure: 02/25/24 Pre-Operative Diagnosis: 1) left Achilles tendinopathy, insertional 2) calcaneal spur with Teresa's deformity, left lower extremity 3) hindfoot varus deformity, rigid, left lower extremity 4) gastrocnemius equinus, left lower extremity 5) plantar fasciitis left lower extremity Post-Operative Diagnosis: Same Surgery/Procedure Performed:: 1) endoscopic gastrocnemius recession, left 2) endoscopic plantar fascial release, left foot 3) rodríguez closing base calcaneal osteotomy, left foot 4) Achilles tendon debridement detachment, calcaneal spur resection and reattachment Achilles tendon, left lower extremity 5) application of splint left lower extremity 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 All osseous prominences were offloaded prevent any compression neuropraxia or any issues during prone surgery. Well-padded left thigh tourniquet was applied to left lower extremity. Preoperatively patient received popliteal block. Left lower extremity was scrubbed prepped draped using typical aseptic fashion. Left lower extremity was elevated exsanguinated tourniquet was inflated to 300 mmHg. Procedure #1 endoscopic gastrocnemius recession: The gastrocnemius muscle belly was identified and a medial and incision was made just 1 cm distal to the distal aspect of the muscle belly hemostats were used to deepen the incision down to the gastrocnemius aponeurosis from medial to lateral a trocar and cannula were inserted and the trocar was used to make the lateral incision with a 15 blade laterally to completely traverse the gastrocnemius aponeurosis a 4 oh scope was inserted from lateral and the gastrocnemius aponeurosis was identified and this was released using the triangular blade that comes with the Damaris endoscopic and gastrocnemius recession kit. Ankle joint dorsiflexion was noted to be increased by approximately 3 degrees upon release of the gastrocnemius aponeurosis. Site was flushed with copious normal sterile saline and closed with 3-0 nylon. Procedure #2 endoscopic plantar fasciotomy: 1 cm distal to medial calcaneal tubercle a medially based stab incision was made with a 15 blade this was deepened with hemostats down the level of plantar fascia trocar cannula were inserted from medial to lateral and exited the lateral side after a stab incision was made laterally 4 oh scope was inserted plantar fascia was identified the medial two thirds of the plantar fascia were then released using the triangular blade that comes with the L'Idealist endoscopic release kit. Adequate release of the plantar fascia was noted with visualization of underlying intrinsic musculature. All instruments were removed sites were flushed with copious normal sterile saline and closed using horizontal mattress with 3-0 nylon. Procedure #3 Rodríguez, laterally based calcaneal osteotomy: An oblique lateral incision was drawn out perpendicular to the calcaneal inclination angle using fluoroscopic imaging this incision was made full-thickness through epidermis into subcutaneous tissue using a 15 blade any bleeders identified cauterized neurovascular structures were protected with blunt retraction. Blunt dissection was taken down the level of periosteum calcaneus was identified. A 4 mm laterally based wedge was removed maintaining the medial calcaneal wall using a sagittal saw. This allowed for reduction of the varus deformity placing the calcaneus in 2 to 3 degrees of valgus alignment with regards to the tibia. This was confirmed with fluoroscopic imaging. This was stabilized with 2 headless compression cannulated screws fix os. These were placed with manufactures guidelines. Adequate alignment of the foot and position of the screws were confirmed with fluoroscopic imaging. Site was flushed with copious amounts normal sterile saline. Deep and subcutaneous closure performed with simple interrupted buried 3-0 Vicryl. Skin closure performed with horizontal mattress 3-0 nylon. Procedure #4 Achilles tendon debridement detachment, calcaneal spur resection and reattachment Achilles tendon, left lower extremity: A medialized Achilles and send incision was used to increase the gap from the lateral calcaneal incision. This is also to intended to avoid a painful posterior Achilles scar. This was ran linear along the medial aspect of the Achilles tendon avoiding the sural nerve. This incision was made with a 15 blade through epidermis dermis into subcutaneous tissue blunt dissection was taken down the level of deep fascia Achilles tendon was identified Achilles tendon was then split longitudinally at its midsection down to calcaneal bone it was removed or dissected off the medial and lateral margins of the calcaneus with book and opening to allow for exposure to retrocalcaneal spur and Teresa's deformity Teresa's deformity and spur were removed using a sagittal saw and reciprocating rasp this was confirmed with lateral fluoroscopic imaging additional confirmation was made with rotating the foot 45 degrees relative to the thin film to allow for three-dimensional examination of the posterior calcaneus to ensure no residual bumps spurring or Teresa's deformity is noted. Once this was confirmed some the deep retrocalcaneal bursa was excised using pickups and blunt dissection with Metzenbaum scissors. Achilles tendinosis was debrided from the Achilles tendon using pickups and Metzenbaum scissors. Both these were passed back table and sent to pathology for further examination. Achilles tendon was then repaired via retubularization with #2 FiberWire. They were reattached to the calcaneus using four 4.5's atrophic Damaris anchors using standard speed bridge technique. This was placed with the foot in gravity plantarflexion allows for adequate dorsiflexion of the foot as well. Site was flushed with copious amounts normal sterile saline deep and subcutaneous closure performed with buried interrupted 3-0 Vicryl. Skin closure performed with running intra-articular subcuticular with 3-0 Monocryl. Tourniquet was let down prior to incisional closure on this case. Total tourniquet time was noted be an hour and 45 minutes. Any bleeders identified and cauterized. Foot was cleansed and then dressed with Betadine Adaptic 4 x 4 Kerlix and a well-padded AO splint with the foot in gravity plantarflexion. Patient was transported to PACU vital signs stable vascular status intact all digits for further management prior to discharge. Patient tolerated procedure and anesthesia well apparent satisfactory condition. No complications Adequate reduction of calcaneal varus deformity with increased ankle joint dorsiflexion No residual Teresa's deformity or calcaneal spurring noted with yazidism of Achilles function Insertional Achilles tendinopathy as well as deep retrocalcaneal bursa were excised and sent for pathology
--- NOTE | 2024-02-25 10:26 | PCM.POST.ANE ---
Anesthesia: Postop Eval I Current Vital Signs Temperature: 97 F Pulse Rate: 70 Blood Pressure: 135/76 Respiratory Rate: 14 Pulse Ox: 97 Oxygen Delivery Method: Room Air Assessment Airway patent: Yes Spontaneous unlabored respirations: Yes Mental status: Awake and Calm nausea: No Vomiting: No Anesthesia Complication: No Fluid Hydration Crystalloid volume administer (ml): 1,500 Total IV fluid infused: 1,500 Progress Note Anesthesia document: Postop Eval 1 completed: Yes
--- NOTE | 2024-02-25 10:38 | POSTOPAN2_ITS ---
Anesthesia Postop Eval I Sum Postop Eval Completion status Anesthesia document: Postop Eval 1 completed: Yes Anesthesia Postop Eval I Summary Anesthesia Postop Eval I Summary: Anesthesia Postop Eval I: Assessment Summary Airway patent Yes 02/25/24 10:27 DEVELOPMENT TECHNICAL [email or web address] Spontaneous unlabored Yes 02/25/24 10:27 DEVELOPMENT TECHNICAL [email or web address] respirations Mental status Awake,Calm 02/25/24 10:27 DEVELOPMENT TECHNICAL [email or web address] nausea No 02/25/24 10:27 DEVELOPMENT TECHNICAL [email or web address] Vomiting No 02/25/24 10:27 DEVELOPMENT TECHNICAL [email or web address] Anesthesia Postop Eval I: Fluid Summary Crystalloid volume administer 1,500 02/25/24 10:27 DEVELOPMENT TECHNICAL [email or web address] (ml) Colloids volume administered ( ml) Blood Product volume administered (ml) Total IV fluid infused 1,500 02/25/24 10:27 DEVELOPMENT TECHNICAL [email or web address] Anesthesia Postop Eval I: Summary Notes Anesthesia Complication No 02/25/24 10:27 DEVELOPMENT TECHNICAL [email or web address] Anesthesia Complication Comment: Post-operative progress note Anesthesia: Postop Eval II Evaluation Mental status: Awake Pain Level: 0 nausea: No Vomiting: No
--- NOTE | 2024-02-25 10:38 | PCM.POSTANE2 ---
Anesthesia Postop Eval I Sum Postop Eval Completion status Anesthesia document: Postop Eval 1 completed: Yes Anesthesia Postop Eval I Summary Anesthesia Postop Eval I Summary: Anesthesia Postop Eval I: Assessment Summary Airway patent Yes 02/25/24 10:27 BUILDING [email or web address] Spontaneous unlabored Yes 02/25/24 10:27 BUILDING [email or web address] respirations Mental status Awake,Calm 02/25/24 10:27 BUILDING [email or web address] nausea No 02/25/24 10:27 BUILDING [email or web address] Vomiting No 02/25/24 10:27 BUILDING [email or web address] Anesthesia Postop Eval I: Fluid Summary Crystalloid volume administer 1,500 02/25/24 10:27 BUILDING [email or web address] (ml) Colloids volume administered ( ml) Blood Product volume administered (ml) Total IV fluid infused 1,500 02/25/24 10:27 BUILDING [email or web address] Anesthesia Postop Eval I: Summary Notes Anesthesia Complication No 02/25/24 10:27 BUILDING [email or web address] Anesthesia Complication Comment: Post-operative progress note Anesthesia: Postop Eval II Evaluation Mental status: Awake Pain Level: 0 nausea: No Vomiting: No
[2024-02-25] MEDS: Ketorolac 30 MG/ML Syringe IV (10:52)
== END 2024-02-25 12:28 | disposition home or self-care (01) ==
LOC: SDC 05:50 → AC 05:54
PROVIDERS: PCP Internal Medicine; Referring Provider Podiatrist; Visit Provider Podiatrist
PROC: (CPT 28119; principal; 2024-02-25 07:15)
DX: M77.32 Calcaneal spur, left foot (principal); M76.62 Achilles tendinitis, left leg; M67.02 Short Achilles tendon (acquired), left ankle; M72.2 Plantar fascial fibromatosis; Q66.72 Congenital pes cavus, left foot; I10 Essential (primary) hypertension; E55.9 Vitamin D deficiency, unspecified; K21.9 Gastro-esophageal reflux disease without esophagitis; M85.80 Other specified disorders of bone density and structure, unspecified site; E78.49 Other hyperlipidemia; Z79.899 Other long term (current) drug therapy
CPT/HCPCS: 27687; 29893; 28300; 27650; 28119; 64445; 01474; 73600; 76000; 88304; 93005; C1713; J7120; J2405

== ENCOUNTER 2024-05-22 12:00 | Outpatient (RCR) | payer MEDICARE, SELFPAY ==
--- NOTE | 2024-04-10 11:24 | HP.PTEVAL_ITS ---
Patient's Visit Information Visit Information Visit Information: NATALI MURDOCK is a 68 year old F referred to Physical Therapy by Dr. Best Lutz DPM with a diagnosis of Achilles tendonitis s/p clean out and repair 02/24. Date of Evaluation: 04/10/24 Physical Therapist: Elie Desai DPT, OCS, CSCS Visit Plan Frequency: 2x /Week Duration: 4-6 Weeks Plan: 2x/week for 4-6 as needed for ... gait training to weaning boot and device, STM foot and achilles/gastroc and ROM and mobs L ankle, strength and proprio L ankle to HEP. Ice if needed IE: towel toe curls x 40, ankle circles 20, seated heel toe raises 2x10, gastroc belt stretch 30 5x all 2x/day with pics and educate on weaning boot Subjective Subjective: Achilles tendonitis surgery and reattached/fixed achilles L side and plantarfasciitis and that was . @ weeks of cast then boot for last month. Had been bothering her for a year or so prior and exercises did not help. Had cortisone injections helped a little but not permanenet. No exercises to do but she does move her foot. Retuirns to doctor today. Using boot and no AD currently. 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 Needs to wean into shoe. 4 days per week Can ease back in. Regular exercises none. Basic ADLs are all I. with boot. No steps except in back door and no problem. Hobbies: None Pain Lateral ankle.: Pain Intensity (Out of 10): 0 Pain Intensity Range: 0 and 4 Comment: if overdoes it. does not hurt at rest. Objective Objective: Walks in I with boot, trasfers and gait I. without boot is slow and short 3 inch steps, I no pain. with walker takes nice step length and avoids pushoff L but better gait pattern. with cane R UE is able to walk safely fairly well. Still short R step length and avoiding some pushoff. AROM L ankle 1 Df vs 5 on R, PF 50 R and 38 L, inversion L 20 and eversion 10/ Strength L ankle 4- without pain vs 4 on R. reflexes 2/3 patella and achilles incisions are dressed and not visualize as patient seeing doctor today. Balance/Special Test Scores Lower Extremity Functional Score: 35 Goals Goal 1:: Walk without AD in community based distances without antalgia or pain Goal Time Frame: 4-6 Weeks Goal 2:: steps reciprocally and without deviations Goal Time Frame: 4-6 Weeks Goal 3:: Patient feel 90% back to normal walking and activities Goal Time Frame: 4-6 Weeks Goal 4:: plan to return to work Goal Time Frame: 4-6 Weeks Goal 5:: LEFS score 50 Goal Time Frame: 4-6 Weeks Rehabilitation Potential Physical Therapy Diagnosis: limited ROM and wB confidence limiting funciton Rehabilitation Potential: Good Anticipated Interventions Patient/Client Instruction: Educate patient on: Condition and Plan of Care For the Purpose of:: To decrease pain, To increase ROM, To improve nutrient delivery to tissue, To increase tolerance to activity/condition/position and To improve gait and locomotor functions Therapeutic Exercise to Include: Strength training, Balance training, Flexibilty training, Gait and locomotor training, Passive ROM and Active ROM For the Purpose of:: To decrease pain, To increase ROM, To improve nutrient delivery to tissue, To improve muscle performance and motor function and To improve gait and locomotor functions Manual Therapy Techniques to Include: Mobilization, Passive ROM and Soft tissue mobilization For the Purpose of:: To decrease pain and To increase ROM Cryotherapy (ice pack, ice massage): Yes For the Purpose of:: To decrease pain and To decrease swelling/inflammation Text: Thank you for the opportunity to evaluate your patient. For Medicare and Medicare HMO plans, please review the plan of care and approve it. It will need to be FAXED BACK to us at [phone] for Medicare purposes. For Medicare only, by signing this I certify the plan of care. Please let me know if there are questions or concerns regarding this plan of care. Physician Signature: Date:
--- NOTE | 2024-05-22 12:53 | HP.PTREVAL ---
Re-Evaluation Intro: Dr. Best Lutz, DPM, It has been my pleasure to treat NATALI MURDOCK over the last 13 visits for Achilles tendonitis s/p clean out and repair 02/24. Please see the progress note below for an update on the physical therapy plan of care! Subjective Subjective: Getting there. Still Up and down pain with walking at [facility] yesterday but pain is across top and outside of ankle. Shooting pain outside of foot. Achilles is not bad except in am, Steps are still stiff and challenging. Much better. Hurts at rest sometimes but mostly when on feet alot. Sleep is OK. Being carefu with activity but doing most of what she needs to do. Objective Objective/Function: 64# PF in long sit unable to L single leg heel raise, able to B heel raise hoklding on. Pushing off with walking but slow and minimal. Landing on forefoot L descending steps but weak. New goal and POC for four more weeks of monitor at home. fair prognosis. Plan Plan Plan: f/u one month to check PF strength heel raise and gait. one more visit unless she calls and needs more. Balance/Gait/Functional tests Balance/Special Test Scores Lower Extremity Functional Score: 55 Goals Goals Goal 1:: Walk without AD in community based distances without antalgia or pain Goal Time Frame: 4-6 Weeks Goal Progress: Goal Met Goal 2:: steps reciprocally and without deviations Goal Time Frame: 4-6 Weeks Goal Progress: Goal Met Goal 3:: Patient feel 90% back to normal walking and activities Goal Time Frame: 4-6 Weeks Goal Progress: Goal Met Goal 4:: plan to return to work Goal Time Frame: 4-6 Weeks Goal Progress: Progressing Goal 5:: LEFS score 50 Goal Time Frame: 4-6 Weeks Goal Progress: Goal Met Goal 6:: L leg single leg heel raise I Goal Time Frame: 2-4 Weeks Goal Progress: NEW GOAL Anticipated Interventions Anticipated Interventions Patient/Client Instruction: Educate patient on: Condition and Plan of Care For the Purpose of:: To decrease pain, To increase ROM, To improve nutrient delivery to tissue, To increase tolerance to activity/condition/position and To improve gait and locomotor functions Therapeutic Exercise to Include: Strength training, Balance training, Flexibilty training, Gait and locomotor training, Passive ROM and Active ROM For the Purpose of:: To decrease pain, To increase ROM, To improve nutrient delivery to tissue, To improve muscle performance and motor function and To improve gait and locomotor functions Manual Therapy Techniques to Include: Mobilization, Passive ROM and Soft tissue mobilization For the Purpose of:: To decrease pain and To increase ROM Cryotherapy (ice pack, ice massage): Yes For the Purpose of:: To decrease pain and To decrease swelling/inflammation Re-Evaluation Ending Re-evaluation ending: Please do not hesitate to contact me at [phone] by phone or if you have questions or concerns regarding this new plan of care! Sincerely, Elie Desai, DPT, OCS, CSCS
--- NOTE | 2024-07-25 12:04 | HP.PT.NRP ---
Patient Information Patient Information: NATALI MURDOCK was seen in my office for initial evaluation on 04/10/24. The following Plan of Care was established for this patient: POC Established Initial Frequency: 2x /Week Initial Duration: 4-6 Weeks Anticipated Interventions Patient/Client Instruction: Educate patient on: Condition and Plan of Care For the Purpose of:: To decrease pain, To increase ROM, To improve nutrient delivery to tissue, To increase tolerance to activity/condition/position and To improve gait and locomotor functions Therapeutic Exercise to Include: Strength training, Balance training, Flexibilty training, Gait and locomotor training, Passive ROM and Active ROM For the Purpose of:: To decrease pain, To increase ROM, To improve nutrient delivery to tissue, To improve muscle performance and motor function and To improve gait and locomotor functions Manual Therapy Techniques to Include: Mobilization, Passive ROM and Soft tissue mobilization For the Purpose of:: To decrease pain and To increase ROM Cryotherapy (ice pack, ice massage): Yes For the Purpose of:: To decrease pain and To decrease swelling/inflammation Last Seen Last Seen: This patient was last seen in our office 05/22/24. Pertinent comments regarding their Physical therapy will appear below: Pt seen 13 visits of POC and was 90% better. she was to f/u a month later to ensure progress but did not schedule or attend. At this point, it has been over two months and I will discontinue due to nonattendance. At this point I will be discontinuing this patient from physical therapy. I would be happy to see this patient again in the future if found appropriate by the physician. Thank you! Elie Desai, DPT, OCS, CSCS Balance/Gait/Functional tests Balance/Special Test Scores Lower Extremity Functional Score: 55
== END 2024-05-22 19:00 | disposition home or self-care (01) ==
LOC: PT 12:00
PROVIDERS: PCP Internal Medicine; Referring Provider Podiatrist; Visit Provider Podiatrist
DX: M76.62 Achilles tendinitis, left leg (principal)
CPT/HCPCS: 97110; 97140; 97161; 97530

== ENCOUNTER → 2024-09-25 | Outpatient (CLI) | payer OTHER, SELFPAY ==
[2024-09-25 08:33] LABS: Mucous, Urine 0 SEEN /hpf (<or=2+)
[2024-09-25 08:58] LABS: Absolute Lymphocyte Count 1.99 X10^3/uL (0.83-4.51); Basophil# 0.02 X10^3/uL; Basophil% 0.4 % (0-1); Eosinophil# 0.07 X10^3/uL; Eosinophils% 1.5 % (0-5); Hematocrit 41.6 % (37-47); Hemoglobin 14.1 g/dL (12.0-15.0); Lymphocyte # 1.99 X10^3/ul (0.83-4.51); Lymphocyte % 43.4 % (19-41); Mean Corp Hgb Conc 33.9 g/dL (32-36); Mean Corpuscular Hgb 31.8 pg (27.0-32.0); Mean Corpuscular Volume 93.9 fL (81-99); Monocyte% 10.9 % (0-10); NRBC Flagged by Analyzer 0 % (0-5); Neutrophil # 1.98 X10^3/uL (2.7-7.7); Neutrophil % 43.4 % (47-70); Platelet Count 229 K/mm3 (150-450); RBC Distribution Width CV 11.9 % (11.6-14.6); RBC Distribution Width SD 41.1 fl (35.1-43.9); Red Blood Count 4.43 M/mm3 (4.2-5.4); White Blood Count 4.6 K/mm3 (4.4-11.0)
[2024-09-25 09:01] LABS: Color, Urine Straw (Yellow); Glucose, Dipstick Normal (Normal); Ketone-Dipstick Negative (Negative); Leukocyte Esterase-Dipstick Negative /ul (Negative); Nitrite-Dipstick Negative (Negative); Occult Blood-Urine Negative /ul (Negative); Protein-Dipstick Negative (Negative); Urine Bilirubin Dipstick Negative (Negative); Urine Clarity Clear (Clear); Urine Urobilinogen Normal (Normal)
[2024-09-25 09:08] LABS: Bacteria RARE /hpf (None Seen); Red Blood Cells-Urine 0 SEEN /hpf (0-5); Squamous Epithelial Cells - UA 0-5 SEEN /hpf (5-10); White Blood Cells 0-5 SEEN /hpf (0-5)
[2024-09-25 09:31] LABS: ALB/GLOB Ratio 1.1 RATIO (0.9-2.4); AST(SGOT) 20 U/L (15-37); Alanine Aminotransfer ALT/SGPT 25 U/L (13-56); Albumin, Serum 3.9 g/dL (3.2-5.0); Alkaline Phosphatase 84 U/L (45-117); Anion Gap 6 (5-15); BUN 12 mg/dL (7-18); BUN/Creat Ratio 18.3 RATIO (10-20); Chloride 106 mmol/L (98-107); Cholesterol 207 mg/dL (200); Creatinine, Serum 0.66 mg/dL (0.55-1.02); EST Glomerular Filtration Rate 96 mL/min (>60); Est Glom Filt Rate - Afr Amer 116 mL/min (>60); Globulin 3.5 g/dL (2.2-4.2); Glucose 91 mg/dL (74-106); High Density Lipoprotein 66 mg/dL; Potassium 3.8 mmol/L (3.5-5.1); Protein, Total 7.4 g/dL (6.4-8.2); Sodium Level 140 mmol/L (136-145); Triglycerides 197 mg/dL; Very Low Density Lipoprotein 39 mg/dL (5-40)
[2024-09-25 11:50] LABS: Microalbumin,Random Urine < 5.0 mg/L (NO RANGE EST.)
== END | disposition home or self-care (01) ==
LOC: LAB 08:30
PROVIDERS: PCP Internal Medicine; Referring Provider Internal Medicine; Visit Provider Internal Medicine
DX: E78.49 Other hyperlipidemia (principal); E55.9 Vitamin D deficiency, unspecified; I10 Essential (primary) hypertension
CPT/HCPCS: 36415; 80053; 80061; 81001; 82043; 82306; 82570; 84443; 85025

== ENCOUNTER → 2024-11-15 | Outpatient (CLI) | payer MEDICARE, SELFPAY ==
--- NOTE | 2024-11-15 07:55 | BI_ITS ---
EXAM: SCRN MAMM (CAD)W/JULIUS BILAT DATE: 11/15/2024 CLINICAL HISTORY: F, Age 69 y/o , SCRN MAMM (CAD)W/JULIUS BILAT No family history. History of prior right excisional breast biopsy and left breast cysts. BREAST CANCER RISK ASSESSMENT: Not assessed. TECHNIQUE: Bilateral screening digital breast tomosynthesis with 2D and 3D images. Computer aided detection. COMPARISON: Prior exam(s) dated October 20, 2023.. FINDINGS: TISSUE DENSITY: The breast tissue is heterogenously dense, which may obscure small masses. Bilateral Breast Mammographic Findings: No significant masses, calcifications or other abnormalities are identified. No suspicious masses, areas of developing architectural distortion, or suspicious calcifications. There has been no significant interval change. Stable small bilateral axillary lymph nodes. BI/SCRN MAMM (CAD)W/JULIUS BILAT IMPRESSION: Right Breast: BIRADS 2 BENIGN FINDING. Left Breast: BIRADS 2 BENIGN FINDING. OVERALL FINAL ASSESSMENT: BIRADS 2 BENIGN FINDING RECOMMENDATION: Routine annual follow-up in 1 Year A letter with findings and recommendations will be mailed to the patient. Reading Location: [place] [id number]
--- NOTE | 2024-11-15 07:55 | BD_ITS ---
PROCEDURE: DEXA BONE DENSITY STUDY 11/15/2024 REASON FOR EXAM: F, age 69 y/o . Postmenopausal. TECHNIQUE: DXA scan of the lumbar spine and both hips using make and model. REFERENCE LINKS: [facility] Adult Positions COMPARISON: Comparison is made with prior study dated September 15, 2022. FINDINGS: BMD and T-SCORES Lumbar spine: 0.765 g/cm2, T-Score -2.4 L1 through L4 Change from prior: Loss of 6.6% Left femoral neck: 0.617 g/cm2, T-Score -2.1 Femoral neck comparison data not recommended for monitoring change. Left total hip: 0.794 g/cm2, T-Score -1.2 Change from prior: Loss of 1% Right femoral neck: 0.737 g/cm2, T-Score -1.0 Femoral neck comparison data not recommended for monitoring change. Right total hip: 0.832 g/cm2, T-Score -0.9 Change from prior: Improvement by 3.1% Fracture Risk Calculation: FRAX (10-year Fracture Risk) Score: FRAX scores should never be reported in a patient with osteoporosis on DEXA or for any patient that is on bone medication. The patient doesmeet the pharmacological treatment recommendations for prevention of osteoporosis BD/Dexa Bone Density Study IMPRESSION: OSTEOPENIA. Recommend follow-up as clinically warranted. Reading Location: [place] [id number]
== END | disposition home or self-care (01) ==
LOC: OPBD 07:54
PROVIDERS: PCP Internal Medicine; Referring Provider Internal Medicine; Visit Provider Internal Medicine
DX: Z12.31 Encounter for screening mammogram for malignant neoplasm of breast (principal); Z78.0 Asymptomatic menopausal state
CPT/HCPCS: 77063; 77067; 77080